=== PATIENT | male | born 1945 | race Caucasian/White ===

== ENCOUNTER → 2020-03-16 11:47 | Outpatient (BNVA) | payer MEDICARE, SELFPAY | PROVIDERS: PCP Internal Medicine; Visit Provider Internal Medicine | DX: I48.0 Paroxysmal atrial fibrillation (principal); Z51.81 Encounter for therapeutic drug level monitoring; Z79.01 Long term (current) use of anticoagulants | CPT/HCPCS: 93793 ==

== ENCOUNTER 2020-03-17 08:41 | Outpatient (REF) | payer MEDICARE, SELFPAY ==
[2020-03-17 10:02] LABS: Basophils Absolute Auto 0.1 X10*3/uL (0.0-0.2); Basophils Percent Auto 0.5 % (0-2); Eosinophils Absolute Auto 0.2 X10*3/uL (0.0-0.4); Eosinophils Percent Auto 2.1 % (0-4); Hematocrit 29.2 % (42-52); Hemoglobin 9.2 g/dl (14.0-18.0); Imm Gran Abs Auto 0.04 X10*3/uL (0.00-0.03); Imm Gran Pct Auto 0.4 % (0.0-0.4); Lymphocytes Absolute Auto 0.4 X10*3/uL (1.2-4.9); Lymphocytes Percent Auto 4.2 % (20-40); MANUAL DIFF FLAG SCAN; Mean Corpuscular HGB Conc 31.5 g/dl (31.0-36.0); Mean Corpuscular Hemoglobin 32.2 pg (27.0-33.0); Mean Corpuscular Volume 102.1 fL (80-98); Mean Platelet Volume 10.1 fL (9.4-12.4); Monocytes Percent Auto 9.5 % (2-11); Neutrophils Absolute Auto 8.5 X10*3/uL (2.0-8.3); Neutrophils Percent Auto 83.3 % (45-73); Platelet Count 376 X10*3/uL (160-400); Red Blood Count 2.86 X10*6/uL (4.60-5.80); SCAN SMEAR FLAG 1; White Blood Count 10.2 X10*3/uL (4.8-10.8)
[2020-03-17 10:26] LABS: Alanine Aminotransferase 17 U/L (0-40); Albumin Level 3.8 g/dL (3.5-5.0); Alkaline Phosphatase 354 U/L (39-117); Anion Gap 10 (12-20); Aspartate Amino Transferase 73 U/L (5-37); Bilirubin Total 0.5 mg/dL (0.0-1.0); Blood Urea Nitrogen 22 mg/dL (9-16); Carbon Dioxide 31 mmol/L (22-29); Chloride 102 mmol/L (96-108); Cholesterol 139 mg/dL; Estimated Glomerular Filt Rate > 60; Glucose Fasting 106 mg/dL (60-99); HDL Cholesterol 44 mg/dL; LDL Cholesterol Calculated 73 mg/dl; Potassium 5.3 mmol/l (3.3-5.1); Sodium 138 mmol/L (135-145); Total Protein 6.3 g/dL (6.5-8.0); Triglycerides 112 mg/dL
[2020-03-17 10:50] LABS: TSH reflex Free T4 6.01 mIU/mL (0.32-4.0)
[2020-03-17 11:01] LABS: Creatinine Urine 56.98 mg/dL
[2020-03-17 11:06] LABS: SLIDE REVIEW VERIFIED
[2020-03-17 11:22] LABS: Glucose Urine UA NEG (NEG); Leukocyte Esterase Urine NEG (NEG); Nitrite Urine NEG (NEG); Urine Blood NEG (NEG); Urine Ketones NEG (NEG); Urine Protein NEG (NEG-TRACE)
[2020-03-17 11:30] LABS: Free T4 (Free Thyroxine) 1.08 ng/dL (0.71-1.85)
[2020-03-17 11:31] LABS: Appearance Urine CLEAR; Color Urine YELLOW
[2020-03-17 12:46] LABS: RBC Urine 0 /HPF (0); WBC Urine 0 /HPF (0-4)
== END 2020-03-17 08:42 | disposition home or self-care (01) ==
LOC: HO.LAB 08:41
PROVIDERS: PCP Internal Medicine; Visit Provider Internal Medicine
DX: I48.0 Paroxysmal atrial fibrillation (principal); E78.00 Pure hypercholesterolemia, unspecified; E11.9 Type 2 diabetes mellitus without complications; I10 Essential (primary) hypertension; E66.3 Overweight
CPT/HCPCS: 36415; 80053; 80061; 81003; 81015; 82043; 84439; 84443; 85025

== ENCOUNTER 2020-03-22 11:04 | Outpatient (REF) | payer MEDICARE, SELFPAY ==
--- NOTE | 2020-03-22 11:18 | XR_ITS ---
EXAMINATION: XR HIP, LEFT CLINICAL INFORMATION: Pain COMPARISON: None TECHNIQUE: Two views of the left hip. FINDINGS: Bone alignment is normal. No fracture or dislocation is seen. The joint space is normal. There are several lucent areas seen, largest in the left inferior pubic ramus near the acetabulum measuring 2 x 3 cm. There are also several small lucent areas seen in the shaft of the left femur on the AP view measuring 6 mm. This may represent osteopenia however is difficult to exclude a lytic bone lesion. There is soft tissue arterial calcification. IMPRESSION: Several lucencies in the bone questionable for osteopenia. It is difficult to exclude a lytic bone lesion. Clinical correlation and correlation with serum calcium level is recommended. Findings could be better evaluated with a skeletal survey. Evidence of atherosclerotic disease.
== END 2020-03-22 11:05 | disposition home or self-care (01) ==
LOC: HO.XRAY 11:04
PROVIDERS: PCP Internal Medicine; Visit Provider Internal Medicine
DX: M25.552 Pain in left hip (principal); Z91.81 History of falling
CPT/HCPCS: 73502

== ENCOUNTER → 2020-03-23 14:05 | Outpatient (BNVA) | payer MEDICARE, SELFPAY | PROVIDERS: PCP Internal Medicine; Referring Provider Internal Medicine; Visit Provider Internal Medicine | DX: I48.0 Paroxysmal atrial fibrillation (principal); Z51.81 Encounter for therapeutic drug level monitoring; Z79.01 Long term (current) use of anticoagulants | CPT/HCPCS: Q3014 ==

== ENCOUNTER 2020-04-01 11:37 | Outpatient (REF) | payer MEDICARE, SELFPAY ==
--- NOTE | 2020-04-01 11:39 | XR_ITS ---
EXAMINATION: XR SKELETAL SURVEY CLINICAL INFORMATION: Osteonecrosis. COMPARISON: Left hip study of 03/22/2020 Chest study of 2018. TECHNIQUE: Bone survey. FINDINGS: Lateral view of the skull does not demonstrate any evidence of abnormal sclerotic or lytic lesions. Pineal calcification present. No evidence of acute sinusitis. PA view of the chest demonstrates region of scarring along the minor fissure. There is no evidence of acute parenchymal disease, pneumothorax, or significant pleural effusion. There is some blunting of the right costophrenic angle likely related to pleural scarring. Dual-chamber pacemaker in place. Status post median sternotomy. No lytic or sclerotic lesion within the bones is appreciated. Aortic valve in place. Lateral view of the cervical spine does not demonstrate any abnormal prevertebral soft tissue swelling. No fracture identified. Disc spaces are generally maintained. No abnormal lytic or sclerotic lesion. 2 views of the thoracic spine do not demonstrate any evidence of abnormal lytic or sclerotic lesions. Pedicles appear intact. Vascular calcifications present. AP and lateral views of the lumbar spine do not demonstrate any evidence of acute fracture. Pedicles intact. No abnormal lytic or sclerotic lesions. Prominent vascular calcifications. There is a grade 2 spondylolisthesis with disc space narrowing at L4-L5 S1. There is a mild grade 1 spondylolisthesis at L4-L5. Sacroiliac joints are unremarkable. AP film of the pelvis demonstrates a lytic lesion without expansion about the lateral left inferior pubic ramus adjacent to the acetabulum measuring approximately 2.4 x 1.8 cm in size. Adjacent medially to this is a sclerotic lesion measuring 2.5 x 2.3 cm in size. No acute fracture or diastases. Sacroiliac joints are unremarkable. This appearance was not present on previous abdominal study of 09/18/[address] abdomen of 05/30/2016. Single view of the right humerus does not demonstrate any suspicious lytic or sclerotic lesions. No evidence of calcific tendinitis. Glenohumeral joint maintained. Single view of the left humerus demonstrates calcific tendinitis. No suspicious lytic or sclerotic lesion is appreciated. Mild degenerative spurring is present about the glenohumeral joint. Single view of the right radius and ulna does not demonstrate any abnormal lytic or sclerotic lesions. Prominent vascular calcifications are present. Single view of the left radius and ulna do not demonstrate any abnormal lytic or sclerotic lesions. Single view of the right femur does not demonstrate any evidence of acute fracture or suspicious lytic or sclerotic lesion. Single view of the left femur does not demonstrate evidence of definite lytic or sclerotic lesion. Single view of the right lower extremity does not demonstrate any evidence of acute fracture, abnormal lytic lesion, or abnormal sclerotic lesion. Single view of the left lower extremity does not demonstrate any evidence of acute fracture, abnormal lytic lesion, or abnormal sclerotic lesion. XR/XR bone survey IMPRESSION: Combination lytic and sclerotic lesions involving the left inferior pubic ramus without other definite abnormal lytic or sclerotic lesion seen within the remainder of the skeleton on this plain film study. MRI would be of help in further characterization of the pelvic lesion.
== END 2020-04-01 11:38 | disposition home or self-care (01) ==
LOC: HO.XRAY 11:37
PROVIDERS: PCP Internal Medicine; Visit Provider Internal Medicine
DX: M87.9 Osteonecrosis, unspecified (principal)
CPT/HCPCS: 77075

== ENCOUNTER 2020-04-16 10:32 | Outpatient (REF) | payer MEDICARE, SELFPAY ==
--- NOTE | 2020-04-16 10:36 | CT_ITS ---
EXAMINATION: CT PELVIS WITHOUT CONTRAST CLINICAL INFORMATION: Osteonecrosis. COMPARISON: 04/01/2020 (bone survey) and CT dated 05/30/2016 TECHNIQUE: Helical scanning was performed with submillimeter collimation through the pelvis. Sagittal and coronal multiplanar 2-D reconstructions were obtained. This CT examination was performed using dose optimization techniques as appropriate, variously including the following: *Automated exposure control *Adjustment of mA and/or kV according to patient size (this includes techniques or standardized protocols for targeted exams where dose is matched to indication/reason for exam; i.e. extremities or head) *Use of iterative reconstruction technique DLP: 363 mGy-cm FINDINGS: At the left ischium, there is a lytic lesion measuring 2.6 x 2.8 x 4 cm (transverse by AP by craniocaudal) which has eroded through much of the lateral cortex. This is ill-defined margins and does not produce significant sclerosis or reactive periostitis. Adjacent lesion is suspected within the left inferior pubic ramus measuring 1.3 x 0.8 x 1.2 cm. No additional lesions are identified. No fracture or malalignment. 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 There is degenerative disc disease in lower lumbar spine at L4-5 and L5-S1 in addition to a prominent facet arthropathy on the right at L4-L5. Calcific atherosclerosis is present in the iliac arteries. No acute soft tissue abnormalities are identified in the pelvis. No adenopathy. CT/CT bony pelvis IMPRESSION: 4 cm lytic lesion in the left ischium. A more subtle adjacent 1.3 cm lesion in the left inferior pubic ramus. Bone biopsy is advised as possible etiologies include multiple myeloma, metastatic disease, and lymphoma.
== END 2020-04-16 10:33 | disposition home or self-care (01) ==
LOC: HO.CT 10:32
PROVIDERS: Visit Provider Internal Medicine
DX: M89.8X5 Other specified disorders of bone, thigh (principal); Q78.2 Osteopetrosis
CPT/HCPCS: 72192

== ENCOUNTER → 2020-04-20 12:07 | Outpatient (BNVA) | payer MEDICARE, SELFPAY | PROVIDERS: PCP Internal Medicine; Visit Provider Internal Medicine | DX: Z76.89 Persons encountering health services in other specified circumstances (principal) ==

== ENCOUNTER 2020-04-28 08:32 | Inpatient (IN) | payer MEDICARE, SELFPAY ==
[2020-04-28] VITALS (11 sets, daily range): BP systolic 161–204; BP diastolic 61–88; PULSE 70–88; RESP 16–20; TEMP 36.2–36.8; O2SAT 93–97; BMI 27.6
--- NOTE | 2020-04-28 08:43 | XR_ITS ---
EXAMINATION: XR CHEST CLINICAL INFORMATION: Shortness of breath COMPARISON: Previous chest x-ray most recent 04/01/2020 TECHNIQUE: Frontal view of the chest was obtained. FINDINGS: The cardiac silhouette is slightly enlarged but stable. There is a left subclavian dual chamber pacemaker. There is a prosthetic heart valve and median sternotomy wires. Hilar and mediastinal contours are unremarkable. There is blunting at the right lateral costophrenic angle suggestive of small right pleural effusion. There is fluid seen in a right pleural fissure. There are slight increased peripheral interstitial markings seen at the lung bases, right greater than left, questionable for mild interstitial pulmonary edema. There is no left pleural effusion. Bony structures are unremarkable. XR/XR chest 1V IMPRESSION: Small right pleural effusion. Question mild interstitial pulmonary edema.
--- NOTE | 2020-04-28 08:45 | ECG_ITS ---
Test Reason : WEAKNESS Blood Pressure : / mmHG Vent. Rate : 073 BPM Atrial Rate : 073 BPM P-R Int : 178 ms QRS Dur : 086 ms QT Int : 412 ms P-R-T Axes : 078 -21 026 degrees QTc Int : 453 ms Normal sinus rhythm Left axis deviation Nonspecific ST abnormality Abnormal ECG When compared with ECG of 02-OCT-2016 09:43, ST now depressed in Lateral leads Referred By: Trev Mackey Electronically Signed By:CHICA CASTELLON MD
--- NOTE | 2020-04-28 08:52 | ED_ITS ---
HPI - SOB/Dyspnea General Chief Complaint: Dyspnea Stated Complaint: SOB X'S 1 DAY,NO OTHER FLU LIKE SYMPTOMS Time Seen by Provider: 04/28/20 08:37 Source: patient Mode of arrival: EMS Limitations: no limitations History of Present Illness HPI Narrative: Patient presents to the ED for shortness of breath for about 2 days. Patient states no fever, chills, coughing, chest pain, or increased swelling of lower extremities. Patient denies any recent trauma to chest. Patient states no night sweats or sensation of food stuck in his throat. Related Data Home Medications Medication Instructions Recorded Confirmed albuterol sulfate 90 mcg/actuation 2 puff INHALATION Q6H PRN 03/22/20 04/27/20 aerosol inhaler aspirin 81 mg tablet,delayed 81 mg PO DAILY 03/22/20 04/27/20 release carbidopa ER 50 mg-levodopa 200 mg 1 tab PO TID 03/22/20 04/27/20 tablet,extended release clotrimazole-betamethasone 1 1 applic TOPICAL BID PRN 03/22/20 04/27/20 %-0.05 % topical cream ferrous sulfate 325 mg (65 mg 325 mg PO DAILY 03/22/20 04/27/20 iron) tablet insulin aspar prot-insulin aspart 18 unit SUBCUT TID 03/22/20 04/27/20 100 unit/mL (70-30) subcutaneous pen insulin aspart U-100 100 unit/mL 18 unit SUBCUT TID ml 03/22/20 04/27/20 (3 mL) subcutaneous pen tiotropium bromide 2.5 2 puff INHALATION DAILY 03/22/20 04/27/20 mcg/actuation mist for inhalation losartan 50 mg PO DAILY 04/28/20 04/28/20 Previous Rx's Medication Instructions Recorded warfarin 5 mg tablet 5 mg PO DAILY #90 tab 03/16/20 diltiazem HCl 180 mg 180 mg PO DAILY 90 Days #90 cap 03/22/20 capsule,extended release 24 hr furosemide 20 mg tablet 40 mg PO DAILY 90 Days #180 tab 03/22/20 insulin detemir U-100 100 unit/mL 35 unit SUBCUT BEDTIME 90 Days 03/22/20 (3 mL) subcutaneous pen #31.5 ml levothyroxine 50 mcg tablet 50 mcg PO DAILY 90 Days #90 tab 03/22/20 pravastatin 40 mg tablet 40 mg PO DAILY 90 Days #90 tab 03/22/20 sotalol 120 mg tablet 120 mg PO BID 90 Days #180 tab 03/22/20 tramadol 50 mg tablet 50 mg PO BEDTIME PRN 10 Days #10 04/21/20 tab oxycodone 5 mg PO Q8H PRN #40 cap 04/27/20 Allergies Allergy/AdvReac Type Severity Reaction Status Date / Time No Known Allergies Allergy Verified 04/20/20 12:08 [No Known Allergies*] Review of Systems Review of Systems: Yes all other systems are reviewed and are negative Constitutional: Constitutional: Reports as per HPI and Reports no additional constitutional complaints Eyes: Eyes: Reports as per HPI and Reports no additional eye complaints ENT: Reports system reviewed and no additional complaints, except as do cumented and Reports as per HPI Cardiovascular: Cardiovascular: Reports as per HPI, Reports no additional cardiovascular complaints, Denies chest pain, Denies chest pain at rest, Denies chest pain with activity and Reports dyspnea Respiratory: Respiratory: Reports as per HPI, Denies cough, Denies hemoptysis and Reports dyspnea Gastrointestinal: Gastrointestinal: Reports as per HPI and Reports no additional gastrointestinal complaints Genitourinary: Genitourinary: Reports no additional male genitourinary complaints and Reports as per HPI Musculoskeletal: Musculoskeletal: Reports no additional musculoskeletal complaints and Reports as per HPI Neurologic: Reports system reviewed and no additional complaints, except as documented and Reports as per HPI Psychiatric: Psychiatric: Reports no additional psychiatric complaints and Reports as per HPI [facility] Past Medical History Medical History (Updated 04/28/20 @ 16:26 by JESI Araiza) Bony sclerosis COPD (chronic obstructive pulmonary disease) Diabetes mellitus Hyperlipidemia Hypertension Hypothyroidism Lytic bone lesion of hip Lytic lesion of bone on x-ray Overweight (BMI 25.0-29.9) Parkinson's disease Paroxysmal atrial fibrillation Pleural effusion, right Surgical History (Updated 04/27/20 @ 11:18 by Kaela Mast MD) History of aortic valve replacement (~11/29/12) History of carpal tunnel release (~06/24/13) Status post anal 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) Family History Family History (Updated 03/22/20 @ 11:20 by Jorge Currie MD) Father Cardiovascular disease Mother Stroke Social History Social History (Updated 03/22/20 @ 11:20 by Jorge Currie MD) Household Members: Spouse Alcohol intake: current Alcohol intake frequency: 0-2 drinks per day Smoking Status: Former smoker Smoked in Last 30 Days: No Use of substances other than those prescribed or required for medical reasons: No Advance Directives: No Advance Directives Information Provided: No Physical Exam Vital Signs: Vital Signs: Last Vital Signs Temp 98.3 F 04/28/20 08:53 Pulse 70 04/28/20 12:23 Resp 16 04/28/20 14:11 BP 204/77 H 04/28/20 14:11 Pulse Ox 94 04/28/20 14:11 Body Mass Index 27.6 Const: General: cooperative, healthy appearing, comfortable, no acute distress, well developed and alert Orientation/consciousness: patient oriented x3 HENMT: Head: Yes normal to inspection and Yes No palpable skull fracture present Eyes: General: appearance normal, both eyes and all related structures Neck: Neck: Yes normal visual inspection, Yes full ROM, Yes no lymphadenopathy, Yes no meningeal signs and Yes trachea midline Chest: Chest palpation & inspection: normal inspection of the chest, normal palpation of entire chest wall and no localized rib tenderness Resp: Effort & Inspection: normal respiratory effort, able to speak in complete sentences, no audible wheezes and no cough Auscultation: clear to auscultation bilaterally, no crackles, no rales, no rhonchi and no wheezes Cardio: Jugular venous distension: no JVD Heart sounds: S1 normal heart sound present and S2 normal heart sound present GI: Inspection: Yes normal to inspection and No abdominal wall ecchymosis Palpation (GI): Soft to palpation, not firm, nontender, no guarding and not rigid : General: No CVA tenderness and Yes no CVA tenderness Back/Spine/Pelvis: Back: no CVA tenderness, No CVA tenderness and No back tenderness Skin: General skin exam: no rashes or lesions noted Neuro: General: patient oriented x3, gait normal, no meningeal signs and CN's II-XI intact bilaterally Cranial nerves: Yes CN's II-XII intact bilaterally Extrem: Other: Lower extremities negative for any swelling, pitting edema, redness, or calf tenderness. Course Course Course Narrative: Upon review of patient's prior notes, patient seen Oncology yesterday for lytic lesions and differential was possible metastatic multiple myeloma. Plan for Dr. Mast was to perform chest CT and abdominal CT. Patient will have basic labs including troponin, BNP, coags, EKG, chest x-ray. Patient also have for COVID swab sent. Most likely was due to patient's chest CT abdominal CT make sure there is no PE and no other metastatic cancer. Also will check for patient's H&H to see there was a drop. Reevaluation(s) Reevaluation #1: Patient presently not any distress. [place] [phone]. Patient's H&H increased from yesterday. No indication for blood transfusion. Albuterol treatment and prednisone ordered. Patient lungs are clear and negative for wheezing but will give meds due to history of COPD. O2 saturation on room air is 96% Time: 11:30 Reevaluation #2: patient's INR elevated. Rectal exam done and guaic stool done. stools black. Patient unaware stool was black and denies any known rectal bleeding. Time: 12:35 Reevaluation #3: patient's guaiac stool came back positive blood. patient's patient's chest CT a and abdominal CT shows possible metastatic cancer with primary source is the liver. Chest CTA also shows small PE. Patient already on Eliquis. Case presented to hospitalist who accepted case. I attempted to contact patient's oncologist Dr. Mast, but could not be reached. Presently vitamin K not indicated as per Dr. Bower. patient is not toxic appearing. Presently contact Cheli does not recommend any anticoagulation since patient already on Eliquis. history physical exam does not indicate COPD exacerbation. Time: 16:06 MDM - SOB/Dyspnea MDM Narrative Medical decision making narrative: PE. Metastatic cancer. Lab Data Result diagrams: 04/28/20 09:36 04/28/20 09:36 Labs: Lab Results 04/28/20 04/28/20 04/28/20 Range/Units 09:36 09:36 09:36 WBC 14.3 H (4.8-10.8) X10*3/uL RBC 2.49 L (4.60-5.80) X10*6/uL Hgb 8.1 L (14.0-18.0) g/dl Hct 25.2 L (42-52) % MCV 101.2 H (80-98) fL MCH 32.5 (27.0-33.0) pg MCHC 32.1 (31.0-36.0) g/dl RDW 13.6 (11.0-16.0) % Plt Count 399 (160-400) X10*3/uL MPV 9.2 L (9.4-12.4) fL Immature Gran % (Auto) 0.8 H (0.0-0.4) % Neut % (Auto) 86.8 H (45-73) % Lymph % (Auto) 3.0 L (20-40) % Angelina % (Auto) 8.0 (2-11) % Eos % (Auto) 1.2 (0-4) % Baso % (Auto) 0.2 (0-2) % Lymph # (Auto) 0.4 L (1.2-4.9) X10*3/uL Angelina # (Auto) 1.1 (0.1-1.2) X10*3/uL Eos # (Auto) 0.2 (0.0-0.4) X10*3/uL Baso # (Auto) 0.0 (0.0-0.2) X10*3/uL Abs Immat Gran (auto) 0.12 H (0.00-0.03) X10*3/uL Absolute Neuts (auto) 12.4 H (2.0-8.3) X10*3/uL Absolute Nucleated RBC 0.000 (0.0-0.012) X10*3/uL Nucleated RBC % (auto) 0.0 (0.0-0.2) /100WBC Smear Tech's Comments VERIFIED PT 62.5 H (10.8-13.0) SEC INR 5.2 H* (0.9-1.1) APTT 50.8 H (24.1-38.0) SEC Sodium 132 L (135-145) mmol/L Potassium 4.9 (3.3-5.1) mmol/l Chloride 98 (96-108) mmol/L Carbon Dioxide 30 H (22-29) mmol/L Anion Gap 9 L (12-20) BUN 22 H (9-16) mg/dL Creatinine 0.95 (0.5-1.4) mg/dL Estim Creat Clear Calc 70.4 Estimated GFR > 60 Random Glucose 143 H D (60-115) mg/dL Lactic Acid (0.5-2.0) mmol/L Calcium 8.5 (8.4-10.2) mg/dL Total Bilirubin 0.6 (0.0-1.0) mg/dL AST 89 H (5-37) U/L ALT 21 (0-40) U/L Alkaline Phosphatase 398 H (39-117) U/L Troponin I High Sens (<3.5-35.0) ng/L B-Natriuretic Peptide (<100) pg/mL Total Protein 6.3 L (6.5-8.0) g/dL Albumin 3.4 L (3.5-5.0) g/dL Stool Occult Blood (NEG) Coronavirus (PCR) (Negative) Influenza Type A (PCR) (Negative) Influenza Type B (PCR) (Negative) RSV RNA Qual (PCR) (Negative) Blood Type Antibody Screen 04/28/20 04/28/20 04/28/20 Range/Units 09:36 09:36 09:36 WBC (4.8-10.8) X10*3/uL RBC (4.60-5.80) X10*6/uL Hgb (14.0-18.0) g/dl Hct (42-52) % MCV (80-98) fL MCH (27.0-33.0) pg MCHC (31.0-36.0) g/dl RDW (11.0-16.0) % Plt Count (160-400) X10*3/uL MPV (9.4-12.4) fL Immature Gran % (Auto) (0.0-0.4) % Neut % (Auto) (45-73) % Lymph % (Auto) (20-40) % Angelina % (Auto) (2-11) % Eos % (Auto) (0-4) % Baso % (Auto) (0-2) % Lymph # (Auto) (1.2-4.9) X10*3/uL Angelina # (Auto) (0.1-1.2) X10*3/uL Eos # (Auto) (0.0-0.4) X10*3/uL Baso # (Auto) (0.0-0.2) X10*3/uL Abs Immat Gran (auto) (0.00-0.03) X10*3/uL Absolute Neuts (auto) (2.0-8.3) X10*3/uL Absolute Nucleated RBC (0.0-0.012) X10*3/uL Nucleated RBC % (auto) (0.0-0.2) /100WBC Smear Tech's Comments PT (10.8-13.0) SEC INR (0.9-1.1) APTT (24.1-38.0) SEC Sodium (135-145) mmol/L Potassium (3.3-5.1) mmol/l Chloride (96-108) mmol/L Carbon Dioxide (22-29) mmol/L Anion Gap (12-20) BUN (9-16) mg/dL Creatinine (0.5-1.4) mg/dL Estim Creat Clear Calc Estimated GFR Random Glucose (60-115) mg/dL Lactic Acid 0.8 (0.5-2.0) mmol/L Calcium (8.4-10.2) mg/dL Total Bilirubin (0.0-1.0) mg/dL AST (5-37) U/L ALT (0-40) U/L Alkaline Phosphatase (39-117) U/L Troponin I High Sens 22.5 (<3.5-35.0) ng/L B-Natriuretic Peptide 588 H (<100) pg/mL Total Protein (6.5-8.0) g/dL Albumin (3.5-5.0) g/dL Stool Occult Blood (NEG) Coronavirus (PCR) NEGATIVE (Negative) Influenza Type A (PCR) NEGATIVE (Negative) Influenza Type B (PCR) NEGATIVE (Negative) RSV RNA Qual (PCR) NEGATIVE (Negative) Blood Type Antibody Screen 04/28/20 04/28/20 Range/Units 11:50 12:37 WBC (4.8-10.8) X10*3/uL RBC (4.60-5.80) X10*6/uL Hgb (14.0-18.0) g/dl Hct (42-52) % MCV (80-98) fL MCH (27.0-33.0) pg MCHC (31.0-36.0) g/dl RDW (11.0-16.0) % Plt Count (160-400) X10*3/uL MPV (9.4-12.4) fL Immature Gran % (Auto) (0.0-0.4) % Neut % (Auto) (45-73) % Lymph % (Auto) (20-40) % Angelina % (Auto) (2-11) % Eos % (Auto) (0-4) % Baso % (Auto) (0-2) % Lymph # (Auto) (1.2-4.9) X10*3/uL Angelina # (Auto) (0.1-1.2) X10*3/uL Eos # (Auto) (0.0-0.4) X10*3/uL Baso # (Auto) (0.0-0.2) X10*3/uL Abs Immat Gran (auto) (0.00-0.03) X10*3/uL Absolute Neuts (auto) (2.0-8.3) X10*3/uL Absolute Nucleated RBC (0.0-0.012) X10*3/uL Nucleated RBC % (auto) (0.0-0.2) /100WBC Smear Tech's Comments PT (10.8-13.0) SEC INR (0.9-1.1) APTT (24.1-38.0) SEC Sodium (135-145) mmol/L Potassium (3.3-5.1) mmol/l Chloride (96-108) mmol/L Carbon Dioxide (22-29) mmol/L Anion Gap (12-20) BUN (9-16) mg/dL Creatinine (0.5-1.4) mg/dL Estim Creat Clear Calc Estimated GFR Random Glucose (60-115) mg/dL Lactic Acid (0.5-2.0) mmol/L Calcium (8.4-10.2) mg/dL Total Bilirubin (0.0-1.0) mg/dL AST (5-37) U/L ALT (0-40) U/L Alkaline Phosphatase (39-117) U/L Troponin I High Sens (<3.5-35.0) ng/L B-Natriuretic Peptide (<100) pg/mL Total Protein (6.5-8.0) g/dL Albumin (3.5-5.0) g/dL Stool Occult Blood POS (NEG) Coronavirus (PCR) (Negative) Influenza Type A (PCR) (Negative) Influenza Type B (PCR) (Negative) RSV RNA Qual (PCR) (Negative) Blood Type O Positive Antibody Screen NEGATIVE ECG Data Interpretation: Normal sinus rhythm. Ventricular rate 73. IN interval 173. QRS duration 86. Negative STEMI Discharge Plan Discharge Clinical Impression: Pulmonary embolism Patient Disposition: Admitted As Inpatient
[2020-04-28 09:45] LABS: Basophils Percent Auto 0.2 % (0-2); Eosinophils Absolute Auto 0.2 X10*3/uL (0.0-0.4); Eosinophils Percent Auto 1.2 % (0-4); Hematocrit 25.2 % (42-52); Hemoglobin 8.1 g/dl (14.0-18.0); Imm Gran Abs Auto 0.12 X10*3/uL (0.00-0.03); Imm Gran Pct Auto 0.8 % (0.0-0.4); Lymphocytes Absolute Auto 0.4 X10*3/uL (1.2-4.9); MANUAL DIFF FLAG SCAN; Mean Corpuscular HGB Conc 32.1 g/dl (31.0-36.0); Mean Corpuscular Hemoglobin 32.5 pg (27.0-33.0); Mean Corpuscular Volume 101.2 fL (80-98); Mean Platelet Volume 9.2 fL (9.4-12.4); Monocytes Absolute Auto 1.1 X10*3/uL (0.1-1.2); Neutrophils Absolute Auto 12.4 X10*3/uL (2.0-8.3); Neutrophils Percent Auto 86.8 % (45-73); Platelet Count 399 X10*3/uL (160-400); Red Blood Count 2.49 X10*6/uL (4.60-5.80); Red Cell Distribution Width 13.6 % (11.0-16.0); SCAN SMEAR FLAG 1; White Blood Count 14.3 X10*3/uL (4.8-10.8)
[2020-04-28 09:54] LABS: Partial Thromboplastin Time 50.8 SEC (24.1-38.0)
[2020-04-28 09:58] LABS: Prothrombin Time 62.5 SEC (10.8-13.0)
[2020-04-28 10:06] LABS: INTERNATIONAL NORM RATIO 5.2 (0.9-1.1)
[2020-04-28 10:12] LABS: B Type Natriuretic Peptide 588 pg/mL (<100); Troponin-I High Sensitivity 22.5 ng/L (<3.5-35.0)
[2020-04-28 10:14] LABS: Alanine Aminotransferase 21 U/L (0-40); Albumin Level 3.4 g/dL (3.5-5.0); Alkaline Phosphatase 398 U/L (39-117); Anion Gap 9 (12-20); Aspartate Amino Transferase 89 U/L (5-37); Bilirubin Total 0.6 mg/dL (0.0-1.0); Blood Urea Nitrogen 22 mg/dL (9-16); Calcium 8.5 mg/dL (8.4-10.2); Carbon Dioxide 30 mmol/L (22-29); Chloride 98 mmol/L (96-108); Creatinine Clr Calc Pharmacy 70.4; Estimated Glomerular Filt Rate > 60; Glucose Random 143 mg/dL (60-115); Potassium 4.9 mmol/l (3.3-5.1); Sodium 132 mmol/L (135-145); Total Protein 6.3 g/dL (6.5-8.0)
[2020-04-28 10:17] LABS: Lactic Acid 0.8 mmol/L (0.5-2.0)
[2020-04-28 10:26] LABS: Influenza A PCR NEGATIVE (Negative); Influenza B PCR NEGATIVE (Negative); Resp Syncy Virus RNA Qual PCR NEGATIVE (Negative); SARS COV2 PCR INHOUSE NEGATIVE (Negative)
[2020-04-28] MEDS: Albuterol/Iprat 2.5/0.5MG 3 ML AMPUL.NEB INHALE (10:28)
[2020-04-28] MEDS: predniSONE 20 MG TABLET 60 MG PO (10:30)
--- NOTE | 2020-04-28 10:30 | CT_ITS ---
EXAMINATION: CT ABDOMEN AND PELVIS WITH CONTRAST CLINICAL INFORMATION: Multiple myeloma, metastatic cancer. COMPARISON: CT scan of the bony pelvis dated 04/16/2020 TECHNIQUE: Multidetector volumetric images were obtained from the superior aspect of the liver through the pubic symphysis following administration 90 mL of Omnipaque 350 intravenous contrast. Sagittal and coronal reformatted images were obtained on the technologist's workstation. Oral contrast: No This CT examination was performed using dose optimization techniques as appropriate, variously including the following: *Automated exposure control *Adjustment of mA and/or kV according to patient size (this includes techniques or standardized protocols for targeted exams where dose is matched to indication/reason for exam; i.e. extremities or head) *Use of iterative reconstruction technique DLP: 632 mGy-cm FINDINGS: LUNG BASES: The report from chest CTA from today for detailed findings. LIVER, GALLBLADDER, AND BILIARY TREE: Hepatic cirrhosis. Ill-defined low-attenuation foci are seen anterolaterally in the superior right hepatic lobe as well as inferiorly in the right hepatic lobe. The gallbladder is minimally distended with moderate mural thickening and several small calculi. No significant intrahepatic biliary ductal dilatation. PANCREAS: Unremarkable. SPLEEN: Punctate calcifications without focal abnormality. ADRENAL GLANDS: Unremarkable. KIDNEYS AND URETERS: Small nonobstructing intrarenal calculi/calcifications bilaterally. A footwear sales representative calculus in the interpolar left kidney measures 0.4 cm (image 93, series 17). No hydroureteronephrosis. BLADDER: Unremarkable. GASTROINTESTINAL TRACT: The stomach is unremarkable. There is a small to moderate-sized second segment duodenal diverticulum medially without surrounding abnormality. The remainder of the small bowel is unremarkable. The appendix and large bowel are unremarkable. ABDOMINAL WALL: No significant hernia is appreciated. PERITONEUM: Mild peritoneal ascites. LYMPH NODES: Enlarged gastrohepatic and retroperitoneal lymph nodes are seen. A footwear sales representative gastrohepatic lymph node measures 1.3 cm in short axis (image 23, series 10). A left intrarenal para-aortic lymph node measures 1.4 cm in short axis (image 94, series 17). VASCULAR: Moderate to severe atherosclerosis without significant ectasia. PELVIC VISCERA: Unremarkable. OSSEOUS STRUCTURES: Again seen is the lytic lesion in the left ischium without significant change. Possible smaller lytic foci are seen in the ischium iliac bones. A lytic lesion is seen in the left aspect of the L1 vertebral body measuring 2.0 cm (image 27, series 10). CT/CT abdomen pelvis w con IMPRESSION: 1. Hepatic cirrhosis. Ill-defined low-attenuation foci in the right lobe are nonspecific. This could represent metastatic disease however primary hepatic malignancy such as cholangiocarcinoma cannot be excluded. Further evaluation with contrast-enhanced abdominal MRI is recommended. 2. Gastrohepatic and retroperitoneal lymphadenopathy coupled with lytic osseous lesions as detailed above are concerning for metastatic disease. Considerations for follow-up include a PET CT scan and bone biopsy as previously suggested. 3. Mild peritoneal ascites. This critical result was discussed with JESI Corona at 1:00 PM on 04/28/2020 and it was ascertained that the content and urgency of the report was understood at the time of direct communication.
--- NOTE | 2020-04-28 10:30 | CT_ITS ---
EXAMINATION: CT ANGIOGRAM OF THE CHEST WITH AND WITHOUT CONTRAST (CT PULMONARY ANGIOGRAM FOR PE) CLINICAL INFORMATION: Reason for Exam SOB. Possible metastatic disease. PE? COMPARISON: None TECHNIQUE: Prior to contrast administration, noncontrast localization images were obtained. Subsequently, multidetector volumetric imaging was performed from the thoracic inlet to below the diaphragms following the administration of 90 mLOmnipaque 350 intravenous contrast. No contrast reaction reported Sagittal, coronal, and MIP oblique sagittal reformatted images were obtained on the CT workstation, uploaded to PACS, and reviewed. This CT examination was performed using dose optimization techniques as appropriate, variously including the following: *Automated exposure control *Adjustment of mA and/or kV according to patient size (this includes techniques or standardized protocols for targeted exams where dose is matched to indication/reason for exam; i.e. extremities or head) *Use of iterative reconstruction technique Total exam dose-length product 392 mGy-cm FINDINGS: QUALITY OF STUDY/CONTRAST BOLUS: Satisfactory. Mild respiratory motion artifact limits pulmonary evaluation. PULMONARY ARTERIES: Several filling defects are seen in the subhepatic submental reactive in the left lower lobe. THORACIC AORTA: Mild to moderate atherosclerosis without significant ectasia. The ascending aorta measures up to 3.8 cm in AP dimension (image 20, series 7). LUNGS/PLEURA/AIRWAYS: Asymmetric interlobular septal thickening is seen in the right lung. There are small bilateral pleural effusions. Mild tracking of pleural fluid is seen in the right major fissure. Atelectasis versus infiltrate is seen inferiorly in the right lower lobe. Mild linear atelectasis versus scarring is seen in the right middle lobe, lingula and lung bases. A nodule seen in the right upper lobe measuring 0.5 cm apices image 32, series 7). A groundglass infiltrate anteriorly in the right upper lobe measures 1.2 cm (image 22, series 7). MEDIASTINUM: The thyroid gland is unremarkable. Moderate to severe coronary artery calcifications are seen. No pericardial effusion. Several enlarged mediastinal lymph nodes are seen. A passenger relations representative right subcarinal lymph node measures 2.1 cm in short axis (image 56, series 11). A precarinal lymph node measures 0.9 cm in short axis (image 27, series 7). CHEST WALL/AXILLA: No axillary or internal mammary lymphadenopathy. OSSEOUS STRUCTURES: No acute or suspicious osseous abnormality. UPPER ABDOMEN: Please refer to the CT scan of the abdomen and pelvis from today for detailed findings. CT/CT angio chest PE protocol IMPRESSION: 1. Multiple filling defects in subsegmental pulmonary artery branches in the left lower lobe consistent with pulmonary emboli. 2. Small bilateral pleural effusions, right greater than left with tracking in the right major fissure. Right lower lobe atelectasis versus infiltrate. Asymmetric right interlobular septal thickening, 0.5 cm right upper lobe nodule and 1.2 cm groundglass infiltrate in the right upper lobe are nonspecific. Enlarged mediastinal lymph nodes are also nonspecific. Short-term follow-up with a chest CT scan in 3 months is recommended. A PET CT scan could also be considered.
[2020-04-28 10:31] LABS: SLIDE REVIEW VERIFIED
[2020-04-28] MEDS: iohexoL 350 MG/ML 100 ML INFUS..BTL IV (12:17)
[2020-04-28 12:47] LABS: OBS1 POS (NEG)
[2020-04-28 12:48] LABS: OBS Int Ctl Valid YES
[2020-04-28] MEDS: Furosemide 40 MG/4 ML VIAL IVPUSH (14:39)
--- NOTE | 2020-04-28 15:54 | P.HPHOSP_ITS ---
History of Present Illness Date of Service: 04/28/20 Chief Complaint: Shortness of breath this is a 74-year-old male who presented to the emergency department with shortness of breath. Patient reports shortness of breath has been ongoing for several weeks. He denies any associated chest pain or dizziness. had been complaining of left hip pain and had an x-ray on 03/22/2020 which revealed possible lytic bone lesion followed by pelvis CT on 04/16 which showed 4 cm lytic lesion in the left ischium. He was referred to Dr. Mast for further workup. He was evaluated in her office yesterday with plan for further lab work and imaging to determine primary malignancy for his metastatic lytic lesion. Considerations included primary prostate versus lung in less likely GI or multiple myeloma. today he presented to the emergency department with shortness of breath and underwent a CTA which showed multiple filling defects consistent with pulmonary emboli. Patient is on Coumadin for atrial fibrillation and mechanical aortic valve. His INR was elevated at 5.2. Therefore stool occult was checked and noted to be positive with black stools. Patient denies noticing any black or bloody stools. H/ H was 8.1/25.2 which seems to be trending down slowly in the past 6 months or so. For these reasons the decision was made to admit him for further management. Review of Systems Review of Systems: Yes all other systems are reviewed and are negative Constitutional: Constitutional: Denies chills and Denies fever(s) Cardiovascular: Cardiovascular: Denies chest pain and Reports dyspnea Respiratory: Respiratory: Denies cough and Reports dyspnea Gastrointestinal: Gastrointestinal: Denies abdominal pain [facility] Medical History (Updated 04/28/20 @ 16:26 by JESI Araiza) Bony sclerosis COPD (chronic obstructive pulmonary disease) Diabetes mellitus Hyperlipidemia Hypertension Hypothyroidism Lytic bone lesion of hip Lytic lesion of bone on x-ray Overweight (BMI 25.0-29.9) Parkinson's disease Paroxysmal atrial fibrillation Pleural effusion, right Family History Father Cardiovascular disease Mother Stroke Surgical History History of aortic valve replacement (~11/29/12) History of carpal tunnel release (~06/24/13) Status post anal 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) Social History (Updated 04/28/20 @ 16:11 by JESI House) Household Members: Spouse Alcohol intake: current Alcohol intake frequency: 0-2 drinks per day Smoking Status: Former smoker Smoked in Last 30 Days: No Use of substances other than those prescribed or required for medical reasons: No Advance Directives: No Advance Directives Information Provided: No Meds Allergies Allergy/AdvReac Type Severity Reaction Status Date / Time No Known Allergies Allergy Verified 04/20/20 12:08 [No Known Allergies*] Home Medications Medication Instructions Recorded Confirmed Type albuterol sulfate 90 mcg/actuation 2 puff INHALATION Q6H PRN 03/22/20 04/28/20 History aerosol inhaler aspirin 81 mg tablet,delayed 81 mg PO DAILY 03/22/20 04/28/20 History release ferrous sulfate 325 mg (65 mg 325 mg PO DAILY 03/22/20 04/28/20 History iron) tablet insulin aspart U-100 100 unit/mL 18 unit SUBCUT TID ml 03/22/20 04/28/20 History (3 mL) subcutaneous pen tiotropium bromide 2.5 2 puff INHALATION DAILY 03/22/20 04/28/20 History mcg/actuation mist for inhalation carbidopa-levodopa 1 tab PO TID 04/28/20 04/28/20 History losartan 50 mg PO DAILY 04/28/20 04/28/20 History Physical Exam Vital Signs and Narrative: Vital Signs: Last Vital Signs Temp 98.3 F 04/28/20 08:53 Pulse 70 04/28/20 12:23 Resp 16 04/28/20 14:11 BP 204/77 H 04/28/20 14:11 Pulse Ox 94 04/28/20 14:11 Body Mass Index 27.6 Const: Nutritional Appearance: well nourished Orientation/consciousness: patient oriented x3 HENMT: Head: Yes normocephalic and Yes atraumatic Eyes: Sclerae: sclerae normal Chest: Chest palpation & inspection: normal inspection of the chest Resp: Effort & Inspection: normal respiratory effort and no respiratory distress Auscultation: clear to auscultation bilaterally Cardio: Rate: regular rate Rhythm: regular rhythm Heart sounds: Abnormal heart opening sounds (click, mechanical aortic) GI: Palpation (GI): Soft to palpation and nontender Skin: General skin exam: no rashes or lesions noted Neuro: Other: resting tremor most severe RUE General: patient oriented x3 Cranial nerves: Yes CN's II-XII intact bilaterally and Yes Bilaterally intact EOM present Extrem: General: Yes normal to inspection Results Labs CBC and Chem 7: 04/28/20 09:36 04/28/20 09:36 Labs: Laboratory Results - last 24 hr 04/28/20 04/28/20 04/28/20 09:36 09:36 09:36 MCV 101.2 H MCH 32.5 MCHC 32.1 RDW 13.6 Plt Count 399 MPV 9.2 L Immature Gran % (Auto) 0.8 H Neut % (Auto) 86.8 H Lymph % (Auto) 3.0 L [place] % (Auto) 8.0 Eos % (Auto) 1.2 Baso % (Auto) 0.2 Lymph # (Auto) 0.4 L [place] # (Auto) 1.1 Eos # (Auto) 0.2 Baso # (Auto) 0.0 Abs Immat Gran (auto) 0.12 H Absolute Neuts (auto) 12.4 H Absolute Nucleated RBC 0.000 Nucleated RBC % (auto) 0.0 Smear Tech's Comments VERIFIED PT 62.5 H INR 5.2 H* APTT 50.8 H Anion Gap 9 L Estim Creat Clear Calc 70.4 Estimated GFR > 60 Random Glucose 143 H D Lactic Acid Calcium 8.5 Total Bilirubin 0.6 AST 89 H ALT 21 Alkaline Phosphatase 398 H Troponin I High Sens B-Natriuretic Peptide Total Protein 6.3 L Albumin 3.4 L Stool Occult Blood Coronavirus (PCR) Influenza Type A (PCR) Influenza Type B (PCR) RSV RNA Qual (PCR) Blood Type Antibody Screen 04/28/20 04/28/20 04/28/20 09:36 09:36 09:36 MCV MCH MCHC RDW Plt Count MPV Immature Gran % (Auto) Neut % (Auto) Lymph % (Auto) [place] % (Auto) Eos % (Auto) Baso % (Auto) Lymph # (Auto) [place] # (Auto) Eos # (Auto) Baso # (Auto) Abs Immat Gran (auto) Absolute Neuts (auto) Absolute Nucleated RBC Nucleated RBC % (auto) Smear Tech's Comments PT INR APTT Anion Gap Estim Creat Clear Calc Estimated GFR Random Glucose Lactic Acid 0.8 Calcium Total Bilirubin AST ALT Alkaline Phosphatase Troponin I High Sens 22.5 B-Natriuretic Peptide 588 H Total Protein Albumin Stool Occult Blood Coronavirus (PCR) NEGATIVE Influenza Type A (PCR) NEGATIVE Influenza Type B (PCR) NEGATIVE RSV RNA Qual (PCR) NEGATIVE Blood Type Antibody Screen 04/28/20 04/28/20 11:50 12:37 MCV MCH MCHC RDW Plt Count MPV Immature Gran % (Auto) Neut % (Auto) Lymph % (Auto) [place] % (Auto) Eos % (Auto) Baso % (Auto) Lymph # (Auto) [place] # (Auto) Eos # (Auto) Baso # (Auto) Abs Immat Gran (auto) Absolute Neuts (auto) Absolute Nucleated RBC Nucleated RBC % (auto) Smear Tech's Comments PT INR APTT Anion Gap Estim Creat Clear Calc Estimated GFR Random Glucose Lactic Acid Calcium Total Bilirubin AST ALT Alkaline Phosphatase Troponin I High Sens B-Natriuretic Peptide Total Protein Albumin Stool Occult Blood POS Coronavirus (PCR) Influenza Type A (PCR) Influenza Type B (PCR) RSV RNA Qual (PCR) Blood Type O Positive Antibody Screen NEGATIVE Imaging Radiologist's Impressions: Impressions Chest X-Ray 04/28/20 08:43 IMPRESSION: Small right pleural effusion. Question mild interstitial pulmonary edema. Abdomen/Pelvis CT 04/28/20 10:30 IMPRESSION: 1. Hepatic cirrhosis. Ill-defined low-attenuation foci in the right lobe are nonspecific. This could represent metastatic disease however primary hepatic malignancy such as cholangiocarcinoma cannot be excluded. Further evaluation with contrast-enhanced abdominal MRI is recommended. 2. Gastrohepatic and retroperitoneal lymphadenopathy coupled with lytic osseous lesions as detailed above are concerning for metastatic disease. Considerations for follow-up include a PET CT scan and bone biopsy as previously suggested. 3. Mild peritoneal ascites. This critical result was discussed with JESI Corona at 1:00 PM on 04/28/2020 and it was ascertained that the content and urgency of the report was understood at the time of direct communication. Chest CTA 04/28/20 10:30 IMPRESSION: 1. Multiple filling defects in subsegmental pulmonary artery branches in the left lower lobe consistent with pulmonary emboli. 2. Small bilateral pleural effusions, right greater than left with tracking in the right major fissure. Right lower lobe atelectasis versus infiltrate. Asymmetric right interlobular septal thickening, 0.5 cm right upper lobe nodule and 1.2 cm groundglass infiltrate in the right upper lobe are nonspecific. Enlarged mediastinal lymph nodes are also nonspecific. Short-term follow-up with a chest CT scan in 3 months is recommended. A PET CT scan could also be considered. 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 PE already anticoagulated with Coumadin, INR supratherapeutic at 5.2 given likely malignancy ?change anticoagulation to Lovenox - will consult Oncology to help direct further management Lytic bone lesion ?primary CT abdomen with liver lesion ?primary vs metastatic, can not rule out cholangiocarcinoma - oncology consult Heme + stool in the setting of supratherapeutic INR - hold Coumadin, until INR 3 given aortic mechanical valve. follow INR daily - no vitamin K given due mechanical valve - GI consult - follow CBC -will transfuse 1 unit anemia acute on chronic Has been trending down over time Follow CBC, hematology consult diabetes -SSI,POCs - continue formulary equivalent for home insulin mild hyponatremia, sodium 132 follow BMP daily alcohol use no evidence of alcohol withdrawal at this time cat scan showing hepatic cirrhosis - CIWA Parkinson's disease continue Sinemet atrial fibrillation rate controlled. continue diltiazem, sotalol anticoagulation with Coumadin diastolic CHF got 1 dose of Lasix in the ED, will order additional dose afer transfusion continue home dose of Lasix hypertension continue home losartan HLD continue statin hip pain continue home oxycodone, tramadol DVT prophylaxis- coumadin code status- DNR this case was discussed with Dr. Bryant
--- NOTE | 2020-04-28 16:55 | PM.EVENT ---
Event Note Date of Service: 04/28/20 Event Note: Addendum to H and P by Mid-level Provider I saw and examined the patient and participated in the soria portion of the E/M service. I agree with the history and exam as documented by ??. Patient likely has .... Will admit for ..... and work up. Otherwise, I agree with assessment and plan as outlined in the H and P.
--- NOTE | 2020-04-28 17:06 | PC.NURSE ---
REPORT GIVEN TO RN IN [facility].
[2020-04-28 17:53] LABS: Glucose, Whole Blood 265 mg/dL (60-115)
[2020-04-28] MEDS: 0.9 % Sodium Chloride Flush 3 ML SYRINGE IVFLUSH (18:43)
[2020-04-28] MEDS: Insulin Lispro 100 UNIT/ML 3 ML VIAL SUBCUT ×2 (18:44→22:17)
[2020-04-28] MEDS: dilTIAZem HCL CD 180 MG CAP.ER.24H PO (19:05)
[2020-04-28] MEDS: Losartan Potassium 50 MG TABLET PO (19:05)
--- NOTE | 2020-04-28 19:07 | PC.NURSE ---
Addendum entered by Shelbie Hollis RN 04/28/20 22:30: e-BP 181/88 ,pulse 84,patient has no complaints Original Note: P-BP elevated on admission 190/79,pulse 83 I-Dr. yuen notified,ok to adm daily dose of Losartan and Cardizem,patient states he did not take his meds in am e-will monitor
[2020-04-28 21:53] LABS: Glucose, Whole Blood 372 mg/dL (60-115)
[2020-04-28] MEDS: Insulin Glargine,Hum.rec.anlog 100 UNIT/ML 10 ML VIAL 24 UNIT SUBCUT (22:16)
[2020-04-28] MEDS: Sotalol HCL 80 MG TABLET 120 MG PO (22:18)
[2020-04-28] MEDS: Carbidopa/Levodopa CR 50/200 TABLET.ER 1 TAB PO (22:18)
--- NOTE | 2020-04-28 22:31 | PC.NURSE ---
P-BS 372 I- notified e-insulin administered as ordered
[2020-04-29] VITALS (10 sets, daily range): BP systolic 140–190; BP diastolic 55–84; PULSE 62–81; RESP 18–20; TEMP 36–36.9; O2SAT 95–99
--- NOTE | 2020-04-29 | US_ITS ---
EXAMINATION: US VENOUS ULTRASOUND WITH DOPPLER LOWER EXTREMITY, BILATERAL CLINICAL INFORMATION: Evaluate pulmonary embolism. COMPARISON: None TECHNIQUE: Ultrasound of the deep veins is performed from the hip to the calf with compression sonography and color and pulse Doppler assessment. Spectral analysis with color-flow imaging is performed. FINDINGS: RIGHT: There is normal venous compression and respiratory variation and augmented flow. The visualized common femoral vein, superficial femoral vein, profunda femoral vein, popliteal vein, and the trifurcation region shows no evidence of deep venous thrombosis. There is no significant popliteal fossa cyst. LEFT: There is normal venous compression and respiratory variation and augmented flow. The visualized common femoral vein, superficial femoral vein, profunda femoral vein, popliteal vein, and the trifurcation region shows no evidence of deep venous thrombosis. There is no significant popliteal fossa cyst. If the patient's symptoms persist, followup ultrasound in 5 days 7 days might be of value to exclude proximal propagation from a non-visualized calf vein. US/US venous duplex LE BI IMPRESSION: No DVT demonstrated in both lower extremities.
[2020-04-29] MEDS: 0.9 % Sodium Chloride Flush 3 ML SYRINGE IVFLUSH ×3 (00:49→17:16)
--- NOTE | 2020-04-29 06:00 | PC.NURSE ---
was noted on this patient during shift report with 3-11 RN that earlier in the day a post was made for type and screen and 1 unit RBC's. In report Rn stated blood transfusion not given and was okay by hospitalist on duty at that time, Dr. Bryant, therefore, she did not give the ordered lasix for when transfusion completed. she explained where on the status board it would indicate still to be done under the care section; this Rn is a expanse super user so her guidance was appreciated. to double check the order was shown to the nursing watch manufacturing supervisor, [facility] RN, and resource nurse. all notes by MD and Pa read and nursing watch manufacturing supervisor said to write to the hospitalist to see if any information known. Explanation sent to on duty hospitalist during this 11-7 shift to see if he could clarify not to transfuse, but also that order was entered during 3-7 shift at approx., 1150. He stated that he did not get report of anyone receiving blood so probably not. Noted that oncology on board with this patient also and one section of progress note did indicate although HH low was slightly increased. patient alert, slept well, offered no complaints, vss, lung parrish dim, and slept well with no s/sx resp distress and stated dyspnea was better and not sob walking with assist to bathroom as per patient. will continue to monitor closely.
[2020-04-29 06:55] LABS: Basophils Percent Auto 0.2 % (0-2); Hematocrit 21.9 % (42-52); Hemoglobin 7.2 g/dl (14.0-18.0); Imm Gran Abs Auto 0.09 X10*3/uL (0.00-0.03); Imm Gran Pct Auto 0.6 % (0.0-0.4); Lymphocytes Absolute Auto 0.5 X10*3/uL (1.2-4.9); Lymphocytes Percent Auto 3.3 % (20-40); MANUAL DIFF FLAG SCAN; Mean Corpuscular HGB Conc 32.9 g/dl (31.0-36.0); Mean Corpuscular Hemoglobin 33.2 pg (27.0-33.0); Mean Corpuscular Volume 100.9 fL (80-98); Mean Platelet Volume 9.8 fL (9.4-12.4); Monocytes Absolute Auto 1.4 X10*3/uL (0.1-1.2); Monocytes Percent Auto 8.9 % (2-11); Neutrophils Absolute Auto 13.4 X10*3/uL (2.0-8.3); Platelet Count 387 X10*3/uL (160-400); Red Blood Count 2.17 X10*6/uL (4.60-5.80); Red Cell Distribution Width 13.7 % (11.0-16.0); SCAN SMEAR FLAG 1; White Blood Count 15.4 X10*3/uL (4.8-10.8)
[2020-04-29 07:10] LABS: Glucose, Whole Blood 269 mg/dL (60-115)
[2020-04-29 07:12] LABS: INTERNATIONAL NORM RATIO 3.8 (0.9-1.1); Prothrombin Time 45.6 SEC (10.8-13.0)
[2020-04-29 07:41] LABS: Anion Gap 12 (12-20); Blood Urea Nitrogen 35 mg/dL (9-16); Calcium 8.2 mg/dL (8.4-10.2); Carbon Dioxide 28 mmol/L (22-29); Chloride 96 mmol/L (96-108); Creatinine Clr Calc Pharmacy 55.7; Estimated Glomerular Filt Rate 59; Glucose Random 294 mg/dL (60-115); Potassium 5.6 mmol/l (3.3-5.1); Sodium 130 mmol/L (135-145)
[2020-04-29 07:50] LABS: SLIDE REVIEW VERIFIED
[2020-04-29] MEDS: Insulin Lispro 100 UNIT/ML 3 ML VIAL SUBCUT ×4 (10:09→20:51)
--- NOTE | 2020-04-29 10:09 | PM.EVENT ---
Event Note Date of Service: 04/29/20 Event Note: GI consult dictated Anemia/heme positive stools No sign of active gi bleeding. Will benefit from transfusion. Empiric omeprazole ordered for any component of gastritis Continue eval for underlying malignancy.
[2020-04-29] MEDS: dilTIAZem HCL CD 180 MG CAP.ER.24H PO (10:10)
[2020-04-29] MEDS: Sotalol HCL 80 MG TABLET 120 MG PO ×2 (10:10→20:51)
[2020-04-29] MEDS: Sodium Polystyrene Sulfon/Sorb 15 GM/60 ML ORAL.SUSP 30 GM PO (10:11)
[2020-04-29] MEDS: Carbidopa/Levodopa CR 50/200 TABLET.ER 1 TAB PO ×3 (10:11→20:51)
[2020-04-29] MEDS: Ferrous Sulfate 324 MG TABLET.DR PO (10:11)
[2020-04-29] MEDS: Pravastatin Sodium 40 MG TABLET PO (10:11)
[2020-04-29] MEDS: Levothyroxine Sodium 50 MCG TABLET PO (10:11)
[2020-04-29] MEDS: Furosemide 40 MG TABLET PO (10:11)
[2020-04-29] MEDS: Losartan Potassium 50 MG TABLET PO (10:11)
--- NOTE | 2020-04-29 10:20 | MHC.CM.PN ---
CM met with patient at the bedside who reports he is independent but uses a cane occasionally. Patient lives with who is able to assist him if needed. Patient states he has a HCP, copy requested. Discussed discharge plan, home no services. will provide transportation. CM will continue to follow patient for discharge needs.
[2020-04-29] MEDS: Omeprazole 20 MG CAPSULE.DR PO (10:48)
--- NOTE | 2020-04-29 10:56 | CONS_ITS ---
DATE OF SERVICE: 04/29/2020 REFERRING PHYSICIAN: Addison Bryant MD REASON FOR CONSULTATION: Anemia and Hemoccult-positive stools. HISTORY OF PRESENT ILLNESS: The patient is a 74-year-old man known to me from prior evaluation, who was admitted to the hospital after complaining of shortness of breath. He had recently been evaluated because of left hip pain and found to have a lytic bone lesion in the left ischium. He was seen as an outpatient by Dr. Mast and was noted to be anemic. Transfusion was planned as an outpatient. Because of worsening shortness of breath, he presented to the emergency room yesterday and was evaluated. His hematocrit was stable. Stools were positive for occult blood and he was evaluated with CT angiography, which showed filling defects consistent with pulmonary emboli. He was actually previously anticoagulated because of the mechanical aortic valve and INR was supratherapeutic at 5.2. The patient denies any abdominal pain. He has had a good appetite. He has no upper GI symptoms. He did undergo colonoscopy in 2013 because of rectal bleeding, which showed a 5 mm AVM in the cecum. He is on iron supplementation and reports some constipation and was noted to have black stool in the emergency department. PAST MEDICAL HISTORY: 1. Parkinson's disease. 2. Atrial fibrillation. 3. Valvular heart disease with aortic valve replacement with mechanical valve. 4. Hypertension. 5. Hyperlipidemia. 6. Diabetes. 7. Hypothyroidism. 8. COPD. CURRENT MEDICATIONS: Current medication list is reviewed in the chart. ALLERGIES: THERE ARE NONE REPORTED. PAST SURGICAL HISTORY: Includes the aortic valve replacement, carpal tunnel surgery, pacemaker placement, and anal fissure surgery. SOCIAL HISTORY: There is no current tobacco, alcohol, or substance abuse. FAMILY HISTORY: Noncontributory. REVIEW OF SYSTEMS: SKIN: No pruritus. HEENT: Negative. CARDIOPULMONARY: He denies shortness of breath currently. GASTROINTESTINAL: As above. GENITOURINARY: Negative. NEUROPSYCHIATRIC: Negative. PHYSICAL EXAMINATION: GENERAL: Shows pleasant male, lying comfortably in bed. VITAL SIGNS: Reviewed in the electronic medical record and are stable. SKIN: Pale. HEENT: Shows no scleral icterus. NECK: Without lymphadenopathy or thyromegaly. LUNGS: Clear. HEART: Shows an irregular S1 and S2 with mechanical bowel sounds. ABDOMEN: Soft without focal masses or tenderness. Bowel sounds present. No organomegaly is noted. EXTREMITIES: Without edema. LABORATORY DATA: Shows a white blood cell count of 15.4 and hematocrit 21.9 down from 25.2 yesterday, there has been no reported bleeding. INR this morning is 3.8. Chemistries show hyponatremia to 130 with an elevated potassium this morning 5.6. CT scanning is reviewed. This shows the changes consistent with pulmonary emboli on his CT angiography of the chest. CT scan of the abdomen and pelvis raises suspicion of malignancy with lymphadenopathy in the gastrohepatic and retroperitoneal area. The liver is noted to be cirrhotic with low-attenuation foci anterolaterally and in the superior right hepatic lobe as well as inferiorly in the right hepatic lobe. IMPRESSION: Anemia with Hemoccult-positive stools. He does not appear to have any active GI bleeding at this time. His black stools are likely from iron. He will likely benefit from blood transfusion, this has been ordered. I would recommend empiric coverage with omeprazole 20 mg daily for any possible component of gastritis and I would recommend keeping his INR in the therapeutic range. I do not think he needs endoscopy at this time. Thanks for asking me to see him. I will follow him in the hospital with you. MD ANANDA Mota/JORDYN / [phone]
[2020-04-29 11:28] LABS: Glucose, Whole Blood 301 mg/dL (60-115)
--- NOTE | 2020-04-29 11:58 | P.CDIC_ITS ---
CDI Concurrent Query Service Date: 04/29/20 Documentation Clarification: Please clarify if you are treating a proba ble/suspected/likely or confirmed: Acute Blood Loss Anemia Iron Deficiency Anemia Other Anemia, please specify Provider Response: Other Other Diagnosis: Symptomatic anemia, blood loss anemia of unclear duration PLEASE DO NOT DELETE/MODIFY EXISTING CONTENT Additional information is needed in order to code to the highest accuracy and appropriate Severity of Illness (SOI). Please clarify the information noted below in your progress notes and discharge summary. Risk Factors/Clinical Indicators/Treatments 74 year old male admitted with dyspnea, black stool, guiac + H/H 8.1/25.2 INR 5.2 supratherapeutic per H&P Transfusion of 1 unit blood received PMH: Lytic bone lesion and CT showed possible metastatic CA and PE GI consult: Anemia, no signs of active GI bleed, empiric Omeprazole for gastritis, evaluate malignancy. No endoscopy CDS: Teressa Nathan RN Contact Number: [phone] Please Review the information above and exercise your independent professional judgment in responding to the query. If you concur, pleas document in the PROGRESS NOTES and DISCHARGE SUMMARY. If you do not agree with the query, please document in the query above. THIS QUERY IS PART OF THE PERMANENT MEDICAL RECORD
[2020-04-29] MEDS: Enoxaparin Sodium 100 MG/ML SYRINGE 90 MG SUBCUT (13:36)
--- NOTE | 2020-04-29 15:37 | P.CNHO_ITS ---
Subjective - Subjective Chief complaint: consult for: PE. lytic hip lesion. Patient: known to practice within the last 3 years Consult date: 04/29/20 Primary Care Provider: Jorge Currie MD HPI - Consult Narrative Reason for consult: consult for PE. Narrative: Marciano Washington is a pleasant unfortunate 74 year old gentleman with a recent diagnosis of lytic bone lesion in the left pelvis. He was seen on Sunday, noted to be anemic and given a couple of units of blood. He presented to the emergency department yesterday, with shortness of breath. He reported shortness of breath ongoing for several weeks. He denies any associated chest pain or dizziness. He underwent a CTA: which showed multiple filling defects consistent with pulmo nary emboli. Patient is on Coumadin for atrial fibrillation and mechanical aortic valve. His INR was elevated at 5.2. Therefore stool occult was checked and noted to be positive with black st ools. He denied noticing any black or bloody stools. H/ H was 8.1/ 25.2 which seems to be trending down slowly in the past 6 months or so. He had been complaining of left hip pain and had an x-ray on 03/22/2020 which revealed possible lytic bone lesion followed by pelvis CT on 04/16 which showed 4 cm lytic lesion in the left ischium. Considerations included primary prostate versus lung in less likely GI or multiple myeloma. Review of Systems - Constitutional Reports body ache(s), Reports fatigue, Reports lack of energy, Reports malaise, Reports weakness, Reports weight loss, Denies fever(s), Denies weight gain - Eyes Denies blurry vision - ENT Reports system reviewed and no additional complaints, except as documented - Cardiovascular Denies chest pain at rest - Respiratory Denies chest congestion - Gastrointestinal Denies abdominal pain, Denies diarrhea - Genitourinary Genitourinary: Denies blood in urine - Musculoskeletal Reports joint pain, Denies back pain Comments: left hip pain - Integumentary/Breasts Skin/Breast: Denies bleeding lesions - Neurologic Reports system reviewed and no additional complaints, except as documented - Psychiatric Reports anxiety - Endocrine Denies cold intolerance - Hematologic/Lymphatic Reports easy bleeding - Allergic/Immunologic Denies GI upset with certain foods PMFSH Medical History: Medical History (Last Updated 04/28/20 @ 16:10 by [facility]) Bony sclerosis COPD (chronic obstructive pulmonary disease) Diabetes mellitus Hyperlipidemia Hypertension Hypothyroidism Lytic bone lesion of hip Lytic lesion of bone on x-ray Overweight (BMI 25.0-29.9) Parkinson's disease Paroxysmal atrial fibrillation Pleural effusion, right Functional capacity: wheelchair bound Patient : No Family History: Family History (Last Reviewed 04/28/20 @ 16:10 by [facility]) Father Cardiovascular disease Mother Stroke Surgical History: Surgical History (Last Reviewed 04/28/20 @ 16:10 by [facility]) History of aortic valve replacement Onset Date: ~11/29/12 History of carpal tunnel release Onset Date: ~06/24/13 Status post anal fissurectomy Status post biventricular cardiac pacemaker insertion Onset Date: ~2004 Smoking status: Former smoker Home Medications and Allergies Current Medications: Current Medications Generic Name Dose Route Start Last Admin Trade Name Freq PRN Reason Stop Dose Admin Acetaminophen 650 mg 04/28/20 17:28 Acetaminophen 325 Mg Tablet PO Q6H PRN Pain, Mild (Pain Scale 1-3) Albuterol Sulfate 2 puff 04/28/20 17:10 Albuterol Sulfate 90 Mcg 8 Gm Inhaler INHALE Q6H PRN Shortness Of Breath Or Wheezing Amlodipine Besylate 5 mg 04/29/20 15:40 Amlodipine Besylate 5 Mg Tablet PO DAILY [facility] Protocol Carbidopa/Levodopa 1 tab 04/28/20 21:00 04/29/20 10:11 Carbidopa/Levodopa Cr 50/200 Tablet.Er PO 1 tab TID [facility] Administration Diltiazem HCl 180 mg 04/29/20 09:00 04/29/20 10:10 Diltiazem Hcl Cd 180 Mg Cap.Er.24h PO 180 mg DAILY [facility] Administration Protocol Docusate Sodium 100 mg 04/28/20 17:28 Docusate Sodium 100 Mg Capsule PO DAILY PRN Constipation Enoxaparin Sodium 90 mg 04/29/20 12:00 04/29/20 13:36 Enoxaparin Sodium 100 Mg/Ml Syringe SUBCUT 90 mg Q12H [facility] Administration Ferrous Sulfate 324 mg 04/29/20 09:00 04/29/20 10:11 Ferrous Sulfate 324 Mg Tablet.Dr PO 324 mg DAILY [facility] Administration Furosemide 40 mg 04/29/20 09:00 04/29/20 10:11 Furosemide 40 Mg Tablet PO 40 mg DAILY [facility] Administration Protocol Insulin Glargine 24 unit 04/28/20 21:00 04/28/20 22:16 Insulin Glargine,Hum.Rec.Anlog 100 Unit/Ml 10 Ml Vial SUBCUT 24 unit BEDTIME [facility] Administration Insulin Human Lispro 0 unit 04/28/20 16:30 04/29/20 13:36 Insulin Lispro 100 Unit/Ml 3 Ml Vial SUBCUT 8 unit QIDACHS [facility] Administration Protocol Levothyroxine Sodium 50 mcg 04/29/20 09:00 04/29/20 10:11 Levothyroxine Sodium 50 Mcg Tablet PO 50 mcg DAILY [facility] Administration Losartan Potassium 50 mg 04/29/20 09:00 04/29/20 10:11 Losartan Potassium 50 Mg Tablet PO 50 mg DAILY [facility] Administration Protocol Omeprazole 20 mg 04/29/20 10:15 04/29/20 10:48 Omeprazole 20 Mg Capsule.Dr PO 20 mg DAILY@0630 [facility] Administration Ondansetron HCl 4 mg 04/28/20 17:28 Ondansetron Hcl 4 Mg/2 Ml Vial IVPUSH Q8H PRN Nausea and Vomiting Oxycodone HCl 5 mg 04/28/20 17:10 Oxycodone Hcl Immed Release 5 Mg Tablet PO Q8H PRN Pain, Moderate (Pain Scale 4-6 Pravastatin Sodium 40 mg 04/29/20 09:00 04/29/20 10:11 Pravastatin Sodium 40 Mg Tablet PO 40 mg DAILY [facility] Administration Sodium Chloride 3 ml 04/28/20 17:28 04/29/20 10:10 0.9 % Sodium Chloride Flush 3 Ml Syringe IVFLUSH 3 ml QSHIFT [facility] Administration Sotalol HCl 120 mg 04/28/20 21:00 04/29/20 10:10 Sotalol Hcl 80 Mg Tablet PO 120 mg BID [facility] Administration Tiotropium Strong 2 puff 04/29/20 08:00 Tiotropium Strong 18 Mcg Cap.W.Dev INHALE RDAILY [facility] Tramadol HCl 50 mg 04/28/20 17:10 Tramadol Hcl 50 Mg Tablet PO BEDTIME PRN Pain, Mild (Pain Scale 1-3) Home Medications Medication Instructions Recorded Confirmed Type albuterol sulfate 90 mcg/actuation 2 puff INHALATION Q6H PRN 03/22/20 04/28/20 History aerosol inhaler aspirin 81 mg tablet,delayed 81 mg PO DAILY 03/22/20 04/28/20 History release ferrous sulfate 325 mg (65 mg 325 mg PO DAILY 03/22/20 04/28/20 History iron) tablet insulin aspart U-100 100 unit/mL 18 unit SUBCUT TID ml 03/22/20 04/28/20 History (3 mL) subcutaneous pen tiotropium bromide 2.5 2 puff INHALATION DAILY 03/22/20 04/28/20 History mcg/actuation mist for inhalation carbidopa-levodopa 1 tab PO TID 04/28/20 04/28/20 History losartan 50 mg PO DAILY 04/28/20 04/28/20 History Allergies Allergy/AdvReac Type Severity Reaction Status Date / Time No Known Allergies Allergy Verified 04/20/20 12:08 [No Known Allergies*] Physical Exam Vital signs: Vital Signs Temp 97.9 F 04/29/20 15:15 Pulse 75 04/29/20 15:15 Resp 20 04/29/20 15:15 BP 180/71 H 04/29/20 15:15 Pulse Ox 95 04/29/20 15:15 Intake & Output 04/28/20 04/29/20 04/29/20 18:59 06:59 18:59 Intake Total 240 / 240 960 / 960 Output Total 280 / 280 Balance -40 / -40 960 / 960 Urine Output (Average ml/kg/hr) 0.26 0.26 Intake: Intake, Oral Amount 240 / 240 360 / 360 Intake (Blood Product) Amount 350 / 350 Red Blood Cells (E0382) Unit 350 / 350 [id number] Intake, Other Amount 250 / 250 Red Blood Cells (E0382) Unit 250 / 250 [id number] Output: Output, Urine Amount 280 / 280 Other: Breakfast % Eaten 100% Lunch % Eaten 75% Number of Unmeasured Voids 1 Urine Urinal Urine Color Gale Weight 89.811 kg Weight 89.811 kg - Constitutional Present: mild distress - Routine HEENT Exam Head: Present: normal inspection ENT: Present: mucous membranes moist - Routine Neck Exam Present: supple - Routine Respiratory Exam Present: decreased breath sounds, CTAB - Routine Cardiovascular Exam Cardiovascular: Present: RRR, S1, S2, irregularly irregular - Routine Abdominal Exam Present: soft, nontender - Routine Extremities Exam Present: nontender - Routine Skin Exam Present: intact - Routine Neurological Exam Present: alert, oriented X3 - Detailed Neurological Exam: Coma Scale Eye Opening: Spontaneous (4) Verbal Response: Oriented (5) Motor Response: Obeys commands (6) [place] Coma Scale Total: 15 - Routine Psychiatric Exam Present: depressed Hem/Onc Consult Result - Labs CBC & Chem 7: 04/30/20 05:24 04/30/20 05:24 Labs: Short CBC 04/29/20 Range/Units 05:39 WBC 15.4 H (4.8-10.8) X10*3/uL Hgb 7.2 L (14.0-18.0) g/dl Hct 21.9 L (42-52) % Plt Count 387 (160-400) X10*3/uL BMP 04/29/20 05:39 Sodium 130 L Potassium 5.6 H Chloride 96 Carbon Dioxide 28 BUN 35 H D Creatinine 1.20 Calcium 8.2 L Assessment and Plan (1) Pulmonary embolism Status: Acute This is a pleasant 74-year-old gentleman with a history of Parkinsonism. He was recently noted to have left hip lesion, at the left ischium: 2.6 x 2.8 x 4 cm eroded through much of the lateral cortex. Left inferior pubic ramus: Measuring 1.3 x 0.8 x 1.2 cm. Concern is for metastatic disease, from an unknown primary. Possible primaries could include prostate cancer versus lung. less likely a GI primary. DIFFERENTIAL DIAGNOSIS: 2. Multiple myeloma, leading to lytic bone lesions. The plan was to proceed with further evaluation. To check labs including tumor markers: PSA: 0.30. and LDH: 239. Checked an SIEP to look for myeloma. It revealed: Multiple oligoclonal bands. l was going to check a CT chest and abdomen and pelvis and a bone scan to look for other areas of bone involvement. He was being scheduled for a biopsy. However he presented to the hospital yesterday and has been noted to have pulmonary embolism. He was noted to have guaiac-positive stools. CAT scan of abdomen revealed: 1. Hepatic cirrhosis. Ill-defined low-attenuation foci in the right lobe are nonspecific. This could represent metastatic disease however primary hepatic malignancy such as cholangiocarcinoma cannot be excluded. Further evaluation with contrast-enhanced abdominal MRI is recommended. 2. Gastrohepatic and retroperitoneal lymphadenopathy coupled with lytic osseous lesions as detailed above are concerning for metastatic disease. Considerations for follow-up include a PET CT scan and bone biopsy as previously suggested. 3. Mild peritoneal ascites. Impression by GI: Anemia with Hemoccult-positive stools. He does not appear to have any active GI bleeding at this time. His black stools are likely from iron. He will likely benefit from blood transfusion, this has been ordered. GI recommended empiric coverage with omeprazole 20 mg daily for any possible component of gastritis and recommended keeping his INR in the therapeutic range. No endoscopy has been recommended. PLAN: I would start him on Lovenox given thromboembolism in the setting of malignancy. Will arrange for a biopsy of the bone, once he is stable. All his and his 's questions were answered to their satisfaction. Thank you, cc: Dr. Jose Alejandro Currie.
--- NOTE | 2020-04-29 15:38 | P.PNIM_ITS ---
Subjective Subjective Date of Service: 04/29/20 Interval History: the patient was seen and evaluated this morning Laying in bed, feels comfortable Denies any fever, chills Reports that shortness of breath has improved significantly since admission, still mildly dyspneic with ambulation No signs of alcohol withdrawal Hemoglobin dropped further more overnight No reported other overnight events. Systemic review: No fever, chills or weakness No chest pain, palpitation No shortness of breath or coughing No abdominal pain, nausea or vomiting No urinary symptoms No any rash or wounds Physical Exam Vital Signs: Vital Signs: Last Vital Signs Temp 97.9 F 04/29/20 15:15 Pulse 75 04/29/20 15:15 Resp 20 04/29/20 15:15 BP 180/71 H 04/29/20 15:15 Pulse Ox 95 04/29/20 15:15 Body Mass Index 27.6 Constitutional : Alert, oriented, not in distress Neck : Normal inspection, Supple Cardiovascular : RRR, S1 S2, no lower extremity edema Respiratory : Good bilateral air entry, no crackles, wheezes or rhonchi Gastrointestinal: soft, lax, Normal bowel sounds, Non tender Skin : Warm/Dry, No rash Neurological : Alert & oriented x3, No focal deficit Objective Data Current Medications Generic Name Dose Route Start Last Admin Trade Name Freq PRN Reason Stop Dose Admin Acetaminophen 650 mg 04/28/20 17:28 Acetaminophen 325 Mg Tablet PO Q6H PRN Pain, Mild (Pain Scale 1-3) Albuterol Sulfate 2 puff 04/28/20 17:10 Albuterol Sulfate 90 Mcg 8 Gm Inhaler INHALE Q6H PRN Shortness Of Breath Or Wheezing Amlodipine Besylate 5 mg 04/29/20 15:40 Amlodipine Besylate 5 Mg Tablet PO DAILY [facility] Protocol Carbidopa/Levodopa 1 tab 04/28/20 21:00 04/29/20 10:11 Carbidopa/Levodopa Cr 50/200 Tablet.Er PO 1 tab TID [facility] Administration Diltiazem HCl 180 mg 04/29/20 09:00 04/29/20 10:10 Diltiazem Hcl Cd 180 Mg Cap.Er.24h PO 180 mg DAILY [facility] Administration Protocol Docusate Sodium 100 mg 04/28/20 17:28 Docusate Sodium 100 Mg Capsule PO DAILY PRN Constipation Enoxaparin Sodium 90 mg 04/29/20 12:00 04/29/20 13:36 Enoxaparin Sodium 100 Mg/Ml Syringe SUBCUT 90 mg Q12H [facility] Administration Ferrous Sulfate 324 mg 04/29/20 09:00 04/29/20 10:11 Ferrous Sulfate 324 Mg Tablet. PO 324 mg DAILY [facility] Administration Furosemide 40 mg 04/29/20 09:00 04/29/20 10:11 Furosemide 40 Mg Tablet PO 40 mg DAILY [facility] Administration Protocol Insulin Glargine 24 unit 04/28/20 21:00 04/28/20 22:16 Insulin Glargine,Hum.Rec.Anlog 100 Unit/Ml 10 Ml Vial SUBCUT 24 unit BEDTIME [facility] Administration Insulin Human Lispro 0 unit 04/28/20 16:30 04/29/20 13:36 Insulin Lispro 100 Unit/Ml 3 Ml Vial SUBCUT 8 unit QIDACHS [facility] Administration Protocol Levothyroxine Sodium 50 mcg 04/29/20 09:00 04/29/20 10:11 Levothyroxine Sodium 50 Mcg Tablet PO 50 mcg DAILY [facility] Administration Losartan Potassium 50 mg 04/29/20 09:00 04/29/20 10:11 Losartan Potassium 50 Mg Tablet PO 50 mg DAILY [facility] Administration Protocol Omeprazole 20 mg 04/29/20 10:15 04/29/20 10:48 Omeprazole 20 Mg Capsule. PO 20 mg DAILY@0630 [facility] Administration Ondansetron HCl 4 mg 04/28/20 17:28 Ondansetron Hcl 4 Mg/2 Ml Vial IVPUSH Q8H PRN Nausea and Vomiting Oxycodone HCl 5 mg 04/28/20 17:10 Oxycodone Hcl Immed Release 5 Mg Tablet PO Q8H PRN Pain, Moderate (Pain Scale 4-6 Pravastatin Sodium 40 mg 04/29/20 09:00 04/29/20 10:11 Pravastatin Sodium 40 Mg Tablet PO 40 mg DAILY [facility] Administration Sodium Chloride 3 ml 04/28/20 17:28 04/29/20 10:10 0.9 % Sodium Chloride Flush 3 Ml Syringe IVFLUSH 3 ml QSHIFT [facility] Administration Sotalol HCl 120 mg 04/28/20 21:00 04/29/20 10:10 Sotalol Hcl 80 Mg Tablet PO 120 mg BID [facility] Administration Tiotropium [place] 2 puff 04/29/20 08:00 Tiotropium [place] 18 Mcg Cap.W.Dev INHALE RDAILY [facility] Tramadol HCl 50 mg 04/28/20 17:10 Tramadol Hcl 50 Mg Tablet PO BEDTIME PRN Pain, Mild (Pain Scale 1-3) Labs CBC & Chem 7: 04/29/20 05:39 04/29/20 05:39 Microbiology Microbiology Results: Microbiology 04/28/20 11:50 Blood - Venous Blood Culture - Preliminary No growth after 24 hours. 04/28/20 11:32 Blood - Venous Blood Culture - Preliminary No growth after 24 hours. Assessment and Plan (1) Paroxysmal atrial fibrillation: Status: Acute (2) Diabetes mellitus: Status: Acute (3) Parkinson's disease: Status: Acute (4) Anemia: Status: Acute (5) Pulmonary embolism: Status: Acute (6) GI bleed: Status: Acute Assessment and Plan: this is a 74-year-old male with a history of atrial fibrillation on Coumadin, mechanical aortic valve, diabetes, COPD, hypertension, diastolic CHF, recent lytic lesion of ischium being worked up as outpatient who presents with shortness of breath found to have PE, liver lesion. PE Improving Unclear chronicity, seems to be there for a while now INR dropped to 3.8, warfarin discontinued With possible underlying malignancy to change anticoagulation to Lovenox Pending oncology eval Lytic bone lesion ?primary CT abdomen with liver lesion ?primary vs metastatic oncology consult Symptomatic anemia Blood loss anemia of unknown duration with in the setting of supratherapeutic INR To discuss oncology using of warfarin versus Lovenox Has AVR, to keep INR around 3 Transfuse 1 unit of blood GI input appreciated, and no need for endoscopy at this point diabetes SSI,POCs continue formulary equivalent for home insulin mild hyponatremia, sodium 132 follow BMP daily alcohol use no evidence of alcohol withdrawal at this time cat scan showing hepatic cirrhosis CIWA Parkinson's disease continue Sinemet atrial fibrillation rate controlled. continue diltiazem, sotalol anticoagulation with Coumadin diastolic CHF continue home dose of Lasix hypertension continue home losartan HLD continue statin hip pain continue home oxycodone, tramadol DVT prophylaxis- Lovenox
[2020-04-29 16:15] LABS: Glucose, Whole Blood 197 mg/dL (60-115)
[2020-04-29] MEDS: Furosemide 20 MG/2 ML VIAL IVPUSH ×2 (17:16→20:49)
[2020-04-29] MEDS: amLODIPine Besylate 5 MG TABLET PO (17:17)
[2020-04-29 20:26] LABS: Glucose, Whole Blood 241 mg/dL (60-115)
[2020-04-29] MEDS: Insulin Glargine,Hum.rec.anlog 100 UNIT/ML 10 ML VIAL 24 UNIT SUBCUT (20:50)
[2020-04-30] VITALS (8 sets, daily range): BP systolic 146–169; BP diastolic 60–80; PULSE 70–87; RESP 18–20; TEMP 35.7–36.5; O2SAT 95–99
[2020-04-30] MEDS: 0.9 % Sodium Chloride Flush 3 ML SYRINGE IVFLUSH ×2 (00:16→09:24)
[2020-04-30] MEDS: Enoxaparin Sodium 100 MG/ML SYRINGE 90 MG SUBCUT ×2 (00:19→14:09)
[2020-04-30] MEDS: Omeprazole 20 MG CAPSULE.DR PO (05:32)
[2020-04-30 06:19] LABS: Hematocrit 25.6 % (42-52); Hemoglobin 8.4 g/dl (14.0-18.0); Mean Corpuscular HGB Conc 32.8 g/dl (31.0-36.0); Mean Corpuscular Hemoglobin 32.3 pg (27.0-33.0); Mean Corpuscular Volume 98.5 fL (80-98); Mean Platelet Volume 9.6 fL (9.4-12.4); Platelet Count 422 X10*3/uL (160-400); Red Cell Distribution Width 14.8 % (11.0-16.0); White Blood Count 16.4 X10*3/uL (4.8-10.8)
[2020-04-30 06:29] LABS: INTERNATIONAL NORM RATIO 2.9 (0.9-1.1); Prothrombin Time 34.4 SEC (10.8-13.0)
[2020-04-30 06:38] LABS: Anion Gap 11 (12-20); Blood Urea Nitrogen 29 mg/dL (9-16); Calcium 8.4 mg/dL (8.4-10.2); Carbon Dioxide 34 mmol/L (22-29); Chloride 97 mmol/L (96-108); Creatinine Clr Calc Pharmacy 60.8; Estimated Glomerular Filt Rate > 60; Glucose Random 171 mg/dL (60-115); Potassium 4.6 mmol/l (3.3-5.1); Sodium 137 mmol/L (135-145)
[2020-04-30 08:06] LABS: Glucose, Whole Blood 171 mg/dL (60-115)
[2020-04-30] MEDS: Levothyroxine Sodium 50 MCG TABLET PO (09:20)
[2020-04-30] MEDS: Sotalol HCL 80 MG TABLET 120 MG PO (09:20)
[2020-04-30] MEDS: amLODIPine Besylate 5 MG TABLET PO (09:21)
[2020-04-30] MEDS: Pravastatin Sodium 40 MG TABLET PO (09:21)
[2020-04-30] MEDS: Carbidopa/Levodopa CR 50/200 TABLET.ER 1 TAB PO ×2 (09:22→14:09)
[2020-04-30] MEDS: Furosemide 40 MG TABLET PO (09:22)
[2020-04-30] MEDS: Losartan Potassium 50 MG TABLET PO (09:22)
[2020-04-30] MEDS: Ferrous Sulfate 324 MG TABLET.DR PO (09:23)
[2020-04-30] MEDS: dilTIAZem HCL CD 180 MG CAP.ER.24H PO (09:23)
[2020-04-30] MEDS: Insulin Lispro 100 UNIT/ML 3 ML VIAL SUBCUT ×2 (09:24→14:09)
[2020-04-30 11:44] LABS: Glucose, Whole Blood 245 mg/dL (60-115)
--- NOTE | 2020-04-30 11:50 | MHC.CM.PN ---
Patient is being discharged home today no services. Trish will provide transport [phone].
--- NOTE | 2020-04-30 13:11 | PM.DS ---
DS: Providers Provider Date of admission: 04/28/20 15:44 Primary care physician: Jorge Currie MD Consults: 04/28/20 15:44 Consult to Gastroenterology Routine Consulting Provider: Juliano Jeffrey Reason for consultation: GIB, on coumadin for mechanical valve Has provider been notified: No Consult to Hematology / Oncology Routine Consulting Provider: Kaela Mast Reason for consultation: PE; MALIGNANCY Has provider been notified: No DS: Diagnosis Discharge Diagnosis (1) Pulmonary embolism: Status: Acute (2) GI bleed: Status: Acute (3) Lytic bone lesion of hip: Status: Acute (4) Bony sclerosis: Status: Acute (5) Hypothyroidism: Status: Acute (6) Anemia: Status: Acute (7) Paroxysmal atrial fibrillation: Status: Acute DS: Medications Discharge Medications Home Medications: Home Medications Medication Instructions Recorded Confirmed albuterol sulfate 90 mcg/actuation 2 puff INHALATION Q6H PRN 03/22/20 04/28/20 aerosol inhaler aspirin 81 mg tablet,delayed 81 mg PO DAILY 03/22/20 04/28/20 release ferrous sulfate 325 mg (65 mg 325 mg PO DAILY 03/22/20 04/28/20 iron) tablet insulin aspart U-100 100 unit/mL 18 unit SUBCUT TID ml 03/22/20 04/28/20 (3 mL) subcutaneous pen tiotropium bromide 2.5 2 puff INHALATION DAILY 03/22/20 04/28/20 mcg/actuation mist for inhalation carbidopa-levodopa 1 tab PO TID 04/28/20 04/28/20 losartan 50 mg PO DAILY 04/28/20 04/28/20 Previous Rx's Medication Instructions Recorded diltiazem HCl 180 mg 180 mg PO DAILY 90 Days #90 cap 03/22/20 capsule,extended release 24 hr furosemide 20 mg tablet 40 mg PO DAILY 90 Days #180 tab 03/22/20 insulin detemir U-100 100 unit/mL 35 unit SUBCUT BEDTIME 90 Days 03/22/20 (3 mL) subcutaneous pen #31.5 ml levothyroxine 50 mcg tablet 50 mcg PO DAILY 90 Days #90 tab 03/22/20 pravastatin 40 mg tablet 40 mg PO DAILY 90 Days #90 tab 03/22/20 sotalol 120 mg tablet 120 mg PO BID 90 Days #180 tab 03/22/20 tramadol 50 mg tablet 50 mg PO BEDTIME PRN 10 Days #10 04/21/20 tab oxycodone 5 mg PO Q8H PRN #40 cap 04/27/20 enoxaparin 90 mg SUBCUT Q12H 30 Days #54 ml 04/30/20 omeprazole 20 mg PO DAILY@0630 #30 cap 04/30/20 DS: Summary Hospital Course Hospital Course: Admission note HPI this is a 74-year-old male who presented to the emergency department with shortness of breath. Patient reports shortness of breath has been ongoing for several weeks. He denies any associated chest pain or dizziness. had been complaining of left hip pain and had an x-ray on 03/22/2020 which revealed possible lytic bone lesion followed by pelvis CT on 04/16 which showed 4 cm lytic lesion in the left ischium. He was referred to Dr. Mast for further workup. He was evaluated in her office yesterday with plan for further lab work and imaging to determine primary malignancy for his metastatic lytic lesion. Considerations included primary prostate versus lung in less likely GI or multiple myeloma. today he presented to the emergency department with shortness of breath and underwent a CTA which showed multiple filling defects consistent with pulmonary emboli. Patient is on Coumadin for atrial fibrillation and mechanical aortic valve. His INR was elevated at 5.2. Therefore stool occult was checked and noted to be positive with black stools. Patient denies noticing any black or bloody stools. H/ H was 8.1/25.2 which seems to be trending down slowly in the past 6 months or so. For these reasons the decision was made to admit him for further management. Hospital course The patient was admitted to the hospital for evaluation of shortness of breath. A CTA of the chest was consistent with pulmonary embolism. His INR was 3.8 at time of admission. The patient is going under evaluation for lighting bone lesion in his hip with concerns about a primary liver or prostate lesion and possible multiple myeloma. Warfarin was discontinued and the patient was started on full-dose Lovenox to after discussing with Dr. Mast his oncologist will follow-up with him as outpatient after this discharge. He was transfused a unit of blood for drop at of hemoglobin around 7 at time of presentation with good response. No reported GI bleed noticed. His occult blood test came back positive. He was evaluated by Dr. Jeffrey from Gastroenterology who recommended starting omeprazole for now and to hold on any procedures as no active bleeding noticed. To be discharged home on full-dose Lovenox To repeat blood test next week to check on blood level Discontinue warfarin completely Plan for bone biopsy Sunday morning. Will follow with Dr. Mast. Time Spent with Patient Time attestation: Total time spent providing and/or coordinating discharge services: Physical Exam Vital Signs: Vital Signs: Last Vital Signs Temp 97.9 F 04/29/20 15:15 Pulse 75 04/29/20 15:15 Resp 20 04/29/20 15:15 BP 180/71 H 04/29/20 15:15 Pulse Ox 95 04/29/20 15:15 Body Mass Index 27.6 Constitutional : Alert, oriented, not in distress Neck : Normal inspection, Supple Cardiovascular : RRR, S1 S2, no lower extremity edema Respiratory : Good bilateral air entry, no crackles, wheezes or rhonchi Gastrointestinal: soft, lax, Normal bowel sounds, Non tender Skin : Warm/Dry, No rash Neurological : Alert & oriented x3, No focal deficit DS: Data Data Completed and Pending Labs on day of discharge: 04/28/20 08:43 XR chest 1V Stat 04/28/20 08:45 ECG 12 lead EKG Stat EKG Documentation DIRECTED 04/28/20 09:36 B Type Natriuretic Peptide Stat Complete Blood Count Auto Diff Stat Comprehensive Met. Panel Stat Lactic Acid Stat Partial Thromboplastin Time Stat Prothrombin Time INR Stat SARS-CoV2/FLU/RSV Stat SLIDE REVIEW Stat Troponin-I High Sensitivity Stat 04/28/20 09:52 Albuterol/Iprat 2.5/0.5MG 3 ML [Duoneb] 3 ml INHALE ONCE STA predniSONE 60 mg PO ONCE STA 04/28/20 10:30 CT abdomen pelvis w con Stat CT angio chest PE protocol Stat 04/28/20 11:50 Red Blood Cells Routine Type and Screen Stat 04/28/20 12:17 iohexoL 350 MG/ML [Omnipaque 350 MG/ML] 100 ml IV ONCE ONE 04/28/20 12:37 OBSX1 Stat 04/28/20 14:33 Furosemide [Lasix] 40 mg IVPUSH STAT STA 04/28/20 15:32 Transfer Order Routine 04/28/20 Lunch Regular Diet 04/28/20 15:53 Consult Rx Perform Med Rec 1 each MISCELLANE ONCE STA 04/28/20 17:28 Furosemide [Lasix] 20 mg IVPUSH ONCE ONE 04/28/20 17:28 IV insert/maintain Q4HR Vital Signs Q4HR 04/28/20 17:46 Glucose, Whole Blood Routine 04/28/20 Dinner Diabetic Diet 04/28/20 21:00 Sotalol HCL [Betapace] 120 mg PO BID 04/28/20 21:44 Glucose, Whole Blood Routine 04/29/20 US venous duplex LE BI Routine 04/29/20 05:39 Basic Metabolic Panel DAILY@0600 Complete Blood Count Auto Diff DAILY@0600 Prothrombin Time INR DAILY@0600 SLIDE REVIEW Routine 04/29/20 07:03 Glucose, Whole Blood Routine 04/29/20 09:07 Sodium Polystyrene Sulfon/Sorb [Kayexalate] 30 gm PO ONCE ONE 04/29/20 11:25 Glucose, Whole Blood Routine 04/29/20 15:00 Furosemide [Lasix] 20 mg IVPUSH ONCE ONE 04/29/20 16:04 Glucose, Whole Blood Routine 04/29/20 20:20 Glucose, Whole Blood Routine 04/29/20 20:45 Furosemide [Lasix] 20 mg .ROUTE .STK-MED ONE 04/30/20 05:24 Basic Metabolic Panel DAILY@0600 Complete Blood Count no Diff DAILY@0600 Prothrombin Time INR DAILY@0600 04/30/20 08:03 Glucose, Whole Blood Routine 04/30/20 11:41 Glucose, Whole Blood Routine Laboratory Last Values WBC 16.4 X10*3/uL (4.8-10.8) H 04/30/20 05:24 RBC 2.60 X10*6/uL (4.60-5.80) L 04/30/20 05:24 Hgb 8.4 g/dl (14.0-18.0) L 04/30/20 05:24 Hct 25.6 % (42-52) L 04/30/20 05:24 MCV 98.5 fL (80-98) H 04/30/20 05:24 MCH 32.3 pg (27.0-33.0) 04/30/20 05:24 MCHC 32.8 g/dl (31.0-36.0) 04/30/20 05:24 RDW 14.8 % (11.0-16.0) 04/30/20 05:24 Plt Count 422 X10*3/uL (160-400) H 04/30/20 05:24 MPV 9.6 fL (9.4-12.4) 04/30/20 05:24 Immature Gran % (Auto) 0.6 % (0.0-0.4) H 04/29/20 05:39 Neut % (Auto) 87.0 % (45-73) H 04/29/20 05:39 Lymph % (Auto) 3.3 % (20-40) L 04/29/20 05:39 Fountain % (Auto) 8.9 % (2-11) 04/29/20 05:39 Eos % (Auto) 0.0 % (0-4) 04/29/20 05:39 Baso % (Auto) 0.2 % (0-2) 04/29/20 05:39 Lymph # (Auto) 0.5 X10*3/uL (1.2-4.9) L 04/29/20 05:39 Fountain # (Auto) 1.4 X10*3/uL (0.1-1.2) H 04/29/20 05:39 Eos # (Auto) 0.0 X10*3/uL (0.0-0.4) 04/29/20 05:39 Baso # (Auto) 0.0 X10*3/uL (0.0-0.2) 04/29/20 05:39 Abs Immat Gran (auto) 0.09 X10*3/uL (0.00-0.03) H 04/29/20 05:39 Absolute Neuts (auto) 13.4 X10*3/uL (2.0-8.3) H 04/29/20 05:39 Absolute Nucleated RBC 0.000 X10*3/uL (0.0-0.012) 04/30/20 05:24 Nucleated RBC % (auto) 0.0 /100WBC (0.0-0.2) 04/30/20 05:24 Smear Tech's Comments VERIFIED 04/29/20 05:39 PT 34.4 SEC (10.8-13.0) H D 04/30/20 05:24 INR 2.9 (0.9-1.1) H 04/30/20 05:24 APTT 50.8 SEC (24.1-38.0) H 04/28/20 09:36 Sodium 137 mmol/L (135-145) 04/30/20 05:24 Potassium 4.6 mmol/l (3.3-5.1) 04/30/20 05:24 Chloride 97 mmol/L (96-108) 04/30/20 05:24 Carbon Dioxide 34 mmol/L (22-29) H 04/30/20 05:24 Anion Gap 11 (12-20) L 04/30/20 05:24 BUN 29 mg/dL (9-16) H 04/30/20 05:24 Creatinine 1.10 mg/dL (0.5-1.4) 04/30/20 05:24 Estim Creat Clear Calc 60.8 04/30/20 05:24 Estimated GFR > 60 04/30/20 05:24 POC Glucose 245 mg/dL (60-115) H 04/30/20 11:41 Random Glucose 171 mg/dL (60-115) H D 04/30/20 05:24 Lactic Acid 0.8 mmol/L (0.5-2.0) 04/28/20 09:36 Calcium 8.4 mg/dL (8.4-10.2) 04/30/20 05:24 Total Bilirubin 0.6 mg/dL (0.0-1.0) 04/28/20 09:36 AST 89 U/L (5-37) H 04/28/20 09:36 ALT 21 U/L (0-40) 04/28/20 09:36 Alkaline Phosphatase 398 U/L (39-117) H 04/28/20 09:36 Troponin I High Sens 22.5 ng/L (<3.5-35.0) 04/28/20 09:36 B-Natriuretic Peptide 588 pg/mL (<100) H 04/28/20 09:36 Total Protein 6.3 g/dL (6.5-8.0) L 04/28/20 09:36 Albumin 3.4 g/dL (3.5-5.0) L 04/28/20 09:36 Stool Occult Blood POS (NEG) 04/28/20 12:37 Coronavirus (PCR) NEGATIVE (Negative) 04/28/20 09:36 Influenza Type A (PCR) NEGATIVE (Negative) 04/28/20 09:36 Influenza Type B (PCR) NEGATIVE (Negative) 04/28/20 09:36 RSV RNA Qual (PCR) NEGATIVE (Negative) 04/28/20 09:36 Blood Type O Positive 04/28/20 11:50 Antibody Screen NEGATIVE 04/28/20 11:50 Crossmatch See Detail 04/28/20 11:50 Preliminary micro results at discharge 04/28/20 11:50 Blood Culture - Preliminary Blood - Venous No growth after 24 hours. 04/28/20 11:32 Blood Culture - Preliminary Blood - Venous No growth after 24 hours. CTA chest IMPRESSION: 1. Multiple filling defects in subsegmental pulmonary artery branches in the left lower lobe consistent with pulmonary emboli. 2. Small bilateral pleural effusions, right greater than left with tracking in the right major fissure. Right lower lobe atelectasis versus infiltrate. Asymmetric right interlobular septal thickening, 0.5 cm right upper lobe nodule and 1.2 cm groundglass infiltrate in the right upper lobe are nonspecific. Enlarged mediastinal lymph nodes are also nonspecific. Short-term follow-up with a chest CT scan in 3 months is recommended. A PET CT scan could also be considered. Discharge Plan Discharge Patient Disposition: Home, Self-Care Referrals: Jorge Currie MD [Primary Care Provider] - Discharge Medications: New omeprazole 20 mg Capsule,Delayed Release(Dr/Ec) 20 mg PO DAILY@0630 Qty: 30 RF: 2 enoxaparin 100 mg/mL Syringe 90 mg subcut Q12H 30 Days Qty: 54 RF: 2 Continued tramadol 50 mg tablet 50 mg PO BEDTIME PRN (Reason: pain) 10 Days Qty: 10 RF: 0 oxycodone 5 mg Capsule 5 mg PO Q8H PRN (Reason: Breakthrough Pain, Moderate) Qty: 40 RF: 0 losartan 50 mg Tablet 50 mg PO DAILY RF: 0 carbidopa-levodopa 50-200 mg tablet extended release 1 tab PO TID RF: 0 aspirin 81 mg tablet,delayed release (DR/EC) 81 mg PO DAILY RF: 0 ferrous sulfate [Feosol] 325 mg (65 mg iron) tablet 325 mg PO DAILY RF: 0 albuterol sulfate [ProAir HFA] 90 mcg/actuation HFA aerosol inhaler 2 puff inhalation Q6H PRN (Reason: Shortness Of Breath Or Wheezing) RF: 0 Spiriva Respimat 2.5 mcg/actuation mist 2 puff inhalation DAILY RF: 0 insulin aspart U-100 [Novolog Flexpen U-100 Insulin] 100 unit/mL (3 mL) insulin pen 18 unit subcut TID RF: 0 diltiazem HCl 180 mg capsule,extended release 24hr 180 mg PO DAILY 90 Days Qty: 90 RF: 3 Levemir FlexTouch U-100 Insuln 100 unit/mL (3 mL) insulin pen 35 unit subcut BEDTIME 90 Days Qty: 31.5 RF: 3 sotalol 120 mg tablet 120 mg PO BID 90 Days Qty: 180 RF: 3 levothyroxine 50 mcg tablet 50 mcg PO DAILY 90 Days Qty: 90 RF: 3 pravastatin 40 mg tablet 40 mg PO DAILY 90 Days Qty: 90 RF: 3 furosemide 20 mg tablet 40 mg PO DAILY 90 Days Qty: 180 RF: 3 Discontinued warfarin [Jantoven] 5 mg tablet 5 mg PO DAILY Qty: 90 RF: 0 Discharge Orders: Discharge Order (Routine); Ordered 04/30/20 Ordered By: Adrian Sarabia Diet: advance to usual diet Activity on Discharge: As tolerated Other Ambulatory Orders: Complete Blood Count no Diff (Routine) Timeframe: 1 Week Facility: [facility] - Location: [address] [place] [address]-Lab Ordered By: Adrian Sarabia Prothrombin Time INR (Routine) Timeframe: 1 Week Facility: [facility] - Location: Laboratory Ordered By: Adrian Sarabia Visit Report Forms: Patient Portal Discharge page Care Plan Goals: Read below Health Concerns: Read below Plan of Treatment: You have presented to the hospital complaining of shortness of breath. Workup in the emergency including CTA of the chest was concerning for clot in to your lung. You were treated with blood thinners with good response. You were evaluated by Dr. Mast who will continue to follow with you as outpatient. You were also noticed to have a drop in your blood level with positive testing of blood in the stool. You were evaluated by certified orthotist practice manager Dr. Jeffrey who recommended no intervention needed at this point and started you on oral omeprazole. Continue omeprazole as prescribed use Lovenox injection twice Daily To follow-up with Dr. Mast as outpatient for further evaluation of the hip lesion and to do a biopsy To repeat blood test next week Please come back to the emergency for any blood with the stool or increase weakness and shortness of breath.
[2020-05-04 12:22] LABS: IgA 216 mg/dL (70-320); IgG 1007 mg/dL (600-1540); IgM 56 mg/dL (50-300)
== END 2020-04-30 15:55 | disposition home or self-care (01) | DRG 176 ==
LOC: HO.ED 09:10 → HO.IMC 15:58
PROVIDERS: Internal Medicine Medical Oncology; Physician Assistant; Physician Assistant Medical; Admitting Provider Internal Medicine; Emergency Provider Emergency Medicine; PCP Internal Medicine; Visit Provider Student in an Organized Health Care Education/Training Program
DX: I26.99 Other pulmonary embolism without acute cor pulmonale (principal); I50.32 Chronic diastolic (congestive) heart failure; E87.1 Hypo-osmolality and hyponatremia; C79.51 Secondary malignant neoplasm of bone; I48.0 Paroxysmal atrial fibrillation; E11.9 Type 2 diabetes mellitus without complications; I11.0 Hypertensive heart disease with heart failure; E78.5 Hyperlipidemia, unspecified; G20 Parkinson's disease; J44.9 Chronic obstructive pulmonary disease, unspecified; E03.9 Hypothyroidism, unspecified; R79.1 Abnormal coagulation profile; R19.5 Other fecal abnormalities; D50.0 Iron deficiency anemia secondary to blood loss (chronic); Z20.828 Contact with and (suspected) exposure to other viral communicable diseases; Z79.4 Long term (current) use of insulin; Z79.82 Long term (current) use of aspirin; Z79.891 Long term (current) use of opiate analgesic; Z79.899 Other long term (current) drug therapy
CPT/HCPCS: 0241U; 36415; 71045; 71275; 74177; 80048; 80053; 82272; 82784; 82947; 83605; 83880; 84484; 85025; 85027; 85610; 85730; 86334; 86850; 86900; 86901; 86920; 86923; 87040; 93005; 93970; 94640; 96374; 99285; J1650; J1940; P9016; Q9967

== ENCOUNTER 2020-05-03 10:41 | Day surgery (SDC) | payer MEDICARE, SELFPAY ==
--- NOTE | 2020-05-03 | CT_ITS ---
PROCEDURE: CT GUIDED BIOPSY, LEFT ISCHIAL BONE CLINICAL INFORMATION: Lytic lesions in the L1 vertebra and left knee show bone. COMPARISON: CT abdomen and pelvis with contrast 04/28/2020. TECHNIQUE: Following explaining CT fluoroscopy-guided left initial bone marrow biopsy procedure, benefits and risk in a prone position, a written consent was obtained. Patient was placed prone on fluoroscopy table and preliminary CT imaging was obtained through the pelvis. An optimal site was selected overlying the left ischial bone and marked on the skin. The marked skin site was cleaned and draped in usual sterile manner. 1% lidocaine was injected at the puncture site. A 16-gauge guide needle was advanced from the skin to the outer cortex of left lytic ischial lesion. Coaxially, a 17-gauge bone cutting needle attached to a drill was advanced and a 3-pass biopsy was obtained from the left ischial lesion. There was significant bleeding noted during the biopsy, likely from a vascular lesion. Postprocedure stylet was reintroduced and the entire needle was withdrawn. Complete hemostasis was achieved at the puncture site following application of direct pressure on the skin and the bone. Conscious sedation was provided by radiology nursing for [address] examination was performed using dose optimization techniques as appropriate, variously including the following: *Automated exposure control *Adjustment of mA and/or kV according to patient size (this includes techniques or standardized protocols for targeted exams where dose is matched to indication/reason for exam; i.e. extremities or head) *Use of iterative reconstruction technique DLP: 241 mGy-cm. FINDINGS: On preliminary CT imaging, there is a lytic lesion in the right ischial bone measuring approximately 3.4 x 3.0 cm on axial image 27/4. No additional lesions seen. Successful CT fluoroscopy-guided left ischial bone marrow biopsy performed with a mechanical hand drill. CT/CT guided needle placement IMPRESSION: Successful CT fluoroscopy-guided left ischial bone lesion biopsy performed under conscious sedation. There were no immediate complications.
[2020-05-03 11:08] LABS: Basophils Percent Auto 0.3 % (0-2); Eosinophils Absolute Auto 0.1 X10*3/uL (0.0-0.4); Eosinophils Percent Auto 0.9 % (0-4); Hematocrit 28.6 % (42-52); Hemoglobin 9.1 g/dl (14.0-18.0); Imm Gran Abs Auto 0.08 X10*3/uL (0.00-0.03); Imm Gran Pct Auto 0.5 % (0.0-0.4); Lymphocytes Absolute Auto 0.4 X10*3/uL (1.2-4.9); Lymphocytes Percent Auto 2.6 % (20-40); MANUAL DIFF FLAG SCAN; Mean Corpuscular HGB Conc 31.8 g/dl (31.0-36.0); Mean Corpuscular Hemoglobin 31.9 pg (27.0-33.0); Mean Corpuscular Volume 100.4 fL (80-98); Mean Platelet Volume 9.3 fL (9.4-12.4); Monocytes Absolute Auto 1.3 X10*3/uL (0.1-1.2); Monocytes Percent Auto 8.8 % (2-11); Neutrophils Absolute Auto 13.2 X10*3/uL (2.0-8.3); Neutrophils Percent Auto 86.9 % (45-73); Platelet Count 423 X10*3/uL (160-400); Red Blood Count 2.85 X10*6/uL (4.60-5.80); Red Cell Distribution Width 13.4 % (11.0-16.0); SCAN SMEAR FLAG 1; White Blood Count 15.2 X10*3/uL (4.8-10.8)
[2020-05-03 11:12] LABS: INTERNATIONAL NORM RATIO 1.1 (0.9-1.1); Prothrombin Time 13.4 SEC (10.8-13.0)
[2020-05-03 11:14] LABS: Partial Thromboplastin Time 36.1 SEC (24.1-38.0)
[2020-05-03 11:28] LABS: Anion Gap 10 (12-20); Carbon Dioxide 34 mmol/L (22-29); Chloride 98 mmol/L (96-108); Potassium 4.7 mmol/l (3.3-5.1); Sodium 137 mmol/L (135-145)
[2020-05-03 11:41] LABS: SLIDE REVIEW VERIFIED
[2020-05-03 13:30] VITALS: BP 142/45; PULSE 57; RESP 16; TEMP 36.6; O2SAT 97
[2020-05-03] MEDS: Lidocaine HCl 1 % MPF 5 ML VIAL 10 ML SUBCUT (13:33)
[2020-05-03 13:45] VITALS: BP 150/55; PULSE 54; RESP 18; O2SAT 97
[2020-05-03 14:00] VITALS: BP 151/57; PULSE 56; RESP 18; O2SAT 97
[2020-05-03 14:35] VITALS: PULSE 58; RESP 18; O2SAT 96
[2020-05-03 15:00] VITALS: BP 125/41; PULSE 54; RESP 18; O2SAT 96
[2020-05-03 15:30] VITALS: BP 136/53; PULSE 52; RESP 18; O2SAT 96
== END 2020-05-03 15:35 | disposition home or self-care (01) ==
PROVIDERS: Radiology Diagnostic Radiology; PCP Internal Medicine; Visit Provider Internal Medicine Medical Oncology
DX: M89.8X5 Other specified disorders of bone, thigh (principal)
CPT/HCPCS: 20225; 36415; 77012; 80051; 85025; 85610; 85730; 88307; 88341; 88342; 99152; J2250; J3010

== ENCOUNTER 2020-05-28 14:00 | Outpatient (RCR) | payer MEDICARE, SELFPAY ==
[2020-04-27 10:01] VITALS: BMI 27.2
[2020-04-27 10:04] VITALS: BP 136/59; PULSE 63; RESP 18; TEMP 36.6; O2SAT 96
--- NOTE | 2020-04-27 11:04 | PM.HEMONCCN ---
Subjective - Subjective Chief complaint: CONSULT FOR LYTIC LESION LEFT HIP. Patient: new to practice Consult date: 04/27/20 Requesting Physician: Kush Primary Care Provider: Jorge Currie MD Medical Summary: DIAGNOSIS: LYTIC LESION LEFT HIP. HPI - Consult Narrative Reason for consult: LYTIC LESION LEFT HIP. Narrative: Marciano Washington is a pleasant 74 year old gentleman who tells me that he was admitted to [facility] back in mid February. He had felt rather dizzy and he could not breathe. His hemoglobin was 7.6. Concern was his heart. He underwent a cardiac evaluation including chest x-rays and an echocardiogram. PMH: COPD, paroxysmally atrial fibrillation on Coumadin, PPM placement, HTN, DM type 2. He was found to have mild fluid overload. Patient diuresed with IV Lasix 40 mg daily. Echo showed normal EF, mechanical aortic valve, severely calcified mitral valve, [id number] mitral stenosis. Repeat chest x-ray showed improvement in pulmonary edema. INR was 6.6 however after holding Coumadin down to 2.2. He stayed there 5 days and then discharged home. He did not receive a blood transfusion. He followed up with Dr. Currie. Repeat hemoglobin was 9.6. Over the past 6 weeks he noted left hip pain. This has been progressively worsening. It now radiates into his upper legs in the back. He grades it as 7 on 1-10 scale. He takes Tylenol before he goes to bed. he does not like taking too many medications. He had the following imaging done: 03/22/2020, X-ray left hip: Several lucencies in the bone questionable for osteopenia. Difficult to exclude a lytic bone lesion in the left inferior pubic ramus near the acetabulum measuring 2 x 3 cm. 04/01/20, CT scan of the pelvis: Combination lytic and sclerotic lesions involving the left inferior pubic ramus without other definite abnormal lytic or sclerotic lesions seen within the remainder of the skeleton. He does feel rather fatigued. no fever nor chills. Appetite is not that good. He has lost weight. He has shortness of breath at rest and on exertion. He takes Lasix 2 a day. His legs are weak. He has history of parkinsonism. He does feel depressed at times. Family history: Sister had a gynecological malignancy. 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 He is . He has 2 boys. He used to smoke a pack-a-day quit in 1968. he drinks a couple of drinks a day. DATABASE: 03/17: CBC: WBC 10.2, HGB 9.2, HCT 29.2, MCV 102, PLT 376. Profile: Lytes: WN L, BUN 22, CERAMIC COATER 1.15, GLU 106. Sumit 9, alb 3.8. LFTs: 0.5/354/ 73/17. Review of Systems - Constitutional Reports system reviewed and no additional complaints, except as documented, Reports anorexia, Reports fatigue, Reports lack of energy, Reports malaise, Denies headache(s) - Eyes Reports system reviewed and no additional complaints, except as documented - ENT Reports system reviewed and no additional complaints, except as documented - Cardiovascular Reports system reviewed and no additional complaints, except as documented, Reports shortness of breath, Denies lightheadedness - Respiratory Reports no additional respiratory complaints, Reports dyspnea - Gastrointestinal Reports system reviewed and no additional complaints, except as documented - Genitourinary Genitourinary: Reports no additional male genitourinary complaints, Denies frequent nighttime urination - Musculoskeletal Reports system reviewed and no additional complaints, except as documented, Reports joint pain Comments: Left hip pain - Integumentary/Breasts Skin/Breast: Reports no additional skin complaints - Neurologic Reports system reviewed and no additional complaints, except as documented, Reports memory loss, Denies hearing normal Comments: leg weakness - Psychiatric Reports system reviewed and no additional complaints, except as documented - Endocrine Reports no additional endocrine complaints - Hematologic/Lymphatic Reports system reviewed and no additional complaints, except as documented Comments: anemia - Allergic/Immunologic Reports system reviewed and no additional complaints, except as documented [facility] Medical History: Medical History (Last Updated 04/28/20 @ 16:10 by JESI House) Bony sclerosis COPD (chronic obstructive pulmonary disease) Diabetes mellitus Hyperlipidemia Hypertension Hypothyroidism Lytic bone lesion of hip Lytic lesion of bone on x-ray Overweight (BMI 25.0-29.9) Parkinson's disease Paroxysmal atrial fibrillation Pleural effusion, right Functional capacity: uses cane/walker Patient : No Family History: Family History (Last Reviewed 04/28/20 @ 16:10 by JESI House) Father Cardiovascular disease Mother Stroke Surgical History: Surgical History (Last Reviewed 04/28/20 @ 16:10 by JESI House) History of aortic valve replacement Onset Date: ~11/29/12 History of carpal tunnel release Onset Date: ~06/24/13 Status post anal fissurectomy Status post biventricular cardiac pacemaker insertion Onset Date: ~2004 Home Medications and Allergies Home Medications Medication Instructions Recorded Confirmed Type albuterol sulfate 90 mcg/actuation 2 puff INHALATION Q6H PRN 03/22/20 04/28/20 History aerosol inhaler aspirin 81 mg tablet,delayed 81 mg PO DAILY 03/22/20 04/28/20 History release ferrous sulfate 325 mg (65 mg 325 mg PO DAILY 03/22/20 04/28/20 History iron) tablet insulin aspart U-100 100 unit/mL 18 unit SUBCUT TID ml 03/22/20 04/28/20 History (3 mL) subcutaneous pen tiotropium bromide 2.5 2 puff INHALATION DAILY 03/22/20 04/28/20 History mcg/actuation mist for inhalation carbidopa-levodopa 1 tab PO TID 04/28/20 04/28/20 History losartan 50 mg PO DAILY 04/28/20 04/28/20 History Allergies Allergy/AdvReac Type Severity Reaction Status Date / Time No Known Allergies Allergy Verified 04/20/20 12:08 [No Known Allergies*] Physical Exam Vital signs: Vital Signs Temp 97.8 F 04/27/20 10:04 Pulse 63 04/27/20 10:04 Resp 18 04/27/20 10:04 BP 136/59 L 04/27/20 10:04 Pulse Ox 96 04/27/20 10:04 Intake & Output 04/26/20 04/27/20 04/27/20 18:59 06:59 18:59 Other: Weight 88.6 kg Weight 88.6 kg - Constitutional Present: mild distress - Routine HEENT Exam Head: Present: normal inspection ENT: Present: mucous membranes moist - Routine Neck Exam Present: supple - Routine Respiratory Exam Present: CTAB - Routine Cardiovascular Exam Cardiovascular: Present: RRR, S1, S2 - Routine Abdominal Exam Present: soft, nontender - Routine Rectal Exam Patient deferred: digital exam - Routine Skin Exam Present: intact - Routine Neurological Exam Present: alert, oriented X3 - Routine Psychiatric Exam Present: depressed Hem/Onc Consult Result - Labs CBC & Chem 7: 04/27/20 11:18 04/27/20 11:18 Assessment and Plan (1) Lytic bone lesion of hip Status: Acute This is a pleasant 74-year-old gentleman with a history of parkinsonism. He was recently noted to have left hip lesion, at the left ischium: 2.6 x 2.8 x 4 cm eroded through much of the lateral cortex. Left inferior pubic ramus: Measuring 1.3 x 0.8 x 1.2 cm. Concern is for metastatic disease, from an unknown primary. Possible primaries could include prostate cancer versus lung. less likely a GI primary. DIFFERENTIAL DIAGNOSIS: 2. Multiple myeloma, leading to lytic bone lesions. PLAN: I will proceed with further evaluation. Will check labs including tumor markers: PSA and CEA and LDH. Will check an SIEP to look for myeloma. Will proceed with the search for a primary: check CT chest and abdomen and pelvis. I will proceed with a bone scan to look for other areas of bone involvement. Will proceed with the biopsy in light of the above. Will then make a treatment plan. He was given a prescription for oxycodone for the pain, starting out with nighttime use. All his and his 's questions were answered to their satisfaction. He will return in 10 days for a follow-up visit to go over all the results. thank you, cc: Dr. Jose Alejandro Currie. (2) Anemia Status: Acute Qualifiers: Anemia type: unspecified type Qualified Code(s): D64.9 - Anemia, unspecified Patient has a history of macrocytic anemia. DIFFERENTIAL DIAGNOSIS: 1. B12/FOLATE DEFICIENCY: 2. UNDERLYING MYELO INFILTRATIVE DISORDER: 3. HYPOTHYROIDISM. 4. RELATED TO COPD: causing macrocytosis. PLAN: Will proceed with further evaluation. Check B12 and folate levels. Check SIEP. Check iron studies. Check thyroid. Will make further plan based upon the above workup.
[2020-04-27 11:40] LABS: Basophils Percent Auto 0.3 % (0-2); Eosinophils Absolute Auto 0.2 X10*3/uL (0.0-0.4); Eosinophils Percent Auto 1.1 % (0-4); Hematocrit 24.5 % (42-52); Hemoglobin 7.7 g/dl (14.0-18.0); Imm Gran Abs Auto 0.08 X10*3/uL (0.00-0.03); Imm Gran Pct Auto 0.6 % (0.0-0.4); Lymphocytes Absolute Auto 0.4 X10*3/uL (1.2-4.9); MANUAL DIFF FLAG SCAN; Mean Corpuscular HGB Conc 31.4 g/dl (31.0-36.0); Mean Corpuscular Hemoglobin 32.1 pg (27.0-33.0); Mean Corpuscular Volume 102.1 fL (80-98); Mean Platelet Volume 9.7 fL (9.4-12.4); Monocytes Absolute Auto 0.9 X10*3/uL (0.1-1.2); Monocytes Percent Auto 7.1 % (2-11); Neutrophils Absolute Auto 11.5 X10*3/uL (2.0-8.3); Neutrophils Percent Auto 87.9 % (45-73); Platelet Count 394 X10*3/uL (160-400); Red Cell Distribution Width 13.3 % (11.0-16.0); SCAN SMEAR FLAG 1; White Blood Count 13.1 X10*3/uL (4.8-10.8)
[2020-04-27 12:11] LABS: Alanine Aminotransferase 24 U/L (0-40); Albumin Level 3.5 g/dL (3.5-5.0); Alkaline Phosphatase 384 U/L (39-117); Anion Gap 10 (12-20); Aspartate Amino Transferase 75 U/L (5-37); Bilirubin Total 0.5 mg/dL (0.0-1.0); Blood Urea Nitrogen 25 mg/dL (9-16); Calcium 8.4 mg/dL (8.4-10.2); Carbon Dioxide 31 mmol/L (22-29); Chloride 96 mmol/L (96-108); Creatinine Clr Calc Pharmacy 60.3; Estimated Glomerular Filt Rate > 60; Glucose Random 241 mg/dL (60-115); Lactate Dehydrogenase 239 U/L (118-273); Sodium 132 mmol/L (135-145); Total Protein 6.2 g/dL (6.5-8.0)
[2020-04-27 12:27] LABS: Thyroid Stimulating Hormone 4.93 uIU/mL (0.32-4.0)
[2020-04-27 12:42] LABS: SLIDE REVIEW VERIFIED
[2020-04-27 13:38] LABS: Folate 16.8 ng/mL (> or = 4.0); Vitamin B12 1494 pg/mL (200-900)
--- NOTE | 2020-04-27 16:10 | MHC.HEMONC ---
Pt here with for consult with Dr Mast. He recently had a fall at home, and is complaining of left hip pain. States pain had stopped, but then started again. Also c/o SOB with exertion. Dr Mast in to see pt. Labs ordered and obtained. Also ordered CT scans, bone biopsy. Appointment scheduled for one month, and pt discharged home. Lab results reviewed by Dr Mast, and pt will need blood transfusion. Will need to schedule, and call pt with day and time. Siomara Ludwig, community liaison to schedule.
[2020-04-30 13:27] LABS: IgA 240 mg/dL (70-320); IgG 1153 mg/dL (600-1540); IgM 61 mg/dL (50-300)
--- NOTE | 2020-05-04 16:21 | MHC.HEMONC ---
Ginette from anticoagulation called ? how long will pepe be on coumadin. Per Dr. Mast patient will continue on lovenox for 10 days pending biopsy results. Once biopsy results are in she will instruct patient when to resume Coumadin.
[2020-05-11 15:32] VITALS: BP 181/77; PULSE 62; RESP 12; TEMP 36.2; O2SAT 96; BMI 28.3
[2020-05-11 16:04] VITALS: BP 98/59; PULSE 75; RESP 18; TEMP 36.9; O2SAT 98
[2020-05-11 16:23] LABS: Basophils Percent Auto 0.3 % (0-2); Eosinophils Absolute Auto 0.2 X10*3/uL (0.0-0.4); Eosinophils Percent Auto 1.2 % (0-4); Hematocrit 29.3 % (42-52); Hemoglobin 9.4 g/dl (14.0-18.0); Imm Gran Abs Auto 0.08 X10*3/uL (0.00-0.03); Imm Gran Pct Auto 0.6 % (0.0-0.4); Lymphocytes Absolute Auto 0.5 X10*3/uL (1.2-4.9); Lymphocytes Percent Auto 4.1 % (20-40); MANUAL DIFF FLAG SCAN; Mean Corpuscular HGB Conc 32.1 g/dl (31.0-36.0); Mean Corpuscular Hemoglobin 31.8 pg (27.0-33.0); Mean Platelet Volume 9.5 fL (9.4-12.4); Monocytes Absolute Auto 1.4 X10*3/uL (0.1-1.2); Monocytes Percent Auto 10.4 % (2-11); Neutrophils Absolute Auto 10.9 X10*3/uL (2.0-8.3); Neutrophils Percent Auto 83.4 % (45-73); Platelet Count 390 X10*3/uL (160-400); Red Blood Count 2.96 X10*6/uL (4.60-5.80); Red Cell Distribution Width 13.3 % (11.0-16.0); SCAN SMEAR FLAG 1; White Blood Count 13.1 X10*3/uL (4.8-10.8)
--- NOTE | 2020-05-11 16:35 | MHC.HEMONCSW ---
PT IS A 74 Y.O. MALE, USES A CANE HE HAS [place]. HE IS ABLE TO MAKE HIS NEEDS KNOWN. THIS IS HIS SECOND VISIT HERE AND DR. ROSALES GAVE HIM RESULTS OF BONE MARROW. HE IS ACCOMPANIED BY HIS AND MD TOLD BOTH THAT PT HAS STAGE 4 CANCER AND TYPE OF TREATMENT IS NOT YET DECIDED. BECAME QUITE EMOTIONAL, PT APPEARS MORE IN SHOCK. THEY ARE INDEPENDENT, NO SERVICES, HAVE 2 GROWN CHILDREN AND ARE RETIRED. EDUCATION, GUIDANCE AND SUPPORT PROVIDED. HEALTH CARE PROXY NO ADDRESSED AT THIS TIME.
--- NOTE | 2020-05-11 16:46 | MHC.HEMONC ---
Pt here for follow up with Dr Mast. very upset and crying about diagnosis. Sat with pt and . Blood work done. Pt had dose of denosumab and tolerated well. Will return in one week for appointment with Dr Mast.
[2020-05-11 16:47] LABS: Alanine Aminotransferase 20 U/L (0-40); Albumin Level 3.5 g/dL (3.5-5.0); Alkaline Phosphatase 361 U/L (39-117); Anion Gap 12 (12-20); Aspartate Amino Transferase 91 U/L (5-37); Blood Urea Nitrogen 15 mg/dL (9-16); Calcium 8.7 mg/dL (8.4-10.2); Carbon Dioxide 30 mmol/L (22-29); Chloride 98 mmol/L (96-108); Creatinine Clr Calc Pharmacy 76.7; Estimated Glomerular Filt Rate > 60; Glucose Random 61 mg/dL (60-115); Potassium 5.1 mmol/l (3.3-5.1); Sodium 135 mmol/L (135-145); Total Protein 6.5 g/dL (6.5-8.0)
[2020-05-11 16:51] LABS: SLIDE REVIEW VERIFIED
--- NOTE | 2020-05-11 16:55 | PM.HEMONCPN ---
Medical Summary - Medical Summary Date of Service: 05/11/20 Chief complaint: FOLLOW-UP FOR: BONE METASTASES. ADENOCARCINOMA OF GI TRACT Medical Summary: DIAGNOSIS: LYTIC LESION LEFT HIP. BIOPSY: Adenocarcinoma, moderately differentiated. Immunohistochemical profile is most consistent with a metastasis from a colorectal, upper GI, or pancreaticobiliary primary. mismatch repair proteins are pending. Interval History Interval history: Marciano Washington is a pleasant 74 year old gentleman who tells me that his hip pain is not completely controlled. he has been taking the narcotic 2 to 3 times a day. It does take the edge off. He feels rather weak. No fever nor chills. Appetite is not that good. He has lost weight. He has shortness of breath at rest and on exertion. He takes Lasix 2 a day. His legs are weak. He has history of parkinsonism. He does feel depressed at times. Previous History: He was admitted to [facility] back in mid February. He had felt rather dizzy and he could not breathe. His hemoglobin was 7.6. Concern was his heart. He underwent a cardiac evaluation including chest x-rays and an echocardiogram. PMH: COPD, paroxysmally atrial fibrillation on Coumadin, PPM placement, HTN, DM type 2. He was found to have mild fluid overload. Patient diuresed with IV Lasix 40 mg daily. Echo showed normal EF, mechanical aortic valve, severely calcified mitral valve, [id number] mitral stenosis. Repeat chest x-ray showed improvement in pulmonary edema. INR was 6.6 however after holding Coumadin down to 2.2. He stayed there 5 days and then discharged home. He did not receive a blood transfusion. He followed up with Dr. Currie. Repeat hemoglobin was 9.6. Over the past 8 weeks he noted left hip pain. This has been progressively worsening. It now radiates into his upper legs in the back. He grades it as 7 on 1-10 scale. He takes Tylenol before he goes to bed. he does not like taking too many medications. He had the following imaging done: 03/22/2020, X-ray left hip: Several lucencies in the bone questionable for osteopenia. Difficult to exclude a lytic bone lesion in the left inferior pubic ramus near the acetabulum measuring 2 x 3 cm. 04/01/20, CT scan of the pelvis: Combination lytic and sclerotic lesions involving the left inferior pubic ramus without other definite abnormal lytic or sclerotic lesions seen within the remainder of the skeleton. Family history: Sister had a gynecological malignancy. 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 He is . He has 2 boys. He used to smoke a pack-a-day quit in 1968. he drinks a couple of drinks a day. DATABASE: 03/17: CBC: WBC 10.2, HGB 9.2, HCT 29.2, MCV 102, PLT 376. Profile: Lytes: WN L, BUN 22, ETHICAL HACKER 1.15, GLU 106. Sumit 9, alb 3.8. LFTs: 0.5/354/ 73/17. Review of Systems - Constitutional Reports no additional constitutional complaints, Reports anorexia, Reports fatigue, Denies fever(s), Reports weight loss - Eyes Reports no additional eye complaints - ENT Reports no additional ear, nose, mouth, and throat complaints - Cardiovascular Reports no additional cardiovascular complaints - Gastrointestinal Reports no additional gastrointestinal complaints - Genitourinary Genitourinary: Reports no additional male genitourinary complaints - Musculoskeletal Reports no additional musculoskeletal complaints Comments: hip pain - Integumentary/Breasts Skin/Breast: Reports no additional skin complaints - Neurologic Reports no additional neurologic complaints, Denies hearing normal, Denies headache(s), Reports memory loss - Psychiatric Reports no additional psychiatric complaints - Endocrine Reports no additional endocrine complaints - Allergic/Immunologic Reports seasonal runny nose PMFSH Medical History: Medical History (Last Updated 04/28/20 @ 16:10 by JESI House) Anemia Bony sclerosis COPD (chronic obstructive pulmonary disease) Diabetes mellitus GI bleed Hyperlipidemia Hypertension Hypothyroidism Lytic bone lesion of hip Lytic lesion of bone on x-ray Overweight (BMI 25.0-29.9) Parkinson's disease Paroxysmal atrial fibrillation Pleural effusion, right Pulmonary embolism Functional capacity: uses cane/walker Patient : No Family History: Family History (Last Reviewed 04/28/20 @ 16:10 by JESI House) Father Cardiovascular disease Mother Stroke Surgical History: Surgical History (Last Reviewed 04/28/20 @ 16:10 by JESI House) History of aortic valve replacement Onset Date: ~11/29/12 History of carpal tunnel release Onset Date: ~06/24/13 Status post anal fissurectomy Status post biventricular cardiac pacemaker insertion Onset Date: ~2004 Home Medications and Allergies Current Medications: Current Medications Generic Name Dose Route Start Last Admin Trade Name Hector PRN Reason Stop Dose Admin Denosumab 120 mg 05/11/20 00:00 05/11/20 16:33 Denosumab 120 Mg/1.7 Ml Vial SUBCUT 05/11/20 23:59 120 mg ONCE VIDAL Administration Home Medications Medication Instructions Recorded Confirmed Type albuterol sulfate 90 mcg/actuation 2 puff INHALATION Q6H PRN 03/22/20 04/28/20 History aerosol inhaler aspirin 81 mg tablet,delayed 81 mg PO DAILY 03/22/20 04/28/20 History release ferrous sulfate 325 mg (65 mg 325 mg PO DAILY 03/22/20 04/28/20 History iron) tablet insulin aspart U-100 100 unit/mL 18 unit SUBCUT TID ml 03/22/20 04/28/20 History (3 mL) subcutaneous pen tiotropium bromide 2.5 2 puff INHALATION DAILY 03/22/20 04/28/20 History mcg/actuation mist for inhalation carbidopa-levodopa 1 tab PO TID 04/28/20 05/11/20 History losartan 50 mg PO DAILY 04/28/20 05/11/20 History Allergies Allergy/AdvReac Type Severity Reaction Status Date / Time No Known Allergies Allergy Verified 04/20/20 12:08 [No Known Allergies*] Exam Vital signs: Vital Signs Temp 98.4 F 05/11/20 16:04 Pulse 75 05/11/20 16:04 Resp 18 05/11/20 16:04 BP 98/59 L 05/11/20 16:04 Pulse Ox 98 05/11/20 16:04 Intake & Output 05/10/20 05/11/20 05/11/20 18:59 06:59 18:59 Other: Weight 92.1 kg Weight 92.1 kg Body Mass Index 28.3 - Constitutional Present: mild distress - Routine HEENT Exam Head: Present: normal inspection ENT: Present: mucous membranes moist - Routine Neck Exam Present: full ROM - Routine Respiratory Exam Present: CTAB - Routine Cardiovascular Exam Cardiovascular: Present: RRR, S1, S2 - Routine Abdominal Exam Present: soft, nontender - Routine Rectal Exam Patient deferred: digital exam - Routine Skin Exam Present: intact - Routine Neurological Exam Present: alert, oriented X3 Data - Labs CBC & Chem 7: 05/11/20 16:09 05/11/20 16:09 Labs: 04/27/20 11:10 Type and Screen Routine 04/27/20 11:18 CEA [Carcinoembryonic Antigen] Routine Complete Blood Count Auto Diff Routine Comprehensive Met. Panel Routine Immunofixation Pnl, Serum Routine Lactate Dehydrogenase Routine Prostate Specific Antigen Scr Routine SLIDE REVIEW Routine Thyroid Stimulating Hormone Routine Vitamin B12 and Folate Routine 05/11/20 16:09 Complete Blood Count Auto Diff Routine SLIDE REVIEW Routine Laboratory Last Values WBC 13.1 X10*3/uL (4.8-10.8) H 05/11/20 16:09 RBC 2.96 X10*6/uL (4.60-5.80) L 05/11/20 16:09 Hgb 9.4 g/dl (14.0-18.0) L 05/11/20 16:09 Hct 29.3 % (42-52) L 05/11/20 16:09 MCV 99.0 fL (80-98) H 05/11/20 16:09 MCH 31.8 pg (27.0-33.0) 05/11/20 16:09 MCHC 32.1 g/dl (31.0-36.0) 05/11/20 16:09 RDW 13.3 % (11.0-16.0) 05/11/20 16:09 Plt Count 390 X10*3/uL (160-400) 05/11/20 16:09 MPV 9.5 fL (9.4-12.4) 05/11/20 16:09 Immature Gran % (Auto) 0.6 % (0.0-0.4) H 05/11/20 16:09 Neut % (Auto) 83.4 % (45-73) H 05/11/20 16:09 Lymph % (Auto) 4.1 % (20-40) L 05/11/20 16:09 Nance % (Auto) 10.4 % (2-11) 05/11/20 16:09 Eos % (Auto) 1.2 % (0-4) 05/11/20 16:09 Baso % (Auto) 0.3 % (0-2) 05/11/20 16:09 Lymph # (Auto) 0.5 X10*3/uL (1.2-4.9) L 05/11/20 16:09 Nance # (Auto) 1.4 X10*3/uL (0.1-1.2) H 05/11/20 16:09 Eos # (Auto) 0.2 X10*3/uL (0.0-0.4) 05/11/20 16:09 Baso # (Auto) 0.0 X10*3/uL (0.0-0.2) 05/11/20 16:09 Abs Immat Gran (auto) 0.08 X10*3/uL (0.00-0.03) H 05/11/20 16:09 Absolute Neuts (auto) 10.9 X10*3/uL (2.0-8.3) H 05/11/20 16:09 Absolute Nucleated RBC 0.000 X10*3/uL (0.0-0.012) 05/11/20 16:09 Nucleated RBC % (auto) 0.0 /100WBC (0.0-0.2) 05/11/20 16:09 Smear Tech's Comments VERIFIED 05/11/20 16:09 Sodium 135 mmol/L (135-145) 05/11/20 16:09 Potassium 5.1 mmol/l (3.3-5.1) 05/11/20 16:09 Chloride 98 mmol/L (96-108) 05/11/20 16:09 Carbon Dioxide 30 mmol/L (22-29) H 05/11/20 16:09 Anion Gap 12 (-20) 05/11/20 16:09 BUN 15 mg/dL (9-16) 05/11/20 16:09 Creatinine 0.95 mg/dL (0.5-1.4) 05/11/20 16:09 Estim Creat Clear Calc 76.7 05/11/20 16:09 Estimated GFR > 60 05/11/20 16:09 Random Glucose 61 mg/dL (60-115) D 05/11/20 16:09 Calcium 8.7 mg/dL (8.4-10.2) 05/11/20 16:09 Total Bilirubin 1.0 mg/dL (0.0-1.0) 05/11/20 16:09 AST 91 U/L (5-37) H 05/11/20 16:09 ALT 20 U/L (0-40) 05/11/20 16:09 Alkaline Phosphatase 361 U/L (39-117) H 05/11/20 16:09 Lactate Dehydrogenase 239 U/L (118-273) 04/27/20 11:18 Total Protein 6.5 g/dL (6.5-8.0) 05/11/20 16:09 Albumin 3.5 g/dL (3.5-5.0) 05/11/20 16:09 Carcinoembryonic Ag 14.30 mg/mL 04/27/20 11:18 PSA Screen 0.30 ng/mL (<0.05-4.0) 04/27/20 11:18 Vitamin B12 1494 pg/mL (200-900) H 04/27/20 11:18 Folate 16.8 ng/mL (> or = 4.0) 04/27/20 11:18 TSH 4.93 uIU/mL (0.32-4.0) H 04/27/20 11:18 IgG Total 1153 mg/dL (600-1540) 04/27/20 11:18 IgA Total 240 mg/dL (70-320) 04/27/20 11:18 IgM 61 mg/dL (50-300) 04/27/20 11:18 JONAS Interpretation SEE NOTE 04/27/20 11:18 Blood Type O Positive 04/27/20 11:10 Antibody Screen NEGATIVE 04/27/20 11:10 Progress Note: A/P (1) Lytic bone lesion of hip Status: Acute Assessment and plan: This is a pleasant 74-year-old gentleman with a history of parkinsonism. He was recently noted to have left hip lesion, at the left ischium: 2.6 x 2.8 x 4 cm eroded through much of the lateral cortex. Left inferior pubic ramus: Measuring 1.3 x 0.8 x 1.2 cm. Concern is for metastatic disease, from an unknown primary. Possible primaries could include prostate cancer versus lung. less likely a GI primary. DIFFERENTIAL DIAGNOSIS: 2. Multiple myeloma, leading to lytic bone lesions. SIEP revealed: multiple oligo clonal bands. I proceeded with further evaluation. l checked labs including tumor markers: PSA and CEA: 14 and LDH. l proceeded with the search for a primary: Checked CT chest and abdomen and pelvis. I proceeded with a bone scan to look for other areas of bone involvement. l proceeded with the biopsy. this was done on 05/03 and revealed: Adenocarcinoma, moderately differentiated. Immunohistochemical findings is most consistent with metastatic cyst from colorectal, upper GI or pancreaticobiliary primary. Immunohistochemistry for mismatch repair proteins are pending. I explained the diagnosis and prognosis along with possible treatment options to the patient and his . I did mention that the final results are still not available, as to the primary site. PLAN: I will wait for the final pathology results. Will then make a treatment plan. in the meantime, he was given denosumab to help with the bone metastases and possibly the pain. I advised him to take the oxycodone every 6 hours as needed for the pain, starting out with nighttime use. All his and his 's questions were answered to their satisfaction. He will return in 1 week for a follow-up visit. Thank you, cc: Dr. Jose Alejandro Currie. (2) Anemia Status: Inactive - Time Spent With Patient Total time spent is greater than 50% in coordination of care (as documented) at patient's floor/unit and/or counseling patient: 25 - 35 minutes
--- NOTE | 2020-05-18 14:00 | MHC.HEMONC ---
PATH REPORT - printed out from Dr. Currie's chart (PCP - Ambulatory Record) and given to Dr. Mast for her review.
--- NOTE | 2020-05-18 16:59 | MHC.HEMONCSW ---
MEDICARE INSURANCE MD ORDER AND CLINICALS FAXED TO [facility] FOR PET SCAN ON 05/25/20. THEY WILL CALL PT WITH EXACT TIME.
[2020-05-20 11:25] VITALS: BP 198/80; PULSE 73; RESP 20; TEMP 36.2; O2SAT 96; BMI 28.0
[2020-05-20 11:41] VITALS: BP 178/62
--- NOTE | 2020-05-20 11:56 | MHC.HEMONC ---
IV Dextran ordered. Patient notified via phone.
--- NOTE | 2020-05-20 12:22 | MHC.HEMONC ---
Patient seen today for follow-up. labs drawn. Pain discussed and RX given by provider. Copy signed and put to be filed. Follow-up booked.
[2020-05-20 12:37] LABS: Basophils Percent Auto 0.3 % (0-2); Eosinophils Absolute Auto 0.1 X10*3/uL (0.0-0.4); Eosinophils Percent Auto 0.7 % (0-4); Hematocrit 31.5 % (42-52); Hemoglobin 9.7 g/dl (14.0-18.0); Imm Gran Abs Auto 0.08 X10*3/uL (0.00-0.03); Imm Gran Pct Auto 0.7 % (0.0-0.4); Lymphocytes Absolute Auto 0.4 X10*3/uL (1.2-4.9); Lymphocytes Percent Auto 3.1 % (20-40); MANUAL DIFF FLAG SCAN; Mean Corpuscular HGB Conc 30.8 g/dl (31.0-36.0); Mean Corpuscular Hemoglobin 30.2 pg (27.0-33.0); Mean Corpuscular Volume 98.1 fL (80-98); Mean Platelet Volume 9.1 fL (9.4-12.4); Monocytes Percent Auto 8.7 % (2-11); Neutrophils Percent Auto 86.5 % (45-73); Platelet Count 385 X10*3/uL (160-400); Red Blood Count 3.21 X10*6/uL (4.60-5.80); Red Cell Distribution Width 13.8 % (11.0-16.0); SCAN SMEAR FLAG 1; White Blood Count 11.5 X10*3/uL (4.8-10.8)
[2020-05-20 13:06] LABS: SLIDE REVIEW VERIFIED
[2020-05-20 13:18] LABS: Alanine Aminotransferase 40 U/L (0-40); Albumin Level 3.5 g/dL (3.5-5.0); Alkaline Phosphatase 366 U/L (39-117); Anion Gap 12 (12-20); Aspartate Amino Transferase 98 U/L (5-37); Blood Urea Nitrogen 12 mg/dL (9-16); Calcium 8.2 mg/dL (8.4-10.2); Carbon Dioxide 27 mmol/L (22-29); Chloride 100 mmol/L (96-108); Creatinine Clr Calc Pharmacy 87.5; Estimated Glomerular Filt Rate > 60; Glucose Random 169 mg/dL (60-115); Potassium 5.2 mmol/l (3.3-5.1); Sodium 134 mmol/L (135-145); Total Protein 6.6 g/dL (6.5-8.0)
[2020-05-20 13:34] LABS: Bilirubin Total 0.9 mg/dL (0.0-1.0)
--- NOTE | 2020-05-20 17:59 | PM.HEMONCPN ---
Medical Summary - Medical Summary Date of Service: 05/22/20 Chief complaint: LYTIC BONE LESION. Medical Summary: DIAGNOSIS: LYTIC LESION LEFT HIP. BIOPSY: Adenocarcinoma, moderately differentiated. Immunohistochemical profile is most consistent with a metastasis from a colorectal, upper GI, or pancreaticobiliary primary. mismatch repair proteins are normal. Interval History Interval history: Marciano Washington is a pleasant 74 year old gentleman who tells me that he feels so-so. His hip pain is not completely controlled. He has been taking the oxycodone 5-6 times a day. However his pain level stays around 7. It does take the edge off. He feels rather weak. He has been sleeping quite a bit. No fever nor chills. He denies abdominal pain nausea vomiting heartburn indigestion. His bowels are working without any gross blood in it. He denies constipation. Appetite is not that good. He has lost weight. He has shortness of breath at rest and on exertion. He takes Lasix 2 a day. His legs are weak. He has history of parkinsonism. He does feel depressed at times. Rest of the review of systems is unremarkable. Previous History: He was admitted to [facility] back in mid February. He had felt rather dizzy and he could not breathe. His hemoglobin was 7.6. Concern was his heart. He underwent a cardiac evaluation including chest x-rays and an echocardiogram. PMH: COPD, paroxysmally atrial fibrillation on Coumadin, PPM placement, HTN, DM type 2. He was found to have mild fluid overload. Patient diuresed with IV Lasix 40 mg daily. Echo showed normal EF, mechanical aortic valve, severely calcified mitral valve, [id number] mitral stenosis. Repeat chest x-ray showed improvement in pulmonary edema. INR was 6.6 however after holding Coumadin down to 2.2. He stayed there 5 days and then discharged home. He did not receive a blood transfusion. He followed up with Dr. Currie. Repeat hemoglobin was 9.6. Over the past 8 weeks he noted left hip pain. This has been progressively worsening. It now radiates into his upper legs in the back. He grades it as 7 on 1-10 scale. He takes Tylenol before he goes to bed. he does not like taking too many medications. He had the following imaging done: 03/22/2020, X-ray left hip: Several lucencies in the bone questionable for osteopenia. Difficult to exclude a lytic bone lesion in the left inferior pubic ramus near the acetabulum measuring 2 x 3 cm. 04/01/20, CT scan of the pelvis: Combination lytic and sclerotic lesions involving the left inferior pubic ramus without other definite abnormal lytic or sclerotic lesions seen within the remainder of the skeleton. Family history: Sister had a gynecological malignancy. 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 He is . He has 2 boys. He used to smoke a pack-a-day quit in 1968. he drinks a couple of drinks a day. DATABASE: 03/17: CBC: WBC 10.2, HGB 9.2, HCT 29.2, MCV 102, PLT 376. Profile: Lytes: WN L, BUN 22, SPECIALTIES OPERATOR 1.15, GLU 106. Sumit 9, alb 3.8. LFTs: 0.5/354/ 73/17. Review of Systems - Constitutional Reports system reviewed and no additional complaints, except as documented, Reports daytime sleepiness, Reports lack of energy, Reports malaise, Reports poor appetite Comments: Hip pain - Eyes Reports system reviewed and no additional complaints, except as documented - ENT Reports system reviewed and no additional complaints, except as documented - Cardiovascular Reports system reviewed and no additional complaints, except as documented - Respiratory Reports no additional respiratory complaints - Gastrointestinal Reports system reviewed and no additional complaints, except as documented - Genitourinary Genitourinary: Reports no additional male genitourinary complaints - Musculoskeletal Reports system reviewed and no additional complaints, except as documented - Integumentary/Breasts Skin/Breast: Reports no additional skin complaints - Neurologic Reports system reviewed and no additional complaints, except as documented, Reports memory loss, Denies hearing normal, Denies headache(s) - Psychiatric Reports system reviewed and no additional complaints, except as documented - Endocrine Reports no additional endocrine complaints - Hematologic/Lymphatic Reports system reviewed and no additional complaints, except as documented - Allergic/Immunologic Reports system reviewed and no additional complaints, except as documented [facility] Medical History: Medical History (Last Updated 04/28/20 @ 16:10 by JESI House) Anemia Bony sclerosis COPD (chronic obstructive pulmonary disease) Diabetes mellitus GI bleed Hyperlipidemia Hypertension Hypothyroidism Lytic bone lesion of hip Lytic lesion of bone on x-ray Overweight (BMI 25.0-29.9) Parkinson's disease Paroxysmal atrial fibrillation Pleural effusion, right Pulmonary embolism Functional capacity: uses cane/walker Patient : No Family History: Family History (Last Reviewed 04/28/20 @ 16:10 by JESI House) Father Cardiovascular disease Mother Stroke Surgical History: Surgical History (Last Reviewed 04/28/20 @ 16:10 by JESI House) History of aortic valve replacement Onset Date: ~11/29/12 History of carpal tunnel release Onset Date: ~06/24/13 Status post anal fissurectomy Status post biventricular cardiac pacemaker insertion Onset Date: ~2004 Home Medications and Allergies Home Medications Medication Instructions Recorded Confirmed Type albuterol sulfate 90 mcg/actuation 2 puff INHALATION Q6H PRN 03/22/20 04/28/20 History aerosol inhaler aspirin 81 mg tablet,delayed 81 mg PO DAILY 03/22/20 04/28/20 History release ferrous sulfate 325 mg (65 mg 325 mg PO DAILY 03/22/20 04/28/20 History iron) tablet insulin aspart U-100 100 unit/mL 18 unit SUBCUT TID ml 03/22/20 04/28/20 History (3 mL) subcutaneous pen tiotropium bromide 2.5 2 puff INHALATION DAILY 03/22/20 04/28/20 History mcg/actuation mist for inhalation carbidopa-levodopa 1 tab PO TID 04/28/20 05/11/20 History losartan 25 mg PO DAILY 04/28/20 05/20/20 History Allergies Allergy/AdvReac Type Severity Reaction Status Date / Time No Known Allergies Allergy Verified 04/20/20 12:08 [No Known Allergies*] Exam Vital signs: Vital Signs Temp 97.1 F 05/20/20 11:25 Pulse 73 05/20/20 11:25 Resp 20 05/20/20 11:25 BP 178/62 H 05/20/20 11:41 Pulse Ox 96 05/20/20 11:25 Intake & Output 05/19/20 05/20/20 05/20/20 18:59 06:59 18:59 Other: Weight 91.4 kg Weight 91.4 kg Body Mass Index 28.0 - Constitutional Present: mild distress - Routine HEENT Exam Head: Present: normal inspection Eye: Present: normal appearance ENT: Present: mucous membranes moist - Routine Neck Exam Present: full ROM - Routine Respiratory Exam Present: CTAB - Routine Cardiovascular Exam Cardiovascular: Present: RRR, S1, S2 - Routine Abdominal Exam Present: soft, nontender - Routine Extremities Exam Present: nontender - Routine Back/Spine/Pelvis Exam Back/Spine: Present: full ROM - Routine Skin Exam Present: intact - Routine Neurological Exam Present: alert, oriented X3 - Routine Psychiatric Exam Present: normal affect Data - Labs CBC & Chem 7: 05/20/20 12:21 05/20/20 12:21 Labs: 04/27/20 11:10 Type and Screen Routine 04/27/20 11:18 CEA [Carcinoembryonic Antigen] Routine Complete Blood Count Auto Diff Routine Comprehensive Met. Panel Routine Immunofixation Pnl, Serum Routine Lactate Dehydrogenase Routine Prostate Specific Antigen Scr Routine SLIDE REVIEW Routine Thyroid Stimulating Hormone Routine Vitamin B12 and Folate Routine 05/11/20 00:00 Denosumab [Xgeva] 120 mg SUBCUT ONCE 05/11/20 16:09 CEA [Carcinoembryonic Antigen] Routine Complete Blood Count Auto Diff Routine Comprehensive Met. Panel Routine SLIDE REVIEW Routine 05/20/20 12:21 CMP [Comprehensive Met. Panel] Routine Complete Blood Count Auto Diff Routine SLIDE REVIEW Routine Laboratory Last Values WBC 11.5 X10*3/uL (4.8-10.8) H 05/20/20 12:21 RBC 3.21 X10*6/uL (4.60-5.80) L 05/20/20 12:21 Hgb 9.7 g/dl (14.0-18.0) L 05/20/20 12:21 Hct 31.5 % (42-52) L 05/20/20 12:21 MCV 98.1 fL (80-98) H 05/20/20 12:21 MCH 30.2 pg (27.0-33.0) 05/20/20 12: MCHC 30.8 g/dl (31.0-36.0) L 05/20/20 12: RDW 13.8 % (11.0-16.0) 05/20/20 12:21 Plt Count 385 X10*3/uL (160-400) 05/20/20 12: MPV 9.1 fL (9.4-12.4) L 05/20/20 12:21 Immature Gran % (Auto) 0.7 % (0.0-0.4) H 05/20/20 12:21 Neut % (Auto) 86.5 % (45-73) H 05/20/20 12:21 Lymph % (Auto) 3.1 % (20-40) L 05/20/20 12:21 [place] % (Auto) 8.7 % (2-11) 05/20/20 12:21 Eos % (Auto) 0.7 % (0-4) 05/20/20 12:21 Baso % (Auto) 0.3 % (0-2) 05/20/20 12:21 Lymph # (Auto) 0.4 X10*3/uL (1.2-4.9) L 05/20/20 12:21 [place] # (Auto) 1.0 X10*3/uL (0.1-1.2) 05/20/20 12:21 Eos # (Auto) 0.1 X10*3/uL (0.0-0.4) 05/20/20 12:21 Baso # (Auto) 0.0 X10*3/uL (0.0-0.2) 05/20/20 12:21 Abs Immat Gran (auto) 0.08 X10*3/uL (0.00-0.03) H 05/20/20 12:21 Absolute Neuts (auto) 10.0 X10*3/uL (2.0-8.3) H 05/20/20 12:21 Absolute Nucleated RBC 0.000 X10*3/uL (0.0-0.012) 05/20/20 12: Nucleated RBC % (auto) 0.0 /100WBC (0.0-0.2) 05/20/20 12:21 Smear Tech's Comments VERIFIED 05/20/20 12:21 Sodium 134 mmol/L (135-145) L 05/20/20 12:21 Potassium 5.2 mmol/l (3.3-5.1) H 05/20/20 12:21 Chloride 100 mmol/L (96-108) 05/20/20 12:21 Carbon Dioxide 27 mmol/L (22-29) 05/20/20 12:21 Anion Gap 12 (12-20) 05/20/20 12:21 BUN 12 mg/dL (9-16) 05/20/20 12:21 Creatinine 0.83 mg/dL (0.5-1.4) 05/20/20 12:21 Estim Creat Clear Calc 87.5 05/20/20 12:21 Estimated GFR > 60 05/20/20 12:21 Random Glucose 169 mg/dL (60-115) H D 05/20/20 12:21 Calcium 8.2 mg/dL (8.4-10.2) L 05/20/20 12:21 Total Bilirubin 0.9 mg/dL (0.0-1.0) 05/20/20 12:21 AST 98 U/L (5-37) H 05/20/20 12:21 ALT 40 U/L (0-40) 05/20/20 12:21 Alkaline Phosphatase 366 U/L (39-117) H 05/20/20 12:21 Lactate Dehydrogenase 239 U/L (118-273) 04/27/20 11:18 Total Protein 6.6 g/dL (6.5-8.0) 05/20/20 12:21 Albumin 3.5 g/dL (3.5-5.0) 05/20/20 12:21 Carcinoembryonic Ag 10.90 mg/mL 05/11/20 16:09 PSA Screen 0.30 ng/mL (<0.05-4.0) 04/27/20 11:18 Vitamin B12 1494 pg/mL (200-900) H 04/27/20 11:18 Folate 16.8 ng/mL (> or = 4.0) 04/27/20 11:18 TSH 4.93 uIU/mL (0.32-4.0) H 04/27/20 11:18 IgG Total 1153 mg/dL (600-1540) 04/27/20 11:18 IgA Total 240 mg/dL (70-320) 04/27/20 11:18 IgM 61 mg/dL (50-300) 04/27/20 11:18 JONAS Interpretation SEE NOTE 04/27/20 11:18 Blood Type O Positive 04/27/20 11:10 Antibody Screen NEGATIVE 04/27/20 11:10 Progress Note: A/P (1) Lytic bone lesion of hip Status: Acute (2) Anemia Status: Inactive Assessment and plan: This is a pleasant 74-year-old gentleman with a history of parkinsonism. He was recently noted to have left hip lesion, at the left ischium: 2.6 x 2.8 x 4 cm eroded through much of the lateral cortex. Left inferior pubic ramus: Measuring 1.3 x 0.8 x 1.2 cm. Concern is for metastatic disease, from an unknown primary. Possible primaries could include prostate cancer versus lung. less likely a GI primary. DIFFERENTIAL DIAGNOSIS: 2. Multiple myeloma, leading to lytic bone lesions. SIEP revealed: multiple oligo clonal bands. I proceeded with further evaluation. l checked labs including tumor markers: PSA and CEA: 14 and LDH. l proceeded with the search for a primary: Checked CT chest and abdomen and pelvis. 1. Multiple filling defects in subsegmental pulmonary artery branches in the left lower lobe consistent with pulmonary emboli. 2. Small bilateral pleural effusions, right greater than left with tracking in the right major fissure. Right lower lobe atelectasis versus infiltrate. Asymmetric right interlobular septal thickening, 0.5 cm right upper lobe nodule and 1.2 cm groundglass infiltrate in the right upper lobe are nonspecific. Enlarged mediastinal lymph nodes are also nonspecific. Short-term follow-up with a chest CT scan in 3 months is recommended. A PET CT scan could also be considered. I proceeded with a bone survey to look for other areas of bone involvement. Combination lytic and sclerotic lesions involving the left inferior pubic ramus without other definite abnormal lytic or sclerotic lesion seen within the remainder of the skeleton on this plain film study. l proceeded with the biopsy. This was done on 05/03 and revealed: Adenocarcinoma, moderately differentiated. Immunohistochemical findings is most consistent with metastatic cyst from colorectal, upper GI or pancreaticobiliary primary. Immunohistochemistry for mismatch repair proteins are pending. I explained the diagnosis and prognosis along with possible treatment options to the patient and his . I did mention that the final results are still not available, as to the primary site. The final pathology results: Miss match repair proteins are normal. I discussed with the pathologist. They cannot narrow the diagnosis. PLAN: I will proceed with a PET scan for further evaluation to localize the primary. Will then make a treatment plan. In the meantime, he was given Denosumab to help with the bone metastases and possibly the pain. I will start him on long-acting pain medicine: MS Contin 30 mg p.o. b.i.d. for more smooth pain control. I advised him to take the oxycodone every 6 hours as needed for the breakthrough pain. All his and his 's questions were answered to their satisfaction. He will return in one week for a follow-up visit. Thank you, cc: Dr. Jose Alejandro Currie. - Time Spent With Patient Total time spent is greater than 50% in coordination of care (as documented) at patient's floor/unit and/or counseling patient: 25 - 35 minutes
--- NOTE | 2020-05-24 17:31 | MHC.HEMONC ---
PET SCAN - Dr. Mast recvd call from Mrs Washington earlier today re: She had not heard from PET SCAN ditch repairer yet. I called her to inform her of the date and time for tomorrow. She tells me that [facility] ended up calling her after 2 pm today and told her to arrive at 10:15 am. She has no further questions at this time.
[2020-05-28 14:18] LABS: Basophils Percent Auto 0.2 % (0-2); Eosinophils Absolute Auto 0.1 X10*3/uL (0.0-0.4); Eosinophils Percent Auto 0.8 % (0-4); Hematocrit 32.5 % (42-52); Hemoglobin 10.4 g/dl (14.0-18.0); Imm Gran Abs Auto 0.06 X10*3/uL (0.00-0.03); Imm Gran Pct Auto 0.6 % (0.0-0.4); Lymphocytes Absolute Auto 0.4 X10*3/uL (1.2-4.9); Lymphocytes Percent Auto 3.3 % (20-40); MANUAL DIFF FLAG SCAN; Mean Corpuscular Hemoglobin 31.3 pg (27.0-33.0); Mean Corpuscular Volume 97.9 fL (80-98); Mean Platelet Volume 9.3 fL (9.4-12.4); Monocytes Absolute Auto 1.1 X10*3/uL (0.1-1.2); Monocytes Percent Auto 9.7 % (2-11); Neutrophils Absolute Auto 9.2 X10*3/uL (2.0-8.3); Neutrophils Percent Auto 85.4 % (45-73); Platelet Count 303 X10*3/uL (160-400); Red Blood Count 3.32 X10*6/uL (4.60-5.80); Red Cell Distribution Width 13.8 % (11.0-16.0); SCAN SMEAR FLAG 1; White Blood Count 10.8 X10*3/uL (4.8-10.8)
[2020-05-28 14:22] VITALS: BP 152/70; PULSE 70; TEMP 36.6; O2SAT 96
[2020-05-28 14:24] VITALS: BMI 27.3
[2020-05-28 14:50] LABS: Alanine Aminotransferase 20 U/L (0-40); Albumin Level 3.3 g/dL (3.5-5.0); Alkaline Phosphatase 352 U/L (39-117); Anion Gap 10 (12-20); Aspartate Amino Transferase 96 U/L (5-37); Bilirubin Total 0.8 mg/dL (0.0-1.0); Blood Urea Nitrogen 12 mg/dL (9-16); Carbon Dioxide 30 mmol/L (22-29); Chloride 99 mmol/L (96-108); Creatinine Clr Calc Pharmacy 71.9; Estimated Glomerular Filt Rate > 60; Glucose Random 103 mg/dL (60-115); Potassium 5.5 mmol/l (3.3-5.1); Sodium 133 mmol/L (135-145); Total Protein 6.2 g/dL (6.5-8.0)
--- NOTE | 2020-05-28 14:58 | P.PNHO_ITS ---
Medical Summary - Medical Summary Date of Service: 06/13/20 Chief complaint: F/U metastaic Cancer. Medical Summary: DIAGNOSIS: LYTIC LESION LEFT HIP. BIOPSY: Adenocarcinoma, moderately differentiated. Immunohistochemical profile is most consistent with a metastasis from a colorectal, upper GI, or pancreaticobiliary primary. mismatch repair proteins are normal. This is a pleasant 74-year-old gentleman with a history of parkinsonism. He was recently noted to have left hip lesion, at the left ischium: 2.6 x 2.8 x 4 cm eroded through much of the lateral cortex. Left inferior pubic ramus: Measuring 1.3 x 0.8 x 1.2 cm. Concern is for metastatic disease, from an unknown primary. Possible primaries could include prostate cancer versus lung. less likely a GI primary. DIFFERENTIAL DIAGNOSIS: 2. Multiple myeloma, leading to lytic bone lesions. SIEP revealed: multiple oligo clonal bands. I proceeded with further evaluation. l checked labs including tumor markers: PSA and CEA: 14 and LDH. l proceeded with the search for a primary: Checked CT chest and abdomen and pelvis. 1. Multiple filling defects in subsegmental pulmonary artery branches in the left lower lobe consistent with pulmonary emboli. 2. Small bilateral pleural effusions, right greater than left with tracking in the right major fissure. Right lower lobe atelectasis versus infiltrate. Asymmetric right interlobular septal thickening, 0.5 cm right upper lobe nodule and 1.2 cm groundglass infiltrate in the right upper lobe are nonspecific. Enlarged mediastinal lymph nodes are also nonspecific. Short-term follow-up with a chest CT scan in 3 months is recommended. A PET CT scan could also be considered. I proceeded with a bone survey to look for other areas of bone involvement. Combination lytic and sclerotic lesions involving the left inferior pubic ramus without other definite abnormal lytic or sclerotic lesion seen within the remainder of the skeleton on this plain film study. l proceeded with the biopsy. This was done on 05/03 and revealed: Adenocarcinoma, moderately differentiated. Immunohistochemical findings is most consistent with metastatic cyst from colorectal, upper GI or pancreaticobiliary primary. Immunohistochemistry for mismatch repair proteins are pending. Interval History Interval history: Marciano Washington is a pleasant 74 year old gentleman who tells me that he feels so- so. His hip pain is not completely controlled. He has been taking the oxycodone 5-6 times a day. However his pain level stays around 7. It does take the edge off. He feels rather weak. He has been sleeping quite a bit. No fever nor chills. He denies abdominal pain nausea vomiting heartburn indigestion. His bowels are working without any gross blood in it. He denies constipation. Appetite is not that good. He has lost weight. He has shortness of breath at rest and on exertion. He takes Lasix 2 a day. His legs are weak. He has history of parkinsonism. He does feel depressed at times. Rest of the review of systems is unremarkable. Previous History: He was admitted to [facility] back in mid February. He had felt rather dizzy and he could not breathe. His hemoglobin was 7.6. Concern was his heart. He underwent a cardiac evaluation including chest x-rays and an echocardiogram. PMH: COPD, paroxysmally atrial fibrillation on Coumadin, PPM placement, HTN, DM type 2. He was found to have mild fluid overload. Patient diuresed with IV Lasix 40 mg daily. Echo showed normal EF, mechanical aortic valve, severely calcified mitral valve, [id number] mitral stenosis. Repeat chest x-ray showed improvement in pulmonary edema. INR was 6.6 however after holding Coumadin down to 2.2. He stayed there 5 days and then discharged home. He did not receive a blood transfusion. He followed up with Dr. Currie. Repeat hemoglobin was 9.6. Over the past 8 weeks he noted left hip pain. This has been progressively worsening. It now radiates into his upper legs in the back. He grades it as 7 on 1-10 scale. He takes Tylenol before he goes to bed. he does not like taking too many medications. He had the following imaging done: 03/22/2020, X-ray left hip: Several lucencies in the bone questionable for osteopenia. Difficult to exclude a lytic bone lesion in the left inferior pubic ramus near the acetabulum measuring 2 x 3 cm. 04/01/20, CT scan of the pelvis: Combination lytic and sclerotic lesions involving the left inferior pubic ramus without other definite abnormal lytic or sclerotic lesions seen within the remainder of the skeleton. Family history: Sister had a gynecological malignancy. 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 He is . He has 2 boys. He used to smoke a pack-a-day quit in 1968. he drinks a couple of drinks a day. DATABASE: 03/17: CBC: WBC 10.2, HGB 9.2, HCT 29.2, MCV 102, PLT 376. Profile: Lytes: WN L, BUN 22, WILTON WEAVER 1.15, GLU 106. Sumit 9, alb 3.8. LFTs: 0.5/354/ 73/17. Review of Systems - Neurologic Reports system reviewed and no additional complaints, except as documented, Reports memory loss, Denies hearing normal, Denies headache(s) [facility] Medical History: Medical History (Last Reviewed 06/13/20 @ 13:49 by Day Garcia MD) Anemia Bony sclerosis COPD (chronic obstructive pulmonary disease) Diabetes mellitus GI bleed Hyperlipidemia Hypertension Hypothyroidism Lytic bone lesion of hip Lytic lesion of bone on x-ray Overweight (BMI 25.0-29.9) Pancreatic cancer Parkinson's disease Paroxysmal atrial fibrillation Pleural effusion, right Pulmonary embolism Functional capacity: uses cane/walker Patient : No Family History: Family History (Last Reviewed 06/13/20 @ 13:50 by Day Garcia MD) Father Cardiovascular disease Mother Stroke Other Colon cancer FH: Parkinson's disease Surgical History: Surgical History (Last Reviewed 06/13/20 @ 13:14 by Ana Cazares) History of aortic valve replacement Onset Date: ~11/29/12 History of carpal tunnel release Onset Date: ~06/24/13 Status post anal fissurectomy Status post biventricular cardiac pacemaker insertion Onset Date: ~2004 Status post mechanical aortic valve replacement Home Medications and Allergies Home Medications Medication Instructions Recorded Confirmed Type carbidopa-levodopa 1 tab PO TID 04/28/20 06/12/20 History losartan 25 mg PO DAILY 04/28/20 06/12/20 History albuterol sulfate [ProAir HFA] 2 puff INHALATION Q4-6H PRN 06/12/20 06/12/20 History insulin asp prt-insulin aspart 8 unit SUBCUT TID 06/12/20 06/12/20 History [Novolog Mix 70-30FlexPen U-100] Allergies Allergy/AdvReac Type Severity Reaction Status Date / Time No Known Allergies Allergy Verified 06/12/20 14:32 [No Known Allergies*] Exam Vital signs: Vital Signs Temp 97.9 F 12/18/20 14:22 Pulse 70 05/28/20 14:22 Resp 20 05/20/20 11:25 BP 152/70 H 05/28/20 14:22 Pulse Ox 96 05/28/20 14:22 Intake & Output 05/27/20 05/28/20 05/28/20 18:59 06:59 18:59 Other: Weight 89.1 kg Weight 89.1 kg Body Mass Index 27.3 - Constitutional Present: mild distress - Routine HEENT Exam Head: Present: normal inspection - Routine Neck Exam Present: full ROM - Routine Respiratory Exam Present: CTAB - Routine Cardiovascular Exam Cardiovascular: Present: RRR, S1, S2 - Routine Abdominal Exam Present: soft, nontender - Routine Extremities Exam Present: nontender - Routine Back/Spine/Pelvis Exam Back/Spine: Present: full ROM - Routine Skin Exam Present: intact - Routine Neurological Exam Present: alert, oriented X3 - Routine Psychiatric Exam Present: normal affect Data - Labs CBC & Chem 7: 05/28/20 14:04 05/28/20 14:04 Labs: 04/27/20 11:10 Type and Screen Routine 04/27/20 11:18 CEA [Carcinoembryonic Antigen] Routine Complete Blood Count Auto Diff Routine Comprehensive Met. Panel Routine Immunofixation Pnl, Serum Routine Lactate Dehydrogenase Routine Prostate Specific Antigen Scr Routine SLIDE REVIEW Routine Thyroid Stimulating Hormone Routine Vitamin B12 and Folate Routine 05/11/20 00:00 Denosumab [Xgeva] 120 mg SUBCUT ONCE 05/11/20 16:09 CEA [Carcinoembryonic Antigen] Routine Complete Blood Count Auto Diff Routine Comprehensive Met. Panel Routine SLIDE REVIEW Routine 05/20/20 12:21 CMP [Comprehensive Met. Panel] Routine Complete Blood Count Auto Diff Routine SLIDE REVIEW Routine Laboratory Last Values WBC 10.8 X10*3/uL (4.8-10.8) 05/28/20 14:04 RBC 3.21 X10*6/uL (4.60-5.80) L 05/20/20 12:21 Hgb 10.4 g/dl (14.0-18.0) L 05/28/20 14:04 Hct 32.5 % (42-52) L 05/28/20 14:04 MCV 98.1 fL (80-98) H 05/20/20 12:21 MCH 30.2 pg (27.0-33.0) 05/20/20 12: MCHC 30.8 g/dl (31.0-36.0) L 05/20/20 12: RDW 13.8 % (11.0-16.0) 05/20/20 12:21 Plt Count 303 X10*3/uL (160-400) 05/28/20 14:04 MPV 9.1 fL (9.4-12.4) L 05/20/20 12:21 Immature Gran % (Auto) 0.7 % (0.0-0.4) H 05/20/20 12: Neut % (Auto) 86.5 % (45-73) H 05/20/20 12: Lymph % (Auto) 3.1 % (20-40) L 05/20/20 12:21 [place] % (Auto) 8.7 % (2-11) 05/20/20 12:21 Eos % (Auto) 0.7 % (0-4) 05/20/20 12:21 Baso % (Auto) 0.3 % (0-2) 05/20/20 12:21 Lymph # (Auto) 0.4 X10*3/uL (1.2-4.9) L 05/20/20 12: [place] # (Auto) 1.0 X10*3/uL (0.1-1.2) 05/20/20 12:21 Eos # (Auto) 0.1 X10*3/uL (0.0-0.4) 05/20/20 12:21 Baso # (Auto) 0.0 X10*3/uL (0.0-0.2) 05/20/20 12:21 Abs Immat Gran (auto) 0.08 X10*3/uL (0.00-0.03) H 05/20/20 12: Absolute Neuts (auto) 10.0 X10*3/uL (2.0-8.3) H 05/20/20 12: Absolute Nucleated RBC 0.000 X10*3/uL (0.0-0.012) 05/20/20 12: Nucleated RBC % (auto) 0.0 /100WBC (0.0-0.2) 05/20/20 12:21 Smear Tech's Comments VERIFIED 05/20/20 12:21 Sodium 133 mmol/L (135-145) L 05/28/20 14:04 Potassium 5.5 mmol/l (3.3-5.1) H 05/28/20 14:04 Chloride 99 mmol/L (96-108) 05/28/20 14:04 Carbon Dioxide 30 mmol/L (22-29) H 05/28/20 14:04 Anion Gap 10 (12-20) L 05/28/20 14:04 BUN 12 mg/dL (9-16) 05/28/20 14:04 Creatinine 0.93 mg/dL (0.5-1.4) 05/28/20 14:04 Estim Creat Clear Calc 71.9 05/28/20 14:04 Estimated GFR > 60 05/28/20 14:04 Random Glucose 103 mg/dL (60-115) D 05/28/20 14:04 Calcium 8.0 mg/dL (8.4-10.2) L 05/28/20 14:04 Total Bilirubin 0.8 mg/dL (0.0-1.0) 05/28/20 14:04 AST 96 U/L (5-37) H 05/28/20 14:04 ALT 20 U/L (0-40) 05/28/20 14:04 Alkaline Phosphatase 352 U/L (39-117) H 05/28/20 14:04 Lactate Dehydrogenase 239 U/L (118-273) 04/27/20 11:18 Total Protein 6.2 g/dL (6.5-8.0) L 05/28/20 14:04 Albumin 3.3 g/dL (3.5-5.0) L 05/28/20 14:04 Carcinoembryonic Ag 10.90 mg/mL 05/11/20 16:09 PSA Screen 0.30 ng/mL (<0.05-4.0) 04/27/20 11:18 Vitamin B12 1494 pg/mL (200-900) H 04/27/20 11:18 Folate 16.8 ng/mL (> or = 4.0) 04/27/20 11:18 TSH 4.93 uIU/mL (0.32-4.0) H 04/27/20 11:18 IgG Total 1153 mg/dL (600-1540) 04/27/20 11:18 IgA Total 240 mg/dL (70-320) 04/27/20 11:18 IgM 61 mg/dL (50-300) 04/27/20 11:18 JONAS Interpretation SEE NOTE 04/27/20 11:18 Blood Type O Positive 04/27/20 11:10 Antibody Screen NEGATIVE 04/27/20 11:10 Progress Note: A/P (1) Lytic bone lesion of hip Status: Acute Assessment and plan: This is a pleasant 74-year-old gentleman with a history of parkinsonism. He was recently noted to have left hip lesion, at the left ischium: 2.6 x 2.8 x 4 cm eroded through much of the lateral cortex. Left inferior pubic ramus: Measuring 1.3 x 0.8 x 1.2 cm. Concern is for metastatic disease, from an unknown primary. Possible primaries could include prostate cancer versus lung. less likely a GI primary. DIFFERENTIAL DIAGNOSIS: 2. Multiple myeloma, leading to lytic bone lesions. SIEP revealed: multiple oligo clonal bands. I proceeded with further evaluation. l checked labs including tumor markers: PSA and CEA: 14 and LDH:normal. l proceeded with the search for a primary: Checked CT chest and abdomen and pelvis. 1. Multiple filling defects in subsegmental pulmonary artery branches in the left lower lobe consistent with pulmonary emboli. 2. Small bilateral pleural effusions, right greater than left with tracking in the right major fissure. Right lower lobe atelectasis versus infiltrate. Asymmetric right interlobular septal thickening, 0.5 cm right upper lobe nodule and 1.2 cm groundglass infiltrate in the right upper lobe are nonspecific. Enlarged mediastinal lymph nodes are also nonspecific. Short-term follow-up with a chest CT scan in 3 months is recommended. A PET CT scan could also be considered. I proceeded with a bone survey to look for other areas of bone involvement. Combination lytic and sclerotic lesions involving the left inferior pubic ramus without other definite abnormal lytic or sclerotic lesion seen within the remainder of the skeleton on this plain film study. l proceeded with the biopsy. This was done on 05/03 and revealed: Adenocarcinoma, moderately differentiated. Immunohistochemical findings is most consistent with metastatic cyst from colorectal, upper GI or pancreaticobiliary primary. Immunohistochemistry for mismatch repair proteins are normal. I explained the diagnosis and prognosis along with possible treatment options to the patient and his . I did mention that the final results are still not available, as to the primary site. The final pathology results: Miss match repair proteins are normal. I discussed with the pathologist. They cannot narrow the diagnosis. I proceeded with a PET scan for further evaluation to localize the primary. This revealed: 1. Intensely FDG avid metastatic disease is present in the right lobe of the liver. 2. Intensely FDG avid mediastinal, abdominal and retroperitoneal metastatic lymphadenopathy is present. There are also several small foci of FDG activity in loops of small bowel which are also suspicious for metastases. 3. Multiple FDG avid lytic bone metastases are present, the most prominent in the left ischium. 4. Diffuse vascular calcifications including coronary. PLAN: In the meantime, he was given Denosumab to help with the bone metastases and possibly the pain. I will start him on long-acting pain medicine: MS Contin 30 mg p.o. b.i.d. for more smooth pain control. I advised him to take the oxycodone every 6 hours as needed for the breakthrough pain. All his and his 's questions were answered to their satisfaction. He will return in one week for a follow-up visit. Thank you, cc: Dr. Jose Alejandro Currie. (2) Anemia Status: Acute - Time Spent With Patient Total time spent is greater than 50% in coordination of care (as documented) at patient's floor/unit and/or counseling patient: 25 - 35 minutes
[2020-05-28 15:10] LABS: Prostate Specific Antigen Scr 0.48 ng/mL (<0.05-4.0)
[2020-05-28 15:16] LABS: SLIDE REVIEW VERIFIED
--- NOTE | 2020-05-28 15:51 | MHC.HEMONC ---
Pt here for follow up with Dr Mast. Still c/o left hip pain. Taking MS Contin Q12 hrs, and takes one oxycodone in the afternoon for breakthrough pain. Also states has been very tired, and appetite is only fair. Dr Mast in to see pt. Info given on gemzar and paclitaxel. Dr Mast to speak with [facility] regarding radiation therapy. Will return in 2 weeks for follow up.
--- NOTE | 2020-05-28 17:49 | MHC.HEMONC ---
[facility] Radiation Dept. Per Dr Mast, her last note and pt. demographic sheet were faxed to [facility]iation [facility]. at . I spoke king [place] at [facility] at to let her know. I received confirmation of successful fax transmission.
--- NOTE | 2020-06-02 11:36 | MHC.HEMONC ---
Patients called due to MS Cotin possibly dropping blood glucose levels. Dr Pettit advised to stop MS Cotin. Patients advised to call primary care regarding blood glucose and insulin adjustments. Duco Polisher informed about family day carer distress and will call to talk to patients .
--- NOTE | 2020-06-02 15:08 | MHC.HEMONC ---
Hypoglycemia - I spoke w Mrs. Tariq. She tells me pt has been experiencing low BS. He was seen in ED and was advised to decrease Levemir from 35 units to 20 units, despite doing this his BS dropped again at 330 this am. She responded to this w ZANDER, lluvia, and PB w good results. Upon questioning she tells me she gives him Novolog 18units w meals, his appetite is half what it used to be, and he has lost weight. I personally discussed this in person w Dr. Currie at his office. Received V.O to stop Levemir at bedtime and continue to monitor. Okay to continue MS Contin which she tells me he takes once in the am, once in the pm, and at times one oxycodone in between for breakthrough pain. I advised Mrs. Washington of Dr. Currie's Verbal Order to stop Levemir altogether at bedtime and continue to monitor. She will call Dr. Currie or myself should she have any other questions or concerns. She was able to repeat these instructions to me w good understanding and reasoning. At this time she does not need to talk with Sonali re: stressors as this was the stressor she had. Sonali notified. See previous/original message for further details.
--- NOTE | 2020-06-22 11:11 | MHC.HEMONCSW ---
SAM AND BALBIR DENNISON FAXED TO [facility] FOR THE 2ND TIME SINCE 06/17/20. WAIT DECISION.
--- NOTE | 2020-06-22 14:40 | MHC.HEMONCSW ---
PHONED [facility], SPOKE WITH LEONCIO...NO PA REQUIRED FOR B/B MEDS ABRAXANE AND GEMZAR. THE PLAN FOLLOWS MEDICARE GUIDELINES. INFORMED MY ASSIGNMENT EDITOR.
--- NOTE | 2020-06-25 11:32 | MHC.HEMONC ---
CALL- [facility] -DELON WILLIS CALLED TO INFORM DR ROSALES THAT THE PATIENT WAS ADMITTED YESTERDAY FOR PNEUMONIA RECOVERY , AND DE-CONDITIONING.
--- NOTE | 2020-06-29 11:48 | MHC.HEMONC ---
called and spoke to pt . Mr Felix is still in Rehab but not doing well. She does not think he would withstand any chemo but may reschedule RT at [facility] if he would benefit from palliative RT once home. She will call us if she needs us. I will inform Dr Mast.
== END 2020-07-15 23:00 | disposition left against medical advice (07) ==
LOC: HO.ONC 14:00
PROVIDERS: PCP Internal Medicine; Referring Provider Internal Medicine; Visit Provider Internal Medicine Medical Oncology
DX: C80.1 Malignant (primary) neoplasm, unspecified (principal); C79.51 Secondary malignant neoplasm of bone; G20 Parkinson's disease
CPT/HCPCS: 36415; 80053; 82378; 82607; 82746; 82784; 83615; 84153; 84443; 85025; 86301; 86334; 86850; 86900; 86901; 96372; 99214; J0897

== ENCOUNTER 2020-05-31 02:43 | Emergency (ER) | payer MEDICARE, SELFPAY ==
[2020-05-31 02:52] VITALS: BP 169/70; BP 186/71; PULSE 60; PULSE 62; RESP 15; TEMP 36.4; O2SAT 96; BMI 27.8
[2020-05-31 02:57] LABS: Glucose, Whole Blood 143 mg/dL (60-115)
--- NOTE | 2020-05-31 03:14 | ED_ITS ---
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 Tonight prior to arrival patient's heard him moaning went to see him patient had a glassy look partially responding when EMS came patient's blood sugar was 50 was given D50 1 ampule and patient felt much better back to baseline on arrival patient's blood sugar was 209 no seizure activities at home no head injury or fall patient is on Lovenox for prosthetic valve. No fever no chills no cough no urinary symptoms otherwise patient is at his baseline Related Data Home Medications Medication Instructions Recorded Confirmed insulin aspart U-100 100 unit/mL 18 unit SUBCUT TID ml 03/22/20 05/31/20 (3 mL) subcutaneous pen tiotropium bromide 2.5 2 puff INHALATION DAILY 03/22/20 05/31/20 mcg/actuation mist for inhalation carbidopa-levodopa 1 tab PO TID 04/28/20 05/31/20 losartan 25 mg PO DAILY 04/28/20 05/31/20 tiotropium bromide [Spiriva 2 puff INHALATION DAILY 05/31/20 05/31/20 Respimat] Previous Rx's Medication Instructions Recorded diltiazem HCl 180 mg 180 mg PO DAILY 90 Days #90 cap 03/22/20 capsule,extended release 24 hr furosemide 20 mg tablet 40 mg PO DAILY 90 Days #180 tab 03/22/20 insulin detemir U-100 100 unit/mL 35 unit SUBCUT BEDTIME 90 Days 03/22/20 (3 mL) subcutaneous pen #31.5 ml levothyroxine 50 mcg tablet 50 mcg PO DAILY 90 Days #90 tab 03/22/20 pravastatin 40 mg tablet 40 mg PO DAILY 90 Days #90 tab 03/22/20 sotalol 120 mg tablet 120 mg PO BID 90 Days #180 tab 03/22/20 tramadol 50 mg tablet 50 mg PO BEDTIME PRN 10 Days #10 04/21/20 tab oxycodone 5 mg PO Q8H PRN #40 cap 04/27/20 enoxaparin 90 mg SUBCUT Q12H 30 Days #54 ml 04/30/20 omeprazole 20 mg PO DAILY@0630 #30 cap 04/30/20 oxycodone [Roxicodone] 5 mg PO Q4H PRN #50 tab 05/18/20 morphine [MS Contin] 30 mg PO Q12H #60 tab 05/20/20 Allergies Allergy/AdvReac Type Severity Reaction Status Date / Time No Known Allergies Allergy Verified 04/20/20 12:08 [No Known Allergies*] Review of Systems Review of Systems: Constitutional : No Weight loss, No Fever, No Chills ENT/Mouth : No sore throat, No Rhinorrhea Eyes: No Eye Pain, No Swelling Cardiovascular : No Chest Pain, no Dyspnea on Exertion, No Orthopnea, No Edema, No Palpitations, no SOB Respiratory : No Cough, No Sputum Gastrointestinal : no Nausea, No Vomiting, No Diarrhea, No abdominal Pain, No Hematochezia, No Melena Genitourinary : No Dysuria, No Urinary Frequency Musculoskeletal : No joint pain, No Myalgias, No Joint Swelling Skin : No Skin Lesions, No rash Neuro : No Weakness, No Numbness, No Dizziness, No Headache Psych : No Anxiety/Panic, No Depression Heme/Lymph: No Bruising, No Lymphadenopathy Endocrine : No Polyuria, No Polydipsia All other systems reviewed and are negative [facility] Past Medical History Medical History Anemia Bony sclerosis COPD (chronic obstructive pulmonary disease) Diabetes mellitus GI bleed Hyperlipidemia Hypertension Hypothyroidism Lytic bone lesion of hip Lytic lesion of bone on x-ray Overweight (BMI 25.0-29.9) Parkinson's disease Paroxysmal atrial fibrillation Pleural effusion, right Pulmonary embolism Surgical History History of aortic valve replacement (~11/29/12) History of carpal tunnel release (~06/24/13) Status post anal 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) Family History Family History Father Cardiovascular disease Mother Stroke Social History Social History Household Members: Spouse Housing: House Alcohol intake: current Alcohol intake frequency: 0-2 drinks per day Alcohol type: hard liquor Smoking Status: Never smoker Use of substances other than those prescribed or required for medical reasons: No Advance Directives: No Advance Directives Information Provided: No service: No Current occupational status: retired Physical Exam Vital Signs: Vital Signs: Last Vital Signs Temp 97.5 F 05/31/20 02:52 Pulse 62 05/31/20 02:52 Resp 15 05/31/20 02:52 BP 186/71 H 05/31/20 02:52 Pulse Ox 96 05/31/20 02:52 Body Mass Index 27.8 Appearance: Alert. Oriented X3. No acute distress. Eyes: Pupils equal, round and reactive to light. ENT: Pharynx normal. Neck: Normal inspection. Neck supple. CVS: Normal heart rate and rhythm. Pulses normal. Respiratory: No respiratory distress. Breath sounds normal. Abdomen: Soft and nontender. Bowel sounds are present, no mass palpable, no CVA tenderness Skin: Skin warm and dry. Normal skin color. Normal skin turgor. Extremities: No lower extremity edema. Neuro: Oriented X 3. No motor deficit. No sensory deficit. Course Course Course Narrative: blood sugar 153 now because of hypoglycemia secondary to less food intake patient advised to decrease the dose of insulin to 20 units in the nighttime and have meals before goes to bed Medical Decision Making MDM Narrative Medical decision making narrative: Patient's hypoglycemia on insulin secondary to poor oral intake check the labs watch for some time p.o. food re-educated about diabetes and to decrease the dose of insulin if not eating well patient's blood sugar dropped to 66 again gave p.o. fluids and food , poc improved to 78 now Lab Data Lab results reviewed: Yes I reviewed the patient's lab results. Result diagrams: 05/31/20 03:43 05/31/20 03:44 Labs: Lab Results 05/31/20 05/31/20 05/31/20 Range/Units 02:49 03:43 03:44 WBC 12.5 H (4.8-10.8) X10*3/uL RBC 3.20 L (4.60-5.80) X10*6/uL Hgb 10.0 L (14.0-18.0) g/dl Hct 31.0 L (42-52) % MCV 96.9 (80-98) fL MCH 31.3 (27.0-33.0) pg MCHC 32.3 (31.0-36.0) g/dl RDW 13.6 (11.0-16.0) % Plt Count 294 (160-400) X10*3/uL MPV 9.6 (9.4-12.4) fL Immature Gran % (Auto) 0.3 (0.0-0.4) % Neut % (Auto) 88.5 H (45-73) % Lymph % (Auto) 2.4 L (20-40) % Gregory % (Auto) 8.2 (2-11) % Eos % (Auto) 0.4 (0-4) % Baso % (Auto) 0.2 (0-2) % Lymph # (Auto) 0.3 L (1.2-4.9) X10*3/uL Gregory # (Auto) 1.0 (0.1-1.2) X10*3/uL Eos # (Auto) 0.1 (0.0-0.4) X10*3/uL Baso # (Auto) 0.0 (0.0-0.2) X10*3/uL Abs Immat Gran (auto) 0.04 H (0.00-0.03) X10*3/uL Absolute Neuts (auto) 11.1 H (2.0-8.3) X10*3/uL Absolute Nucleated RBC 0.000 (0.0-0.012) X10*3/uL Nucleated RBC % (auto) 0.0 (0.0-0.2) /100WBC Smear Tech's Comments VERIFIED PT 14.2 H (10.8-13.0) SEC INR 1.2 H (0.9-1.1) Sodium (135-145) mmol/L Potassium (3.3-5.1) mmol/l Chloride (96-108) mmol/L Carbon Dioxide (22-29) mmol/L Anion Gap (12-20) BUN (9-16) mg/dL Creatinine (0.5-1.4) mg/dL Estim Creat Clear Calc Estimated GFR POC Glucose 143 H (60-115) mg/dL Random Glucose (60-115) mg/dL Calcium (8.4-10.2) mg/dL Total Bilirubin (0.0-1.0) mg/dL Direct Bilirubin (0.0-0.5) mg/dL AST (5-37) U/L ALT (0-40) U/L Alkaline Phosphatase (39-117) U/L Troponin I High Sens (<3.5-35.0) ng/L Total Protein (6.5-8.0) g/dL Albumin (3.5-5.0) g/dL Lipase (8-78) U/L Urine Color Urine Appearance Urine pH (5.0-8.0) Ur Specific [place] (1.005-1.025) Urine Protein (NEG-TRACE) MG/DL Urine Glucose (UA) (NEG) MG/DL Urine Ketones (NEG) MG/DL Urine Blood (NEG) Urine Nitrite (NEG) Ur Leukocyte Esterase (NEG) 05/31/20 05/31/20 05/31/20 Range/Units 03:44 03:44 04:25 WBC (4.8-10.8) X10*3/uL RBC (4.60-5.80) X10*6/uL Hgb (14.0-18.0) g/dl Hct (42-52) % MCV (80-98) fL MCH (27.0-33.0) pg MCHC (31.0-36.0) g/dl RDW (11.0-16.0) % Plt Count (160-400) X10*3/uL MPV (9.4-12.4) fL Immature Gran % (Auto) (0.0-0.4) % Neut % (Auto) (45-73) % Lymph % (Auto) (20-40) % Gregory % (Auto) (2-11) % Eos % (Auto) (0-4) % Baso % (Auto) (0-2) % Lymph # (Auto) (1.2-4.9) X10*3/uL Gregory # (Auto) (0.1-1.2) X10*3/uL Eos # (Auto) (0.0-0.4) X10*3/uL Baso # (Auto) (0.0-0.2) X10*3/uL Abs Immat Gran (auto) (0.00-0.03) X10*3/uL Absolute Neuts (auto) (2.0-8.3) X10*3/uL Absolute Nucleated RBC (0.0-0.012) X10*3/uL Nucleated RBC % (auto) (0.0-0.2) /100WBC Smear Tech's Comments PT (10.8-13.0) SEC INR (0.9-1.1) Sodium 131 L (135-145) mmol/L Potassium 4.3 D (3.3-5.1) mmol/l Chloride 96 (96-108) mmol/L Carbon Dioxide 30 H (22-29) mmol/L Anion Gap 9 L (12-20) BUN 10 (9-16) mg/dL Creatinine 0.82 (0.5-1.4) mg/dL Estim Creat Clear Calc 88.3 Estimated GFR > 60 POC Glucose 66 (60-115) mg/dL Random Glucose 91 (60-115) mg/dL Calcium 8.2 L (8.4-10.2) mg/dL Total Bilirubin 0.9 (0.0-1.0) mg/dL Direct Bilirubin 0.7 H (0.0-0.5) mg/dL AST 91 H (5-37) U/L ALT 11 (0-40) U/L Alkaline Phosphatase 327 H (39-117) U/L Troponin I High Sens 13.9 (<3.5-35.0) ng/L Total Protein 5.9 L (6.5-8.0) g/dL Albumin 3.2 L (3.5-5.0) g/dL Lipase 12 (8-78) U/L Urine Color Urine Appearance Urine pH (5.0-8.0) Ur Specific [place] (1.005-1.025) Urine Protein (NEG-TRACE) MG/DL Urine Glucose (UA) (NEG) MG/DL Urine Ketones (NEG) MG/DL Urine Blood (NEG) Urine Nitrite (NEG) Ur Leukocyte Esterase (NEG) 05/31/20 05/31/20 05/31/20 Range/Units 04:33 04:52 05:35 WBC (4.8-10.8) X10*3/uL RBC (4.60-5.80) X10*6/uL Hgb (14.0-18.0) g/dl Hct (42-52) % MCV (80-98) fL MCH (27.0-33.0) pg MCHC (31.0-36.0) g/dl RDW (11.0-16.0) % Plt Count (160-400) X10*3/uL MPV (9.4-12.4) fL Immature Gran % (Auto) (0.0-0.4) % Neut % (Auto) (45-73) % Lymph % (Auto) (20-40) % Gregory % (Auto) (2-11) % Eos % (Auto) (0-4) % Baso % (Auto) (0-2) % Lymph # (Auto) (1.2-4.9) X10*3/uL Gregory # (Auto) (0.1-1.2) X10*3/uL Eos # (Auto) (0.0-0.4) X10*3/uL Baso # (Auto) (0.0-0.2) X10*3/uL Abs Immat Gran (auto) (0.00-0.03) X10*3/uL Absolute Neuts (auto) (2.0-8.3) X10*3/uL Absolute Nucleated RBC (0.0-0.012) X10*3/uL Nucleated RBC % (auto) (0.0-0.2) /100WBC Smear Tech's Comments PT (10.8-13.0) SEC INR (0.9-1.1) Sodium (135-145) mmol/L Potassium (3.3-5.1) mmol/l Chloride (96-108) mmol/L Carbon Dioxide (22-29) mmol/L Anion Gap (12-20) BUN (9-16) mg/dL Creatinine (0.5-1.4) mg/dL Estim Creat Clear Calc Estimated GFR POC Glucose 78 105 (60-115) mg/dL Random Glucose (60-115) mg/dL Calcium (8.4-10.2) mg/dL Total Bilirubin (0.0-1.0) mg/dL Direct Bilirubin (0.0-0.5) mg/dL AST (5-37) U/L ALT (0-40) U/L Alkaline Phosphatase (39-117) U/L Troponin I High Sens (<3.5-35.0) ng/L Total Protein (6.5-8.0) g/dL Albumin (3.5-5.0) g/dL Lipase (8-78) U/L Urine Color YELLOW Urine Appearance CLEAR Urine pH 5.5 (5.0-8.0) Ur Specific [place] 1.010 (1.005-1.025) Urine Protein NEG (NEG-TRACE) MG/DL Urine Glucose (UA) NEG (NEG) MG/DL Urine Ketones NEG (NEG) MG/DL Urine Blood NEG (NEG) Urine Nitrite NEG (NEG) Ur Leukocyte Esterase NEG (NEG) 05/31/20 Range/Units 06:00 WBC (4.8-10.8) X10*3/uL RBC (4.60-5.80) X10*6/uL Hgb (14.0-18.0) g/dl Hct (42-52) % MCV (80-98) fL MCH (27.0-33.0) pg MCHC (31.0-36.0) g/dl RDW (11.0-16.0) % Plt Count (160-400) X10*3/uL MPV (9.4-12.4) fL Immature Gran % (Auto) (0.0-0.4) % Neut % (Auto) (45-73) % Lymph % (Auto) (20-40) % Gregory % (Auto) (2-11) % Eos % (Auto) (0-4) % Baso % (Auto) (0-2) % Lymph # (Auto) (1.2-4.9) X10*3/uL Gregory # (Auto) (0.1-1.2) X10*3/uL Eos # (Auto) (0.0-0.4) X10*3/uL Baso # (Auto) (0.0-0.2) X10*3/uL Abs Immat Gran (auto) (0.00-0.03) X10*3/uL Absolute Neuts (auto) (2.0-8.3) X10*3/uL Absolute Nucleated RBC (0.0-0.012) X10*3/uL Nucleated RBC % (auto) (0.0-0.2) /100WBC Smear Tech's Comments PT (10.8-13.0) SEC INR (0.9-1.1) Sodium (135-145) mmol/L Potassium (3.3-5.1) mmol/l Chloride (96-108) mmol/L Carbon Dioxide (22-29) mmol/L Anion Gap (12-20) BUN (9-16) mg/dL Creatinine (0.5-1.4) mg/dL Estim Creat Clear Calc Estimated GFR POC Glucose 153 H (60-115) mg/dL Random Glucose (60-115) mg/dL Calcium (8.4-10.2) mg/dL Total Bilirubin (0.0-1.0) mg/dL Direct Bilirubin (0.0-0.5) mg/dL AST (5-37) U/L ALT (0-40) U/L Alkaline Phosphatase (39-117) U/L Troponin I High Sens (<3.5-35.0) ng/L Total Protein (6.5-8.0) g/dL Albumin (3.5-5.0) g/dL Lipase (8-78) U/L Urine Color Urine Appearance Urine pH (5.0-8.0) Ur Specific [place] (1.005-1.025) Urine Protein (NEG-TRACE) MG/DL Urine Glucose (UA) (NEG) MG/DL Urine Ketones (NEG) MG/DL Urine Blood (NEG) Urine Nitrite (NEG) Ur Leukocyte Esterase (NEG) ECG Data Attestation: I personally reviewed and interpreted this ECG as follows: Interpretation: Normal sinus rhythm with ventricular rate of 60 poor progression of R-waves anterior leads. No acute ST T wave changes normal axis impression :: no acute ischemia Discharge Plan Discharge Clinical Impression: Hypoglycemia due to insulin Patient Disposition: Home, Self-Care Instructions: Hypoglycemia in a Person with Diabetes (ED) Additional Instructions: Decrease the dose of insulin to 20 units in the nighttime , eat well in the nighttime check blood sugar more often, have your bedtime snacks Prescriptions: No Action tramadol 50 mg tablet 50 mg PO BEDTIME PRN (Reason: pain) 10 Days Qty: 10 RF: 0 Spiriva Respimat 2.5 mcg/actuation mist 2 puff inhalation DAILY RF: 0 oxycodone 5 mg Capsule 5 mg PO Q8H PRN (Reason: Breakthrough Pain, Moderate) Qty: 40 RF: 0 oxycodone [Roxicodone] 5 mg Tablet 5 mg PO Q4H PRN (Reason: Breakthrough Pain, Moderate) Qty: 50 RF: 0 morphine [MS Contin] 30 mg Tablet Extended Release 30 mg PO Q12H Qty: 60 RF: 0 losartan 50 mg Tablet 25 mg PO DAILY RF: 0 carbidopa-levodopa 50-200 mg tablet extended release 1 tab PO TID RF: 0 omeprazole 20 mg Capsule,Delayed Release(Dr/Ec) 20 mg PO DAILY@0630 Qty: 30 RF: 2 enoxaparin 100 mg/mL Syringe 90 mg subcut Q12H 30 Days Qty: 54 RF: 2 Spiriva Respimat 2.5 mcg/actuation mist 2 puff inhalation DAILY RF: 0 insulin aspart U-100 [Novolog Flexpen U-100 Insulin] 100 unit/mL (3 mL) insulin pen 18 unit subcut TID RF: 0 diltiazem HCl 180 mg capsule,extended release 24hr 180 mg PO DAILY 90 Days Qty: 90 RF: 3 Levemir FlexTouch U-100 Insuln 100 unit/mL (3 mL) insulin pen 35 unit subcut BEDTIME 90 Days Qty: 31.5 RF: 3 sotalol 120 mg tablet 120 mg PO BID 90 Days Qty: 180 RF: 3 levothyroxine 50 mcg tablet 50 mcg PO DAILY 90 Days Qty: 90 RF: 3 pravastatin 40 mg tablet 40 mg PO DAILY 90 Days Qty: 90 RF: 3 furosemide 20 mg tablet 40 mg PO DAILY 90 Days Qty: 180 RF: 3 Interventions: ED Discharge Assessment Last Done: 05/31/20 06:00 Discharge Date/Time: 05/31/20 06:18
--- NOTE | 2020-05-31 03:20 | PC.NURSE ---
Blood sugar in ER after patient arrival of 143.
--- NOTE | 2020-05-31 03:27 | PC.NURSE ---
at bedside for evaluation.
--- NOTE | 2020-05-31 03:29 | XR_ITS ---
EXAMINATION: CHEST 1 VIEW CLINICAL INFORMATION: Altered mental status. COMPARISON: 04/28/2020. TECHNIQUE: An AP view of the chest is provided. FINDINGS: The cardiac silhouette is stable. Intact midline sternal wires are present. Pacer leads overlie the right atrium and right ventricle. The mediastinal and hilar contours are unremarkable. There are neither pleural effusions nor pneumothoraces. There is stable mild blunting to the right lateral costophrenic angle. There is minimal atelectasis within the right midlung. The lungs are hyperinflated. There are no consolidations. The osseous structures are stable. XR/XR chest 1V IMPRESSION: No consolidations. Improving atelectasis within the right midlung.
--- NOTE | 2020-05-31 03:29 | ECG_ITS ---
Test Reason : AMS Blood Pressure : / mmHG Vent. Rate : 060 BPM Atrial Rate : 060 BPM P-R Int : 176 ms QRS Dur : 088 ms QT Int : 478 ms P-R-T Axes : 062 -17 011 degrees QTc Int : 478 ms Normal sinus rhythm Possible Anterior infarct (cited on or before 31-MAY-2020) Abnormal ECG When compared with ECG of 28-APR-2020 10:02, No significant change was found Referred By: Waldemar Noble Electronically Signed By:SUZETTE SHARMA MD
[2020-05-31 03:53] LABS: Basophils Percent Auto 0.2 % (0-2); Eosinophils Absolute Auto 0.1 X10*3/uL (0.0-0.4); Eosinophils Percent Auto 0.4 % (0-4); Imm Gran Abs Auto 0.04 X10*3/uL (0.00-0.03); Imm Gran Pct Auto 0.3 % (0.0-0.4); Lymphocytes Absolute Auto 0.3 X10*3/uL (1.2-4.9); Lymphocytes Percent Auto 2.4 % (20-40); MANUAL DIFF FLAG SCAN; Mean Corpuscular HGB Conc 32.3 g/dl (31.0-36.0); Mean Corpuscular Hemoglobin 31.3 pg (27.0-33.0); Mean Corpuscular Volume 96.9 fL (80-98); Mean Platelet Volume 9.6 fL (9.4-12.4); Monocytes Percent Auto 8.2 % (2-11); Neutrophils Absolute Auto 11.1 X10*3/uL (2.0-8.3); Neutrophils Percent Auto 88.5 % (45-73); Platelet Count 294 X10*3/uL (160-400); Red Cell Distribution Width 13.6 % (11.0-16.0); SCAN SMEAR FLAG 1; White Blood Count 12.5 X10*3/uL (4.8-10.8)
[2020-05-31 03:58] LABS: INTERNATIONAL NORM RATIO 1.2 (0.9-1.1); Prothrombin Time 14.2 SEC (10.8-13.0)
[2020-05-31 04:12] LABS: SLIDE REVIEW VERIFIED
[2020-05-31 04:25] LABS: Alanine Aminotransferase 11 U/L (0-40); Albumin Level 3.2 g/dL (3.5-5.0); Alkaline Phosphatase 327 U/L (39-117); Anion Gap 9 (12-20); Aspartate Amino Transferase 91 U/L (5-37); Bilirubin Direct 0.7 mg/dL (0.0-0.5); Bilirubin Total 0.9 mg/dL (0.0-1.0); Blood Urea Nitrogen 10 mg/dL (9-16); Calcium 8.2 mg/dL (8.4-10.2); Carbon Dioxide 30 mmol/L (22-29); Chloride 96 mmol/L (96-108); Creatinine Clr Calc Pharmacy 88.3; Estimated Glomerular Filt Rate > 60; Glucose Random 91 mg/dL (60-115); Lipase 12 U/L (8-78); Potassium 4.3 mmol/l (3.3-5.1); Sodium 131 mmol/L (135-145); Total Protein 5.9 g/dL (6.5-8.0); Troponin-I High Sensitivity 13.9 ng/L (<3.5-35.0)
[2020-05-31 04:29] LABS: Glucose, Whole Blood 66 mg/dL (60-115)
[2020-05-31 04:41] LABS: Glucose Urine UA NEG (NEG); Leukocyte Esterase Urine NEG (NEG); Nitrite Urine NEG (NEG); PH 5.5 (5.0-8.0); Urine Blood NEG (NEG); Urine Ketones NEG (NEG); Urine Protein NEG (NEG-TRACE)
[2020-05-31 04:43] LABS: Appearance Urine CLEAR; Color Urine YELLOW; UACC Culture Trigger NO
[2020-05-31 04:55] LABS: Glucose, Whole Blood 78 mg/dL (60-115)
[2020-05-31 05:39] LABS: Glucose, Whole Blood 105 mg/dL (60-115)
--- NOTE | 2020-05-31 05:42 | PC.NURSE ---
Patient given a sandwich and 2 juices approximately 1.5 hours ago and patient's blood sugar is now 105. Patient alert and responsive. MD aware of blood sugar results
[2020-05-31 06:04] LABS: Glucose, Whole Blood 153 mg/dL (60-115)
== END 2020-05-31 06:18 | disposition home or self-care (01) ==
PROVIDERS: Emergency Provider Internal Medicine; PCP Internal Medicine
DX: E11.649 Type 2 diabetes mellitus with hypoglycemia without coma (principal); Z79.4 Long term (current) use of insulin; D49.2 Neoplasm of unspecified behavior of bone, soft tissue, and skin; Z79.891 Long term (current) use of opiate analgesic
CPT/HCPCS: 36415; 71045; 80048; 80076; 81003; 82947; 83690; 84484; 85025; 85610; 93005; 99284

== ENCOUNTER 2020-06-08 23:40 | Emergency (ER) | payer MEDICARE, SELFPAY ==
--- NOTE | 2020-06-08 23:54 | ECG_ITS ---
Test Reason : HYPOGLYCEMIA Blood Pressure : / mmHG Vent. Rate : 054 BPM Atrial Rate : 054 BPM P-R Int : 184 ms QRS Dur : 092 ms QT Int : 500 ms P-R-T Axes : 063 -05 022 degrees QTc Int : 474 ms Sinus bradycardia Cannot rule out Anterior infarct (cited on or before 31-MAY-2020) Abnormal ECG When compared with ECG of 31-MAY-2020 03:50, No significant change was found Referred By: Stephanie Anne Electronically Signed By:INDERJIT GOODMAN
[2020-06-08 23:56] VITALS: BP 125/71; BP 138/52; PULSE 56; PULSE 57; RESP 16; TEMP 36.5; O2SAT 98; O2SAT 99; BMI 27.3
[2020-06-09 00:15] LABS: Glucose, Whole Blood 80 mg/dL (60-115)
--- NOTE | 2020-06-09 00:29 | ED_ITS ---
HPI - General Adult General Chief complaint: General Medical Stated complaint: hypoglycemia Time Seen by Provider: 06/08/20 23:54 Source: family and EMS Mode of arrival: EMS History of Present Illness HPI narrative: This is a 74-year-old male who is brought in by EMS after family reports calling because patient had altered mental status. Point of care on scene was 46 and after 3 glasses of orange juice with sugar and 15 g of oral glucose patient's repeat point of care was 39. Patient was provided D10 and repeat glucose was 120 EN route with patient awake and alert upon arrival to the ER with the point of care of 80. When I spoke with the patient he states that he feels ?very tired? but otherwise denies shortness of breath, chest p ain/palpitations, nausea, vomiting, diarrhea, but states he is having some difficulty with urinating. Related Data Home Medications Medication Instructions Recorded Confirmed insulin aspart U-100 100 unit/mL 18 unit SUBCUT TID ml 03/22/20 05/31/20 (3 mL) subcutaneous pen tiotropium bromide 2.5 2 puff INHALATION DAILY 03/22/20 05/31/20 mcg/actuation mist for inhalation carbidopa-levodopa 1 tab PO TID 04/28/20 05/31/20 losartan 25 mg PO DAILY 04/28/20 05/31/20 Previous Rx's Medication Instructions Recorded diltiazem HCl 180 mg 180 mg PO DAILY 90 Days #90 cap 03/22/20 capsule,extended release 24 hr furosemide 20 mg tablet 40 mg PO DAILY 90 Days #180 tab 03/22/20 insulin detemir U-100 100 unit/mL 35 unit SUBCUT BEDTIME 90 Days 03/22/20 (3 mL) subcutaneous pen #31.5 ml levothyroxine 50 mcg tablet 50 mcg PO DAILY 90 Days #90 tab 03/22/20 pravastatin 40 mg tablet 40 mg PO DAILY 90 Days #90 tab 03/22/20 sotalol 120 mg tablet 120 mg PO BID 90 Days #180 tab 03/22/20 tramadol 50 mg tablet 50 mg PO BEDTIME PRN 10 Days #10 04/21/20 tab oxycodone 5 mg PO Q8H PRN #40 cap 04/27/20 enoxaparin 90 mg SUBCUT Q12H 30 Days #54 ml 04/30/20 omeprazole 20 mg PO DAILY@0630 #30 cap 04/30/20 morphine [MS Contin] 30 mg PO Q12H #60 tab 05/20/20 blood sugar diagnostic #100 ea 06/02/20 tiotropium bromide 2.5 2 puff INHALATION DAILY 90 Days #3 06/02/20 mcg/actuation mist for inhalation units oxycodone [Roxicodone] 5 mg PO Q4H PRN #50 tab 06/08/20 cephalexin 500 mg PO Q12H 7 Days #14 cap 06/09/20 Allergies Allergy/AdvReac Type Severity Reaction Status Date / Time No Known Allergies Allergy Verified 04/20/20 12:08 [No Known Allergies*] Review of Systems Review of Systems: Pertinent positives and negatives as stated in HPI 10 point review of systems is otherwise negative. [facility] Past Medical History Source: nursing notes reviewed Medical History Anemia Bony sclerosis COPD (chronic obstructive pulmonary disease) Diabetes mellitus GI bleed Hyperlipidemia Hypertension Hypothyroidism Lytic bone lesion of hip Lytic lesion of bone on x-ray Overweight (BMI 25.0-29.9) Parkinson's disease Paroxysmal atrial fibrillation Pleural effusion, right Pulmonary embolism Surgical History History of aortic valve replacement (~11/29/12) History of carpal tunnel release (~06/24/13) Status post anal 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) Family History Family History Father Cardiovascular disease Mother Stroke Social History Social History Household Members: Spouse Housing: House Alcohol intake: current Alcohol intake frequency: 0-2 drinks per day Alcohol type: hard liquor Smoking Status: Never smoker Use of substances other than those prescribed or required for medical reasons: No Advance Directives: No Advance Directives Information Provided: Yes service: No Current occupational status: retired Physical Exam Vital Signs: Vital Signs: Last Vital Signs Temp 97.7 F 06/08/20 23:56 Pulse 66 06/09/20 03:42 Resp 18 06/09/20 03:42 BP 148/41 H 06/09/20 03:42 Pulse Ox 97 06/09/20 03:42 Body Mass Index 27.3 VITAL SIGNS: Reviewed. GENERAL: Well developed, well nourished, in no acute distress. HEAD: Normocephalic/atraumatic, EYES: PERRLA, EOMI intact without pain EARS: Ext canals without abnormality, TMs non-bulging and non-erythematous NOSE: Nares patent bilateral OROPHARYNX: no oral lesions noted, posterior pharynx clear , dry mucosa NECK: Supple, no adenopathy LUNGS: Normal breath sounds. No adventitious sounds or accessory muscle use. SpO2<99> CARDIOVASCULAR: Regular rate and rhythm without noted murmurs, no JVD or lower extremity edema. ABDOMEN: Soft, non-tender, non-distended with bowel sounds. No rigidity. No guarding. No palpable masses or hernias noted NEUROLOGIC: Alert and oriented x 4. Strength and sensation to light touch were grossly intact x 4, no facial asymmetry, no pronator drift, cranial nerves 2-12 grossly intact. Course Course Course Narrative: This is a 74-year-old male with history and clinical presentation consistent with hypoglycemia due to medication and this is the 2nd episode as patient was seen on 05/31 for similar presentation. Although the insulin has been decreased since that time it is for patient's safety alternative glucose control should be pursued to prevent dangerous hypoglycemia in the future. Otherwise, patient is without neurological findings and will be observed and evaluated for possible infectious etiologies. On review of all investigations patient is noted to have UTI and was treated with IV Rocephin, D10 was discontinued and patient was fed. Will continue to monitor blood glucose levels for the next 4 hours. Reevaluation(s) Reevaluation #1: On review of all point of care glucose checks patient has maintained appropriate glucose level and will be discharged at approximately 6:00 a.m. with a course of antibiotics for his UTI and instructed the family that he should not receive any further insulin and until the situation is discussed with the primary care doctor. Time: 05:09 Medical Decision Making Lab Data Result diagrams: 06/09/20 00:40 06/09/20 00:40 Labs: Lab Results 06/08/20 06/09/20 06/09/20 Range/Units 23:53 00:40 00:40 WBC 13.3 H (4.8-10.8) X10*3/uL RBC 3.28 L (4.60-5.80) X10*6/uL Hgb 10.1 L (14.0-18.0) g/dl Hct 31.3 L (42-52) % MCV 95.4 (80-98) fL MCH 30.8 (27.0-33.0) pg MCHC 32.3 (31.0-36.0) g/dl RDW 13.2 (11.0-16.0) % Plt Count 339 (160-400) X10*3/uL MPV 9.1 L (9.4-12.4) fL Immature Gran % (Auto) 0.5 H (0.0-0.4) % Neut % (Auto) 86.9 H (45-73) % Lymph % (Auto) 3.1 L (20-40) % [place] % (Auto) 8.6 (2-11) % Eos % (Auto) 0.7 (0-4) % Baso % (Auto) 0.2 (0-2) % Lymph # (Auto) 0.4 L (1.2-4.9) X10*3/uL [place] # (Auto) 1.2 (0.1-1.2) X10*3/uL Eos # (Auto) 0.1 (0.0-0.4) X10*3/uL Baso # (Auto) 0.0 (0.0-0.2) X10*3/uL Abs Immat Gran (auto) 0.07 H (0.00-0.03) X10*3/uL Absolute Neuts (auto) 11.6 H (2.0-8.3) X10*3/uL Absolute Nucleated RBC 0.000 (0.0-0.012) X10*3/uL Nucleated RBC % (auto) 0.0 (0.0-0.2) /100WBC Sodium 134 L (135-145) mmol/L Potassium 4.8 (3.3-5.1) mmol/l Chloride 97 (96-108) mmol/L Carbon Dioxide 31 H (22-29) mmol/L Anion Gap 11 L (12-20) BUN 20 H D (9-16) mg/dL Creatinine 1.08 (0.5-1.4) mg/dL Estim Creat Clear Calc 61.9 Estimated GFR > 60 POC Glucose 80 (60-115) mg/dL Random Glucose 76 (60-115) mg/dL Calcium 8.6 (8.4-10.2) mg/dL Total Bilirubin 0.8 (0.0-1.0) mg/dL AST 90 H (5-37) U/L ALT 11 (0-40) U/L Alkaline Phosphatase 335 H (39-117) U/L Troponin I High Sens (<3.5-35.0) ng/L Total Protein 6.0 L (6.5-8.0) g/dL Albumin 3.2 L (3.5-5.0) g/dL Urine Color Urine Appearance Urine pH (5.0-8.0) Ur Specific [place] (1.005-1.025) Urine Protein (NEG-TRACE) MG/DL Urine Glucose (UA) (NEG) MG/DL Urine Ketones (NEG) MG/DL Urine Blood (NEG) Urine Nitrite (NEG) Ur Leukocyte Esterase (NEG) Urine RBC (0) /HPF Urine WBC (0-4) /HPF Urine WBC Clumps Ur Squamous Epith Cells /LPF Urine Bacteria /LPF Hyaline Casts /LPF Granular Casts /LPF Urine Mucus /LPF Urine Sperm 06/09/20 06/09/20 06/09/20 Range/Units 00:40 00:40 00:52 WBC (4.8-10.8) X10*3/uL RBC (4.60-5.80) X10*6/uL Hgb (14.0-18.0) g/dl Hct (42-52) % MCV (80-98) fL MCH (27.0-33.0) pg MCHC (31.0-36.0) g/dl RDW (11.0-16.0) % Plt Count (160-400) X10*3/uL MPV (9.4-12.4) fL Immature Gran % (Auto) (0.0-0.4) % Neut % (Auto) (45-73) % Lymph % (Auto) (20-40) % [place] % (Auto) (2-11) % Eos % (Auto) (0-4) % Baso % (Auto) (0-2) % Lymph # (Auto) (1.2-4.9) X10*3/uL [place] # (Auto) (0.1-1.2) X10*3/uL Eos # (Auto) (0.0-0.4) X10*3/uL Baso # (Auto) (0.0-0.2) X10*3/uL Abs Immat Gran (auto) (0.00-0.03) X10*3/uL Absolute Neuts (auto) (2.0-8.3) X10*3/uL Absolute Nucleated RBC (0.0-0.012) X10*3/uL Nucleated RBC % (auto) (0.0-0.2) /100WBC Sodium (135-145) mmol/L Potassium (3.3-5.1) mmol/l Chloride (96-108) mmol/L Carbon Dioxide (22-29) mmol/L Anion Gap (12-20) BUN (9-16) mg/dL Creatinine (0.5-1.4) mg/dL Estim Creat Clear Calc Estimated GFR POC Glucose 79 (60-115) mg/dL Random Glucose (60-115) mg/dL Calcium (8.4-10.2) mg/dL Total Bilirubin (0.0-1.0) mg/dL AST (5-37) U/L ALT (0-40) U/L Alkaline Phosphatase (39-117) U/L Troponin I High Sens 19.0 (<3.5-35.0) ng/L Total Protein (6.5-8.0) g/dL Albumin (3.5-5.0) g/dL Urine Color YELLOW Urine Appearance HAZY Urine pH 6.0 (5.0-8.0) Ur Specific [place] 1.010 (1.005-1.025) Urine Protein NEG (NEG-TRACE) MG/DL Urine Glucose (UA) NEG (NEG) MG/DL Urine Ketones NEG (NEG) MG/DL Urine Blood NEG (NEG) Urine Nitrite POS H (NEG) Ur Leukocyte Esterase 1+ H (NEG) Urine RBC 0 (0) /HPF Urine WBC 15-29 H (0-4) /HPF Urine WBC Clumps NOTED Ur Squamous Epith Cells NONE /LPF Urine Bacteria 2+ /LPF Hyaline Casts 5-9 /LPF Granular Casts 0-2 /LPF Urine Mucus TRACE /LPF Urine Sperm NOTED 06/09/20 06/09/20 06/09/20 Range/Units 02:02 03:40 04:59 WBC (4.8-10.8) X10*3/uL RBC (4.60-5.80) X10*6/uL Hgb (14.0-18.0) g/dl Hct (42-52) % MCV (80-98) fL MCH (27.0-33.0) pg MCHC (31.0-36.0) g/dl RDW (11.0-16.0) % Plt Count (160-400) X10*3/uL MPV (9.4-12.4) fL Immature Gran % (Auto) (0.0-0.4) % Neut % (Auto) (45-73) % Lymph % (Auto) (20-40) % [place] % (Auto) (2-11) % Eos % (Auto) (0-4) % Baso % (Auto) (0-2) % Lymph # (Auto) (1.2-4.9) X10*3/uL [place] # (Auto) (0.1-1.2) X10*3/uL Eos # (Auto) (0.0-0.4) X10*3/uL Baso # (Auto) (0.0-0.2) X10*3/uL Abs Immat Gran (auto) (0.00-0.03) X10*3/uL Absolute Neuts (auto) (2.0-8.3) X10*3/uL Absolute Nucleated RBC (0.0-0.012) X10*3/uL Nucleated RBC % (auto) (0.0-0.2) /100WBC Sodium (135-145) mmol/L Potassium (3.3-5.1) mmol/l Chloride (96-108) mmol/L Carbon Dioxide (22-29) mmol/L Anion Gap (12-20) BUN (9-16) mg/dL Creatinine (0.5-1.4) mg/dL Estim Creat Clear Calc Estimated GFR POC Glucose 89 132 H 165 H (60-115) mg/dL Random Glucose (60-115) mg/dL Calcium (8.4-10.2) mg/dL Total Bilirubin (0.0-1.0) mg/dL AST (5-37) U/L ALT (0-40) U/L Alkaline Phosphatase (39-117) U/L Troponin I High Sens (<3.5-35.0) ng/L Total Protein (6.5-8.0) g/dL Albumin (3.5-5.0) g/dL Urine Color Urine Appearance Urine pH (5.0-8.0) Ur Specific [place] (1.005-1.025) Urine Protein (NEG-TRACE) MG/DL Urine Glucose (UA) (NEG) MG/DL Urine Ketones (NEG) MG/DL Urine Blood (NEG) Urine Nitrite (NEG) Ur Leukocyte Esterase (NEG) Urine RBC (0) /HPF Urine WBC (0-4) /HPF Urine WBC Clumps Ur Squamous Epith Cells /LPF Urine Bacteria /LPF Hyaline Casts /LPF Granular Casts /LPF Urine Mucus /LPF Urine Sperm Discharge Plan Discharge Clinical Impression: Acute UTI, Hypoglycemia Patient Disposition: Home, Self-Care Instructions: Hypoglycemia in a Person with Diabetes (ED), Urinary Tract Infection in Older Adults (ED) Additional Instructions: Resume all home medications with the exception of the insulin until you discuss the case further with your primary care provider. Prescriptions: New cephalexin 500 mg capsule 500 mg PO Q12H 7 Days Qty: 14 RF: 0 No Action tramadol 50 mg tablet 50 mg PO BEDTIME PRN (Reason: pain) 10 Days Qty: 10 RF: 0 Spiriva Respimat 2.5 mcg/actuation mist 2 puff inhalation DAILY 90 Days Qty: 3 RF: 3 (DME) OneTouch Verio test strips Strip See Rx Instructions .ROUTE .MEDSUPPLY Qty: 100 RF: 12 oxycodone [Roxicodone] 5 mg Tablet 5 mg PO Q4H PRN (Reason: Breakthrough Pain, Moderate) Qty: 50 RF: 0 oxycodone 5 mg Capsule 5 mg PO Q8H PRN (Reason: Breakthrough Pain, Moderate) Qty: 40 RF: 0 morphine [MS Contin] 30 mg Tablet Extended Release 30 mg PO Q12H Qty: 60 RF: 0 losartan 50 mg Tablet 25 mg PO DAILY RF: 0 carbidopa-levodopa 50-200 mg tablet extended release 1 tab PO TID RF: 0 omeprazole 20 mg Capsule,Delayed Release(Dr/Ec) 20 mg PO DAILY@0630 Qty: 30 RF: 2 enoxaparin 100 mg/mL Syringe 90 mg subcut Q12H 30 Days Qty: 54 RF: 2 Spiriva Respimat 2.5 mcg/actuation mist 2 puff inhalation DAILY RF: 0 insulin aspart U-100 [Novolog Flexpen U-100 Insulin] 100 unit/mL (3 mL) insulin pen 18 unit subcut TID RF: 0 diltiazem HCl 180 mg capsule,extended release 24hr 180 mg PO DAILY 90 Days Qty: 90 RF: 3 Levemir FlexTouch U-100 Insuln 100 unit/mL (3 mL) insulin pen 35 unit subcut BEDTIME 90 Days Qty: 31.5 RF: 3 sotalol 120 mg tablet 120 mg PO BID 90 Days Qty: 180 RF: 3 levothyroxine 50 mcg tablet 50 mcg PO DAILY 90 Days Qty: 90 RF: 3 pravastatin 40 mg tablet 40 mg PO DAILY 90 Days Qty: 90 RF: 3 furosemide 20 mg tablet 40 mg PO DAILY 90 Days Qty: 180 RF: 3 Referrals: Physician,Unknown [Primary Care Provider] - 2 days (Patient needs emergent plan for insulin usage given 2 episodes of hypoglycemia that were treated in the emergency department.)
--- NOTE | 2020-06-09 00:29 | PC.NURSE ---
PT'S POC 80 UPON ARRIVAL TO [facility] [place] ER. EMS WAS NOT ABLE TO COORECT BLOOD GLUCOSE BY GIVING PT MULTIPLE GLASSES OF OJ W/ SUGAR ADDED OR A TUBE OF ORAL GLUCOSE. PT HAS GARBLED SPEECH UPON ARRIVAL, HE REPORTS THIS HAS BEEN GOING ON FOR A FEW MONTHS. PT HAS STRONG AND EQUAL HAND GRASPS, EQUAL PLANTAR FLEXION AND NO FACIAL DROOP WHEN ASKED TO SMILE. PT DENIES HEADACHE OR CHEST PAIN. PT HAD 125 ML D10 LEFT IN BAG FROM EMS. INFUSION CONTINUED TO PREVENT FURTHER DROP IN BLOOD GLUCOSE.
[2020-06-09 00:53] LABS: Basophils Percent Auto 0.2 % (0-2); Eosinophils Absolute Auto 0.1 X10*3/uL (0.0-0.4); Eosinophils Percent Auto 0.7 % (0-4); Hematocrit 31.3 % (42-52); Hemoglobin 10.1 g/dl (14.0-18.0); Imm Gran Abs Auto 0.07 X10*3/uL (0.00-0.03); Imm Gran Pct Auto 0.5 % (0.0-0.4); Lymphocytes Absolute Auto 0.4 X10*3/uL (1.2-4.9); Lymphocytes Percent Auto 3.1 % (20-40); Mean Corpuscular HGB Conc 32.3 g/dl (31.0-36.0); Mean Corpuscular Hemoglobin 30.8 pg (27.0-33.0); Mean Corpuscular Volume 95.4 fL (80-98); Mean Platelet Volume 9.1 fL (9.4-12.4); Monocytes Absolute Auto 1.2 X10*3/uL (0.1-1.2); Monocytes Percent Auto 8.6 % (2-11); Neutrophils Absolute Auto 11.6 X10*3/uL (2.0-8.3); Neutrophils Percent Auto 86.9 % (45-73); Platelet Count 339 X10*3/uL (160-400); Red Blood Count 3.28 X10*6/uL (4.60-5.80); Red Cell Distribution Width 13.2 % (11.0-16.0); SCAN SMEAR FLAG 1; White Blood Count 13.3 X10*3/uL (4.8-10.8)
[2020-06-09 00:54] VITALS: BP 154/50; PULSE 54; RESP 18; O2SAT 99
[2020-06-09 00:55] LABS: MANUAL DIFF FLAG NO
[2020-06-09 00:59] LABS: Glucose, Whole Blood 79 mg/dL (60-115)
[2020-06-09 01:16] LABS: Glucose Urine UA NEG (NEG); Leukocyte Esterase Urine 1+ (NEG); Nitrite Urine POS (NEG); Urine Blood NEG (NEG); Urine Ketones NEG (NEG); Urine Protein NEG (NEG-TRACE)
[2020-06-09 01:32] LABS: Alanine Aminotransferase 11 U/L (0-40); Albumin Level 3.2 g/dL (3.5-5.0); Alkaline Phosphatase 335 U/L (39-117); Anion Gap 11 (12-20); Aspartate Amino Transferase 90 U/L (5-37); Bilirubin Total 0.8 mg/dL (0.0-1.0); Blood Urea Nitrogen 20 mg/dL (9-16); Calcium 8.6 mg/dL (8.4-10.2); Carbon Dioxide 31 mmol/L (22-29); Chloride 97 mmol/L (96-108); Creatinine Clr Calc Pharmacy 61.9; Estimated Glomerular Filt Rate > 60; Glucose Random 76 mg/dL (60-115); Potassium 4.8 mmol/l (3.3-5.1); Sodium 134 mmol/L (135-145)
[2020-06-09 01:43] LABS: Appearance Urine HAZY; Color Urine YELLOW
[2020-06-09 01:45] LABS: Bacteria Urine 2+ /LPF; Granular Casts Urine 0-2 /LPF; Mucus Urine TRACE /LPF; RBC Urine 0 /HPF (0); Sperm Urine NOTED; WBC Clumps Urine NOTED
--- NOTE | 2020-06-09 02:12 | PC.NURSE ---
DR OSULLIVAN AWARE THAT THE PT HAD D10 AT A SLOW DRIP TO MAINTAIN PT BLOOD SUGAR. THIS HAS BEEN STOPPED AND PT IS GIVEN PO FOOD AND DRINK. PLAN IS TO ASSESS POC AFTER PT HAS ORAL INTAKE WITH DRIP OFF.
--- NOTE | 2020-06-09 02:14 | PC.NURSE ---
PT ATTEMPTED TO STAND AT BEDSIDE WITH RN TO ATTEMPT TO URINATE. PT UNABLE AND WAS BLADDER SCANNED FOR 470, PROVIDER MADE AWARE. HOB ELEVATED. CALL STONE AT PT SIDE.
[2020-06-09 02:20] LABS: Glucose, Whole Blood 89 mg/dL (60-115)
[2020-06-09] MEDS: cefTRIAXone sodium 1 GM in 0.9 % Sodium Chloride 50 ML IV (02:33)
[2020-06-09] MEDS: 0.9 % Sodium Chloride 1,000 ML 999 ML IV (02:33)
[2020-06-09 03:42] VITALS: BP 148/41; PULSE 66; RESP 18; O2SAT 97
--- NOTE | 2020-06-09 03:43 | PC.NURSE ---
PT OOB TO BEDSIDE COMMODE LARGE BM.
[2020-06-09 03:47] LABS: Glucose, Whole Blood 132 mg/dL (60-115)
[2020-06-09 04:00] VITALS: BP 162/52; PULSE 68; RESP 18; O2SAT 98
[2020-06-09 05:04] LABS: Glucose, Whole Blood 165 mg/dL (60-115)
[2020-06-09 06:00] VITALS: BP 164/51; PULSE 70; RESP 18; O2SAT 98
== END 2020-06-09 06:12 | disposition home or self-care (01) ==
PROVIDERS: Emergency Provider Student in an Organized Health Care Education/Training Program
DX: E11.649 Type 2 diabetes mellitus with hypoglycemia without coma (principal); N30.00 Acute cystitis without hematuria; G20 Parkinson's disease; Z79.4 Long term (current) use of insulin; Z79.01 Long term (current) use of anticoagulants
CPT/HCPCS: 36415; 80053; 81001; 82947; 84484; 85025; 87086; 93005; 96361; 96374; 99284; J0696

== ENCOUNTER 2020-06-12 13:07 | Inpatient (IN) | payer MEDICARE, SELFPAY ==
[2020-06-12] VITALS (8 sets, daily range): BP systolic 127–144; BP diastolic 41–66; PULSE 58–68; RESP 14–21; TEMP 36.6–36.8; O2SAT 98–99; BMI 26.7
--- NOTE | 2020-06-12 14:36 | ECG_ITS ---
Test Reason : NAUSEA Blood Pressure : / mmHG Vent. Rate : 060 BPM Atrial Rate : 060 BPM P-R Int : 178 ms QRS Dur : 088 ms QT Int : 466 ms P-R-T Axes : 055 -02 033 degrees QTc Int : 466 ms Normal sinus rhythm Normal ECG When compared with ECG of 09-JUN-2020 00:08, No significant change was found Referred By: Leonie Veliz Electronically Signed By:INDERJIT GOODMAN
--- NOTE | 2020-06-12 14:36 | ED_ITS ---
HPI - Nausea/Vomiting/Diarrhea General Chief complaint: Nausea/Vomiting/Diarrhea Stated complaint: weakness, failure to thrive Time Seen by Provider: 06/12/20 14:26 Source: patient Mode of arrival: ambulatory Limitations: no limitations History of Present Illness HPI Narrative: 74 y/o male with history of recently diagnosed metastatic pancreatic cancer, due to start chemotherapy on Sunday, also with history of [employer]ITY [employer] INST[employer]ER D, atrial fibrillation, PE's, s/p aortic valve replacement on Coumadin --> now on Lovenox, recent admission for GI bleed and gastritis (supratherapeutic INR), DM who presents to ED from home with vomiting, dizziness and generalized weakness that started this morning. He states he felt his usual state of health yesterday although he has had generalized weakness the last few days. He develop acute onset of vomiting today, unable to keep anything down. Denies blood in his vomit, denies blood in stool. Had normal BM this morning. No abdominal pain. He called Dr. Mast who instructed him to come to the ER for further evaluation. MD elicited complaint: nausea and vomiting Pertinent past history: other (pancreatic cancer) Onset (ago): hour(s) (6) Description of vomiting: watery and bilious Associated nausea: Yes Associated abdominal pain: No Location of pain: none Severity: moderate Exacerbating factors: eating Relieving factors: none Context: anticoagulant use Associated symptoms: malaise, nausea/vomiting, shortness of breath and fatigue Related Data Home Medications Medication Instructions Recorded Confirmed carbidopa-levodopa 1 tab PO TID 04/28/20 06/12/20 losartan 25 mg PO DAILY 04/28/20 06/12/20 albuterol sulfate [ProAir HFA] 2 puff INHALATION Q4-6H PRN 06/12/20 06/12/20 insulin asp prt-insulin aspart 8 unit SUBCUT TID 06/12/20 06/12/20 [Novolog Mix 70-30FlexPen U-100] Previous Rx's Medication Instructions Recorded diltiazem HCl 180 mg 180 mg PO DAILY 90 Days #90 cap 03/22/20 capsule,extended release 24 hr furosemide 20 mg tablet 40 mg PO DAILY 90 Days #180 tab 03/22/20 levothyroxine 50 mcg tablet 50 mcg PO DAILY 90 Days #90 tab 03/22/20 pravastatin 40 mg tablet 40 mg PO DAILY 90 Days #90 tab 03/22/20 sotalol 120 mg tablet 120 mg PO BID 90 Days #180 tab 03/22/20 oxycodone 5 mg PO Q8H PRN #40 cap 04/27/20 enoxaparin 90 mg SUBCUT Q12H 30 Days #54 ml 04/30/20 blood sugar diagnostic #100 ea 06/02/20 tiotropium bromide 2.5 2 puff INHALATION DAILY 90 Days #3 06/02/20 mcg/actuation mist for inhalation units morphine [MS Contin] 30 mg PO Q12H #60 tab 06/09/20 Allergies Allergy/AdvReac Type Severity Reaction Status Date / Time No Known Allergies Allergy Verified 06/12/20 14:32 [No Known Allergies*] Review of Systems Review of Systems: Constitutional: No Fever, No Chills ENT/Mouth: No sore throat, No Rhinorrhea, No Swallowing Difficulty Eyes: No Eye Pain, No Swelling, No Redness Cardiovascular: No Chest Pain, + SOB, No Orthopnea, No Edema Respiratory: No Cough, No Sputum, No Wheezing, No dyspnea Gastrointestinal: + Nausea, + Vomiting, No Diarrhea, No abdominal Pain, No Hematochezia, No Melena Genitourinary: No Dysuria, No Urinary Frequency, No Hematuria Musculoskeletal: No joint pain, No Myalgias Skin: No Skin Lesions, No rash Neuro: + Weakness, No Numbness, + Dizziness, No Headache Psych: No Anxiety/Panic, + Depression Heme/Lymph: + Bruising, No Lymphadenopathy Endocrine: No Polyuria, No Polydipsia Gastrointestinal: Gastrointestinal: Reports nausea PMFSH Past Medical History Attestation statement: The following information was validated with the patient. Medical History Anemia Bony sclerosis COPD (chronic obstructive pulmonary disease) Diabetes mellitus GI bleed Hyperlipidemia Hypertension Hypothyroidism Lytic bone lesion of hip Lytic lesion of bone on x-ray Overweight (BMI 25.0-29.9) Pancreatic cancer Parkinson's disease Paroxysmal atrial fibrillation Pleural effusion, right Pulmonary embolism Surgical History History of aortic valve replacement (~11/29/12) History of carpal tunnel release (~06/24/13) Status post anal 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) Family History Family History Father Cardiovascular disease Mother Stroke Social History Social History Household Members: Spouse Housing: House Alcohol intake: current Alcohol intake frequency: does not drink Alcohol type: hard liquor Smoking Status: Former smoker Use of substances other than those prescribed or required for medical reasons: No Advance Directives: No Advance Directives Information Provided: Yes service: No Current occupational status: retired Physical Exam Vital Signs: Vital Signs: Last Vital Signs Temp 97.9 F 06/12/20 14:25 Pulse 63 06/12/20 16:31 Resp 14 06/12/20 16:31 BP 127/41 L 06/12/20 16:31 Pulse Ox 98 06/12/20 16:31 Body Mass Index 26.7 Appearance: Alert. Oriented X3. No acute distress. Eyes: Pupils equal, round and reactive to light. Conjunctival pallor ENT: Pharynx wtih dry mucus membranes Neck: Normal inspection. Neck supple. CVS: Normal heart rate and rhythm. Loud S2. Pulses normal. Respiratory: No respiratory distress. Breath sounds normal. Abdomen: Soft and nontender. +BS x4. Abdominal wall with small rounded ecchymotic areas correlating with small nontender masses within SQ fat Rectal: nontender, normal sphincter tone, soft dark brown stool in rectal vault Skin: Skin warm and dry. Pale. Normal skin turgor. No rashes. Extremities: No lower extremity edema. Neuro: Oriented X 3. Generalized weakness noted, non-focal. Course Course Course Narrative: 74 y/o male with history of recently diagnosed pancreatic cancer, hx PE's and afib on Lovenox, hx GI bleed due to supratherapeutic INR who presents with acute onset of non-bloody vomiting and dizziness that started today. Significant conjunctival pallor on exam with palpable masses on his abd from lovneox and humalog. Concern for acute blood loss anemia due to rectus sheath hematoma vs GI bleed vs spontaneous RP bleed. Hemodynamically stable, no hypotension or tachycardia to suggest active bleed, although he is beta liliana. Patient has no abdominal pain at this time. IVF and zofran ordered for now. Labs including type and screen ordered for further workup. Reevaluation(s) Reevaluation #1: Labs show acute on chronic anemia with drop in H/H from 04/10 --> 12/29 done just 3 days ago. He continues to deny visible GI bleeding but admits to flushing his stool before really looking. CHRISTEN reveals dark brown stool - sent for testing of occult blood. Will give 2 unit PRBC's and get CT abdomen to look for hematoma vs RP bleed. Reevaluation #2: CT scan showing small R>L rectus abdominus muscle hematomas, small amount of ascites, no RP bleed. Spoke with Hospitalist who is requesting LE dopplers to assess for LE DVTs and discussing management with Dr. Mast. ?IVC filter if unable to anticoagulate given recurrent bleeding and history of PEs in April. Reevaluation #3: Spoke with Dr. Mast who is recommending holding lovenox, monitoring H/H and starting PPX lovenox in the next few days to see how he does. Even if he has LE DVT's she is not recommending emergent IVC fitler placement at this time. This was relayed to María Trevino NP. Signed out to Suad López who will assume care until officially admitted. MDM - Nausea/Vomiting/Diarrhea Lab Data Attestation: I reviewed the patient's lab results. Result diagrams: 06/12/20 15:03 06/12/20 15:03 Labs: Lab Results 06/12/20 06/12/20 06/12/20 Range/Units 15:03 15:03 15:03 WBC 16.1 H (4.8-10.8) X10*3/uL RBC 2.24 L D (4.60-5.80) X10*6/uL Hgb 7.1 L D (14.0-18.0) g/dl Hct 21.4 L D (42-52) % MCV 95.5 (80-98) fL MCH 31.7 (27.0-33.0) pg MCHC 33.2 (31.0-36.0) g/dl RDW 13.8 (11.0-16.0) % Plt Count 421 H (160-400) X10*3/uL MPV 10.2 (9.4-12.4) fL Immature Gran % (Auto) 1.0 H (0.0-0.4) % Neut % (Auto) 87.7 H (45-73) % Lymph % (Auto) 3.9 L (20-40) % Campbell % (Auto) 7.1 (2-11) % Eos % (Auto) 0.1 (0-4) % Baso % (Auto) 0.2 (0-2) % Lymph # (Auto) 0.6 L (1.2-4.9) X10*3/uL Campbell # (Auto) 1.2 (0.1-1.2) X10*3/uL Eos # (Auto) 0.0 (0.0-0.4) X10*3/uL Baso # (Auto) 0.0 (0.0-0.2) X10*3/uL Abs Immat Gran (auto) 0.16 H (0.00-0.03) X10*3/uL Absolute Neuts (auto) 14.1 H (2.0-8.3) X10*3/uL Absolute Nucleated RBC 0.020 H (0.0-0.012) X10*3/uL Nucleated RBC % (auto) 0.1 (0.0-0.2) /100WBC Neutrophils % (Manual) 88 H (45-73) % Band Neutrophils % 3 (3-5) % Lymphocytes % (Manual) 3 L (20-40) % Monocytes % (Manual) 5 (2-11) % Basophils % (Manual) 1 (0-1) % Abs Neuts (Manual) 14.7 H (2.2-7.9) X10*3/uL Lymphocytes # (Manual) 0.5 L (0.6-4.8) X10*3/uL Monocytes # (Manual) 0.8 (0.0-1.2) X10*3/uL Basophils # (Manual) 0.2 (0.0-0.3) X10*3/uL Platelet Estimate NORMAL (NORMAL) Large Platelets PRESENT Plt Morphology Comment NOTED RBC Morphology NOTED Polychromasia 1+ Hypochromasia 1+ Basophilic Stippling 1+ Smear Tech's Comments VERIFIED Absolute Retic 0.100 H (0.026-0.095) X10*6/uL Percent Retic 4.5 H (0.5-1.8) % Immature Retic Fraction 42.1 H (2.3-13.4) % Retic Hgb Equivalent 35.4 H (30.0-35.0) pg PT (10.8-13.0) SEC INR (0.9-1.1) Sodium 128 L (135-145) mmol/L Potassium 5.8 H D (3.3-5.1) mmol/l Chloride 96 (96-108) mmol/L Carbon Dioxide 24 (22-29) mmol/L Anion Gap 14 (12-20) BUN 62 H D (9-16) mg/dL Creatinine 1.44 H (0.5-1.4) mg/dL Estim Creat Clear Calc 46.4 Estimated GFR 48 Random Glucose 364 H* (60-115) mg/dL Lactic Acid 1.3 (0.5-2.0) mmol/L Calcium 8.3 L (8.4-10.2) mg/dL Magnesium 1.9 (1.6-2.6) mg/dL Total Bilirubin 0.7 (0.0-1.0) mg/dL Direct Bilirubin 0.6 H (0.0-0.5) mg/dL AST 81 H (5-37) U/L ALT 16 (0-40) U/L Alkaline Phosphatase 365 H (39-117) U/L Troponin I High Sens (<3.5-35.0) ng/L Total Protein 5.6 L (6.5-8.0) g/dL Albumin 3.1 L (3.5-5.0) g/dL Lipase 24 (8-78) U/L Stool Occult Blood (NEG) COVID-19 (ONEAL) (Negative) COVID-19 Clin Com Blood Type Crossmatch 06/12/20 06/12/20 06/12/20 Range/Units 15:03 15:03 15:55 WBC (4.8-10.8) X10*3/uL RBC (4.60-5.80) X10*6/uL Hgb (14.0-18.0) g/dl Hct (42-52) % MCV (80-98) fL MCH (27.0-33.0) pg MCHC (31.0-36.0) g/dl RDW (11.0-16.0) % Plt Count (160-400) X10*3/uL MPV (9.4-12.4) fL Immature Gran % (Auto) (0.0-0.4) % Neut % (Auto) (45-73) % Lymph % (Auto) (20-40) % Campbell % (Auto) (2-11) % Eos % (Auto) (0-4) % Baso % (Auto) (0-2) % Lymph # (Auto) (1.2-4.9) X10*3/uL Campbell # (Auto) (0.1-1.2) X10*3/uL Eos # (Auto) (0.0-0.4) X10*3/uL Baso # (Auto) (0.0-0.2) X10*3/uL Abs Immat Gran (auto) (0.00-0.03) X10*3/uL Absolute Neuts (auto) (2.0-8.3) X10*3/uL Absolute Nucleated RBC (0.0-0.012) X10*3/uL Nucleated RBC % (auto) (0.0-0.2) /100WBC Neutrophils % (Manual) (45-73) % Band Neutrophils % (3-5) % Lymphocytes % (Manual) (20-40) % Monocytes % (Manual) (2-11) % Basophils % (Manual) (0-1) % Abs Neuts (Manual) (2.2-7.9) X10*3/uL Lymphocytes # (Manual) (0.6-4.8) X10*3/uL Monocytes # (Manual) (0.0-1.2) X10*3/uL Basophils # (Manual) (0.0-0.3) X10*3/uL Platelet Estimate (NORMAL) Large Platelets Plt Morphology Comment RBC Morphology Polychromasia Hypochromasia Basophilic Stippling Smear Tech's Comments Absolute Retic (0.026-0.095) X10*6/uL Percent Retic (0.5-1.8) % Immature Retic Fraction (2.3-13.4) % Retic Hgb Equivalent (30.0-35.0) pg PT 16.3 H (10.8-13.0) SEC INR 1.4 H (0.9-1.1) Sodium (135-145) mmol/L Potassium (3.3-5.1) mmol/l Chloride (96-108) mmol/L Carbon Dioxide (22-29) mmol/L Anion Gap (12-20) BUN (9-16) mg/dL Creatinine (0.5-1.4) mg/dL Estim Creat Clear Calc Estimated GFR Random Glucose (60-115) mg/dL Lactic Acid (0.5-2.0) mmol/L Calcium (8.4-10.2) mg/dL Magnesium (1.6-2.6) mg/dL Total Bilirubin (0.0-1.0) mg/dL Direct Bilirubin (0.0-0.5) mg/dL AST (5-37) U/L ALT (0-40) U/L Alkaline Phosphatase (39-117) U/L Troponin I High Sens 40.6 H D (<3.5-35.0) ng/L Total Protein (6.5-8.0) g/dL Albumin (3.5-5.0) g/dL Lipase (8-78) U/L Stool Occult Blood POS (NEG) COVID-19 (ONEAL) (Negative) COVID-19 Clin Com Blood Type Crossmatch 06/12/20 06/12/20 Range/Units 16:25 16:35 WBC (4.8-10.8) X10*3/uL RBC (4.60-5.80) X10*6/uL Hgb (14.0-18.0) g/dl Hct (42-52) % MCV (80-98) fL MCH (27.0-33.0) pg MCHC (31.0-36.0) g/dl RDW (11.0-16.0) % Plt Count (160-400) X10*3/uL MPV (9.4-12.4) fL Immature Gran % (Auto) (0.0-0.4) % Neut % (Auto) (45-73) % Lymph % (Auto) (20-40) % Campbell % (Auto) (2-11) % Eos % (Auto) (0-4) % Baso % (Auto) (0-2) % Lymph # (Auto) (1.2-4.9) X10*3/uL Campbell # (Auto) (0.1-1.2) X10*3/uL Eos # (Auto) (0.0-0.4) X10*3/uL Baso # (Auto) (0.0-0.2) X10*3/uL Abs Immat Gran (auto) (0.00-0.03) X10*3/uL Absolute Neuts (auto) (2.0-8.3) X10*3/uL Absolute Nucleated RBC (0.0-0.012) X10*3/uL Nucleated RBC % (auto) (0.0-0.2) /100WBC Neutrophils % (Manual) (45-73) % Band Neutrophils % (3-5) % Lymphocytes % (Manual) (20-40) % Monocytes % (Manual) (2-11) % Basophils % (Manual) (0-1) % Abs Neuts (Manual) (2.2-7.9) X10*3/uL Lymphocytes # (Manual) (0.6-4.8) X10*3/uL Monocytes # (Manual) (0.0-1.2) X10*3/uL Basophils # (Manual) (0.0-0.3) X10*3/uL Platelet Estimate (NORMAL) Large Platelets Plt Morphology Comment RBC Morphology Polychromasia Hypochromasia Basophilic Stippling Smear Tech's Comments Absolute Retic (0.026-0.095) X10*6/uL Percent Retic (0.5-1.8) % Immature Retic Fraction (2.3-13.4) % Retic Hgb Equivalent (30.0-35.0) pg PT (10.8-13.0) SEC INR (0.9-1.1) Sodium (135-145) mmol/L Potassium (3.3-5.1) mmol/l Chloride (96-108) mmol/L Carbon Dioxide (22-29) mmol/L Anion Gap (12-20) BUN (9-16) mg/dL Creatinine (0.5-1.4) mg/dL Estim Creat Clear Calc Estimated GFR Random Glucose (60-115) mg/dL Lactic Acid (0.5-2.0) mmol/L Calcium (8.4-10.2) mg/dL Magnesium (1.6-2.6) mg/dL Total Bilirubin (0.0-1.0) mg/dL Direct Bilirubin (0.0-0.5) mg/dL AST (5-37) U/L ALT (0-40) U/L Alkaline Phosphatase (39-117) U/L Troponin I High Sens (<3.5-35.0) ng/L Total Protein (6.5-8.0) g/dL Albumin (3.5-5.0) g/dL Lipase (8-78) U/L Stool Occult Blood (NEG) COVID-19 (ONEAL) Negative (Negative) COVID-19 Clin Com See Note Blood Type O Positive Crossmatch See Detail ECG Data Attestation: I personally reviewed and interpreted this ECG as follows: ECG interpretation date: 06/12/20 ECG interpretation time: 16:12 Prior ECG tracings: available for review Interpretation: normal sinus rhythm, HR 60, normal LA interval, no ischemic changes, no changes from prior done last week Discharge Plan Discharge Clinical Impression: Acute blood loss anemia, MICKIE (acute kidney injury) Patient Disposition: Admitted As Inpatient Prescriptions: No Action Spiriva Respimat 2.5 mcg/actuation mist 2 puff inhalation DAILY 90 Days Qty: 3 RF: 3 (DME) OneTouch Verio test strips Strip See Rx Instructions .ROUTE .MEDSUPPLY Qty: 100 RF: 12 morphine [MS Contin] 30 mg Tablet Extended Release 30 mg PO Q12H Qty: 60 RF: 0 oxycodone 5 mg Capsule 5 mg PO Q8H PRN (Reason: Breakthrough Pain, Moderate) Qty: 40 RF: 0 losartan 50 mg Tablet 25 mg PO DAILY RF: 0 carbidopa-levodopa 50-200 mg tablet extended release 1 tab PO TID RF: 0 enoxaparin 100 mg/mL Syringe 90 mg subcut Q12H 30 Days Qty: 54 RF: 2 albuterol sulfate [ProAir HFA] 90 mcg/actuation Hfa Aerosol Inhaler 2 puff INHALATION Q4-6H PRN (Reason: Dyspnea) RF: 0 insulin asp prt-insulin aspart [Novolog Mix 70-30FlexPen U-100] 100 unit/mL (70-30) insulin pen 8 unit subcut TID RF: 0 diltiazem HCl 180 mg capsule,extended release 24hr 180 mg PO DAILY 90 Days Qty: 90 RF: 3 sotalol 120 mg tablet 120 mg PO BID 90 Days Qty: 180 RF: 3 levothyroxine 50 mcg tablet 50 mcg PO DAILY 90 Days Qty: 90 RF: 3 pravastatin 40 mg tablet 40 mg PO DAILY 90 Days Qty: 90 RF: 3 furosemide 20 mg tablet 40 mg PO DAILY 90 Days Qty: 180 RF: 3
[2020-06-12] MEDS: 0.9 % Sodium Chloride 1,000 ML 999 ML IVCONT ×2 (15:07→18:26)
[2020-06-12] MEDS: ondansetron HCL 4 MG/2 ML VIAL IVPUSH (15:07)
[2020-06-12 15:15] LABS: INTERNATIONAL NORM RATIO 1.4 (0.9-1.1); Prothrombin Time 16.3 SEC (10.8-13.0)
[2020-06-12 15:28] LABS: Lactic Acid 1.3 mmol/L (0.5-2.0)
[2020-06-12 15:34] LABS: Alanine Aminotransferase 16 U/L (0-40); Albumin Level 3.1 g/dL (3.5-5.0); Alkaline Phosphatase 365 U/L (39-117); Aspartate Amino Transferase 81 U/L (5-37); Basophils Percent Auto 0.2 % (0-2); Bilirubin Direct 0.6 mg/dL (0.0-0.5); Bilirubin Total 0.7 mg/dL (0.0-1.0); Blood Urea Nitrogen 62 mg/dL (9-16); Calcium 8.3 mg/dL (8.4-10.2); Creatinine Clr Calc Pharmacy 46.4; Eosinophils Percent Auto 0.1 % (0-4); Estimated Glomerular Filt Rate 48; Hematocrit 21.4 % (42-52); Hemoglobin 7.1 g/dl (14.0-18.0); Imm Gran Abs Auto 0.16 X10*3/uL (0.00-0.03); Lipase 24 U/L (8-78); Lymphocytes Absolute Auto 0.6 X10*3/uL (1.2-4.9); Lymphocytes Percent Auto 3.9 % (20-40); MANUAL DIFF FLAG SCAN; Magnesium 1.9 mg/dL (1.6-2.6); Mean Corpuscular HGB Conc 33.2 g/dl (31.0-36.0); Mean Corpuscular Hemoglobin 31.7 pg (27.0-33.0); Mean Corpuscular Volume 95.5 fL (80-98); Mean Platelet Volume 10.2 fL (9.4-12.4); Monocytes Absolute Auto 1.2 X10*3/uL (0.1-1.2); Monocytes Percent Auto 7.1 % (2-11); NRBC Pct Auto 0.1 /100WBC (0.0-0.2); Neutrophils Absolute Auto 14.1 X10*3/uL (2.0-8.3); Neutrophils Percent Auto 87.7 % (45-73); Platelet Count 421 X10*3/uL (160-400); Red Blood Count 2.24 X10*6/uL (4.60-5.80); Red Cell Distribution Width 13.8 % (11.0-16.0); SCAN SMEAR FLAG 1; Total Protein 5.6 g/dL (6.5-8.0); White Blood Count 16.1 X10*3/uL (4.8-10.8)
[2020-06-12 15:36] LABS: SLIDE REVIEW VERIFIED
--- NOTE | 2020-06-12 15:50 | CT_ITS ---
EXAMINATION: CT ABDOMEN AND PELVIS WITHOUT CONTRAST CLINICAL INFORMATION: Acute blood loss anemia. Question rectus sheath hematoma versus retroperitoneal hemorrhage. COMPARISON: Multiple priors, most recent PET/CT dated 05/25/[address] abdomen/pelvis dated 04/28/2020. TECHNIQUE: Multidetector volumetric imaging was performed from the superior aspect of the liver through the pubic symphysis. Sagittal and coronal reformatted images were obtained on the technologist's workstation. This CT examination was performed using dose optimization techniques as appropriate, variously including the following: *Automated exposure control *Adjustment of mA and/or kV according to patient size (this includes techniques or standardized protocols for targeted exams where dose is matched to indication/reason for exam; i.e. extremities or head) *Use of iterative reconstruction technique DLP: 657 mGy-cm FINDINGS: LUNG BASES: Pleural-based consolidation within the posterior aspect of the right lower lobe, similar when compared to the prior examinations. LIVER, GALLBLADDER, AND BILIARY TREE: The liver is normal in size with slightly lobulated contour, unchanged. Findings can be seen in the setting of cirrhosis. There is vague hypodensity in the right hepatic lobe, likely corresponding to prior metastatic disease identified on the recent PET/CT. No intrahepatic or extrahepatic biliary ductal dilatation. Cholelithiasis without evidence of acute cholecystitis. PANCREAS: Severely atrophic and fatty replaced. SPLEEN: Unremarkable. ADRENAL GLANDS: Unremarkable. KIDNEYS AND URETERS: The kidneys are normal in size, shape, and attenuation. Redemonstration of tiny bilateral nonobstructing renal stones measuring up to 0.2 cm, similar when compared to the prior examination. No ureteral stone. No hydronephrosis or hydroureter. BLADDER: Unremarkable. GASTROINTESTINAL TRACT: Sigmoid diverticulosis without evidence of acute diverticulitis. No bowel wall thickening or associated inflammatory change. No small- or large-bowel obstruction. Unremarkable appendix. PERITONEAL CAVITY: Mild simple ascites, slightly increased when compared to the most recent PET/CT. No intra-abdominal free air. No evidence of retroperitoneal or intra-abdominal hemorrhage. No organized fluid collection/abscess. ABDOMINAL WALL: No significant abdominal wall hernia. There is asymmetric thickening of the right rectus abdominis muscle superiorly with ovoid hyperdense foci. The largest measures up to 2.2 cm in greatest axial dimension (axial image 44/100). Findings are new when compared to the prior examination and could represent intramuscular hematomas. Findings are seen to a much less degree within the left rectus abdominis muscle. LYMPH NODES: Redemonstration of retroperitoneal and central mesenteric lymphadenopathy, similar when compared to the most recent PET/CT. Findings have increased in prominence when compared to the CT dated 04/28/2020. VASCULAR: Atherosclerotic calcifications throughout the abdominal aorta and its branch vessels. No abdominal aortic dilatation. Unremarkable IVC. PELVIC VISCERA: Calcifications redemonstrated within the prostate. OSSEOUS STRUCTURES: Lytic foci are redemonstrated within the osseous structures. There is a left ischial lesion measuring up to 4.2 cm in greatest axial dimension with an associated soft tissue component, similar when compared to the recent PET/CT. Multiple additional lytic lesions are redemonstrated including within the inferior left pubic ramus as well as within the left side of the L1 vertebral body. CT/CT abdomen pelvis wo con IMPRESSION: 1. Ovoid, hyperdense foci within the right greater than left rectus abdominis muscles, which could represent intramuscular hematomas. The largest on the right measures up to 2.2 cm in greatest axial dimension. 2. No intra-abdominal, pelvic, or retroperitoneal hematoma. 3. Cirrhosis is redemonstrated with slight interval increase in simple ascites. Heterogeneity redemonstrated throughout the right hepatic lobe. 4. Central mesenteric and retroperitoneal lymphadenopathy is similar when compared to the recent PET/CT and slightly increased when compared to the CT dated 04/28/2020. 5. Multiple lytic lesions redemonstrated throughout the osseous structures, similar when compared to the recent PET/CT. 6. Additional chronic findings are unchanged.
[2020-06-12 15:51] LABS: Anion Gap 14 (12-20); Carbon Dioxide 24 mmol/L (22-29); Chloride 96 mmol/L (96-108); Glucose Random 364 mg/dL (60-115); Potassium 5.8 mmol/l (3.3-5.1); Sodium 128 mmol/L (135-145)
[2020-06-12 16:05] LABS: Immature Retic Fraction 42.1 % (2.3-13.4); Retic HGB Equivalent 35.4 pg (30.0-35.0); Reticulocyte Percent 4.5 % (0.5-1.8)
[2020-06-12 16:16] LABS: OBS Int Ctl Valid YES; OBS1 POS (NEG)
[2020-06-12 16:30] LABS: Band Neutrophils Percent 3 % (3-5); Basophils Abs Manual 0.2 X10*3/uL (0.0-0.3); Basophils Percent Manual 1 % (0-1); Lymphocytes Absolute Manual 0.5 X10*3/uL (0.6-4.8); Lymphocytes Percent Manual 3 % (20-40); Monocytes Absolute Manual 0.8 X10*3/uL (0.0-1.2); Monocytes Percent Manual 5 % (2-11); Neutrophils Absolute Manual 14.7 X10*3/uL (2.2-7.9); Neutrophils Percent Manual 88 % (45-73); RBC Morphology NOTED
[2020-06-12 16:33] LABS: Hypochromasia 1+; Polychromasia 1+
--- NOTE | 2020-06-12 16:36 | PC.NURSE ---
BLOOD CONSENT OBTAINED BY JERMAINE DENNISON,PLACED IN CHART, SECOND IV STARTED TO LEFT AC. COVID SWAB COMPLETED.
[2020-06-12 16:44] LABS: Basophilic Stippling 1+
[2020-06-12 16:45] LABS: Large Platelet PRESENT; Platelet Estimate NORMAL (NORMAL); Platelet Morphology Comment NOTED
[2020-06-12 16:54] LABS: COVID-19 Test Negative (Negative)
--- NOTE | 2020-06-12 16:55 | US_ITS ---
EXAMINATION: US VENOUS ULTRASOUND WITH DOPPLER LOWER EXTREMITY, BILATERAL CLINICAL INFORMATION: Cancer and pulmonary embolism. Leg pain. Evaluate for a deep vein thrombosis. COMPARISON: Lower extremity venous ultrasound dated 04/29/2020. TECHNIQUE: Ultrasound of the deep veins was performed from the hip to the calf with compression sonography and color and pulse Doppler assessment. Spectral analysis with color-flow imaging is performed. FINDINGS: RIGHT: There is normal venous compression and respiratory variation and augmented flow. The visualized common femoral vein, superficial femoral vein, profunda femoral vein, popliteal vein, and the trifurcation region shows no evidence of deep venous thrombosis. There is no significant popliteal fossa cyst. LEFT: There is normal venous compression and respiratory variation and augmented flow. The visualized common femoral vein, superficial femoral vein, profunda femoral vein, popliteal vein, and the trifurcation region shows no evidence of deep venous thrombosis. There is no significant popliteal fossa cyst. If the patient's symptoms persist, follow up ultrasound in 5 days 7 days might be of value to exclude proximal propagation from a non-visualized calf vein. US/US venous duplex LE BI IMPRESSION: No DVT demonstrated in the bilateral lower extremities.
[2020-06-12 16:56] LABS: Troponin-I High Sensitivity 40.6 ng/L (<3.5-35.0)
[2020-06-12] MEDS: cefTRIAXone sodium 1 GM in 0.9 % Sodium Chloride 50 ML IV (17:19)
--- NOTE | 2020-06-12 18:24 | PC.NURSE ---
Pt unable to void, bladder scan showing approx 500ml, order for gomez catheter.
[2020-06-12] MEDS: Insulin Regular, Human 100 UNIT/ML 3 ML VIAL SUBCUT (18:26)
[2020-06-12] MEDS: Sodium Polystyrene Sulfon/Sorb 15 GM/60 ML ORAL.SUSP 30 GM PO (18:30)
[2020-06-12 18:48] LABS: Appearance Urine CLEAR; Color Urine YELLOW; Glucose Urine UA NEG (NEG); Leukocyte Esterase Urine NEG (NEG); Nitrite Urine NEG (NEG); PH 5.5 (5.0-8.0); Urine Blood NEG (NEG); Urine Ketones NEG (NEG); Urine Protein NEG (NEG-TRACE)
--- NOTE | 2020-06-12 18:51 | P.HPHOSP_ITS ---
History of Present Illness Date of Service: 06/12/20 <María Trevino NP - Last Filed: 06/12/20 20:04> Chief Complaint: Dizziness <María Trevino NP - Last Filed: 06/12/20 20:04> 74 year old man presenting with abdominal pain, dizziness and urinary retention. Over the last 3 days he has been stating that he is hungry but has no appetite. He was feeling dizzy with some abdominal pain. Today he started having nausea and vomited one time. He reported having some lower abdominal pain and difficulty with urination. According to his he had no fever, chills, no bloody stools. He has been generally declining and and has been more weak recently. 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 Patient was also having issues with his blood sugar and his medications had been adjusted due to hypoglycemiaHe was started on Lovenox for PE. He was on warfarin previously due to mechanical aortic valve. In the ED, he had multiple abnormalities including sodium 128, potassium 5.8, creatinine 1.4. Urinalysis was positive for infection. He received a dose of Rocephin, insulin, kayexalate and 2 liters of IV fluids. Two units of PRBC was also ordered. He will be admitted for further management and treatment of GI bleed. <María Trevino NP - Last Filed: 06/12/20 20:04> Review of Systems Review of Systems: Reports weakness respiratory denies any shortness of breath coverage production cardiovascular is adjustment of any PND or edema gastrointestinal denies any dysphagia abdominal pain nausea vomiting or diarrhea genitourinary reports retention musculoskeletal denies any joint pain or swelling neuropsych denies any weakness or seizures all other systems reviewed are negative <María Trevino NP - Last Filed: 06/12/20 20:04> [facility] Medical History: Medical History (Updated 07/09/20 @ 16:32 by Calvin Ge NP) Anemia Bony sclerosis COPD (chronic obstructive pulmonary disease) Diabetes mellitus GI bleed Hyperlipidemia Hypertension Hypothyroidism Lytic bone lesion of hip Lytic lesion of bone on x-ray Metastatic bone tumor Overweight (BMI 25.0-29.9) Pancreatic cancer Parkinson's disease Paroxysmal atrial fibrillation Pleural effusion, right Pulmonary embolism <María Trevino NP - Last Filed: 06/12/20 20:04> Family History: Family History Father Cardiovascular disease Mother Stroke Other Colon cancer FH: Parkinson's disease <María Trevino NP - Last Filed: 06/12/20 20:04> Surgical History: Surgical History History of aortic valve replacement (~11/29/12) History of carpal tunnel release (~06/24/13) Status post anal 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) <María Trevino NP - Last Filed: 06/12/20 20:04> Social History: Social History Household Members: Spouse Housing: House Alcohol intake: never Smoking Status: Never smoker Second Hand Smoke Exposure: No Use of substances other than those prescribed or required for medical reasons: No Advance Directives: No Advance Directives Information Provided: Yes service: No Current occupational status: retired <María Trevino NP - Last Filed: 06/12/20 20:04> Meds Allergies/Adverse reactions: Allergies Allergy/AdvReac Type Severity Reaction Status Date / Time No Known Allergies Allergy Verified 06/17/20 13:40 [No Known Allergies*] <María Trevino NP - Last Filed: 06/12/20 20:04> Home medications: Home Medications Medication Instructions Recorded Confirmed Type carbidopa-levodopa 1 tab PO TID 04/28/20 07/09/20 History insulin asp prt-insulin aspart 8 unit SUBCUT TID 06/12/20 07/09/20 History [Novolog Mix 70-30FlexPen U-100] furosemide [Lasix] 40 mg PO BID 07/09/20 07/09/20 History <María Trevino NP - Last Filed: 06/12/20 20:04> Physical Exam Vital Signs and Narrative: Vital Signs: Last Vital Signs Temp 98.1 F 06/12/20 18:32 Pulse 66 06/12/20 18:32 Resp 16 06/12/20 18:32 BP 140/48 H 06/12/20 18:32 Pulse Ox 99 06/12/20 17:47 Body Mass Index 26.7 <María Trevino NP - Last Filed: 06/12/20 20:04> Results Labs CBC and Chem 7: : 06/18/20 09:05 06/16/20 04:22 <María Trevino NP - Last Filed: 06/12/20 20:04> Labs: Laboratory Results - last 24 hr 06/12/20 06/12/20 06/12/20 15:03 15:03 15:03 MCV 95.5 MCH 31.7 MCHC 33.2 RDW 13.8 Plt Count 421 H MPV 10.2 Immature Gran % (Auto) 1.0 H Neut % (Auto) 87.7 H Lymph % (Auto) 3.9 L [place] % (Auto) 7.1 Eos % (Auto) 0.1 Baso % (Auto) 0.2 Lymph # (Auto) 0.6 L [place] # (Auto) 1.2 Eos # (Auto) 0.0 Baso # (Auto) 0.0 Abs Immat Gran (auto) 0.16 H Absolute Neuts (auto) 14.1 H Absolute Nucleated RBC 0.020 H Nucleated RBC % (auto) 0.1 Neutrophils % (Manual) 88 H Band Neutrophils % 3 Lymphocytes % (Manual) 3 L Monocytes % (Manual) 5 Basophils % (Manual) 1 Abs Neuts (Manual) 14.7 H Lymphocytes # (Manual) 0.5 L Monocytes # (Manual) 0.8 Basophils # (Manual) 0.2 Platelet Estimate NORMAL Large Platelets PRESENT Plt Morphology Comment NOTED RBC Morphology NOTED Polychromasia 1+ Hypochromasia 1+ Basophilic Stippling 1+ Smear Tech's Comments VERIFIED Absolute Retic 0.100 H Percent Retic 4.5 H Immature Retic Fraction 42.1 H Retic Hgb Equivalent 35.4 H PT INR Anion Gap 14 Estim Creat Clear Calc 46.4 Estimated GFR 48 Random Glucose 364 H* Lactic Acid 1.3 Calcium 8.3 L Magnesium 1.9 Total Bilirubin 0.7 Direct Bilirubin 0.6 H AST 81 H ALT 16 Alkaline Phosphatase 365 H Troponin I High Sens Total Protein 5.6 L Albumin 3.1 L Lipase 24 Urine Color Urine Appearance Urine pH Ur Specific [place] Urine Protein Urine Glucose (UA) Urine Ketones Urine Blood Urine Nitrite Ur Leukocyte Esterase Stool Occult Blood COVID-19 (ONEAL) COVID-19 Clin Com Blood Type Antibody Screen Crossmatch 06/12/20 06/12/20 06/12/20 15:03 15:03 15:55 MCV MCH MCHC RDW Plt Count MPV Immature Gran % (Auto) Neut % (Auto) Lymph % (Auto) [place] % (Auto) Eos % (Auto) Baso % (Auto) Lymph # (Auto) [place] # (Auto) Eos # (Auto) Baso # (Auto) Abs Immat Gran (auto) Absolute Neuts (auto) Absolute Nucleated RBC Nucleated RBC % (auto) Neutrophils % (Manual) Band Neutrophils % Lymphocytes % (Manual) Monocytes % (Manual) Basophils % (Manual) Abs Neuts (Manual) Lymphocytes # (Manual) Monocytes # (Manual) Basophils # (Manual) Platelet Estimate Large Platelets Plt Morphology Comment RBC Morphology Polychromasia Hypochromasia Basophilic Stippling Smear Tech's Comments Absolute Retic Percent Retic Immature Retic Fraction Retic Hgb Equivalent PT 16.3 H INR 1.4 H Anion Gap Estim Creat Clear Calc Estimated GFR Random Glucose Lactic Acid Calcium Magnesium Total Bilirubin Direct Bilirubin AST ALT Alkaline Phosphatase Troponin I High Sens 40.6 H D Total Protein Albumin Lipase Urine Color Urine Appearance Urine pH Ur Specific [place] Urine Protein Urine Glucose (UA) Urine Ketones Urine Blood Urine Nitrite Ur Leukocyte Esterase Stool Occult Blood POS COVID-19 (ONEAL) COVID-19 Clin Com Blood Type Antibody Screen Crossmatch 06/12/20 06/12/20 06/12/20 16:25 16:35 18:39 MCV MCH MCHC RDW Plt Count MPV Immature Gran % (Auto) Neut % (Auto) Lymph % (Auto) [place] % (Auto) Eos % (Auto) Baso % (Auto) Lymph # (Auto) [place] # (Auto) Eos # (Auto) Baso # (Auto) Abs Immat Gran (auto) Absolute Neuts (auto) Absolute Nucleated RBC Nucleated RBC % (auto) Neutrophils % (Manual) Band Neutrophils % Lymphocytes % (Manual) Monocytes % (Manual) Basophils % (Manual) Abs Neuts (Manual) Lymphocytes # (Manual) Monocytes # (Manual) Basophils # (Manual) Platelet Estimate Large Platelets Plt Morphology Comment RBC Morphology Polychromasia Hypochromasia Basophilic Stippling Smear Tech's Comments Absolute Retic Percent Retic Immature Retic Fraction Retic Hgb Equivalent PT INR Anion Gap Estim Creat Clear Calc Estimated GFR Random Glucose Lactic Acid Calcium Magnesium Total Bilirubin Direct Bilirubin AST ALT Alkaline Phosphatase Troponin I High Sens Total Protein Albumin Lipase Urine Color YELLOW Urine Appearance CLEAR Urine pH 5.5 Ur Specific [place] 1.010 Urine Protein NEG Urine Glucose (UA) NEG Urine Ketones NEG Urine Blood NEG Urine Nitrite NEG Ur Leukocyte Esterase NEG Stool Occult Blood COVID-19 (ONEAL) Negative COVID-19 Clin Com See Note Blood Type O Positive Antibody Screen NEGATIVE Crossmatch See Detail <María Trevino NP - Last Filed: 06/12/20 20:04> Imaging Radiologist's Impressions: Impressions Abdomen/Pelvis CT 06/12/20 15:50 IMPRESSION: 1. Ovoid, hyperdense foci within the right greater than left rectus abdominis muscles, which could represent intramuscular hematomas. The largest on the right measures up to 2.2 cm in greatest axial dimension. 2. No intra-abdominal, pelvic, or retroperitoneal hematoma. 3. Cirrhosis is redemonstrated with slight interval increase in simple ascites. Heterogeneity redemonstrated throughout the right hepatic lobe. 4. Central mesenteric and retroperitoneal lymphadenopathy is similar when compared to the recent PET/CT and slightly increased when compared to the CT dated 04/28/2020. 5. Multiple lytic lesions redemonstrated throughout the osseous structures, similar when compared to the recent PET/CT. 6. Additional chronic findings are unchanged. <María Trevino NP - Last Filed: 06/12/20 20:04> Assessment and Plan (1) Acute blood loss anemia: Status: Resolved <María Trevino NP - Last Filed: 06/12/20 20:04> 74 year old man admitted with GI bleed with history of pancreatic cancer. GI bleed. No overt bleeding noted. 2 units of PRBC ordered, check HH post transfusion. IV PPI BID. Hold Lovenox. MICKIE. Likely from urinary retension and dehydration. Gently IV fluids. Hold Lasix for now. UTI. Rocephin, follow urine culture. Hyperkalemia. Kayexalate in the ED. Repeat BMP at 9pm. Hyponatremia. Likely from dehydration. Gentle fluids. Diabetes. Start sliding scale at 200 due to recent fluctuations in blood sugars. Afib, mechanical aortic valve, PE. Continue Sotolol, hold Lovenox due to GI bleed. Cardiology to follow. Pancreatic cancer. Recently diagnosed, followed by Dr. Mast. Hypothyroidism. Continue Levothyroxine. Asthma. Continue albuterol. Parkinsons dementia. Continue simemet. DVT prophylaxis with mechanical compression boots. Discussed with Dr. White DNR/DNI <María Trevino NP - Last Filed: 06/12/20 20:04>
--- NOTE | 2020-06-12 19:02 | P.EN_ITS ---
Event Note Date of Service: 06/13/20 Event Note: Patient came to the hospital because of generalized weakness, decr eased appetite, nausea vomiting. Patient is a poor historian As per the patient why patient is having these symptoms from last 3-4 days, he was feeling hungry but appetite was poor, he also said some abdominal discomfort to his but could not clarify that as per . As per his that he was on omeprazole but ran out of his prescription. Patient also told us that he is having trouble urinating. Lab ruiz patient was found to have CT scan ruiz are at small hematomas in the abdominal wall area, also found to have MICKIE, hyperkalemia, fluctuating fingersticks sugar . ED physician also put a Hebert because of urinary retention 600 mL in bladder. Has metastatic cancer, pulmonary embolism recent in , also history of aortic valve replacement, Patient was also found to have H&H of 7, occult blood positive Currently patient does not complain of shortness of breath or abdominal pain or fever or chills or weakness or numbness could able to move all extremities. As per the discussion with the ED attending with with cardio and hematology-plan hold anticoagulation As per the : Patient is DNR DNI Physical exam: Cvs: rrr, [id number] , no murmur res: clear to auscultation ,no rhonchii or wheezing abd: no rebound or guarding ,nt, bs present. Has mild ecchymosis in the right and left area question hematoma area ext pulses present , no cyanosis neuro: axo3 , nonfocal. Assessment and plan ruiz: 1. Possible GI bleed-differential is broad including gastritis versus ulcer versus lower GI bleed? Patient already getting transfusion by ED seems like 2 PRBC Monitor H&H Q 6 hour GI evaluation Protonix 40 mg IV b.i.d. Clear liquid diet may need IVc filter 2. MICKIE/hyperkalemia/hyponatremia: Gentle hydration with normal saline @ 70 mL/hour Kayexalate Repeat BMP around 9 pm-due to new MICKIE and hyperkalemia. If sodium is still low we will add serum and urine osmolality MICKIE ruiz-hold off Ronak/arb . Avoid nephrotoxic medications including NSAID. 3. History of AFib/aortic valve replacement/PE: Hold off Lovenox for now AFib ruiz-continue sotalol, monitor patient on tele venous dupplex ordered . 4. Diabetes: His fingersticks are fluctuating Fingersticks with adjusting coverage, no coverage below 200 mg/dL Above management discussed with patient's in detail she understand and in agreement with the above plan, patient is DNR DNI.
--- NOTE | 2020-06-12 19:49 | PC.NURSE ---
PT ASKED TO USE BATHROOM, NEEDS TO HAVE BM. PT ASSISTED ONTO A BEDSIDE COMMODE, UNABLE TO MOVE BOWELS. NO CHICA BLOOD WHEN CLEANED UP.
[2020-06-12 20:42] LABS: Anion Gap 12 (12-20); Blood Urea Nitrogen 54 mg/dL (9-16); Calcium 8.1 mg/dL (8.4-10.2); Carbon Dioxide 26 mmol/L (22-29); Chloride 100 mmol/L (96-108); Creatinine Clr Calc Pharmacy 53.5; Estimated Glomerular Filt Rate 56; Glucose Random 328 mg/dL (60-115); Sodium 133 mmol/L (135-145)
--- NOTE | 2020-06-12 22:56 | PC.NURSE ---
REPORT GIVEN TO DELON BUTLER ON FLOOR, PT READY FOR TRANSPORT.
[2020-06-13] VITALS (19 sets, daily range): BP systolic 134–181; BP diastolic 53–81; PULSE 60–97; RESP 14–18; TEMP 19.8–37.2; O2SAT 92–100; BMI 27.1
[2020-06-13 00:13] LABS: Anion Gap 11 (12-20); Blood Urea Nitrogen 48 mg/dL (9-16); Calcium 7.7 mg/dL (8.4-10.2); Carbon Dioxide 26 mmol/L (22-29); Chloride 101 mmol/L (96-108); Creatinine Clr Calc Pharmacy 60.3; Estimated Glomerular Filt Rate > 60; Glucose Random 339 mg/dL (60-115); Potassium 5.1 mmol/l (3.3-5.1); Sodium 133 mmol/L (135-145)
[2020-06-13] MEDS: Pantoprazole Sodium 40 MG/10 ML VIAL IVPUSH ×3 (00:25→17:07)
[2020-06-13] MEDS: 0.9 % Sodium Chloride Flush 3 ML SYRINGE IVFLUSH ×3 (00:26→21:56)
[2020-06-13] MEDS: 0.9 % Sodium Chloride 1,000 ML 75 ML IVCONT (00:28)
[2020-06-13 00:39] LABS: Hematocrit 22.9 % (42-52); Hemoglobin 7.7 g/dl (14.0-18.0)
[2020-06-13 00:45] LABS: Glucose, Whole Blood 340 mg/dL (60-115)
[2020-06-13] MEDS: Insulin Lispro 100 UNIT/ML 3 ML VIAL SUBCUT ×3 (01:36→21:56)
[2020-06-13 07:17] LABS: Glucose, Whole Blood 238 mg/dL (60-115)
[2020-06-13 07:19] LABS: Basophils Percent Auto 0.2 % (0-2); Eosinophils Absolute Auto 0.1 X10*3/uL (0.0-0.4); Eosinophils Percent Auto 0.5 % (0-4); Hematocrit 22.4 % (42-52); Hemoglobin 7.4 g/dl (14.0-18.0); Imm Gran Pct Auto 1.1 % (0.0-0.4); Lymphocytes Absolute Auto 0.6 X10*3/uL (1.2-4.9); Lymphocytes Percent Auto 3.4 % (20-40); MANUAL DIFF FLAG SCAN; Mean Corpuscular Volume 93.7 fL (80-98); Mean Platelet Volume 9.8 fL (9.4-12.4); Monocytes Absolute Auto 1.6 X10*3/uL (0.1-1.2); Monocytes Percent Auto 9.2 % (2-11); NRBC Pct Auto 0.2 /100WBC (0.0-0.2); Neutrophils Percent Auto 85.6 % (45-73); Platelet Count 376 X10*3/uL (160-400); Red Blood Count 2.39 X10*6/uL (4.60-5.80); Red Cell Distribution Width 14.4 % (11.0-16.0); SCAN SMEAR FLAG 1; White Blood Count 17.5 X10*3/uL (4.8-10.8)
[2020-06-13 07:40] LABS: Anion Gap 14 (12-20); Blood Urea Nitrogen 39 mg/dL (9-16); Calcium 7.8 mg/dL (8.4-10.2); Carbon Dioxide 24 mmol/L (22-29); Chloride 104 mmol/L (96-108); Creatinine Clr Calc Pharmacy 75.2; Estimated Glomerular Filt Rate > 60; Glucose Random 206 mg/dL (60-115); Potassium 4.5 mmol/l (3.3-5.1); Sodium 137 mmol/L (135-145)
[2020-06-13 08:07] LABS: SLIDE REVIEW VERIFIED
--- NOTE | 2020-06-13 08:32 | P.CNGI_ITS ---
History of Present Illness Data of Consult Service Date: 06/13/20 Requesting physician: Raymundo White Primary Care Provider: Jorge Currie MD HPI Reason for consult: Acute decrease in H&H w/ Heme + stool. Newly Metastatic CA- primary unknown 74 yo male with multiple medical problems: Parkinsonism, COPD, Diabetes and newly diagnosed metastatic adeno-CA. He presented with abdominal pain-anorexia. Recent nausea and @ least one episode of vomiting. 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 He has pacemaker in place. Review of Systems Constitutional: Constitutional: Reports anorexia, Reports fatigue, Denies fever(s), Reports poor appetite and Reports weakness Cardiovascular: Cardiovascular: Reports dyspnea on exertion Comments: hx Aortic valve replacement/Pacemaker in place. Respiratory: Respiratory: Reports dyspnea on exertion Comments: Hx of COPD--Chest xray in 2019--changes c/ COPD--Hyperinflation Gastrointestinal: Gastrointestinal: Reports as per HPI Neurologic: Reports weakness Endocrine: Endocrine: Reports fatigue PMFSH Past Medical History Medical History Anemia Bony sclerosis COPD (chronic obstructive pulmonary disease) Diabetes mellitus GI bleed Hyperlipidemia Hypertension Hypothyroidism Lytic bone lesion of hip Lytic lesion of bone on x-ray Overweight (BMI 25.0-29.9) Pancreatic cancer Parkinson's disease Paroxysmal atrial fibrillation Pleural effusion, right Pulmonary embolism Family History Family History Father Cardiovascular disease Mother Stroke Other Colon cancer FH: Parkinson's disease Surgical History Surgical History History of aortic valve replacement (~11/29/12) History of carpal tunnel release (~06/24/13) Status post anal 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) Status post mechanical aortic valve replacement Social History Social History Household Members: Spouse Housing: House Alcohol intake: current Alcohol intake frequency: does not drink Alcohol type: hard liquor Smoking Status: Former smoker Smoking Quit Date: 30 years ago Use of substances other than those prescribed or required for medical reasons: No Have you been hit, kicked, punched, or otherwise hurt by someone within the past year? If so, by whom?: No Do you feel safe in your current relationship?: No Is there a partner from a previous relationship who is making you feel unsafe now?: No Are you made to feel afraid or neglected: No [employer] Healthcare Practices: methodist Advance Directives: No Advance Directives Information Provided: Yes Do you have thoughts of harming others: None Do you have a plan to hurt others: No Plan Recently lost weight without trying: Unsure service: No Current occupational status: retired [employer] Allergies Allergy/AdvReac Type Severity Reaction Status Date / Time No Known Allergies Allergy Verified 06/12/20 14:32 [No Known Allergies*] Home Medications Medication Instructions Recorded Confirmed Type carbidopa-levodopa 1 tab PO TID 04/28/20 06/12/20 History losartan 25 mg PO DAILY 04/28/20 06/12/20 History albuterol sulfate [ProAir HFA] 2 puff INHALATION Q4-6H PRN 06/12/20 06/12/20 History insulin asp prt-insulin aspart 8 unit SUBCUT TID 06/12/20 06/12/20 History [Novolog Mix 70-30FlexPen U-100] Physical Exam Vital Signs: Vital Signs: Last Vital Signs Temp 67.6 F L 06/13/20 07:48 Pulse 82 06/13/20 07:48 Resp 18 06/13/20 07:48 BP 142/60 H 06/13/20 07:48 Pulse Ox 97 06/13/20 07:48 Body Mass Index 27.1 Const: General: cooperative, ill appearing and tired appearing Resp: Effort & Inspection: able to speak in complete sentences, uses accessory muscles and prolonged expiratory phase Auscultation: diminished lung sounds Cardio: Rhythm: regular rhythm Heart sounds: Murmur heart sound present GI: Inspection: Yes distended (slight, no focal findings) Palpation (GI): no masses Neuro: Other: Parkinsonian tremor noted. Extrem: General: Yes edema (1+) Results Labs CBC & Chem 7: 06/13/20 06:31 06/13/20 06:31 Labs: Short CBC 06/12/20 06/13/20 06/13/20 Range/Units 15:03 00:30 06:31 WBC 16.1 H 17.5 H (4.8-10.8) X10*3/uL Hgb 7.1 L D 7.7 L 7.4 L (14.0-18.0) g/dl Hct 21.4 L D 22.9 L 22.4 L (42-52) % Plt Count 421 H 376 (160-400) X10*3/uL BMP 06/12/20 06/12/20 06/12/20 15:03 20:09 23:25 Sodium 128 L 133 L 133 L Potassium 5.8 H D 5.0 5.1 Chloride 96 100 101 Carbon Dioxide 24 26 26 BUN 62 H D 54 H 48 H Creatinine 1.44 H 1.25 1.11 Calcium 8.3 L 8.1 L 7.7 L 06/13/20 06:31 Sodium 137 Potassium 4.5 Chloride 104 Carbon Dioxide 24 BUN 39 H Creatinine 0.89 Calcium 7.8 L Liver Function 06/12/20 Range/Units 15:03 Total Bilirubin 0.7 (0.0-1.0) mg/dL Direct Bilirubin 0.6 H (0.0-0.5) mg/dL AST 81 H (5-37) U/L ALT 16 (0-40) U/L Alkaline Phosphatase 365 H (39-117) U/L Albumin 3.1 L (3.5-5.0) g/dL Urine 06/12/20 Range/Units 18:39 Urine Color YELLOW Urine Appearance CLEAR Urine pH 5.5 (5.0-8.0) Ur Specific [place] 1.010 (1.005-1.025) Urine Protein NEG (NEG-TRACE) MG/DL Urine Glucose (UA) NEG (NEG) MG/DL Imaging CT scan - abdomen: Radiologist's impression: OSSEOUS STRUCTURES: Lytic foci are redemonstrated within the osseous structures. There is a left ischial lesion measuring up to 4.2 cm in greatest axial dimension with an associated soft tissue component, similar when compared to the recent PET/CT. Multiple additional lytic lesions are redemonstrated including within the inferior left pubic ramus as well as within the left side of the L1 vertebral body. CT/CT abdomen pelvis wo con IMPRESSION: 1. Ovoid, hyperdense foci within the right greater than left rectus abdominis muscles, which could represent intramuscular hematomas. The largest on the right measures up to 2.2 cm in greatest axial dimension. 2. No intra-abdominal, pelvic, or retroperitoneal hematoma. 3. Cirrhosis is redemonstrated with slight interval increase in simple ascites. Heterogeneity redemonstrated throughout the right hepatic lobe. 4. Central mesenteric and retroperitoneal lymphadenopathy is similar when compared to the recent PET/CT and slightly increased when compared to the CT dated 04/28/2020. 5. Multiple lytic lesions redemonstrated throughout the osseous structures, similar when compared to the recent PET/CT. 6. Additional chronic findings are unchanged. Dictated By:CESAR CAGLE MD Signed By:<Electronically signed by CESAR CAGLE MD in OV>06/12/20 163 Assessment and Plan (1) Acute blood loss anemia: Status: Acute Discussed with patient doing an egd this AM.. He is agreeable. This will allow us to define etiology of bleed. Alos assess for potential dietary choices , nutrition and evaluate potential source for primary of his metastatic disease. Note patient has been previously followed by Dr. Jeffrey will inform him that patient is in house. (2) COPD (chronic obstructive pulmonary disease): Qualifiers: COPD type: unspecified COPD Qualified Code(s): J44.9 - Chronic obstructive pulmonary disease, unspecified Status: Acute Monitor closely given multiple comorbid problems (3) Anemia: Qualifiers: Anemia type: unspecified type Qualified Code(s): D64.9 - Anemia, unspecified Status: Acute presumptively exacerbated by current bleeding. Being transfused. (4) Parkinson's disease: Status: Acute Ongoing problem adding to weakness etc. Cont meds.
--- NOTE | 2020-06-13 09:42 | PM.HEMONCPN ---
Medical Summary - Medical Summary Date of Service: 06/19/20 Chief complaint: Consult for Adenocarcinoma unknown primary. 2. Anemia. Medical Summary: DIAGNOSIS: 1. Adenocarcinoma of unknown primary, likelly GI, Panreatic. 2. Significant anemia. Interval History Interval history: 74 year old man presenting with abdominal pain, dizziness and urinary retention. Over the last 3 days he has been stating that he is hungry but has no appetite. He was feeling dizzy with some abdominal pain. Today he started having nausea and vomited one time. He reported having some lower abdominal pain and difficulty with urination. According to his he had no fever, chills, no bloody stools. He has been generally declining and and has been more weak recently. 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 Patient was also having issues with his blood sugar and his medications had been adjusted due to hypoglycemia. He was started on Lovenox for PE. He was on warfarin previously due to mechanical aortic valve. In the ED, he had multiple abnormalities including: CBC: WBC 16.1, HGB 7.1, HCT 21.4, PLT 421. sodium 128, potassium 5.8, CH L1 0 1, CO2 26, BUN 48, creatinine 1.4. Trop: 40.6. Urinalysis was positive for infection. He received a dose of Rocephin, insulin, kayexalate and 2 liters of IV fluids. Two units of PRBC was also ordered. CT scan of the abdomen: 1. Ovoid, hyperdense foci within the right greater than left rectus abdominis muscles, which could represent intramuscular hematomas. The largest on the right measures up to 2.2 cm in greatest axial dimension. 2. No intra-abdominal, pelvic, or retroperitoneal hematoma. 3. Cirrhosis is redemonstrated with slight interval increase in simple ascites. Heterogeneity redemonstrated throughout the right hepatic lobe. 4. Central mesenteric and retroperitoneal lymphadenopathy is similar when compared to the recent PET/CT and slightly increased when compared to the CT dated 04/28/2020. 5. Multiple lytic lesions redemonstrated throughout the osseous structures, similar when compared to the recent PET/CT. 6. Additional chronic findings are unchanged. Review of Systems - Constitutional Reports system reviewed and no additional complaints, except as documented, Reports anorexia, Reports fatigue, Reports weight loss - Eyes Reports system reviewed and no additional complaints, except as documented - ENT Reports system reviewed and no additional complaints, except as documented - Cardiovascular Reports system reviewed and no additional complaints, except as documented - Respiratory Reports no additional respiratory complaints - Gastrointestinal Reports system reviewed and no additional complaints, except as documented - Genitourinary Genitourinary: Reports no additional male genitourinary complaints - Musculoskeletal Reports system reviewed and no additional complaints, except as documented - Integumentary/Breasts Skin/Breast: Reports no additional skin complaints - Neurologic Reports system reviewed and no additional complaints, except as documented - Psychiatric Reports system reviewed and no additional complaints, except as documented - Endocrine Reports no additional endocrine complaints - Hematologic/Lymphatic Reports system reviewed and no additional complaints, except as documented - Allergic/Immunologic Reports system reviewed and no additional complaints, except as documented PMFSH Medical History: Medical History (Last Reviewed 06/18/20 @ 16:23 by Susanne Burgess MD) Anemia Bony sclerosis COPD (chronic obstructive pulmonary disease) Diabetes mellitus GI bleed Hyperlipidemia Hypertension Hypothyroidism Lytic bone lesion of hip Lytic lesion of bone on x-ray Overweight (BMI 25.0-29.9) Pancreatic cancer Parkinson's disease Paroxysmal atrial fibrillation Pleural effusion, right Pulmonary embolism Functional capacity: uses cane/walker Patient : No Family History: Family History (Last Reviewed 06/17/20 @ 13:41 by Jorge Currie MD) Father Cardiovascular disease Mother Stroke Other Colon cancer FH: Parkinson's disease Surgical History: Surgical History (Last Reviewed 06/18/20 @ 16:23 by Susanne Burgess MD) History of aortic valve replacement Onset Date: ~11/29/12 History of carpal tunnel release Onset Date: ~06/24/13 Status post anal fissurectomy Status post biventricular cardiac pacemaker insertion Onset Date: ~2004 Status post mechanical aortic valve replacement Smoking status: Former smoker Home Medications and Allergies Current Medications: Current Medications Generic Name Dose Route Start Last Admin Trade Name Freq PRN Reason Stop Dose Admin Acetaminophen 650 mg 06/12/20 22:48 Acetaminophen 325 Mg Tablet PO Q6H PRN Pain, Mild (Pain Scale 1-3) Albuterol Sulfate 2 puff 06/12/20 22:40 Albuterol Sulfate 90 Mcg 8 Gm Inhaler INHALE Q4H PRN Dyspnea Carbidopa/Levodopa 1 tab 06/12/20 22:48 06/13/20 00:26 Carbidopa/Levodopa Cr 50/200 Tablet.Er PO Not Given TID [facility] Diltiazem HCl 180 mg 06/13/20 09:00 Diltiazem Hcl Cd 180 Mg Cap.Er.24h PO DAILY [facility] Protocol Sodium Chloride 1,000 mls @ 75 mls/hr 06/12/20 22:40 06/13/20 00:28 Ns IVCONT 75 mls/hr .[id number] [facility] [place] Administration Ceftriaxone Sodium 1 gm/ 50 mls @ 100 mls/hr 06/13/20 17:00 Sodium Chloride IV Q24H [facility] [place] Insulin Human Lispro 0 unit 06/12/20 22:40 06/13/20 09:30 Insulin Lispro 100 Unit/Ml 3 Ml Vial SUBCUT Not Given QIDACHS [facility] Protocol Levothyroxine Sodium 50 mcg 06/13/20 06:00 06/13/20 06:14 Levothyroxine Sodium 50 Mcg Tablet PO Not Given DAILY@0600 [facility] Morphine Sulfate 30 mg 06/13/20 09:00 Morphine Sulfate Er 30 Mg Tablet.Er PO BID [facility] [place] Ondansetron HCl 4 mg 06/12/20 22:40 Ondansetron Hcl 4 Mg/2 Ml Vial IVPUSH Q8H PRN Nausea and Vomiting Oxycodone HCl 5 mg 06/12/20 22:40 Oxycodone Hcl Immed Release 5 Mg Tablet PO Q8H PRN Breakthrough Pain, Moderate Pantoprazole Sodium 40 mg 06/12/20 23:00 06/13/20 06:13 Pantoprazole Sodium 40 Mg/10 Ml Vial IVPUSH 40 mg BID@0630,1630 [facility] [place] Administration Pharmacy Consult 1 each 06/12/20 16:28 Consult Rx Perform Med Rec MISCELLANE ONCE PRN Consult order Pravastatin Sodium 40 mg 06/13/20 09:00 Pravastatin Sodium 40 Mg Tablet PO DAILY [facility] Sodium Chloride 3 ml 06/13/20 00:00 06/13/20 09:30 0.9 % Sodium Chloride Flush 3 Ml Syringe IVFLUSH Not Given QSHIFT [facility] Sotalol HCl 120 mg 06/13/20 09:00 Sotalol Hcl 80 Mg Tablet PO BID [facility] Tiotropium Tower 2 puff 06/13/20 08:00 Tiotropium Tower 18 Mcg Cap.W.Dev INHALE RDAILY [facility] Home Medications Medication Instructions Recorded Confirmed Type carbidopa-levodopa 1 tab PO TID 04/28/20 06/19/20 History losartan 25 mg PO DAILY 04/28/20 06/19/20 History albuterol sulfate [ProAir HFA] 2 puff INHALATION Q4-6H PRN 06/12/20 06/19/20 History insulin asp prt-insulin aspart 8 unit SUBCUT TID 06/12/20 06/19/20 History [Novolog Mix 70-30FlexPen U-100] Allergies Allergy/AdvReac Type Severity Reaction Status Date / Time No Known Allergies Allergy Verified 06/17/20 13:40 [No Known Allergies*] Exam Vital signs: Vital Signs Temp 67.6 F L 06/13/20 07:48 Pulse 82 06/13/20 07:48 Resp 18 06/13/20 07:48 BP 142/60 H 06/13/20 07:48 Pulse Ox 97 06/13/20 07:48 Intake & Output 06/12/20 06/13/20 06/13/20 18:59 06:59 18:59 Intake Total 1050 / 2400 1350 / 2400 Output Total 1800 / 1800 Balance 1050 / 600 -450 / 600 Urine Output (Average ml/kg/hr) 1.70 Intake: Intake (Blood Product) Amount 0 / 350 350 / 350 Red Blood Cells (E0336) Unit 0 / 350 350 / 350 [id number] Intake, IV Amount 1050 / 2050 1000 / 2050 cefTRIAXone sodium 1 gm In 0.9 50 / 50 % Sodium Chloride 50 ml @ 100 mls/hr IV ONCE ONE Rx#: [id number] 0.9 % Sodium Chloride 1,000 ml 1000 / 2000 1000 / 2000 @ 999 mls/hr IVCONT .Q1H1M [facility] Rx#:[id number] Output: Output, Urine Amount (Catheter) 1800 / 1800 Urethral 1800 / 1800 Other: Urine Color Yellow Weight 87.09 kg 88.1 kg Weight 88.1 kg Body Mass Index 27.1 - Constitutional Present: no acute distress - Routine HEENT Exam Head: Present: normal inspection Eye: Present: normal appearance ENT: Present: mucous membranes moist - Routine Neck Exam Present: full ROM - Routine Respiratory Exam Present: CTAB - Routine Cardiovascular Exam Cardiovascular: Present: RRR, S1, S2 - Routine Abdominal Exam Present: soft, nontender - Routine Extremities Exam Present: nontender - Routine Back/Spine/Pelvis Exam Back/Spine: Present: full ROM - Routine Skin Exam Present: intact - Routine Neurological Exam Present: alert, oriented X3 - Routine Psychiatric Exam Present: normal affect Data - Labs CBC & Chem 7: 06/18/20 09:05 06/16/20 04:22 Labs: 06/12/20 14:36 ECG 12 lead EKG Stat EKG Documentation DIRECTED ondansetron HCL [Zofran] 4 mg IVPUSH ONCE ONE 06/12/20 14:45 0.9 % Sodium Chloride [Ns] 1,000 ml IVCONT 999 mls/hr 06/12/20 15:03 Basic Metabolic Panel Stat Complete Blood Count Auto Diff Stat Lactic Acid Stat Lipase Stat Liver Panel Stat Magnesium Stat Manual Differential Stat Prothrombin Time INR Stat Reticulocyte Count Stat SLIDE REVIEW Stat Troponin-I High Sensitivity Stat 06/12/20 15:50 CT abdomen pelvis wo con Stat 06/12/20 15:55 [id number] Stat 06/12/20 16:02 Add Laboratory Test Stat Add Laboratory Test Stat 06/12/20 16:35 COVID-19 ID NOW ([facility]) Stat cefTRIAXone sodium [Rocephin] 1 gm 0.9 % Sodium Chloride [Ns] 50 ml IV ONCE 06/12/20 16:55 US venous duplex LE BI Stat 06/12/20 17:13 cefTRIAXone sodium [Rocephin] 1 gm .ROUTE .STK-MED ONE 06/12/20 18:03 Sodium Polystyrene Sulfon/Sorb [Kayexalate] 30 gm PO ONCE ONE 06/12/20 18:04 Insulin Regular, Human [Humulin R] 5 unit SUBCUT ONCE ONE 06/12/20 18:15 0.9 % Sodium Chloride [Ns] 1,000 ml IVCONT 999 mls/hr 06/12/20 18:39 UA CC w/rflx Micro + Cult Stat 06/12/20 19:02 Transfer Order Routine 06/12/20 20:09 Basic Metabolic Panel Stat 06/12/20 23:25 Basic Metabolic Panel Routine 06/13/20 00:30 Hemoglobin and Hematocrit Routine 06/13/20 00:40 Glucose, Whole Blood Routine 06/13/20 06:31 Basic Metabolic Panel DAILY@0600 Complete Blood Count Auto Diff DAILY@0600 SLIDE REVIEW Routine 06/13/20 07:10 Glucose, Whole Blood Routine 06/13/20 09:00 Losartan Potassium [Cozaar] 25 mg PO DAILY Sotalol HCL [Betapace] 120 mg PO DAILY Sotalol HCL [Betapace] 120 mg PO DAILY 06/13/20 09:22 Acetaminophen [Tylenol] 650 mg PO ONCE ONE Laboratory Last Values WBC 17.5 X10*3/uL (4.8-10.8) H 06/13/20 06:31 RBC 2.39 X10*6/uL (4.60-5.80) L 06/13/20 06:31 Hgb 7.4 g/dl (14.0-18.0) L 06/13/20 06:31 Hct 22.4 % (42-52) L 06/13/20 06:31 MCV 93.7 fL (80-98) 06/13/20 06:31 MCH 31.0 pg (27.0-33.0) 06/13/20 06:31 MCHC 33.0 g/dl (31.0-36.0) 06/13/20 06:31 RDW 14.4 % (11.0-16.0) 06/13/20 06:31 Plt Count 376 X10*3/uL (160-400) 06/13/20 06:31 MPV 9.8 fL (9.4-12.4) 06/13/20 06:31 Immature Gran % (Auto) 1.1 % (0.0-0.4) H 06/13/20 06:31 Neut % (Auto) 85.6 % (45-73) H 06/13/20 06:31 Lymph % (Auto) 3.4 % (20-40) L 06/13/20 06:31 [place] % (Auto) 9.2 % (2-11) 06/13/20 06:31 Eos % (Auto) 0.5 % (0-4) 06/13/20 06:31 Baso % (Auto) 0.2 % (0-2) 06/13/20 06:31 Lymph # (Auto) 0.6 X10*3/uL (1.2-4.9) L 06/13/20 06:31 [place] # (Auto) 1.6 X10*3/uL (0.1-1.2) H 06/13/20 06:31 Eos # (Auto) 0.1 X10*3/uL (0.0-0.4) 06/13/20 06:31 Baso # (Auto) 0.0 X10*3/uL (0.0-0.2) 06/13/20 06:31 Abs Immat Gran (auto) 0.20 X10*3/uL (0.00-0.03) H 06/13/20 06:31 Absolute Neuts (auto) 15.0 X10*3/uL (2.0-8.3) H 06/13/20 06:31 Absolute Nucleated RBC 0.040 X10*3/uL (0.0-0.012) H 06/13/20 06:31 Nucleated RBC % (auto) 0.2 /100WBC (0.0-0.2) 06/13/20 06:31 Neutrophils % (Manual) 88 % (45-73) H 06/12/20 15:03 Band Neutrophils % 3 % (3-5) 06/12/20 15:03 Lymphocytes % (Manual) 3 % (20-40) L 06/12/20 15:03 Monocytes % (Manual) 5 % (2-11) 06/12/20 15:03 Basophils % (Manual) 1 % (0-1) 06/12/20 15:03 Abs Neuts (Manual) 14.7 X10*3/uL (2.2-7.9) H 06/12/20 15:03 Lymphocytes # (Manual) 0.5 X10*3/uL (0.6-4.8) L 06/12/20 15:03 Monocytes # (Manual) 0.8 X10*3/uL (0.0-1.2) 06/12/20 15:03 Basophils # (Manual) 0.2 X10*3/uL (0.0-0.3) 06/12/20 15:03 Platelet Estimate NORMAL (NORMAL) 06/12/20 15:03 Large Platelets PRESENT 06/12/20 15:03 Plt Morphology Comment NOTED 06/12/20 15:03 RBC Morphology NOTED 06/12/20 15:03 Polychromasia 1+ 06/12/20 15:03 Hypochromasia 1+ 06/12/20 15:03 Basophilic Stippling 1+ 06/12/20 15:03 Smear Tech's Comments VERIFIED 06/13/20 06:31 Absolute Retic 0.100 X10*6/uL (0.026-0.095) H 06/12/20 15:03 Percent Retic 4.5 % (0.5-1.8) H 06/12/20 15:03 Immature Retic Fraction 42.1 % (2.3-13.4) H 06/12/20 15:03 Retic Hgb Equivalent 35.4 pg (30.0-35.0) H 06/12/20 15:03 PT 16.3 SEC (10.8-13.0) H 06/12/20 15:03 INR 1.4 (0.9-1.1) H 06/12/20 15:03 Sodium 137 mmol/L (135-145) 06/13/20 06:31 Potassium 4.5 mmol/l (3.3-5.1) 06/13/20 06:31 Chloride 104 mmol/L (96-108) 06/13/20 06:31 Carbon Dioxide 24 mmol/L (22-29) 06/13/20 06:31 Anion Gap 14 (12-20) 06/13/20 06:31 BUN 39 mg/dL (9-16) H 06/13/20 06:31 Creatinine 0.89 mg/dL (0.5-1.4) 06/13/20 06:31 Estim Creat Clear Calc 75.2 06/13/20 06:31 Estimated GFR > 60 06/13/20 06:31 POC Glucose 238 mg/dL (60-115) H 06/13/20 07:10 Random Glucose 206 mg/dL (60-115) H D 06/13/20 06:31 Lactic Acid 1.3 mmol/L (0.5-2.0) 06/12/20 15:03 Calcium 7.8 mg/dL (8.4-10.2) L 06/13/20 06:31 Magnesium 1.9 mg/dL (1.6-2.6) 06/12/20 15:03 Total Bilirubin 0.7 mg/dL (0.0-1.0) 06/12/20 15:03 Direct Bilirubin 0.6 mg/dL (0.0-0.5) H 06/12/20 15:03 AST 81 U/L (5-37) H 06/12/20 15:03 ALT 16 U/L (0-40) 06/12/20 15:03 Alkaline Phosphatase 365 U/L (39-117) H 06/12/20 15:03 Troponin I High Sens 40.6 ng/L (<3.5-35.0) H D 06/12/20 15:03 Total Protein 5.6 g/dL (6.5-8.0) L 06/12/20 15:03 Albumin 3.1 g/dL (3.5-5.0) L 06/12/20 15:03 Lipase 24 U/L (8-78) 06/12/20 15:03 Urine Color YELLOW 06/12/20 18:39 Urine Appearance CLEAR 06/12/20 18:39 Urine pH 5.5 (5.0-8.0) 06/12/20 18:39 Ur Specific [place] 1.010 (1.005-1.025) 06/12/20 18:39 Urine Protein NEG MG/DL (NEG-TRACE) 06/12/20 18:39 Urine Glucose (UA) NEG MG/DL (NEG) 06/12/20 18:39 Urine Ketones NEG MG/DL (NEG) 06/12/20 18:39 Urine Blood NEG (NEG) 06/12/20 18:39 Urine Nitrite NEG (NEG) 06/12/20 18:39 Ur Leukocyte Esterase NEG (NEG) 06/12/20 18:39 Stool Occult Blood POS (NEG) 06/12/20 15:55 COVID-19 ([facility]AL) Negative (Negative) 06/12/20 16:35 COVID-19 Clin Com See Note 06/12/20 16:35 Blood Type O Positive 06/12/20 16:25 Antibody Screen NEGATIVE 06/12/20 16:25 Crossmatch See Detail 06/12/20 16:25 Progress Note: A/P (1) Acute blood loss anemia Status: Acute Assessment and plan: Significant anemia with Underlying Malignancy. Patient does have guaiac-positive stools. Nurse has reported melena as well. PLAN: To proceed with upper endoscopy. He is currently in the endoscopy suite. If that is negative will proceed with a colonoscopy, for further evaluation. Meanwhile he is being transfused. (2) COPD (chronic obstructive pulmonary disease) Status: Acute (3) Anemia Status: Acute (4) Parkinson's disease Status: Acute (5) Adenocarcinoma of unknown primary Status: Acute Assessment and plan: This is a pleasant 74-year-old gentleman with a history of Parkinsonism. He was recently noted to have left hip lesion, at the left ischium: 2.6 x 2.8 x 4 cm eroded through much of the lateral cortex. Left inferior pubic ramus: Measuring 1.3 x 0.8 x 1.2 cm. Concern is for metastatic disease, from an unknown primary. Possible primaries: likely a GI primary, gastric versus, colon. Or pancreatic, with the elevated CA 19-9. Initial DIFFERENTIAL DIAGNOSIS,was: 2. Multiple myeloma, leading to lytic bone lesions. The plan was to proceed with further evaluation. Check labs including tumor markers: PSA: 0.30. and LDH: 239. Checked an SIEP to look for myeloma: It revealed: Multiple oligoclonal bands. l was going to check a CT chest and abdomen and pelvis and a bone scan to look for other areas of bone involvement. He was being scheduled for a biopsy. However he presented to the hospital in April and was noted to have pulmonary embolism. He was noted to have guaiac-positive stools. CAT scan of abdomen revealed: 1. Hepatic cirrhosis. Ill-defined low-attenuation foci in the right lobe are nonspecific. This could represent metastatic disease however primary hepatic malignancy such as cholangiocarcinoma cannot be excluded. Further evaluation with contrast-enhanced abdominal MRI is recommended. 2. Gastrohepatic and retroperitoneal lymphadenopathy coupled with lytic osseous lesions as detailed above are concerning for metastatic disease. Considerations for follow-up include a PET CT scan and bone biopsy as previously suggested. 3. Mild peritoneal ascites. Impression by GI: Anemia with Hemoccult-positive stools. He does not appear to have any active GI bleeding at this time. He will likely benefit from blood transfusion, this has been ordered. GI recommended empiric coverage with omeprazole 20 mg daily for any possible component of gastritis.. PLAN: He is going to have an upper endoscopy, later today. If that is negative, will proceed with a colonosvcopy. The Lovenox has been on hold, given the concern for bleeding. Will proceed with an IVC filter placement, by IR. All his and his 's questions were answered to their satisfaction. Thank you, cc: Dr. Jose Alejandro Currie. - Time Spent With Patient Total time spent is greater than 50% in coordination of care (as documented) at patient's floor/unit and/or counseling patient: 25 - 35 minutes
--- NOTE | 2020-06-13 09:57 | PM.OP ---
Brief Operative Note Date of Service: 06/13/20 Pre-op diagnosis: GI BLEED Post-op diagnosis: other (Hemorrhagic erosive esophagitis @ GE jn ? shallow MW tear) Procedure: EGD with Hemospray application Implants: n/a Surgeon: Day Garcia MD Anesthesia: GETA (KATARZYNA) and MAC Estimated blood loss (mL): 5 Pathology: none sent Condition: stable Disposition: PACU
[2020-06-13 11:12] LABS: Glucose, Whole Blood 284 mg/dL (60-115)
--- NOTE | 2020-06-13 11:29 | HO.PM.IMPN ---
Subjective Subjective Date of Service: 06/14/20 Interval History: anemia /gi bleed , pulm emboli hx/ mech aortic valve Review of Systems patient has Gi bleed probable , denies any abd pain or fever or chills or nausea or vomiting or dizziness Physical Exam Vital Signs: Vital Signs: Last Vital Signs Temp 98.7 F 06/13/20 11:13 Pulse 85 06/13/20 11:13 Resp 18 06/13/20 11:13 BP 163/70 H 06/13/20 11:13 Pulse Ox 97 06/13/20 11:11 Body Mass Index 27.1 Physical exam: Constitutional: Not in acute distress Cvs: rrr, [id number] , no murmur res: clear to auscultation ,no rhonchii or wheezing abd: no rebound or guarding ,nt, bs present. ext pulses present , no cyanosis neuro: axo3 , nonfocal. Objective Data Current Medications Generic Name Dose Route Start Last Admin Trade Name Freq PRN Reason Stop Dose Admin Acetaminophen 650 mg 06/12/20 22:48 Acetaminophen 325 Mg Tablet PO Q6H PRN Pain, Mild (Pain Scale 1-3) Albuterol Sulfate 2 puff 06/12/20 22:40 Albuterol Sulfate 90 Mcg 8 Gm Inhaler INHALE Q4H PRN Dyspnea Carbidopa/Levodopa 1 tab 06/12/20 22:48 06/13/20 00:26 Carbidopa/Levodopa Cr 50/200 Tablet.Er PO Not Given TID [facility] Diltiazem HCl 180 mg 06/13/20 09:00 Diltiazem Hcl Cd 180 Mg Cap.Er.24h PO DAILY [facility] Protocol Sodium Chloride 1,000 mls @ 75 mls/hr 06/12/20 22:40 06/13/20 00:28 Ns IVCONT 75 mls/hr .[id number] [facility] Administration Ceftriaxone Sodium 1 gm/ 50 mls @ 100 mls/hr 06/13/20 17:00 Sodium Chloride IV Q24H [facility] Insulin Human Lispro 0 unit 06/12/20 22:40 06/13/20 09:30 Insulin Lispro 100 Unit/Ml 3 Ml Vial SUBCUT Not Given QIDACHS [facility] Protocol Levothyroxine Sodium 50 mcg 06/13/20 06:00 06/13/20 06:14 Levothyroxine Sodium 50 Mcg Tablet PO Not Given DAILY@0600 [facility] Morphine Sulfate 30 mg 06/13/20 09:00 Morphine Sulfate Er 30 Mg Tablet.Er PO BID [facility] Ondansetron HCl 4 mg 06/12/20 22:40 Ondansetron Hcl 4 Mg/2 Ml Vial IVPUSH Q8H PRN Nausea and Vomiting Oxycodone HCl 5 mg 06/12/20 22:40 Oxycodone Hcl Immed Release 5 Mg Tablet PO Q8H PRN Breakthrough Pain, Moderate Pantoprazole Sodium 40 mg 06/12/20 23:00 06/13/20 06:13 Pantoprazole Sodium 40 Mg/10 Ml Vial IVPUSH 40 mg BID@0630,1630 [facility] Administration Pharmacy Consult 1 each 06/12/20 16:28 Consult Rx Perform Med Rec MISCELLANE ONCE PRN Consult order Pravastatin Sodium 40 mg 06/13/20 09:00 Pravastatin Sodium 40 Mg Tablet PO DAILY [facility] Sodium Chloride 3 ml 06/13/20 00:00 06/13/20 09:30 0.9 % Sodium Chloride Flush 3 Ml Syringe IVFLUSH Not Given QSHIFT [facility] Sotalol HCl 120 mg 06/13/20 09:00 Sotalol Hcl 80 Mg Tablet PO BID [facility] Tiotropium [place] 2 puff 06/13/20 08:00 Tiotropium [place] 18 Mcg Cap.W.Dev INHALE RDAILY [facility] Labs CBC & Chem 7: 06/14/20 05:27 06/14/20 05:27 Assessment and Plan (1) Acute blood loss anemia: Status: Acute (2) MICKIE (acute kidney injury): Status: Acute Assessment and Plan: 1. Possible GI bleed-differential is broad including gastritis versus ulcer versus lower GI bleed? Protonix 40 mg IV b.i.d s/p 1 prbc -still H&H: 7.4 range ,a dded 2 prbc going for egd moniter h/h closely EGD: as per Gi -unrevealing , may need colonoscopy moniter h/h q6 hr , if any jsoe bleed -may need bleeding scan Gi eval pending 2. MICKIE/hyponatremia: improved with hydration Gentle hydration with normal saline @ 70 mL/hour hyperkalemia imrpoved with Kayexalate Avoid nephrotoxic medications including NSAID. 3. History of AFib/aortic valve mech/PE: Hold off Lovenox for now AFib ruiz-continue sotalol and cardizem, monitor patient on tele, no sob , sats seems fine on room air. venous dupplex-neg . hematology consulted -plan ivc filter. 4. Diabetes: His fingersticks are fluctuating Fingersticks with adjusting coverage, no coverage below 200 mg/dL 5. UTI: continue ceftriaxone day2. 6. copd: stable , continue albuterol, tiotropium.
--- NOTE | 2020-06-13 12:00 | P.CONCA_ITS ---
History of Present Illness History of Present Illness Date of Service: 06/13/20 Consult reason: other (GI bleed, on anticoagulation for mechanical valve) Chief complaint: GI Bleed Narrative: This is a cardiology consultation regarding anticoagulation recommendations. He is a patient of Dr. Philip. He has a history of mechanical aortic valve replacement from about 7 years ago. He was on anticoagulation with Coumadin. Apparently, he had a pulmonary embolism last month and subsequently the Coumadin was changed into Lovenox. At that time, it appears that his INR is actually supratherapeutic at 5.2. Currently he is on Lovenox daily. He was admitted for abdominal pain, dizziness and urinary retention. In this context he was found to be anemic. He has been admitted for further care with diagnosis of GI bleed. He has been seen by GI and he is going for endoscopy today. Otherwise patient himself does not have any specific cardiac complaints. He denies any anginal-type symptoms or shortness of breath or palpitations or in fact any other cardiac complaints at this time. Review of Systems Review of Systems: Yes all other systems are reviewed and are negative Constitutional: Constitutional: Reports weakness Cardiovascular: Cardiovascular: Reports as per HPI, Reports no additional cardiovascular complaints, Denies acrocyanosis, Denies cool extremities, Denies painful fingertips, Denies chest pain, Denies chest pain at rest, Denies diaphoresis, Denies syncope, Denies irregular heart rhythm, Denies claudication, Denies leg edema, Denies lightheadedness, Denies palpitations and Denies dyspnea Respiratory: Respiratory: Denies dyspnea Neurologic: Reports system reviewed and no additional complaints, except as documented, Denies syncope and Reports weakness Endocrine: Endocrine: Denies palpitations [facility] Past Medical History Medical History (Updated 06/13/20 @ 12:06 by Alfredo Orellana MD) Anemia Bony sclerosis COPD (chronic obstructive pulmonary disease) Diabetes mellitus GI bleed Hyperlipidemia Hypertension Hypothyroidism Lytic bone lesion of hip Lytic lesion of bone on x-ray Overweight (BMI 25.0-29.9) Pancreatic cancer Parkinson's disease Paroxysmal atrial fibrillation Pleural effusion, right Pulmonary embolism Functional capacity: uses cane/walker Family History Family History (Updated 06/12/20 @ 18:56 by María Trevino NP) Father Cardiovascular disease Mother Stroke Other Colon cancer FH: Parkinson's disease Surgical History Surgical History (Updated 06/13/20 @ 12:06 by Alfredo Orellana MD) History of aortic valve replacement (~11/29/12) History of carpal tunnel release (~06/24/13) Status post anal 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) Status post mechanical aortic valve replacement Social History Social History Household Members: Spouse Housing: House Alcohol intake: current Alcohol intake frequency: does not drink Alcohol type: hard liquor Smoking Status: Former smoker Smoking Quit Date: 30 years ago Use of substances other than those prescribed or required for medical reasons: No Have you been hit, kicked, punched, or otherwise hurt by someone within the past year? If so, by whom?: No Do you feel safe in your current relationship?: No Is there a partner from a previous relationship who is making you feel unsafe now?: No Are you made to feel afraid or neglected: No Orthodoxy Healthcare Practices: orthodoxy Advance Directives: No Advance Directives Information Provided: Yes Do you have thoughts of harming others: None Do you have a plan to hurt others: No Plan Recently lost weight without trying: Unsure service: No Current occupational status: retired Meds Allergies Allergy/AdvReac Type Severity Reaction Status Date / Time No Known Allergies Allergy Verified 06/12/20 14:32 [No Known Allergies*] Home Medications Medication Instructions Recorded Confirmed Type carbidopa-levodopa 1 tab PO TID 04/28/20 06/12/20 History losartan 25 mg PO DAILY 04/28/20 06/12/20 History albuterol sulfate [ProAir HFA] 2 puff INHALATION Q4-6H PRN 06/12/20 06/12/20 History insulin asp prt-insulin aspart 8 unit SUBCUT TID 06/12/20 06/12/20 History [Novolog Mix 70-30FlexPen U-100] Physical Exam Vital Signs: Vital Signs: Last Vital Signs Temp 98.7 F 06/13/20 11:13 Pulse 85 06/13/20 11:13 Resp 18 06/13/20 11:13 BP 163/70 H 06/13/20 11:13 Pulse Ox 97 06/13/20 11:11 Body Mass Index 27.1 Const: General: cooperative, comfortable and no acute distress Orientation/consciousness: patient oriented x3 HENMT: Other: Unremarkable Neck: Neck: Yes normal visual inspection Chest: Chest palpation & inspection: normal inspection of the chest Resp: Auscultation: clear to auscultation bilaterally, no crackles and no wheezes Cardio: Jugular venous distension: no JVD Palpation: normal PMI Heart sounds: S1 normal heart sound present, no gallops, no murmurs, no rubs and Other heart sounds present (normal prosthetic aortic sounds) GI: Palpation (GI): Soft to palpation Back/Spine/Pelvis: Other: unremarkable Skin: General skin exam: no rashes or lesions noted Neuro: General: patient oriented x3 Extrem: General: Yes no clubbing, cyanosis or edema Psych: Mental Status: mental status grossly normal Results Labs and Meds Result diagrams: 06/13/20 06:31 06/13/20 06:31 ECG Interpretation: EKG shows sinus rhythm at 60/Min with no significant ST-T changes and otherwise unremarkable. QTc interval is 466 milliseconds. Imaging Radiologist's impression: Impressions Abdomen/Pelvis CT 06/12/20 15:50 IMPRESSION: 1. Ovoid, hyperdense foci within the right greater than left rectus abdominis muscles, which could represent intramuscular hematomas. The largest on the right measures up to 2.2 cm in greatest axial dimension. 2. No intra-abdominal, pelvic, or retroperitoneal hematoma. 3. Cirrhosis is redemonstrated with slight interval increase in simple ascites. Heterogeneity redemonstrated throughout the right hepatic lobe. 4. Central mesenteric and retroperitoneal lymphadenopathy is similar when compared to the recent PET/CT and slightly increased when compared to the CT dated 04/28/2020. 5. Multiple lytic lesions redemonstrated throughout the osseous structures, similar when compared to the recent PET/CT. 6. Additional chronic findings are unchanged. Venous Duplex 06/12/20 16:55 IMPRESSION: No DVT demonstrated in the bilateral lower extremities. Assessment and Plan (1) Current use of anticoagulant therapy: Status: Acute (2) Status post mechanical aortic valve replacement: Status: Acute (3) Paroxysmal atrial fibrillation: Status: Inactive (4) Metastatic bone tumor: Status: Acute (5) GI bleed: Status: Inactive (6) Anemia: Qualifiers: Anemia type: unspecified type Qualified Code(s): D64.9 - Anemia, unspecified Status: Acute Complicated situation with anemia and suspected GI bleeding while on Lovenox for recent pulmonary embolism. Previously was on Coumadin for mechanical aortic valve from 7 years ago and the pulmonary embolism eirca happened in spite of a supratherapeutic INR. Currently Lovenox on hold while we figure out the anemia/GI bleed and awaiting endoscopy. With him having mechanical aortic valve, he will need to go back on anticoagulation soon. With a hypercoagulable state, there is an increased risk of prosthetic valve thrombosis. No changes in sotalol as the renal function is normal.
--- NOTE | 2020-06-13 13:14 | P.CONAN_ITS ---
[facility] Past Medical History Medical History Anemia Bony sclerosis COPD (chronic obstructive pulmonary disease) Diabetes mellitus GI bleed Hyperlipidemia Hypertension Hypothyroidism Lytic bone lesion of hip Lytic lesion of bone on x-ray Overweight (BMI 25.0-29.9) Pancreatic cancer Parkinson's disease Paroxysmal atrial fibrillation Pleural effusion, right Pulmonary embolism Functional capacity: uses cane/walker Family History Family History Father Cardiovascular disease Mother Stroke Other Colon cancer FH: Parkinson's disease Surgical History Surgical History History of aortic valve replacement (~11/29/12) History of carpal tunnel release (~06/24/13) Status post anal 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) Status post mechanical aortic valve replacement Social History Social History Household Members: Spouse Housing: House Alcohol intake: current Alcohol intake frequency: does not drink Alcohol type: hard liquor Smoking Status: Former smoker Smoking Quit Date: 30 years ago Use of substances other than those prescribed or required for medical reasons: No Have you been hit, kicked, punched, or otherwise hurt by someone within the past year? If so, by whom?: No Do you feel safe in your current relationship?: No Is there a partner from a previous relationship who is making you feel unsafe now?: No Are you made to feel afraid or neglected: No [employer] Healthcare Practices: hoahaoism Advance Directives: No Advance Directives Information Provided: Yes Do you have thoughts of harming others: None Do you have a plan to hurt others: No Plan Recently lost weight without trying: Unsure service: No Current occupational status: retired Meds Allergies Allergy/AdvReac Type Severity Reaction Status Date / Time No Known Allergies Allergy Verified 06/12/20 14:32 [No Known Allergies*] Home Medications Medication Instructions Recorded Confirmed Type carbidopa-levodopa 1 tab PO TID 04/28/20 06/12/20 History losartan 25 mg PO DAILY 04/28/20 06/12/20 History albuterol sulfate [ProAir HFA] 2 puff INHALATION Q4-6H PRN 06/12/20 06/12/20 History insulin asp prt-insulin aspart 8 unit SUBCUT TID 06/12/20 06/12/20 History [Novolog Mix 70-30FlexPen U-100] Exam Exam Date and Time: June 13, 2020 131 Height,Weight and Vital Signs: Height 5 ft 11 in Weight 88.1 kg Last Vital Signs Temp 98.0 F 06/13/20 13:05 Pulse 82 06/13/20 13:10 Resp 16 06/13/20 13:10 BP 149/55 H 06/13/20 13:10 Pulse Ox 100 06/13/20 13:10 Pertinent Lab Results Pertinent Lab Results: Laboratory Tests 06/12/20 06/12/20 06/12/20 15:03 15:03 15:03 WBC 16.1 H RBC 2.24 L D Hgb 7.1 L D Hct 21.4 L D MCV 95.5 MCH 31.7 MCHC 33.2 RDW 13.8 Plt Count 421 H MPV 10.2 Immature Gran % (Auto) 1.0 H Neut % (Auto) 87.7 H Lymph % (Auto) 3.9 L [place] % (Auto) 7.1 Eos % (Auto) 0.1 Baso % (Auto) 0.2 Lymph # (Auto) 0.6 L [place] # (Auto) 1.2 Eos # (Auto) 0.0 Baso # (Auto) 0.0 Abs Immat Gran (auto) 0.16 H Absolute Neuts (auto) 14.1 H Absolute Nucleated RBC 0.020 H Nucleated RBC % (auto) 0.1 Neutrophils % (Manual) 88 H Band Neutrophils % 3 Lymphocytes % (Manual) 3 L Monocytes % (Manual) 5 Basophils % (Manual) 1 Abs Neuts (Manual) 14.7 H Lymphocytes # (Manual) 0.5 L Monocytes # (Manual) 0.8 Basophils # (Manual) 0.2 Platelet Estimate NORMAL Large Platelets PRESENT Plt Morphology Comment NOTED RBC Morphology NOTED Polychromasia 1+ Hypochromasia 1+ Basophilic Stippling 1+ Smear Tech's Comments VERIFIED Absolute Retic 0.100 H Percent Retic 4.5 H Immature Retic Fraction 42.1 H Retic Hgb Equivalent 35.4 H PT INR Sodium 128 L Potassium 5.8 H D Chloride 96 Carbon Dioxide 24 Anion Gap 14 BUN 62 H D Creatinine 1.44 H Estim Creat Clear Calc 46.4 Estimated GFR 48 POC Glucose Random Glucose 364 H* Lactic Acid 1.3 Calcium 8.3 L Magnesium 1.9 Total Bilirubin 0.7 Direct Bilirubin 0.6 H AST 81 H ALT 16 Alkaline Phosphatase 365 H Troponin I High Sens Total Protein 5.6 L Albumin 3.1 L Lipase 24 Urine Color Urine Appearance Urine pH Ur Specific [place] Urine Protein Urine Glucose (UA) Urine Ketones Urine Blood Urine Nitrite Ur Leukocyte Esterase Stool Occult Blood COVID-19 ([facility]AL) COVID-19 [facility] Com Blood Type Antibody Screen Crossmatch 06/12/20 06/12/20 06/12/20 15:03 15:03 15:55 WBC RBC Hgb Hct MCV MCH MCHC RDW Plt Count MPV Immature Gran % (Auto) Neut % (Auto) Lymph % (Auto) [place] % (Auto) Eos % (Auto) Baso % (Auto) Lymph # (Auto) [place] # (Auto) Eos # (Auto) Baso # (Auto) Abs Immat Gran (auto) Absolute Neuts (auto) Absolute Nucleated RBC Nucleated RBC % (auto) Neutrophils % (Manual) Band Neutrophils % Lymphocytes % (Manual) Monocytes % (Manual) Basophils % (Manual) Abs Neuts (Manual) Lymphocytes # (Manual) Monocytes # (Manual) Basophils # (Manual) Platelet Estimate Large Platelets Plt Morphology Comment RBC Morphology Polychromasia Hypochromasia Basophilic Stippling Smear Tech's Comments Absolute Retic Percent Retic Immature Retic Fraction Retic Hgb Equivalent PT 16.3 H INR 1.4 H Sodium Potassium Chloride Carbon Dioxide Anion Gap BUN Creatinine Estim Creat Clear Calc Estimated GFR POC Glucose Random Glucose Lactic Acid Calcium Magnesium Total Bilirubin Direct Bilirubin AST ALT Alkaline Phosphatase Troponin I High Sens 40.6 H D Total Protein Albumin Lipase Urine Color Urine Appearance Urine pH Ur Specific [place] Urine Protein Urine Glucose (UA) Urine Ketones Urine Blood Urine Nitrite Ur Leukocyte Esterase Stool Occult Blood POS COVID-19 (ONEAL) COVID-19 [facility] Com Blood Type Antibody Screen Crossmatch 06/12/20 06/12/20 06/12/20 16:25 16:35 18:39 WBC RBC Hgb Hct MCV MCH MCHC RDW Plt Count MPV Immature Gran % (Auto) Neut % (Auto) Lymph % (Auto) [place] % (Auto) Eos % (Auto) Baso % (Auto) Lymph # (Auto) [place] # (Auto) Eos # (Auto) Baso # (Auto) Abs Immat Gran (auto) Absolute Neuts (auto) Absolute Nucleated RBC Nucleated RBC % (auto) Neutrophils % (Manual) Band Neutrophils % Lymphocytes % (Manual) Monocytes % (Manual) Basophils % (Manual) Abs Neuts (Manual) Lymphocytes # (Manual) Monocytes # (Manual) Basophils # (Manual) Platelet Estimate Large Platelets Plt Morphology Comment RBC Morphology Polychromasia Hypochromasia Basophilic Stippling Smear Tech's Comments Absolute Retic Percent Retic Immature Retic Fraction Retic Hgb Equivalent PT INR Sodium Potassium Chloride Carbon Dioxide Anion Gap BUN Creatinine Estim Creat Clear Calc Estimated GFR POC Glucose Random Glucose Lactic Acid Calcium Magnesium Total Bilirubin Direct Bilirubin AST ALT Alkaline Phosphatase Troponin I High Sens Total Protein Albumin Lipase Urine Color YELLOW Urine Appearance CLEAR Urine pH 5.5 Ur Specific [place] 1.010 Urine Protein NEG Urine Glucose (UA) NEG Urine Ketones NEG Urine Blood NEG Urine Nitrite NEG Ur Leukocyte Esterase NEG Stool Occult Blood COVID-19 ([facility]) Negative COVID-19 Clin Com See Note Blood Type O Positive Antibody Screen NEGATIVE Crossmatch See Detail 06/12/20 06/12/20 06/13/20 20:09 23:25 00:30 WBC RBC Hgb 7.7 L Hct 22.9 L MCV MCH MCHC RDW Plt Count MPV Immature Gran % (Auto) Neut % (Auto) Lymph % (Auto) [place] % (Auto) Eos % (Auto) Baso % (Auto) Lymph # (Auto) [place] # (Auto) Eos # (Auto) Baso # (Auto) Abs Immat Gran (auto) Absolute Neuts (auto) Absolute Nucleated RBC Nucleated RBC % (auto) Neutrophils % (Manual) Band Neutrophils % Lymphocytes % (Manual) Monocytes % (Manual) Basophils % (Manual) Abs Neuts (Manual) Lymphocytes # (Manual) Monocytes # (Manual) Basophils # (Manual) Platelet Estimate Large Platelets Plt Morphology Comment RBC Morphology Polychromasia Hypochromasia Basophilic Stippling Smear Tech's Comments Absolute Retic Percent Retic Immature Retic Fraction Retic Hgb Equivalent PT INR Sodium 133 L 133 L Potassium 5.0 5.1 Chloride 100 101 Carbon Dioxide 26 26 Anion Gap 12 11 L BUN 54 H 48 H Creatinine 1.25 1.11 Estim Creat Clear Calc 53.5 60.3 Estimated GFR 56 > 60 POC Glucose Random Glucose 328 H 339 H Lactic Acid Calcium 8.1 L 7.7 L Magnesium Total Bilirubin Direct Bilirubin AST ALT Alkaline Phosphatase Troponin I High Sens Total Protein Albumin Lipase Urine Color Urine Appearance Urine pH Ur Specific [place] Urine Protein Urine Glucose (UA) Urine Ketones Urine Blood Urine Nitrite Ur Leukocyte Esterase Stool Occult Blood COVID-19 (ONEAL) COVID-19 [facility] Com Blood Type Antibody Screen Crossmatch 06/13/20 06/13/20 06/13/20 00:40 06:31 06:31 WBC 17.5 H RBC 2.39 L Hgb 7.4 L Hct 22.4 L MCV 93.7 MCH 31.0 MCHC 33.0 RDW 14.4 Plt Count 376 MPV 9.8 Immature Gran % (Auto) 1.1 H Neut % (Auto) 85.6 H Lymph % (Auto) 3.4 L [place] % (Auto) 9.2 Eos % (Auto) 0.5 Baso % (Auto) 0.2 Lymph # (Auto) 0.6 L [place] # (Auto) 1.6 H Eos # (Auto) 0.1 Baso # (Auto) 0.0 Abs Immat Gran (auto) 0.20 H Absolute Neuts (auto) 15.0 H Absolute Nucleated RBC 0.040 H Nucleated RBC % (auto) 0.2 Neutrophils % (Manual) Band Neutrophils % Lymphocytes % (Manual) Monocytes % (Manual) Basophils % (Manual) Abs Neuts (Manual) Lymphocytes # (Manual) Monocytes # (Manual) Basophils # (Manual) Platelet Estimate Large Platelets Plt Morphology Comment RBC Morphology Polychromasia Hypochromasia Basophilic Stippling Smear Tech's Comments VERIFIED Absolute Retic Percent Retic Immature Retic Fraction Retic Hgb Equivalent PT INR Sodium 137 Potassium 4.5 Chloride 104 Carbon Dioxide 24 Anion Gap 14 BUN 39 H Creatinine 0.89 Estim Creat Clear Calc 75.2 Estimated GFR > 60 POC Glucose 340 H Random Glucose 206 H D Lactic Acid Calcium 7.8 L Magnesium Total Bilirubin Direct Bilirubin AST ALT Alkaline Phosphatase Troponin I High Sens Total Protein Albumin Lipase Urine Color Urine Appearance Urine pH Ur Specific [place] Urine Protein Urine Glucose (UA) Urine Ketones Urine Blood Urine Nitrite Ur Leukocyte Esterase Stool Occult Blood COVID-19 (ONEAL) COVID-19 [facility] Com Blood Type Antibody Screen Crossmatch 06/13/20 06/13/20 07:10 11:06 WBC RBC Hgb Hct MCV MCH MCHC RDW Plt Count MPV Immature Gran % (Auto) Neut % (Auto) Lymph % (Auto) [place] % (Auto) Eos % (Auto) Baso % (Auto) Lymph # (Auto) [place] # (Auto) Eos # (Auto) Baso # (Auto) Abs Immat Gran (auto) Absolute Neuts (auto) Absolute Nucleated RBC Nucleated RBC % (auto) Neutrophils % (Manual) Band Neutrophils % Lymphocytes % (Manual) Monocytes % (Manual) Basophils % (Manual) Abs Neuts (Manual) Lymphocytes # (Manual) Monocytes # (Manual) Basophils # (Manual) Platelet Estimate Large Platelets Plt Morphology Comment RBC Morphology Polychromasia Hypochromasia Basophilic Stippling Smear Tech's Comments Absolute Retic Percent Retic Immature Retic Fraction Retic Hgb Equivalent PT INR Sodium Potassium Chloride Carbon Dioxide Anion Gap BUN Creatinine Estim Creat Clear Calc Estimated GFR POC Glucose 238 H 284 H Random Glucose Lactic Acid Calcium Magnesium Total Bilirubin Direct Bilirubin AST ALT Alkaline Phosphatase Troponin I High Sens Total Protein Albumin Lipase Urine Color Urine Appearance Urine pH Ur Specific [place] Urine Protein Urine Glucose (UA) Urine Ketones Urine Blood Urine Nitrite Ur Leukocyte Esterase Stool Occult Blood COVID-19 (ONEAL) COVID-19 Clin Com Blood Type Antibody Screen Crossmatch Airway Mallampati Class: III TM Dist: >3cm Neck ROM: Full
--- NOTE | 2020-06-13 13:45 | PM.EVENT ---
Event Note Date of Service: 06/13/20 Event Note: In further review of the record, I see that Dr. Jeffrey had seen patient not only in distant past but also did a consultation in April--See note. I will notify him of my EGD findings. He can then review with patient and Dr. Mast the risk, benefit of proceding with colonoscopy as long as patient remains stable. If active bleeding occurs doing a bleeding study would be appropriate.
--- NOTE | 2020-06-13 15:40 | MHC.CM.PN ---
Pt reports he lives with his and is independent with all care. Pt reports he has no home services and uses a cane to ambulate. Pt reports he has a HCP-copy requested. pts PCP is Jorge Currie. [facility] delivered Current DC plan is home vs home with [facility] pt reports his will transport
[2020-06-13 16:21] LABS: Glucose, Whole Blood 355 mg/dL (60-115)
[2020-06-13] MEDS: Carbidopa/Levodopa CR 50/200 TABLET.ER 1 TAB PO ×2 (17:07→21:55)
[2020-06-13] MEDS: cefTRIAXone sodium 1 GM in 0.9 % Sodium Chloride 50 ML IV (17:08)
[2020-06-13 18:50] LABS: Hematocrit 29.6 % (42-52); Hemoglobin 9.8 g/dl (14.0-18.0); Mean Corpuscular HGB Conc 33.1 g/dl (31.0-36.0); Mean Corpuscular Hemoglobin 30.9 pg (27.0-33.0); Mean Corpuscular Volume 93.4 fL (80-98); Mean Platelet Volume 9.4 fL (9.4-12.4); NRBC Pct Auto 0.1 /100WBC (0.0-0.2); Platelet Count 336 X10*3/uL (160-400); Red Blood Count 3.17 X10*6/uL (4.60-5.80); Red Cell Distribution Width 14.7 % (11.0-16.0)
[2020-06-13 20:32] LABS: Glucose, Whole Blood 313 mg/dL (60-115)
[2020-06-13] MEDS: Simethicone 80 MG TAB.CHEW PO (21:54)
[2020-06-13] MEDS: Sotalol HCL 80 MG TABLET 120 MG PO (21:55)
[2020-06-13] MEDS: Morphine Sulfate ER 30 MG TABLET.ER PO (21:55)
[2020-06-14] VITALS (10 sets, daily range): BP systolic 152–183; BP diastolic 66–82; PULSE 65–83; RESP 16–20; TEMP 36.2–36.6; O2SAT 90–93
[2020-06-14 01:12] LABS: Hematocrit 26.3 % (42-52); Hemoglobin 8.9 g/dl (14.0-18.0)
[2020-06-14] MEDS: Levothyroxine Sodium 50 MCG TABLET PO (05:16)
[2020-06-14] MEDS: Pantoprazole Sodium 40 MG/10 ML VIAL IVPUSH ×2 (05:16→17:22)
[2020-06-14 06:43] LABS: Hematocrit 29.6 % (42-52); Hemoglobin 9.7 g/dl (14.0-18.0); Mean Corpuscular HGB Conc 32.8 g/dl (31.0-36.0); Mean Corpuscular Hemoglobin 31.1 pg (27.0-33.0); Mean Corpuscular Volume 94.9 fL (80-98); Mean Platelet Volume 9.9 fL (9.4-12.4); NRBC Pct Auto 0.1 /100WBC (0.0-0.2); Platelet Count 331 X10*3/uL (160-400); Red Blood Count 3.12 X10*6/uL (4.60-5.80); Red Cell Distribution Width 15.5 % (11.0-16.0); White Blood Count 17.7 X10*3/uL (4.8-10.8)
[2020-06-14 07:03] LABS: Anion Gap 13 (12-20); Blood Urea Nitrogen 23 mg/dL (9-16); Calcium 7.7 mg/dL (8.4-10.2); Carbon Dioxide 26 mmol/L (22-29); Chloride 105 mmol/L (96-108); Creatinine Clr Calc Pharmacy 80.6; Estimated Glomerular Filt Rate > 60; Glucose Random 221 mg/dL (60-115); Potassium 4.4 mmol/l (3.3-5.1); Sodium 140 mmol/L (135-145)
[2020-06-14 08:11] LABS: Glucose, Whole Blood 217 mg/dL (60-115)
[2020-06-14] MEDS: Insulin Lispro 100 UNIT/ML 3 ML VIAL SUBCUT ×4 (09:23→22:14)
[2020-06-14] MEDS: Simethicone 80 MG TAB.CHEW PO ×2 (09:24→21:32)
[2020-06-14] MEDS: 0.9 % Sodium Chloride Flush 3 ML SYRINGE IVFLUSH ×2 (09:24→15:44)
[2020-06-14] MEDS: Morphine Sulfate ER 30 MG TABLET.ER PO ×2 (09:25→21:32)
[2020-06-14] MEDS: Carbidopa/Levodopa CR 50/200 TABLET.ER 1 TAB PO ×3 (09:25→21:32)
[2020-06-14] MEDS: Pravastatin Sodium 40 MG TABLET PO (09:25)
[2020-06-14] MEDS: polyethylene glycoL 3350 17 GM POWD.PACK PO (09:29)
[2020-06-14] MEDS: dilTIAZem HCL CD 180 MG CAP.ER.24H PO (09:31)
[2020-06-14] MEDS: Sotalol HCL 80 MG TABLET 120 MG PO ×2 (09:32→21:32)
[2020-06-14 11:31] LABS: Glucose, Whole Blood 223 mg/dL (60-115)
--- NOTE | 2020-06-14 12:20 | P.PNCA_ITS ---
Subjective Subjective Date of Service: 06/14/20 Interval history: Denying chest pain or shortness of breath. Reporting no more bleeding. Review of Systems Review of Systems Yes all other systems are reviewed and are negative Constitutional: Reports weakness Cardiovascular: Denies syncope Reports system reviewed and no additional complaints, except as documented, Denies syncope and Reports weakness Physical Exam Vital Signs: Last Vital Signs Temp 97.8 F 06/14/20 08:00 Pulse 80 06/14/20 09:32 Resp 16 06/14/20 08:00 BP 172/82 H 06/14/20 09:32 Pulse Ox 90 L 06/14/20 08:00 Body Mass Index 27.1 GENERAL APPEARANCE: in no acute distress, frail looking. HEENT: unremarkable. HEAD: normocephalic, atraumatic. NECK/THYROID: no carotid bruit, no jugular venous distention. SKIN: no suspicious lesions, warm and dry. HEART: Mechanical 2nd heart sound. Holosystolic murmur left lower sternal border. Holosystolic murmur at the apex. LUNGS: clear to auscultation bilaterally. ABDOMEN: normal, bowel sounds present, soft, nontender, nondistended. EXTREMITIES: no clubbing, cyanosis, or edema. PERIPHERAL PULSES: equal. NEUROLOGIC: nonfocal, alert and oriented. PSYCH: mood/affect full range. Results Labs and Meds Result diagrams: 06/14/20 05:27 06/14/20 05:27 Lab results: Laboratory Results - last 24 hr 06/12/20 06/13/20 06/13/20 16:25 16:16 18:43 WBC 17.0 H RBC 3.17 L D Hgb 9.8 L D Hct 29.6 L D MCV 93.4 MCH 30.9 MCHC 33.1 RDW 14.7 Plt Count 336 MPV 9.4 Absolute Nucleated RBC 0.020 H Nucleated RBC % (auto) 0.1 Sodium Potassium Chloride Carbon Dioxide Anion Gap BUN Creatinine Estim Creat Clear Calc Estimated GFR POC Glucose 355 H* Random Glucose Calcium Blood Type O Positive Antibody Screen NEGATIVE Crossmatch See Detail 06/13/20 06/14/20 06/14/20 20:27 01:03 05:27 WBC 17.7 H RBC 3.12 L Hgb 8.9 L 9.7 L Hct 26.3 L 29.6 L MCV 94.9 MCH 31.1 MCHC 32.8 RDW 15.5 Plt Count 331 MPV 9.9 Absolute Nucleated RBC 0.020 H Nucleated RBC % (auto) 0.1 Sodium Potassium Chloride Carbon Dioxide Anion Gap BUN Creatinine Estim Creat Clear Calc Estimated GFR POC Glucose 313 H Random Glucose Calcium Blood Type Antibody Screen Crossmatch 06/14/20 06/14/20 06/14/20 05:27 08:03 11:14 WBC RBC Hgb Hct MCV MCH MCHC RDW Plt Count MPV Absolute Nucleated RBC Nucleated RBC % (auto) Sodium 140 Potassium 4.4 Chloride 105 Carbon Dioxide 26 Anion Gap 13 BUN 23 H Creatinine 0.83 Estim Creat Clear Calc 80.6 Estimated GFR > 60 POC Glucose 217 H 223 H Random Glucose 221 H Calcium 7.7 L Blood Type Antibody Screen Crossmatch Progress Note: A&P Assessment and plan (1) Adenocarcinoma of unknown primary: Status: Acute (2) Anemia: Status: Acute (3) History of aortic valve replacement: Problem details: prosthetic Status: Acute (4) Pulmonary embolism: Status: Inactive Assessment and Plan: 74-year-old gentleman with background history of mechanical aortic valve replacement, paroxysmal atrial fibrillation and pulmonary embolism. He has ad enocarcinoma of unknown primary. He was on Lovenox and presented with GI bleed. EGD showed small Chika-Langley tear. Enoxaparin is currently on hold. Anticoagulation use in this gentleman is for multiple reasons. Stopping anticoagulation long-term will be challenging. Mechanical aortic valve usually have high-flow and the risk of thrombosis is low but it is not 0. Also his background of pulmonary embolism and adrenal carcinoma he has risk of recurrent thromboembolism. Please discuss with GI about safety of resuming anticoagulation. Depending on the recommendation we will move forward with anticoagulation. Blood pressure is elevated. Please resume his losartan. Please monitor elect rolytes closely. He will need repeat EKG tomorrow to assess QTC as he is on sotalol. Please do not add any medication which can prolong QT interval as patient is on sotalol. Thank you for allowing me to participate in the care of your patient. Please feel free to contact me if you have any questions. Fall Risk Details Current Medications: Current Medications Generic Name Dose Route Start Last Admin Trade Name Freq PRN Reason Stop Dose Admin Acetaminophen 650 mg 06/12/20 22:48 Acetaminophen 325 Mg Tablet PO Q6H PRN Pain, Mild (Pain Scale 1-3) Albuterol Sulfate 2 puff 06/12/20 22:40 Albuterol Sulfate 90 Mcg 8 Gm Inhaler INHALE Q4H PRN Dyspnea Carbidopa/Levodopa 1 tab 06/12/20 22:48 06/14/20 09:25 Carbidopa/Levodopa Cr 50/200 Tablet.Er PO 1 tab TID VIDLA Administration Diltiazem HCl 180 mg 06/13/20 09:00 06/14/20 09:31 Diltiazem Hcl Cd 180 Mg Cap.Er.24h PO 180 mg DAILY [facility] Administration Protocol Sodium Chloride 1,000 mls @ 75 mls/hr 06/12/20 22:40 06/14/20 05:17 Ns IVCONT Not Given .[id number] [facility] Ceftriaxone Sodium 1 gm/ 50 mls @ 100 mls/hr 06/13/20 17:00 06/13/20 17:49 Sodium Chloride IV Infused Q24H [facility] Infusion Lactated Ringer's 1,000 mls @ 50 mls/hr 06/13/20 13:30 06/14/20 10:30 Lr IVCONT Not Given .Q20H [facility] Insulin Human Lispro 0 unit 06/12/20 22:40 06/14/20 09:23 Insulin Lispro 100 Unit/Ml 3 Ml Vial SUBCUT 2 unit QIDACHS [facility] Administration Protocol Levothyroxine Sodium 50 mcg 06/13/20 06:00 06/14/20 05:16 Levothyroxine Sodium 50 Mcg Tablet PO 50 mcg DAILY@0600 [facility] Administration Morphine Sulfate 30 mg 06/13/20 09:00 06/14/20 09:25 Morphine Sulfate Er 30 Mg Tablet.Er PO 30 mg BID [facility] Administration Ondansetron HCl 4 mg 06/12/20 22:40 Ondansetron Hcl 4 Mg/2 Ml Vial IVPUSH Q8H PRN Nausea and Vomiting Oxycodone HCl 5 mg 06/12/20 22:40 Oxycodone Hcl Immed Release 5 Mg Tablet PO Q8H PRN Breakthrough Pain, Moderate Pantoprazole Sodium 40 mg 06/12/20 23:00 06/14/20 05:16 Pantoprazole Sodium 40 Mg/10 Ml Vial IVPUSH 40 mg BID@0630,1630 [facility] Administration Pharmacy Consult 1 each 06/12/20 16:28 Consult Rx Perform Med Rec MISCELLANE ONCE PRN Consult order Polyethylene Glycol 17 gm 06/14/20 09:00 06/14/20 09:29 Polyethylene Glycol 3350 17 Gm Powd.Pack PO 17 gm DAILY [facility] Administration Pravastatin Sodium 40 mg 06/13/20 09:00 06/14/20 09:25 Pravastatin Sodium 40 Mg Tablet PO 40 mg DAILY [facility] Administration Simethicone 80 mg 06/13/20 21:00 06/14/20 09:24 Simethicone 80 Mg Tab.Chew PO 80 mg BID [facility] Administration Sodium Chloride 3 ml 06/13/20 00:00 06/14/20 09:24 0.9 % Sodium Chloride Flush 3 Ml Syringe IVFLUSH 3 ml QSHIFT [facility] Administration Sotalol HCl 120 mg 06/13/20 09:00 06/14/20 09:32 Sotalol Hcl 80 Mg Tablet PO 120 mg BID [facility] Administration Tiotropium [place] 2 puff 06/13/20 08:00 06/14/20 10:27 Tiotropium [place] 18 Mcg Cap.W.Dev INHALE 2 puff RDAILY [facility] Administration Time Spent With Patient Time: Total time spent is greater than 50% in coordination of care (as documented) at patient's floor/unit and/or counseling patient: Time with patient: 15 - 24 minutes
--- NOTE | 2020-06-14 12:21 | HO.PM.IMPN ---
Subjective Subjective Date of Service: 06/14/20 Interval History: Denies abd pain, hematochezia, or melena. Wants to go home THEO. Constitutional Constitutional: Denies fever(s) Gastrointestinal Gastrointestinal: Denies abdominal pain, Denies hematochezia and Denies vomiting Physical Exam Vital Signs: Vital Signs: Last Vital Signs Temp 97.8 F 06/14/20 08:00 Pulse 80 06/14/20 09:32 Resp 16 06/14/20 08:00 BP 172/82 H 06/14/20 09:32 Pulse Ox 90 L 06/14/20 08:00 Body Mass Index 27.1 Gen: in no acute distress HEENT: sclera anicteric, pale conjunctivae moist mucus membranes Neck: supple Lungs: clear to auscultation bilaterally Heart: mechanical S2, no m/r/g Abd: soft, non-tender, non-distended : Hebert draining clear yellow urine Ext: no edema Skin: warm/well-perfused Neuro: alert and oriented x3, no focal findings Psych: appropriate affect Objective Data Current Medications Generic Name Dose Route Start Last Admin Trade Name Freq PRN Reason Stop Dose Admin Acetaminophen 650 mg 06/12/20 22:48 Acetaminophen 325 Mg Tablet PO Q6H PRN Pain, Mild (Pain Scale 1-3) Albuterol Sulfate 2 puff 06/12/20 22:40 Albuterol Sulfate 90 Mcg 8 Gm Inhaler INHALE Q4H PRN Dyspnea Carbidopa/Levodopa 1 tab 06/12/20 22:48 06/14/20 09:25 Carbidopa/Levodopa Cr 50/200 Tablet.Er PO 1 tab TID [facility]AL Administration Diltiazem HCl 180 mg 06/13/20 09:00 06/14/20 09:31 Diltiazem Hcl Cd 180 Mg Cap.Er.24h PO 180 mg DAILY [facility] Administration Protocol Sodium Chloride 1,000 mls @ 75 mls/hr 06/12/20 22:40 06/14/20 05:17 Ns IVCONT Not Given .[id number] [facility] Ceftriaxone Sodium 1 gm/ 50 mls @ 100 mls/hr 06/13/20 17:00 06/13/20 17:49 Sodium Chloride IV Infused Q24H [facility] Infusion Lactated Ringer's 1,000 mls @ 50 mls/hr 06/13/20 13:30 06/14/20 10:30 Lr IVCONT Not Given .Q20H [facility] Insulin Human Lispro 0 unit 06/12/20 22:40 06/14/20 09:23 Insulin Lispro 100 Unit/Ml 3 Ml Vial SUBCUT 2 unit QIDACHS [facility] Administration Protocol Levothyroxine Sodium 50 mcg 06/13/20 06:00 06/14/20 05:16 Levothyroxine Sodium 50 Mcg Tablet PO 50 mcg DAILY@0600 [facility] Administration Morphine Sulfate 30 mg 06/13/20 09:00 06/14/20 09:25 Morphine Sulfate Er 30 Mg Tablet.Er PO 30 mg BID [facility] Administration Ondansetron HCl 4 mg 06/12/20 22:40 Ondansetron Hcl 4 Mg/2 Ml Vial IVPUSH Q8H PRN Nausea and Vomiting Oxycodone HCl 5 mg 06/12/20 22:40 Oxycodone Hcl Immed Release 5 Mg Tablet PO Q8H PRN Breakthrough Pain, Moderate Pantoprazole Sodium 40 mg 06/12/20 23:00 06/14/20 05:16 Pantoprazole Sodium 40 Mg/10 Ml Vial IVPUSH 40 mg BID@0630,1630 [facility] Administration Pharmacy Consult 1 each 06/12/20 16:28 Consult Rx Perform Med Rec MISCELLANE ONCE PRN Consult order Polyethylene Glycol 17 gm 06/14/20 09:00 06/14/20 09:29 Polyethylene Glycol 3350 17 Gm Powd.Pack PO 17 gm DAILY [facility] Administration Pravastatin Sodium 40 mg 06/13/20 09:00 06/14/20 09:25 Pravastatin Sodium 40 Mg Tablet PO 40 mg DAILY [facility] Administration Simethicone 80 mg 06/13/20 21:00 06/14/20 09:24 Simethicone 80 Mg Tab.Chew PO 80 mg BID [facility] Administration Sodium Chloride 3 ml 06/13/20 00:00 06/14/20 09:24 0.9 % Sodium Chloride Flush 3 Ml Syringe IVFLUSH 3 ml QSHIFT [facility] Administration Sotalol HCl 120 mg 06/13/20 09:00 06/14/20 09:32 Sotalol Hcl 80 Mg Tablet PO 120 mg BID [facility]AL Administration Tiotropium [place] 2 puff 06/13/20 08:00 06/14/20 10:27 Tiotropium [place] 18 Mcg Cap.W.Dev INHALE 2 puff RDAILY [facility] Administration Labs CBC & Chem 7: 06/14/20 05:27 06/14/20 05:27 Labs: Laboratory Results - last 24 hr 06/12/20 06/13/20 06/13/20 16:25 16:16 18:43 WBC 17.0 H RBC 3.17 L D Hgb 9.8 L D Hct 29.6 L D MCV 93.4 MCH 30.9 MCHC 33.1 RDW 14.7 Plt Count 336 MPV 9.4 Absolute Nucleated RBC 0.020 H Nucleated RBC % (auto) 0.1 Sodium Potassium Chloride Carbon Dioxide Anion Gap BUN Creatinine Estim Creat Clear Calc Estimated GFR POC Glucose 355 H* Random Glucose Calcium Blood Type O Positive Antibody Screen NEGATIVE Crossmatch See Detail 06/13/20 06/14/20 06/14/20 20:27 01:03 05:27 WBC 17.7 H RBC 3.12 L Hgb 8.9 L 9.7 L Hct 26.3 L 29.6 L MCV 94.9 MCH 31.1 MCHC 32.8 RDW 15.5 Plt Count 331 MPV 9.9 Absolute Nucleated RBC 0.020 H Nucleated RBC % (auto) 0.1 Sodium Potassium Chloride Carbon Dioxide Anion Gap BUN Creatinine Estim Creat Clear Calc Estimated GFR POC Glucose 313 H Random Glucose Calcium Blood Type Antibody Screen Crossmatch 06/14/20 06/14/20 06/14/20 05:27 08:03 11:14 WBC RBC Hgb Hct MCV MCH MCHC RDW Plt Count MPV Absolute Nucleated RBC Nucleated RBC % (auto) Sodium 140 Potassium 4.4 Chloride 105 Carbon Dioxide 26 Anion Gap 13 BUN 23 H Creatinine 0.83 Estim Creat Clear Calc 80.6 Estimated GFR > 60 POC Glucose 217 H 223 H Random Glucose 221 H Calcium 7.7 L Blood Type Antibody Screen Crossmatch Microbiology Microbiology Results: Microbiology 06/12/20 15:17 Blood - Venous Blood Culture - Preliminary No growth after 24 hours. 06/12/20 15:03 Blood - Venous Blood Culture - Preliminary No growth after 24 hours. Assessment and Plan (1) Acute blood loss anemia: Status: Acute (2) MICKIE (acute kidney injury): Status: Acute Assessment and Plan: hospital d#3 74yo M with metastatic adenoCA of unknown primary (colorectal, upper GI, or pancreatobiliary), anticoagulated with LMWH for mechanical aortic valve and PE (diagnosed 04/28/20 and changed from warfarin to LMWH) p/w weakness, abd pain, dizziness, and urinary retention Admitted for anemia with +FOBT, MICKIE, hyponatremia, hyperK, urinary retention # acute blood loss anemia # possible GIB - Hb stable s/p 3u pRBCs - EGD 06/13/20 (Dr Garcia) showed 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 may require colonoscopy - bid IV PPI # mechanical aortic valve # PE # AF - per Heme (Dr Mast) IVC filter, arranged for tomorrow - continue sotalol + diltiazem # prerenal MICKIE # hyperK # hypoNa - resolved s/p transfusion + IV fluids + SPS # urinary retention - Hebert # question of UTI - ceftriaxone d#3, UCx never sent- will order # DM2 - correction-dose lispro, A1c pending # COPD, not in acute exacerbation - continue LAMA + prn IVA # chronic pain - continue MSSR + prn oxycodone # Parkinson disease - continue Sinemet # hypothyroidism - continue LT4 # dispo - home with [facility] pending stabilization of GIB and placement of IVC filter
[2020-06-14] MEDS: Acetaminophen 325 MG TABLET 650 MG PO (12:55)
[2020-06-14 13:06] LABS: Estimated Average Glucose 100 mg/dL; Hemoglobin A1c % 5.1 %
--- NOTE | 2020-06-14 13:46 | HO.POSTANES ---
Post Anesthesia Evaluation Post Anesthesia Evaluation Vital Signs: Vital Signs Temp Pulse Resp BP Pulse Ox 06/14/20 13:16 90 L 06/14/20 12:00 97.6 F 71 16 152/73 H 90 L 06/14/20 09:32 80 172/82 H 06/14/20 09:31 80 172/82 H 06/14/20 08:00 97.8 F 83 16 183/81 H 90 L 06/14/20 03:41 97.3 F 74 16 166/73 H 93 Anesthesia: General Mental Status: Awake Pain Control: Satisfactory Nausea/Vomiting: None Hydration: Adequate Anesthesia-Related Issues: No Anes. Related Issues
--- NOTE | 2020-06-14 14:03 | P.PNGI_ITS ---
Subjective Subjective Date of Service: 06/14/20 Interval History: no reported bleeding Physical Exam Vital Signs: Vital Signs: Last Vital Signs Temp 97.6 F 06/14/20 12:00 Pulse 71 06/14/20 12:00 Resp 16 06/14/20 12:00 BP 152/73 H 06/14/20 12:00 Pulse Ox 90 L 06/14/20 13:16 Body Mass Index 27.1 Const: Other: alert GI: Other: abdomen soft Skin: Other: pale Objective Data Labs CBC & Chem 7: 06/14/20 05:27 06/14/20 05:27 Labs: Laboratory Results - last 24 hr 06/12/20 06/13/20 06/13/20 16:25 16:16 18:43 WBC 17.0 H RBC 3.17 L D Hgb 9.8 L D Hct 29.6 L D MCV 93.4 MCH 30.9 MCHC 33.1 RDW 14.7 Plt Count 336 MPV 9.4 Absolute Nucleated RBC 0.020 H Nucleated RBC % (auto) 0.1 Sodium Potassium Chloride Carbon Dioxide Anion Gap BUN Creatinine Estim Creat Clear Calc Estimated GFR POC Glucose 355 H* Random Glucose Estimat Average Glucose Hemoglobin A1c % Calcium Blood Type O Positive Antibody Screen NEGATIVE Crossmatch See Detail 06/13/20 06/14/20 06/14/20 20:27 01:03 05:27 WBC 17.7 H RBC 3.12 L Hgb 8.9 L 9.7 L Hct 26.3 L 29.6 L MCV 94.9 MCH 31.1 MCHC 32.8 RDW 15.5 Plt Count 331 MPV 9.9 Absolute Nucleated RBC 0.020 H Nucleated RBC % (auto) 0.1 Sodium Potassium Chloride Carbon Dioxide Anion Gap BUN Creatinine Estim Creat Clear Calc Estimated GFR POC Glucose 313 H Random Glucose Estimat Average Glucose Hemoglobin A1c % Calcium Blood Type Antibody Screen Crossmatch 06/14/20 06/14/20 06/14/20 05:27 06:44 08:03 WBC RBC Hgb Hct MCV MCH MCHC RDW Plt Count MPV Absolute Nucleated RBC Nucleated RBC % (auto) Sodium 140 Potassium 4.4 Chloride 105 Carbon Dioxide 26 Anion Gap 13 BUN 23 H Creatinine 0.83 Estim Creat Clear Calc 80.6 Estimated GFR > 60 POC Glucose 217 H Random Glucose 221 H Estimat Average Glucose 100 Hemoglobin A1c % 5.1 Calcium 7.7 L Blood Type Antibody Screen Crossmatch 06/14/20 11:14 WBC RBC Hgb Hct MCV MCH MCHC RDW Plt Count MPV Absolute Nucleated RBC Nucleated RBC % (auto) Sodium Potassium Chloride Carbon Dioxide Anion Gap BUN Creatinine Estim Creat Clear Calc Estimated GFR POC Glucose 223 H Random Glucose Estimat Average Glucose Hemoglobin A1c % Calcium Blood Type Antibody Screen Crossmatch Microbiology Microbiology Results: Microbiology 06/12/20 15:17 Blood - Venous Blood Culture - Preliminary No growth after 24 hours. 06/12/20 15:03 Blood - Venous Blood Culture - Preliminary No growth after 24 hours. Progress Note: A&P Assessment and plan (1) Anemia: Status: Acute Assessment and Plan: colonoscopy 06/15. He is aware of risks and benefits and agrees to proceed. Fall Risk Details Current Medications: Current Medications Generic Name Dose Route Start Last Admin Trade Name Freq PRN Reason Stop Dose Admin Acetaminophen 650 mg 06/12/20 22:48 06/14/20 12:55 Acetaminophen 325 Mg Tablet PO 650 mg Q6H PRN Administration Pain, Mild (Pain Scale 1-3) Albuterol Sulfate 2 puff 06/12/20 22:40 Albuterol Sulfate 90 Mcg 8 Gm Inhaler INHALE Q4H PRN Dyspnea Carbidopa/Levodopa 1 tab 06/12/20 22:48 06/14/20 09:25 Carbidopa/Levodopa Cr 50/200 Tablet.Er PO 1 tab TID VIDAL Administration Diltiazem HCl 180 mg 06/13/20 09:00 06/14/20 09:31 Diltiazem Hcl Cd 180 Mg Cap.Er.24h PO 180 mg DAILY [facility] Administration Protocol Ceftriaxone Sodium 1 gm/ 50 mls @ 100 mls/hr 06/13/20 17:00 06/13/20 17:49 Sodium Chloride IV Infused Q24H [facility] Infusion Lactated Ringer's 1,000 mls @ 50 mls/hr 06/13/20 13:30 06/14/20 10:30 Lr IVCONT Not Given .Q20H [facility] Insulin Human Lispro 0 unit 06/12/20 22:40 06/14/20 12:34 Insulin Lispro 100 Unit/Ml 3 Ml Vial SUBCUT 2 unit QIDACHS [facility] Administration Protocol Levothyroxine Sodium 50 mcg 06/13/20 06:00 06/14/20 05:16 Levothyroxine Sodium 50 Mcg Tablet PO 50 mcg DAILY@0600 [facility] Administration Morphine Sulfate 30 mg 06/13/20 09:00 06/14/20 09:25 Morphine Sulfate Er 30 Mg Tablet.Er PO 30 mg BID [facility] Administration Ondansetron HCl 4 mg 06/12/20 22:40 Ondansetron Hcl 4 Mg/2 Ml Vial IVPUSH Q8H PRN Nausea and Vomiting Oxycodone HCl 5 mg 06/12/20 22:40 Oxycodone Hcl Immed Release 5 Mg Tablet PO Q8H PRN Breakthrough Pain, Moderate Pantoprazole Sodium 40 mg 06/12/20 23:00 06/14/20 05:16 Pantoprazole Sodium 40 Mg/10 Ml Vial IVPUSH 40 mg BID@0630,1630 [facility] Administration Pharmacy Consult 1 each 06/12/20 16:28 Consult Rx Perform Med Rec MISCELLANE ONCE PRN Consult order Polyethylene Glycol 17 gm 06/14/20 09:00 06/14/20 09:29 Polyethylene Glycol 3350 17 Gm Powd.Pack PO 17 gm DAILY [facility] Administration Pravastatin Sodium 40 mg 06/13/20 09:00 06/14/20 09:25 Pravastatin Sodium 40 Mg Tablet PO 40 mg DAILY [facility] Administration Simethicone 80 mg 06/13/20 21:00 06/14/20 09:24 Simethicone 80 Mg Tab.Chew PO 80 mg BID [facility] Administration Sodium Chloride 3 ml 06/13/20 00:00 06/14/20 09:24 0.9 % Sodium Chloride Flush 3 Ml Syringe IVFLUSH 3 ml QSHIFT [facility] Administration Sotalol HCl 120 mg 06/13/20 09:00 06/14/20 09:32 Sotalol Hcl 80 Mg Tablet PO 120 mg BID [facility] Administration Tiotropium [place] 2 puff 06/13/20 08:00 06/14/20 10:27 Tiotropium [place] 18 Mcg Cap.W.Dev INHALE 2 puff RDAILY [facility] Administration Time Spent With Patient Time: Total time spent is greater than 50% in coordination of care (as documented) at patient's floor/unit and/or counseling patient: Time with patient: less than 15 minutes
[2020-06-14] MEDS: bisacodyL 5 MG TABLET.DR 20 MG PO (15:43)
[2020-06-14] MEDS: polyethylene glycoL 3350 17 GM POWD.PACK 238 GM PO (15:44)
[2020-06-14 17:16] LABS: Glucose, Whole Blood 238 mg/dL (60-115)
[2020-06-14] MEDS: cefTRIAXone sodium 1 GM in 0.9 % Sodium Chloride 50 ML IV (17:21)
--- NOTE | 2020-06-14 18:30 | OP_ITS ---
SURGEON: Day Garcia MD PREOPERATIVE DIAGNOSIS: Heme-positive stool, significant decrease in hematocrit and hemoglobin. The patient has been under the care of Dr. Mast as well. POSTOPERATIVE DIAGNOSIS: Candidal esophagitis, digital rectal exam negative. PROCEDURE PERFORMED: Esophagogastroduodenoscopy, no biopsy. ESTIMATED BLOOD LOSS: No significant blood loss. COMPLICATIONS: No complications. ANESTHESIA: General. ANESTHESIOLOGIST: Dr. Cazares ASSISTANTS: No per diem physical therapist assistant. SPECIMENS: No specimens removed. SYSTEMS AUDITOR: Dr. Garcia. DESCRIPTION OF PROCEDURE: Video endoscope was introduced without difficulty. It was navigated through the posterior pharynx along the endotracheal tube to the region of the upper esophageal sphincter. This area had some tissue that was overlapping; however, no clear restriction was noted. Esophageal mucosa appeared normal, but there was white plaquing from the region of the cervical to distal esophagus. No jose esophagitis was noted. No hiatal hernia was seen. No varices were present. On entering the stomach, the gastric mucosa appeared normal. There was thick mucus present in the stomach, which was difficult to suction, however, it was white with no heme present. No significant erythema of the distal body or antrum. Duodenal bulb and duodenum appeared endoscopically normal. No ulcerations or mass lesions appreciated in the transition area of the second duodenum. Scope was withdrawn. The patient tolerated the procedure well. After this, a digital rectal exam was performed. Prostate was minimally enlarged. Sphincter tone was decreased. No rectal mass lesion was within the initial 6 to 7 cm palpated. Prominent coccygeal area was appreciated. Stool had a greenish brown coloration to it. PLAN: Dr. Mast had been present prior to the procedure. Discussion was to consider proceeding if the patient remained hemodynamically stable and appeared to be able to tolerate colonoscopy prep. A colonoscopy will be considered in over the next 24 to 48 hours. GRAFT OR IMPLANTS: No grafts or implants. CONDITION: Postprocedure, stable. Day Garcia MD MEN/MODL / [id number] MTDD
[2020-06-14 22:04] LABS: Glucose, Whole Blood 315 mg/dL (60-115)
[2020-06-15] VITALS (15 sets, daily range): BP systolic 93–186; BP diastolic 37–80; PULSE 57–81; RESP 15–62; TEMP 36.4–37.2; O2SAT 92–99
[2020-06-15] MEDS: 0.9 % Sodium Chloride Flush 3 ML SYRINGE IVFLUSH ×3 (00:10→22:07)
[2020-06-15] MEDS: Levothyroxine Sodium 50 MCG TABLET PO (06:10)
[2020-06-15] MEDS: Pantoprazole Sodium 40 MG/10 ML VIAL IVPUSH ×2 (06:10→19:41)
[2020-06-15 06:47] LABS: Basophils Percent Auto 0.2 % (0-2); Eosinophils Absolute Auto 0.2 X10*3/uL (0.0-0.4); Hematocrit 30.7 % (42-52); Hemoglobin 9.9 g/dl (14.0-18.0); Imm Gran Pct Auto 0.6 % (0.0-0.4); Lymphocytes Absolute Auto 0.4 X10*3/uL (1.2-4.9); Lymphocytes Percent Auto 2.3 % (20-40); MANUAL DIFF FLAG SCAN; Mean Corpuscular HGB Conc 32.2 g/dl (31.0-36.0); Mean Corpuscular Hemoglobin 31.3 pg (27.0-33.0); Mean Corpuscular Volume 97.2 fL (80-98); Mean Platelet Volume 10.1 fL (9.4-12.4); Monocytes Absolute Auto 1.2 X10*3/uL (0.1-1.2); Monocytes Percent Auto 6.7 % (2-11); Neutrophils Percent Auto 89.2 % (45-73); Platelet Count 330 X10*3/uL (160-400); Red Blood Count 3.16 X10*6/uL (4.60-5.80); Red Cell Distribution Width 16.2 % (11.0-16.0); SCAN SMEAR FLAG 1
[2020-06-15 07:14] LABS: Anion Gap 15 (12-20); Blood Urea Nitrogen 19 mg/dL (9-16); Calcium 7.4 mg/dL (8.4-10.2); Carbon Dioxide 24 mmol/L (22-29); Chloride 105 mmol/L (96-108); Creatinine Clr Calc Pharmacy 81.6; Estimated Glomerular Filt Rate > 60; Glucose Random 208 mg/dL (60-115); Potassium 4.1 mmol/l (3.3-5.1); Sodium 140 mmol/L (135-145)
[2020-06-15 07:45] LABS: Glucose, Whole Blood 221 mg/dL (60-115)
--- NOTE | 2020-06-15 07:51 | ECG_ITS ---
Test Reason : CHECK QTC Blood Pressure : / mmHG Vent. Rate : 085 BPM Atrial Rate : 085 BPM P-R Int : 154 ms QRS Dur : 082 ms QT Int : 386 ms P-R-T Axes : 069 005 022 degrees QTc Int : 459 ms Normal sinus rhythm Possible Inferior infarct , age undetermined Abnormal ECG When compared with ECG of 12-JUN-2020 14:38, Borderline criteria for Inferior infarct are now Present Referred By: Rommel Sanchez Electronically Signed By:Dennis Armenta
[2020-06-15 08:29] LABS: SLIDE REVIEW VERIFIED
[2020-06-15] MEDS: Carbidopa/Levodopa CR 50/200 TABLET.ER 1 TAB PO ×2 (09:15→21:54)
[2020-06-15] MEDS: dilTIAZem HCL CD 180 MG CAP.ER.24H PO (09:16)
[2020-06-15] MEDS: Morphine Sulfate ER 30 MG TABLET.ER PO ×2 (09:16→21:54)
[2020-06-15] MEDS: Sotalol HCL 80 MG TABLET 120 MG PO ×2 (09:16→21:55)
[2020-06-15 11:42] LABS: Glucose, Whole Blood 332 mg/dL (60-115)
--- NOTE | 2020-06-15 11:47 | HO.PM.IMPN ---
Subjective Subjective Date of Service: 06/15/20 Interval History: denies any GI bleeding or abd pain unfortunately had a bowl of broth this AM, so colonoscopy rescheduled for later today and IVC filter for tomorrow Physical Exam Vital Signs: Vital Signs: Last Vital Signs Temp 98.5 F 06/15/20 11:23 Pulse 73 06/15/20 11:23 Resp 18 06/15/20 11:23 BP 186/80 H 06/15/20 11:23 Pulse Ox 97 06/15/20 11:23 Body Mass Index 27.1 Gen: in no acute distress HEENT: sclera anicteric, pale conjunctivae, moist mucus membranes Neck: supple Lungs: clear to auscultation bilaterally Heart: mechanical S2, no m/r/g Abd: soft, non-tender, non-distended : Hebert draining clear yellow urine Ext: no edema Skin: warm/well-perfused Neuro: alert and oriented x3, no focal findings Psych: appropriate affect Objective Data Current Medications Generic Name Dose Route Start Last Admin Trade Name Colinq PRN Reason Stop Dose Admin Acetaminophen 650 mg 06/12/20 22:48 06/14/20 12:55 Acetaminophen 325 Mg Tablet PO 650 mg Q6H PRN Administration Pain, Mild (Pain Scale 1-3) Albuterol Sulfate 2 puff 06/12/20 22:40 Albuterol Sulfate 90 Mcg 8 Gm Inhaler INHALE Q4H PRN Dyspnea Carbidopa/Levodopa 1 tab 06/12/20 22:48 06/15/20 09:15 Carbidopa/Levodopa Cr 50/200 Tablet.Er PO 1 tab TID VIDAL Administration Diltiazem HCl 180 mg 06/13/20 09:00 06/15/20 09:16 Diltiazem Hcl Cd 180 Mg Cap.Er.24h PO 180 mg DAILY VIDAL Administration Protocol Ceftriaxone Sodium 1 gm/ 50 mls @ 100 mls/hr 06/13/20 17:00 06/14/20 18:06 Sodium Chloride IV Infused Q24H VIDAL Infusion Lactated Ringer's 1,000 mls @ 50 mls/hr 06/13/20 13:30 06/15/20 06:16 Lr IVCONT Not Given .Q20H VIDAL Insulin Human Lispro 0 unit 06/12/20 22:40 06/15/20 09:20 Insulin Lispro 100 Unit/Ml 3 Ml Vial SUBCUT Not Given QIDACHS [facility] Protocol Levothyroxine Sodium 50 mcg 06/13/20 06:00 06/15/20 06:10 Levothyroxine Sodium 50 Mcg Tablet PO 50 mcg DAILY@0600 VIDAL Administration Morphine Sulfate 30 mg 06/13/20 09:00 06/15/20 09:16 Morphine Sulfate Er 30 Mg Tablet.Er PO 30 mg BID VIDAL Administration Ondansetron HCl 4 mg 06/12/20 22:40 Ondansetron Hcl 4 Mg/2 Ml Vial IVPUSH Q8H PRN Nausea and Vomiting Oxycodone HCl 5 mg 06/12/20 22:40 Oxycodone Hcl Immed Release 5 Mg Tablet PO Q8H PRN Breakthrough Pain, Moderate Pantoprazole Sodium 40 mg 06/12/20 23:00 06/15/20 06:10 Pantoprazole Sodium 40 Mg/10 Ml Vial IVPUSH 40 mg BID@0630,1630 [facility] Administration Pharmacy Consult 1 each 06/12/20 16:28 Consult Rx Perform Med Rec MISCELLANE ONCE PRN Consult order Polyethylene Glycol 17 gm 06/14/20 09:00 06/14/20 09:29 Polyethylene Glycol 3350 17 Gm Powd.Pack PO 17 gm DAILY [facility] Administration Pravastatin Sodium 40 mg 06/13/20 09:00 06/14/20 09:25 Pravastatin Sodium 40 Mg Tablet PO 40 mg DAILY VIDAL Administration Simethicone 80 mg 06/13/20 21:00 06/14/20 21:32 Simethicone 80 Mg Tab.Chew PO 80 mg BID VIDAL Administration Sodium Chloride 3 ml 06/13/20 00:00 06/15/20 09:20 0.9 % Sodium Chloride Flush 3 Ml Syringe IVFLUSH 3 ml QSHIFT [facility] Administration Sotalol HCl 120 mg 06/13/20 09:00 06/15/20 09:16 Sotalol Hcl 80 Mg Tablet PO 120 mg BID [facility] Administration Tiotropium [place] 2 puff 06/13/20 08:00 06/15/20 07:31 Tiotropium [place] 18 Mcg Cap.W.Dev INHALE 2 puff RDAILY [facility] Administration Labs CBC & Chem 7: 06/15/20 05:27 06/15/20 05:27 Labs: Laboratory Results - last 24 hr 06/14/20 06/14/20 06/14/20 06:44 17:11 22:00 WBC RBC Hgb Hct MCV MCH MCHC RDW Plt Count MPV Immature Gran % (Auto) Neut % (Auto) Lymph % (Auto) [place] % (Auto) Eos % (Auto) Baso % (Auto) Lymph # (Auto) [place] # (Auto) Eos # (Auto) Baso # (Auto) Abs Immat Gran (auto) Absolute Neuts (auto) Absolute Nucleated RBC Nucleated RBC % (auto) Smear Tech's Comments Sodium Potassium Chloride Carbon Dioxide Anion Gap BUN Creatinine Estim Creat Clear Calc Estimated GFR POC Glucose 238 H 315 H Random Glucose Estimat Average Glucose 100 Hemoglobin A1c % 5.1 Calcium 06/15/20 06/15/20 06/15/20 05:27 05:27 07:18 WBC 18.0 H RBC 3.16 L Hgb 9.9 L Hct 30.7 L MCV 97.2 MCH 31.3 MCHC 32.2 RDW 16.2 H Plt Count 330 MPV 10.1 Immature Gran % (Auto) 0.6 H Neut % (Auto) 89.2 H Lymph % (Auto) 2.3 L [place] % (Auto) 6.7 Eos % (Auto) 1.0 Baso % (Auto) 0.2 Lymph # (Auto) 0.4 L [place] # (Auto) 1.2 Eos # (Auto) 0.2 Baso # (Auto) 0.0 Abs Immat Gran (auto) 0.10 H Absolute Neuts (auto) 16.0 H Absolute Nucleated RBC 0.000 Nucleated RBC % (auto) 0.0 Smear Tech's Comments VERIFIED Sodium 140 Potassium 4.1 Chloride 105 Carbon Dioxide 24 Anion Gap 15 BUN 19 H Creatinine 0.82 Estim Creat Clear Calc 81.6 Estimated GFR > 60 POC Glucose 221 H Random Glucose 208 H Estimat Average Glucose Hemoglobin A1c % Calcium 7.4 L 06/15/20 11:26 WBC RBC Hgb Hct MCV MCH MCHC RDW Plt Count MPV Immature Gran % (Auto) Neut % (Auto) Lymph % (Auto) [place] % (Auto) Eos % (Auto) Baso % (Auto) Lymph # (Auto) [place] # (Auto) Eos # (Auto) Baso # (Auto) Abs Immat Gran (auto) Absolute Neuts (auto) Absolute Nucleated RBC Nucleated RBC % (auto) Smear Tech's Comments Sodium Potassium Chloride Carbon Dioxide Anion Gap BUN Creatinine Estim Creat Clear Calc Estimated GFR POC Glucose 332 H Random Glucose Estimat Average Glucose Hemoglobin A1c % Calcium Microbiology Microbiology Results: Microbiology 06/14/20 18:11 Urine [place] Urine Culture - Preliminary No growth to date. 06/12/20 15:17 Blood - Venous Blood Culture - Preliminary No growth after 48 hours. 06/12/20 15:03 Blood - Venous Blood Culture - Preliminary No growth after 48 hours. Assessment and Plan (1) Acute blood loss anemia: Status: Acute (2) MICKIE (acute kidney injury): Status: Acute Assessment and Plan: hospital d#4 74yo M with metastatic adenoCA of unknown primary (colorectal, upper GI, or pancreatobiliary; followed by Dr Mast), anticoagulated with LMWH for mechanical aortic valve and PE (diagnosed 04/28/20 and changed then from warfarin to LMWH) p/w weakness, abd pain, dizziness, and urinary retention admitted for anemia with +FOBT, MICKIE, hyponatremia, hyperK, urinary retention # acute blood loss anemia # possible GIB - Hb stable s/p 3u pRBCs transfused - EGD 06/13/20 (Dr Garcia) showed 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 colonoscopy later today. - bid IV PPI # mechanical aortic valve # PE # AF - per Heme (Dr Mast) IVC filter, arranged for tomorrow - continue sotalol + diltiazem # prerenal MICKIE # hyperK # hypoNa - resolved s/p transfusion + IV fluids + SPS # urinary retention - Hebert # question of UTI - ceftriaxone d#4, UCx NGTD but sent after 3d of ABX # DM2 - correction-dose lispro, A1c only 5.1 # COPD, not in acute exacerbation - continue LAMA + prn IVA # chronic pain - continue MSSR + prn oxycodone # Parkinson disease - continue Sinemet # hypothyroidism - continue LT4 # adenoCA of unknown primary - f/u with Dr Mast for further treatment as outpt # dispo - home with [facility] pending stabilization of GIB and placement of IVC filter
[2020-06-15] MEDS: polyethylene glycoL 3350 17 GM POWD.PACK PO (12:27)
[2020-06-15] MEDS: Insulin Lispro 100 UNIT/ML 3 ML VIAL SUBCUT ×2 (12:55→22:01)
--- NOTE | 2020-06-15 15:59 | W.MHC.ACPN ---
Advanced Care Planning Note Advanced Care Planning Note Discussed with: patient and family member(s) ( Trish) Time spent (in minutes): 20 Narrative: Trish called to clarify DNR/DNI status. Per discussion with Dr White, pt is DNR/DNI. I attempted to engage the patient but he was really fixated on the leaving the hospital [facility] and could not answer my questions properly. is the HCP and per her understanding, the patient would NOT want CPR or mechanical ventilation. He has clearly stated in the past that he wants no machines . Discussed what this would mean in the event of cardiopulmonary arrest and pt's agreed that DNR/DNI is consistent with the pt's imputed wishes. Problems Discussed (1) Acute blood loss anemia: (2) MICKIE (acute kidney injury):
[2020-06-15 16:49] LABS: Glucose, Whole Blood 241 mg/dL (60-115)
--- NOTE | 2020-06-15 16:54 | MHC.SHP ---
Pre-Procedural Eval Section A The patient is an INPATIENT: Yes Changes since office visit: No Cold of Flu in the past 2 weeks, No New Medical Problems, No Changes in Medication and No Patient answered all questions The History & Physical has been completed within 30 days and I have reviewed it.: Yes Section B Chief Complaint: GI BLEED, PE Allergies: Allergies Allergy/AdvReac Type Severity Reaction Status Date / Time No Known Allergies Allergy Verified 06/12/20 14:32 [No Known Allergies*] Plan I have reviewed the history and physical and performed a pertinent physical examination on my patient. No changes have occurred unless specified.
--- NOTE | 2020-06-15 17:26 | HO.ANESPROP2 ---
[facility] Past Medical History Medical History (Updated 06/14/20 @ 12:22 by Dennis Armenta MD) Anemia Bony sclerosis COPD (chronic obstructive pulmonary disease) Diabetes mellitus GI bleed Hyperlipidemia Hypertension Hypothyroidism Lytic bone lesion of hip Lytic lesion of bone on x-ray Overweight (BMI 25.0-29.9) Pancreatic cancer Parkinson's disease Paroxysmal atrial fibrillation Pleural effusion, right Pulmonary embolism Functional capacity: uses cane/walker Family History Family History Father Cardiovascular disease Mother Stroke Other Colon cancer FH: Parkinson's disease Surgical History Surgical History (Updated 06/14/20 @ 12:22 by Dennis Armenta MD) History of aortic valve replacement (~11/29/12) History of carpal tunnel release (~06/24/13) Status post anal 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) Status post mechanical aortic valve replacement Social History Social History Household Members: Spouse Housing: House Alcohol intake: current Alcohol intake frequency: does not drink Alcohol type: hard liquor Smoking Status: Former smoker Smoking Quit Date: 30 years ago Use of substances other than those prescribed or required for medical reasons: No Currently Displaying Signs/Symptoms of Drug Intoxication Withdrawal: No Have you been hit, kicked, punched, or otherwise hurt by someone within the past year? If so, by whom?: No Do you feel safe in your current relationship?: No Is there a partner from a previous relationship who is making you feel unsafe now?: No Are you made to feel afraid or neglected: No Anabaptism Healthcare Practices: jain Advance Directives: No Advance Directives Information Provided: Yes Do you have thoughts of harming others: None Do you have a plan to hurt others: No Plan Recently lost weight without trying: Unsure service: No Current occupational status: retired Meds Allergies Allergy/AdvReac Type Severity Reaction Status Date / Time No Known Allergies Allergy Verified 06/12/20 14:32 [No Known Allergies*] Home Medications Medication Instructions Recorded Confirmed Type carbidopa-levodopa 1 tab PO TID 04/28/20 06/12/20 History losartan 25 mg PO DAILY 04/28/20 06/12/20 History albuterol sulfate [ProAir HFA] 2 puff INHALATION Q4-6H PRN 06/12/20 06/12/20 History insulin asp prt-insulin aspart 8 unit SUBCUT TID 06/12/20 06/12/20 History [Novolog Mix 70-30FlexPen U-100] Exam Exam Date and Time: June 15, 2020 1727 Height,Weight and Vital Signs: Height 5 ft 11 in Weight 88.1 kg Last Vital Signs Temp 98.9 F 06/15/20 16:39 Pulse 67 06/15/20 16:39 Resp 20 06/15/20 16:39 BP 151/51 H 06/15/20 16:39 Pulse Ox 96 06/15/20 16:39 Pertinent Lab Results Pertinent Lab Results: Laboratory Tests 06/12/20 06/12/20 06/12/20 15:03 15:03 15:03 WBC 16.1 H RBC 2.24 L D Hgb 7.1 L D Hct 21.4 L D MCV 95.5 MCH 31.7 MCHC 33.2 RDW 13.8 Plt Count 421 H MPV 10.2 Immature Gran % (Auto) 1.0 H Neut % (Auto) 87.7 H Lymph % (Auto) 3.9 L [place] % (Auto) 7.1 Eos % (Auto) 0.1 Baso % (Auto) 0.2 Lymph # (Auto) 0.6 L [place] # (Auto) 1.2 Eos # (Auto) 0.0 Baso # (Auto) 0.0 Abs Immat Gran (auto) 0.16 H Absolute Neuts (auto) 14.1 H Absolute Nucleated RBC 0.020 H Nucleated RBC % (auto) 0.1 Neutrophils % (Manual) 88 H Band Neutrophils % 3 Lymphocytes % (Manual) 3 L Monocytes % (Manual) 5 Basophils % (Manual) 1 Abs Neuts (Manual) 14.7 H Lymphocytes # (Manual) 0.5 L Monocytes # (Manual) 0.8 Basophils # (Manual) 0.2 Platelet Estimate NORMAL Large Platelets PRESENT Plt Morphology Comment NOTED RBC Morphology NOTED Polychromasia 1+ Hypochromasia 1+ Basophilic Stippling 1+ Smear Tech's Comments VERIFIED Absolute Retic 0.100 H Percent Retic 4.5 H Immature Retic Fraction 42.1 H Retic Hgb Equivalent 35.4 H PT INR Sodium 128 L Potassium 5.8 H D Chloride 96 Carbon Dioxide 24 Anion Gap 14 BUN 62 H D Creatinine 1.44 H Estim Creat Clear Calc 46.4 Estimated GFR 48 POC Glucose Random Glucose 364 H* Estimat Average Glucose Hemoglobin A1c % Lactic Acid 1.3 Calcium 8.3 L Magnesium 1.9 Total Bilirubin 0.7 Direct Bilirubin 0.6 H AST 81 H ALT 16 Alkaline Phosphatase 365 H Troponin I High Sens Total Protein 5.6 L Albumin 3.1 L Lipase 24 Urine Color Urine Appearance Urine pH Ur Specific [place] Urine Protein Urine Glucose (UA) Urine Ketones Urine Blood Urine Nitrite Ur Leukocyte Esterase Stool Occult Blood COVID-19 (ONEAL) COVID-19 [facility] Com Blood Type Antibody Screen Crossmatch 06/12/20 06/12/20 06/12/20 15:03 15:03 15:55 WBC RBC Hgb Hct MCV MCH MCHC RDW Plt Count MPV Immature Gran % (Auto) Neut % (Auto) Lymph % (Auto) [place] % (Auto) Eos % (Auto) Baso % (Auto) Lymph # (Auto) [place] # (Auto) Eos # (Auto) Baso # (Auto) Abs Immat Gran (auto) Absolute Neuts (auto) Absolute Nucleated RBC Nucleated RBC % (auto) Neutrophils % (Manual) Band Neutrophils % Lymphocytes % (Manual) Monocytes % (Manual) Basophils % (Manual) Abs Neuts (Manual) Lymphocytes # (Manual) Monocytes # (Manual) Basophils # (Manual) Platelet Estimate Large Platelets Plt Morphology Comment RBC Morphology Polychromasia Hypochromasia Basophilic Stippling Smear Tech's Comments Absolute Retic Percent Retic Immature Retic Fraction Retic Hgb Equivalent PT 16.3 H INR 1.4 H Sodium Potassium Chloride Carbon Dioxide Anion Gap BUN Creatinine Estim Creat Clear Calc Estimated GFR POC Glucose Random Glucose Estimat Average Glucose Hemoglobin A1c % Lactic Acid Calcium Magnesium Total Bilirubin Direct Bilirubin AST ALT Alkaline Phosphatase Troponin I High Sens 40.6 H D Total Protein Albumin Lipase Urine Color Urine Appearance Urine pH Ur Specific [place] Urine Protein Urine Glucose (UA) Urine Ketones Urine Blood Urine Nitrite Ur Leukocyte Esterase Stool Occult Blood POS COVID-19 (ONEAL) COVID-19 [facility] Blood Type Antibody Screen Crossmatch 06/12/20 06/12/20 06/12/20 16:25 16:35 18:39 WBC RBC Hgb Hct MCV MCH MCHC RDW Plt Count MPV Immature Gran % (Auto) Neut % (Auto) Lymph % (Auto) [place] % (Auto) Eos % (Auto) Baso % (Auto) Lymph # (Auto) [place] # (Auto) Eos # (Auto) Baso # (Auto) Abs Immat Gran (auto) Absolute Neuts (auto) Absolute Nucleated RBC Nucleated RBC % (auto) Neutrophils % (Manual) Band Neutrophils % Lymphocytes % (Manual) Monocytes % (Manual) Basophils % (Manual) Abs Neuts (Manual) Lymphocytes # (Manual) Monocytes # (Manual) Basophils # (Manual) Platelet Estimate Large Platelets Plt Morphology Comment RBC Morphology Polychromasia Hypochromasia Basophilic Stippling Smear Tech's Comments Absolute Retic Percent Retic Immature Retic Fraction Retic Hgb Equivalent PT INR Sodium Potassium Chloride Carbon Dioxide Anion Gap BUN Creatinine Estim Creat Clear Calc Estimated GFR POC Glucose Random Glucose Estimat Average Glucose Hemoglobin A1c % Lactic Acid Calcium Magnesium Total Bilirubin Direct Bilirubin AST ALT Alkaline Phosphatase Troponin I High Sens Total Protein Albumin Lipase Urine Color YELLOW Urine Appearance CLEAR Urine pH 5.5 Ur Specific [place] 1.010 Urine Protein NEG Urine Glucose (UA) NEG Urine Ketones NEG Urine Blood NEG Urine Nitrite NEG Ur Leukocyte Esterase NEG Stool Occult Blood COVID-19 (ONEAL) Negative COVID-19 Clin Com See Note Blood Type O Positive Antibody Screen NEGATIVE Crossmatch See Detail 06/12/20 06/12/20 06/13/20 20:09 23:25 00:30 WBC RBC Hgb 7.7 L Hct 22.9 L MCV MCH MCHC RDW Plt Count MPV Immature Gran % (Auto) Neut % (Auto) Lymph % (Auto) [place] % (Auto) Eos % (Auto) Baso % (Auto) Lymph # (Auto) [place] # (Auto) Eos # (Auto) Baso # (Auto) Abs Immat Gran (auto) Absolute Neuts (auto) Absolute Nucleated RBC Nucleated RBC % (auto) Neutrophils % (Manual) Band Neutrophils % Lymphocytes % (Manual) Monocytes % (Manual) Basophils % (Manual) Abs Neuts (Manual) Lymphocytes # (Manual) Monocytes # (Manual) Basophils # (Manual) Platelet Estimate Large Platelets Plt Morphology Comment RBC Morphology Polychromasia Hypochromasia Basophilic Stippling Smear Tech's Comments Absolute Retic Percent Retic Immature Retic Fraction Retic Hgb Equivalent PT INR Sodium 133 L 133 L Potassium 5.0 5.1 Chloride 100 101 Carbon Dioxide 26 26 Anion Gap 12 11 L BUN 54 H 48 H Creatinine 1.25 1.11 Estim Creat Clear Calc 53.5 60.3 Estimated GFR 56 > 60 POC Glucose Random Glucose 328 H 339 H Estimat Average Glucose Hemoglobin A1c % Lactic Acid Calcium 8.1 L 7.7 L Magnesium Total Bilirubin Direct Bilirubin AST ALT Alkaline Phosphatase Troponin I High Sens Total Protein Albumin Lipase Urine Color Urine Appearance Urine pH Ur Specific [place] Urine Protein Urine Glucose (UA) Urine Ketones Urine Blood Urine Nitrite Ur Leukocyte Esterase Stool Occult Blood COVID-19 (ONEAL) COVID-19 Clin Com Blood Type Antibody Screen Crossmatch 06/13/20 06/13/20 06/13/20 00:40 06:31 06:31 WBC 17.5 H RBC 2.39 L Hgb 7.4 L Hct 22.4 L MCV 93.7 MCH 31.0 MCHC 33.0 RDW 14.4 Plt Count 376 MPV 9.8 Immature Gran % (Auto) 1.1 H Neut % (Auto) 85.6 H Lymph % (Auto) 3.4 L [place] % (Auto) 9.2 Eos % (Auto) 0.5 Baso % (Auto) 0.2 Lymph # (Auto) 0.6 L [place] # (Auto) 1.6 H Eos # (Auto) 0.1 Baso # (Auto) 0.0 Abs Immat Gran (auto) 0.20 H Absolute Neuts (auto) 15.0 H Absolute Nucleated RBC 0.040 H Nucleated RBC % (auto) 0.2 Neutrophils % (Manual) Band Neutrophils % Lymphocytes % (Manual) Monocytes % (Manual) Basophils % (Manual) Abs Neuts (Manual) Lymphocytes # (Manual) Monocytes # (Manual) Basophils # (Manual) Platelet Estimate Large Platelets Plt Morphology Comment RBC Morphology Polychromasia Hypochromasia Basophilic Stippling Smear Tech's Comments VERIFIED Absolute Retic Percent Retic Immature Retic Fraction Retic Hgb Equivalent PT INR Sodium 137 Potassium 4.5 Chloride 104 Carbon Dioxide 24 Anion Gap 14 BUN 39 H Creatinine 0.89 Estim Creat Clear Calc 75.2 Estimated GFR > 60 POC Glucose 340 H Random Glucose 206 H D Estimat Average Glucose Hemoglobin A1c % Lactic Acid Calcium 7.8 L Magnesium Total Bilirubin Direct Bilirubin AST ALT Alkaline Phosphatase Troponin I High Sens Total Protein Albumin Lipase Urine Color Urine Appearance Urine pH Ur Specific [place] Urine Protein Urine Glucose (UA) Urine Ketones Urine Blood Urine Nitrite Ur Leukocyte Esterase Stool Occult Blood COVID-19 (ONEAL) COVID-19 Clin Com Blood Type Antibody Screen Crossmatch 06/13/20 06/13/20 06/13/20 07:10 11:06 16:16 WBC RBC Hgb Hct MCV MCH MCHC RDW Plt Count MPV Immature Gran % (Auto) Neut % (Auto) Lymph % (Auto) [place] % (Auto) Eos % (Auto) Baso % (Auto) Lymph # (Auto) [place] # (Auto) Eos # (Auto) Baso # (Auto) Abs Immat Gran (auto) Absolute Neuts (auto) Absolute Nucleated RBC Nucleated RBC % (auto) Neutrophils % (Manual) Band Neutrophils % Lymphocytes % (Manual) Monocytes % (Manual) Basophils % (Manual) Abs Neuts (Manual) Lymphocytes # (Manual) Monocytes # (Manual) Basophils # (Manual) Platelet Estimate Large Platelets Plt Morphology Comment RBC Morphology Polychromasia Hypochromasia Basophilic Stippling Smear Tech's Comments Absolute Retic Percent Retic Immature Retic Fraction Retic Hgb Equivalent PT INR Sodium Potassium Chloride Carbon Dioxide Anion Gap BUN Creatinine Estim Creat Clear Calc Estimated GFR POC Glucose 238 H 284 H 355 H* Random Glucose Estimat Average Glucose Hemoglobin A1c % Lactic Acid Calcium Magnesium Total Bilirubin Direct Bilirubin AST ALT Alkaline Phosphatase Troponin I High Sens Total Protein Albumin Lipase Urine Color Urine Appearance Urine pH Ur Specific [place] Urine Protein Urine Glucose (UA) Urine Ketones Urine Blood Urine Nitrite Ur Leukocyte Esterase Stool Occult Blood COVID-19 (ONEAL) COVID-19 [facility] Blood Type Antibody Screen Crossmatch 06/13/20 06/13/20 06/14/20 18:43 20:27 01:03 WBC 17.0 H RBC 3.17 L D Hgb 9.8 L D 8.9 L Hct 29.6 L D 26.3 L MCV 93.4 MCH 30.9 MCHC 33.1 RDW 14.7 Plt Count 336 MPV 9.4 Immature Gran % (Auto) Neut % (Auto) Lymph % (Auto) [place] % (Auto) Eos % (Auto) Baso % (Auto) Lymph # (Auto) [place] # (Auto) Eos # (Auto) Baso # (Auto) Abs Immat Gran (auto) Absolute Neuts (auto) Absolute Nucleated RBC 0.020 H Nucleated RBC % (auto) 0.1 Neutrophils % (Manual) Band Neutrophils % Lymphocytes % (Manual) Monocytes % (Manual) Basophils % (Manual) Abs Neuts (Manual) Lymphocytes # (Manual) Monocytes # (Manual) Basophils # (Manual) Platelet Estimate Large Platelets Plt Morphology Comment RBC Morphology Polychromasia Hypochromasia Basophilic Stippling Smear Tech's Comments Absolute Retic Percent Retic Immature Retic Fraction Retic Hgb Equivalent PT INR Sodium Potassium Chloride Carbon Dioxide Anion Gap BUN Creatinine Estim Creat Clear Calc Estimated GFR POC Glucose 313 H Random Glucose Estimat Average Glucose Hemoglobin A1c % Lactic Acid Calcium Magnesium Total Bilirubin Direct Bilirubin AST ALT Alkaline Phosphatase Troponin I High Sens Total Protein Albumin Lipase Urine Color Urine Appearance Urine pH Ur Specific [place] Urine Protein Urine Glucose (UA) Urine Ketones Urine Blood Urine Nitrite Ur Leukocyte Esterase Stool Occult Blood COVID-19 (ONEAL) COVID-19 Clin Com Blood Type Antibody Screen Crossmatch 06/14/20 06/14/20 06/14/20 05:27 05:27 06:44 WBC 17.7 H RBC 3.12 L Hgb 9.7 L Hct 29.6 L MCV 94.9 MCH 31.1 MCHC 32.8 RDW 15.5 Plt Count 331 MPV 9.9 Immature Gran % (Auto) Neut % (Auto) Lymph % (Auto) [place] % (Auto) Eos % (Auto) Baso % (Auto) Lymph # (Auto) [place] # (Auto) Eos # (Auto) Baso # (Auto) Abs Immat Gran (auto) Absolute Neuts (auto) Absolute Nucleated RBC 0.020 H Nucleated RBC % (auto) 0.1 Neutrophils % (Manual) Band Neutrophils % Lymphocytes % (Manual) Monocytes % (Manual) Basophils % (Manual) Abs Neuts (Manual) Lymphocytes # (Manual) Monocytes # (Manual) Basophils # (Manual) Platelet Estimate Large Platelets Plt Morphology Comment RBC Morphology Polychromasia Hypochromasia Basophilic Stippling Smear Tech's Comments Absolute Retic Percent Retic Immature Retic Fraction Retic Hgb Equivalent PT INR Sodium 140 Potassium 4.4 Chloride 105 Carbon Dioxide 26 Anion Gap 13 BUN 23 H Creatinine 0.83 Estim Creat Clear Calc 80.6 Estimated GFR > 60 POC Glucose Random Glucose 221 H Estimat Average Glucose 100 Hemoglobin A1c % 5.1 Lactic Acid Calcium 7.7 L Magnesium Total Bilirubin Direct Bilirubin AST ALT Alkaline Phosphatase Troponin I High Sens Total Protein Albumin Lipase Urine Color Urine Appearance Urine pH Ur Specific [place] Urine Protein Urine Glucose (UA) Urine Ketones Urine Blood Urine Nitrite Ur Leukocyte Esterase Stool Occult Blood COVID-19 (ONEAL) COVID-19 Clin Com Blood Type Antibody Screen Crossmatch 06/14/20 06/14/20 06/14/20 08:03 11:14 17:11 WBC RBC Hgb Hct MCV MCH MCHC RDW Plt Count MPV Immature Gran % (Auto) Neut % (Auto) Lymph % (Auto) [place] % (Auto) Eos % (Auto) Baso % (Auto) Lymph # (Auto) [place] # (Auto) Eos # (Auto) Baso # (Auto) Abs Immat Gran (auto) Absolute Neuts (auto) Absolute Nucleated RBC Nucleated RBC % (auto) Neutrophils % (Manual) Band Neutrophils % Lymphocytes % (Manual) Monocytes % (Manual) Basophils % (Manual) Abs Neuts (Manual) Lymphocytes # (Manual) Monocytes # (Manual) Basophils # (Manual) Platelet Estimate Large Platelets Plt Morphology Comment RBC Morphology Polychromasia Hypochromasia Basophilic Stippling Smear Tech's Comments Absolute Retic Percent Retic Immature Retic Fraction Retic Hgb Equivalent PT INR Sodium Potassium Chloride Carbon Dioxide Anion Gap BUN Creatinine Estim Creat Clear Calc Estimated GFR POC Glucose 217 H 223 H 238 H Random Glucose Estimat Average Glucose Hemoglobin A1c % Lactic Acid Calcium Magnesium Total Bilirubin Direct Bilirubin AST ALT Alkaline Phosphatase Troponin I High Sens Total Protein Albumin Lipase Urine Color Urine Appearance Urine pH Ur Specific [place] Urine Protein Urine Glucose (UA) Urine Ketones Urine Blood Urine Nitrite Ur Leukocyte Esterase Stool Occult Blood COVID-19 (ONEAL) COVID-19 [facility] Blood Type Antibody Screen Crossmatch 06/14/20 06/15/20 06/15/20 22:00 05:27 05:27 WBC 18.0 H RBC 3.16 L Hgb 9.9 L Hct 30.7 L MCV 97.2 MCH 31.3 MCHC 32.2 RDW 16.2 H Plt Count 330 MPV 10.1 Immature Gran % (Auto) 0.6 H Neut % (Auto) 89.2 H Lymph % (Auto) 2.3 L [place] % (Auto) 6.7 Eos % (Auto) 1.0 Baso % (Auto) 0.2 Lymph # (Auto) 0.4 L [place] # (Auto) 1.2 Eos # (Auto) 0.2 Baso # (Auto) 0.0 Abs Immat Gran (auto) 0.10 H Absolute Neuts (auto) 16.0 H Absolute Nucleated RBC 0.000 Nucleated RBC % (auto) 0.0 Neutrophils % (Manual) Band Neutrophils % Lymphocytes % (Manual) Monocytes % (Manual) Basophils % (Manual) Abs Neuts (Manual) Lymphocytes # (Manual) Monocytes # (Manual) Basophils # (Manual) Platelet Estimate Large Platelets Plt Morphology Comment RBC Morphology Polychromasia Hypochromasia Basophilic Stippling Smear Tech's Comments VERIFIED Absolute Retic Percent Retic Immature Retic Fraction Retic Hgb Equivalent PT INR Sodium 140 Potassium 4.1 Chloride 105 Carbon Dioxide 24 Anion Gap 15 BUN 19 H Creatinine 0.82 Estim Creat Clear Calc 81.6 Estimated GFR > 60 POC Glucose 315 H Random Glucose 208 H Estimat Average Glucose Hemoglobin A1c % Lactic Acid Calcium 7.4 L Magnesium Total Bilirubin Direct Bilirubin AST ALT Alkaline Phosphatase Troponin I High Sens Total Protein Albumin Lipase Urine Color Urine Appearance Urine pH Ur Specific [place] Urine Protein Urine Glucose (UA) Urine Ketones Urine Blood Urine Nitrite Ur Leukocyte Esterase Stool Occult Blood COVID-19 (ONEAL) COVID-19 [facility] Blood Type Antibody Screen Crossmatch 06/15/20 06/15/20 06/15/20 07:18 11:26 16:46 WBC RBC Hgb Hct MCV MCH MCHC RDW Plt Count MPV Immature Gran % (Auto) Neut % (Auto) Lymph % (Auto) [place] % (Auto) Eos % (Auto) Baso % (Auto) Lymph # (Auto) [place] # (Auto) Eos # (Auto) Baso # (Auto) Abs Immat Gran (auto) Absolute Neuts (auto) Absolute Nucleated RBC Nucleated RBC % (auto) Neutrophils % (Manual) Band Neutrophils % Lymphocytes % (Manual) Monocytes % (Manual) Basophils % (Manual) Abs Neuts (Manual) Lymphocytes # (Manual) Monocytes # (Manual) Basophils # (Manual) Platelet Estimate Large Platelets Plt Morphology Comment RBC Morphology Polychromasia Hypochromasia Basophilic Stippling Smear Tech's Comments Absolute Retic Percent Retic Immature Retic Fraction Retic Hgb Equivalent PT INR Sodium Potassium Chloride Carbon Dioxide Anion Gap BUN Creatinine Estim Creat Clear Calc Estimated GFR POC Glucose 221 H 332 H 241 H Random Glucose Estimat Average Glucose Hemoglobin A1c % Lactic Acid Calcium Magnesium Total Bilirubin Direct Bilirubin AST ALT Alkaline Phosphatase Troponin I High Sens Total Protein Albumin Lipase Urine Color Urine Appearance Urine pH Ur Specific [place] Urine Protein Urine Glucose (UA) Urine Ketones Urine Blood Urine Nitrite Ur Leukocyte Esterase Stool Occult Blood COVID-19 (ONEAL) COVID-19 [facility] Blood Type Antibody Screen Crossmatch Airway Mallampati Class: II TM Dist: >3cm Neck ROM: Full Loose/Missing/Broken Teeth: No Heart: RRR Lungs: CTA Assessment and Plan Assessment Anesthesia Assessment: Anesthesia Plan Discussed Final Anesthetic Review NPO: Yes ASA Class: IV and Emergency Final Preanesthetic Review: No Changes in Pt Med Stat, Meds/Allgs Chart Reviewed, Consent Obtained/Reviewed, Anes Risks/Benef Reviewed and DNR Form (If Appl.) Patient Risk: High Procedure Risk: Low Assessment/Block/Sedation in SS: Assess/Block/Sedation-SS Anesthetic Plan Anesthetic Plan: MAC: Disposition: Standard PACU
--- NOTE | 2020-06-15 18:01 | PM.OP ---
Brief Operative Note Date of Service: 06/15/20 Pre-op diagnosis: anemia, heme positive stools Post-op diagnosis: same (int hemorrhoids) Procedure: colonoscopy Surgeon: Juliano Jeffrey Anesthesia: MAC Estimated blood loss (mL): 0 Pathology: none sent Condition: stable Disposition: PACU
--- NOTE | 2020-06-15 18:02 | PM.EVENT ---
Event Note Date of Service: 06/15/20 Event Note: colonoscopy note dictated no source for metastatic cancer identified mod internal hemorrhoids advance diet anticoagulation for mechanical AVR may be restarted.
[2020-06-15] MEDS: cefTRIAXone sodium 1 GM in 0.9 % Sodium Chloride 50 ML IV (19:41)
--- NOTE | 2020-06-15 20:52 | OP_ITS ---
SURGEON: Juliano Jeffrey MD INDICATIONS: Anemia and Hemoccult-positive stools. PREOPERATIVE DIAGNOSIS: POSTOPERATIVE DIAGNOSIS: PROCEDURE PERFORMED: Colonoscopy to the terminal ileum. ESTIMATED BLOOD LOSS: COMPLICATIONS: ANESTHESIA: ASSISTANTS: SPECIMENS: MEDICATIONS: Monitored anesthesia care. DESCRIPTION OF PROCEDURE: History and physical performed. The risks and benefits of the procedure were explained to the patient. Informed consent was obtained. The patient was placed in the left lateral decubitus position. A digital rectal exam was performed and was found to be normal. The Olympus pediatric video colonoscope was introduced into the rectum and advanced to the cecum without difficulty. The cecum was identified by transillumination, palpation, and identification of ileocecal valve. Examination was performed and the scope was removed. He tolerated the procedure well and was taken to recovery area in stable condition. FINDINGS: The terminal ileum was examined and appeared normal. The visualized colonic mucosa was normal. There was a large amount of liquid stool, which was washed and suctioned. This did limit the sensitivity examination for detection of small polyps. There were several less than 5 mm hyperplastic appearing polyps in the rectum. These were not biopsied. Retroflexed examination showed small to moderate size internal hemorrhoids. IMPRESSION: No source for GI blood loss or metastatic cancer identified. RECOMMENDATIONS: 1. Follow up as needed. Repeat colonoscopy is not recommended for screening. 2. Advance diet. 3. Anticoagulation may be reinstituted for his mechanical heart valve. MD ANANDA Mota/CLARAL / [id number] MTDD
[2020-06-15 21:52] LABS: Glucose, Whole Blood 246 mg/dL (60-115)
[2020-06-15] MEDS: Simethicone 80 MG TAB.CHEW PO (21:54)
[2020-06-16] VITALS (7 sets, daily range): BP systolic 126–154; BP diastolic 55–65; PULSE 53–67; RESP 17–18; TEMP 36–36.9; O2SAT 95–100; BMI 25.2
[2020-06-16] MEDS: Levothyroxine Sodium 50 MCG TABLET PO (05:13)
[2020-06-16 06:52] LABS: Basophils Percent Auto 0.2 % (0-2); Eosinophils Absolute Auto 0.1 X10*3/uL (0.0-0.4); Eosinophils Percent Auto 0.7 % (0-4); Hematocrit 29.3 % (42-52); Hemoglobin 9.3 g/dl (14.0-18.0); Imm Gran Abs Auto 0.08 X10*3/uL (0.00-0.03); Imm Gran Pct Auto 0.5 % (0.0-0.4); Lymphocytes Absolute Auto 0.5 X10*3/uL (1.2-4.9); Lymphocytes Percent Auto 2.9 % (20-40); MANUAL DIFF FLAG SCAN; Mean Corpuscular HGB Conc 31.7 g/dl (31.0-36.0); Mean Corpuscular Hemoglobin 31.4 pg (27.0-33.0); Mean Platelet Volume 10.2 fL (9.4-12.4); Monocytes Absolute Auto 1.3 X10*3/uL (0.1-1.2); Monocytes Percent Auto 7.5 % (2-11); Neutrophils Absolute Auto 14.7 X10*3/uL (2.0-8.3); Neutrophils Percent Auto 88.2 % (45-73); Platelet Count 290 X10*3/uL (160-400); Red Blood Count 2.96 X10*6/uL (4.60-5.80); Red Cell Distribution Width 16.1 % (11.0-16.0); SCAN SMEAR FLAG 1; White Blood Count 16.7 X10*3/uL (4.8-10.8)
[2020-06-16 07:15] LABS: Anion Gap 12 (12-20); Blood Urea Nitrogen 24 mg/dL (9-16); Calcium 7.2 mg/dL (8.4-10.2); Carbon Dioxide 27 mmol/L (22-29); Chloride 105 mmol/L (96-108); Creatinine Clr Calc Pharmacy 61.9; Estimated Glomerular Filt Rate > 60; Glucose Random 229 mg/dL (60-115); Potassium 4.4 mmol/l (3.3-5.1); Sodium 140 mmol/L (135-145)
[2020-06-16 07:49] LABS: Glucose, Whole Blood 221 mg/dL (60-115)
--- NOTE | 2020-06-16 08:41 | HO.POSTANES ---
Post Anesthesia Evaluation Post Anesthesia Evaluation Vital Signs: Vital Signs Temp Pulse Resp BP Pulse Ox 06/16/20 07:31 96.8 F 60 17 136/57 L 95 06/16/20 03:24 97.2 F 53 17 126/60 97 06/15/20 23:36 98.2 F 63 15 116/53 L 99 06/15/20 21:55 73 115/51 L Anesthesia: Monitored Mental Status: Awake Pain Control: Satisfactory Nausea/Vomiting: None Hydration: Adequate Anesthesia-Related Issues: No Anes. Related Issues
[2020-06-16 09:08] LABS: SLIDE REVIEW VERIFIED
[2020-06-16] MEDS: Sotalol HCL 80 MG TABLET 120 MG PO ×2 (09:37→21:43)
[2020-06-16] MEDS: Morphine Sulfate ER 30 MG TABLET.ER PO ×2 (09:37→21:46)
[2020-06-16] MEDS: dilTIAZem HCL CD 180 MG CAP.ER.24H PO (09:38)
[2020-06-16] MEDS: Carbidopa/Levodopa CR 50/200 TABLET.ER 1 TAB PO ×3 (09:38→21:42)
[2020-06-16] MEDS: 0.9 % Sodium Chloride Flush 3 ML SYRINGE IVFLUSH ×2 (09:39→16:39)
[2020-06-16 11:32] LABS: Glucose, Whole Blood 248 mg/dL (60-115)
[2020-06-16] MEDS: Pravastatin Sodium 40 MG TABLET PO (12:33)
[2020-06-16] MEDS: polyethylene glycoL 3350 17 GM POWD.PACK PO (12:34)
[2020-06-16] MEDS: Simethicone 80 MG TAB.CHEW PO ×2 (12:34→21:43)
[2020-06-16] MEDS: Insulin Lispro 100 UNIT/ML 3 ML VIAL SUBCUT ×3 (12:34→21:42)
[2020-06-16] MEDS: Enoxaparin Sodium 80 MG/0.8 ML SYRINGE SUBCUT ×2 (12:57→21:41)
--- NOTE | 2020-06-16 14:46 | MHC.CM.PN ---
Patient is on 3 liters O2 and Iv Ceftriaxone. Discharge plan is home no services. will provide transportation.
--- NOTE | 2020-06-16 16:25 | HO.PM.IMPN ---
Subjective Subjective Date of Service: 06/16/20 Interval History: C-scope done, no bleeding lesions. Resuming anticoagulation. Pt eager to go home. No other complaints. Physical Exam Vital Signs: Vital Signs: Last Vital Signs Temp 97.9 F 06/16/20 15:43 Pulse 60 06/16/20 15:43 Resp 18 06/16/20 15:43 BP 149/65 H 06/16/20 15:43 Pulse Ox 99 06/16/20 15:43 Body Mass Index 25.2 Gen: in no acute distress HEENT: sclera anicteric, pale conjunctivae, moist mucus membranes Neck: supple Lungs: clear to auscultation bilaterally Heart: mechanical S2, no m/r/g Abd: soft, non-tender, non-distended : Hebert draining clear yellow urine Ext: no edema Skin: warm/well-perfused Neuro: alert and oriented x3, no focal findings Psych: appropriate affect Objective Data Current Medications Generic Name Dose Route Start Last Admin Trade Name Freq PRN Reason Stop Dose Admin Acetaminophen 650 mg 06/12/20 22:48 06/14/20 12:55 Acetaminophen 325 Mg Tablet PO 650 mg Q6H PRN Administration Pain, Mild (Pain Scale 1-3) Albuterol Sulfate 2 puff 06/12/20 22:40 Albuterol Sulfate 90 Mcg 8 Gm Inhaler INHALE Q4H PRN Dyspnea Carbidopa/Levodopa 1 tab 06/12/20 22:48 06/16/20 14:45 Carbidopa/Levodopa Cr 50/200 Tablet.Er PO 1 tab TID VIDAL Administration Diltiazem HCl 180 mg 06/13/20 09:00 06/16/20 09:38 Diltiazem Hcl Cd 180 Mg Cap.Er.24h PO 180 mg DAILY VIDAL Administration Protocol Enoxaparin Sodium 80 mg 06/16/20 10:00 06/16/20 12:57 Enoxaparin Sodium 80 Mg/0.8 Ml Syringe 1 mg/kg (80 mg) 80 mg SUBCUT Administration Q12H [facility] Ceftriaxone Sodium 1 gm/ 50 mls @ 100 mls/hr 06/13/20 17:00 06/15/20 20:35 Sodium Chloride IV Infused Q24H [facility] Infusion Insulin Human Lispro 0 unit 06/12/20 22:40 06/16/20 12:34 Insulin Lispro 100 Unit/Ml 3 Ml Vial SUBCUT 2 unit QIDACHS VIDAL Administration Protocol Levothyroxine Sodium 50 mcg 06/13/20 06:00 06/16/20 05:13 Levothyroxine Sodium 50 Mcg Tablet PO 50 mcg DAILY@0600 VIDAL Administration Morphine Sulfate 30 mg 06/13/20 09:00 06/16/20 09:37 Morphine Sulfate Er 30 Mg Tablet.Er PO 30 mg BID VIDAL Administration Ondansetron HCl 4 mg 06/12/20 22:40 Ondansetron Hcl 4 Mg/2 Ml Vial IVPUSH Q8H PRN Nausea and Vomiting Oxycodone HCl 5 mg 06/12/20 22:40 Oxycodone Hcl Immed Release 5 Mg Tablet PO Q8H PRN Breakthrough Pain, Moderate Pharmacy Consult 1 each 06/12/20 16:28 Consult Rx Perform Med Rec MISCELLANE ONCE PRN Consult order Polyethylene Glycol 17 gm 06/14/20 09:00 06/16/20 12:34 Polyethylene Glycol 3350 17 Gm Powd.Pack PO 17 gm DAILY VIDAL Administration Pravastatin Sodium 40 mg 06/13/20 09:00 06/16/20 12:33 Pravastatin Sodium 40 Mg Tablet PO 40 mg DAILY VIDAL Administration Simethicone 80 mg 06/13/20 21:00 06/16/20 12:34 Simethicone 80 Mg Tab.Chew PO 80 mg BID VIDAL Administration Sodium Chloride 3 ml 06/13/20 00:00 06/16/20 09:39 0.9 % Sodium Chloride Flush 3 Ml Syringe IVFLUSH 3 ml QSHIFT VIDAL Administration Sotalol HCl 120 mg 06/13/20 09:00 06/16/20 09:37 Sotalol Hcl 80 Mg Tablet PO 120 mg BID VIDAL Administration Tiotropium [place] 2 puff 06/13/20 08:00 06/15/20 07:31 Tiotropium [place] 18 Mcg Cap.W.Dev INHALE 2 puff RDAILY [facility] Administration Labs CBC & Chem 7: 06/16/20 04:22 06/16/20 04:22 Labs: Laboratory Results - last 24 hr 06/15/20 06/15/20 06/16/20 16:46 21:43 04:22 WBC 16.7 H RBC 2.96 L Hgb 9.3 L Hct 29.3 L MCV 99.0 H MCH 31.4 MCHC 31.7 RDW 16.1 H Plt Count 290 MPV 10.2 Immature Gran % (Auto) 0.5 H Neut % (Auto) 88.2 H Lymph % (Auto) 2.9 L [place] % (Auto) 7.5 Eos % (Auto) 0.7 Baso % (Auto) 0.2 Lymph # (Auto) 0.5 L [place] # (Auto) 1.3 H Eos # (Auto) 0.1 Baso # (Auto) 0.0 Abs Immat Gran (auto) 0.08 H Absolute Neuts (auto) 14.7 H Absolute Nucleated RBC 0.000 Nucleated RBC % (auto) 0.0 Smear Tech's Comments VERIFIED Sodium Potassium Chloride Carbon Dioxide Anion Gap BUN Creatinine Estim Creat Clear Calc Estimated GFR POC Glucose 241 H 246 H Random Glucose Calcium 06/16/20 06/16/20 06/16/20 04:22 07:44 11:19 WBC RBC Hgb Hct MCV MCH MCHC RDW Plt Count MPV Immature Gran % (Auto) Neut % (Auto) Lymph % (Auto) [place] % (Auto) Eos % (Auto) Baso % (Auto) Lymph # (Auto) [place] # (Auto) Eos # (Auto) Baso # (Auto) Abs Immat Gran (auto) Absolute Neuts (auto) Absolute Nucleated RBC Nucleated RBC % (auto) Smear Tech's Comments Sodium 140 Potassium 4.4 Chloride 105 Carbon Dioxide 27 Anion Gap 12 BUN 24 H Creatinine 1.08 Estim Creat Clear Calc 61.9 Estimated GFR > 60 POC Glucose 221 H 248 H Random Glucose 229 H Calcium 7.2 L Microbiology Microbiology Results: Microbiology 06/14/20 18:11 Urine [place] Urine Culture - Final No growth. 06/12/20 15:17 Blood - Venous Blood Culture - Preliminary No growth after 48 hours. 06/12/20 15:03 Blood - Venous Blood Culture - Preliminary No growth after 48 hours. Assessment and Plan (1) Acute blood loss anemia: Status: Acute (2) MICKIE (acute kidney injury): Status: Acute Assessment and Plan: hospital d#5 74yo M with metastatic adenoCA of unknown primary (colorectal, upper GI, or pancreatobiliary; followed by Dr Mast), anticoagulated with LMWH for mechanical aortic valve and PE (diagnosed 04/28/20 and changed then from warfarin to LMWH) p/w weakness, abd pain, dizziness, and urinary retention admitted for anemia with +FOBT, MICKIE, hyponatremia, hyperK, urinary retention # acute blood loss anemia # possible GIB - Hb stable s/p 3u pRBCs transfused - per Dr Garcia EGD 06/13/20 with erosive esophagitis, not hemorrhagic - per Dr Jeffrey C-scope 06/16/20 with internal hemorrhoids, no colonic source of bleeding and no metastasis - OK to resume anticoagulation, will cancel IVC filter # mechanical aortic valve # PE # AF - resume LMWH 1 mg/kg q12h and monitor Hb - continue sotalol + diltiazem # prerenal MICKIE # hyperK # hypoNa - resolved s/p transfusion + IV fluids + SPS # urinary retention - Hebert # question of UTI - ceftriaxone d#5, UCx NGTD but sent after 3d of ABX # DM2 - correction-dose lispro, A1c only 5.1 # COPD, not in acute exacerbation - continue LAMA + prn IVA # chronic pain - continue MSSR + prn oxycodone # Parkinson disease - continue Sinemet # hypothyroidism - continue LT4 # adenoCA of unknown primary - f/u with Dr Mast for further treatment as outpt # dispo - home with VNA after monitoring in hospital 1-2d on LMWH I updated the pt's Trish via telephone
[2020-06-16] MEDS: cefTRIAXone sodium 1 GM in 0.9 % Sodium Chloride 50 ML IV (17:21)
[2020-06-16 20:59] LABS: Glucose, Whole Blood 293 mg/dL (60-115)
[2020-06-17] VITALS (11 sets, daily range): BP systolic 134–160; BP diastolic 61–71; PULSE 59–74; RESP 18; TEMP 36.6–36.7; O2SAT 93–100
[2020-06-17] MEDS: Levothyroxine Sodium 50 MCG TABLET PO (05:53)
[2020-06-17 07:15] LABS: Basophils Percent Auto 0.2 % (0-2); Eosinophils Absolute Auto 0.4 X10*3/uL (0.0-0.4); Eosinophils Percent Auto 2.3 % (0-4); Hematocrit 33.2 % (42-52); Hemoglobin 10.3 g/dl (14.0-18.0); Imm Gran Abs Auto 0.06 X10*3/uL (0.00-0.03); Imm Gran Pct Auto 0.4 % (0.0-0.4); Lymphocytes Absolute Auto 0.3 X10*3/uL (1.2-4.9); Lymphocytes Percent Auto 1.8 % (20-40); MANUAL DIFF FLAG SCAN; Mean Corpuscular Hemoglobin 30.8 pg (27.0-33.0); Mean Corpuscular Volume 99.4 fL (80-98); Mean Platelet Volume 10.5 fL (9.4-12.4); Monocytes Absolute Auto 1.3 X10*3/uL (0.1-1.2); Monocytes Percent Auto 7.6 % (2-11); Neutrophils Absolute Auto 14.8 X10*3/uL (2.0-8.3); Neutrophils Percent Auto 87.7 % (45-73); Platelet Count 370 X10*3/uL (160-400); Red Blood Count 3.34 X10*6/uL (4.60-5.80); Red Cell Distribution Width 15.8 % (11.0-16.0); SCAN SMEAR FLAG 1; White Blood Count 16.9 X10*3/uL (4.8-10.8)
[2020-06-17 07:28] LABS: Glucose, Whole Blood 216 mg/dL (60-115)
[2020-06-17] MEDS: Insulin Lispro 100 UNIT/ML 3 ML VIAL SUBCUT ×4 (07:34→21:41)
[2020-06-17] MEDS: 0.9 % Sodium Chloride Flush 3 ML SYRINGE IVFLUSH ×3 (07:34→21:10)
[2020-06-17 08:56] LABS: SLIDE REVIEW VERIFIED
[2020-06-17] MEDS: polyethylene glycoL 3350 17 GM POWD.PACK PO (09:08)
[2020-06-17] MEDS: Enoxaparin Sodium 80 MG/0.8 ML SYRINGE SUBCUT ×2 (09:10→21:10)
[2020-06-17] MEDS: dilTIAZem HCL CD 180 MG CAP.ER.24H PO (09:11)
[2020-06-17] MEDS: Carbidopa/Levodopa CR 50/200 TABLET.ER 1 TAB PO ×3 (09:11→21:10)
[2020-06-17] MEDS: Morphine Sulfate ER 30 MG TABLET.ER PO ×2 (09:11→21:08)
[2020-06-17] MEDS: Simethicone 80 MG TAB.CHEW PO ×2 (09:11→21:10)
[2020-06-17] MEDS: Pravastatin Sodium 40 MG TABLET PO (09:12)
[2020-06-17] MEDS: Sotalol HCL 80 MG TABLET 120 MG PO ×2 (09:15→22:49)
[2020-06-17 11:07] LABS: Glucose, Whole Blood 276 mg/dL (60-115)
--- NOTE | 2020-06-17 12:02 | P.PNIM_ITS ---
Subjective Subjective Date of Service: 06/17/20 Interval History: No hematochezia or melena. Denies abd pain. Physical Exam Vital Signs: Vital Signs: Last Vital Signs Temp 97.8 F 06/17/20 11:19 Pulse 61 06/17/20 11:19 Resp 18 06/17/20 11:19 BP 154/63 H 06/17/20 11:19 Pulse Ox 97 06/17/20 11:19 Body Mass Index 25.2 Gen: in no acute distress HEENT: sclera anicteric, pale conjunctivae, moist mucus membranes Neck: supple Lungs: clear to auscultation bilaterally Heart: mechanical S2, no m/r/g Abd: soft, non-tender, non-distended : Hebert draining clear yellow urine Ext: no edema Skin: warm/well-perfused Neuro: alert and oriented x3, no focal findings Psych: appropriate affect Objective Data Current Medications Generic Name Dose Route Start Last Admin Trade Name Freq PRN Reason Stop Dose Admin Acetaminophen 650 mg 06/12/20 22:48 06/14/20 12:55 Acetaminophen 325 Mg Tablet PO 650 mg Q6H PRN Administration Pain, Mild (Pain Scale 1-3) Albuterol Sulfate 2 puff 06/12/20 22:40 Albuterol Sulfate 90 Mcg 8 Gm Inhaler INHALE Q4H PRN Dyspnea Carbidopa/Levodopa 1 tab 06/12/20 22:48 06/17/20 09:11 Carbidopa/Levodopa Cr 50/200 Tablet.Er PO 1 tab TID VIDAL Administration Diltiazem HCl 180 mg 06/13/20 09:00 06/17/20 09:11 Diltiazem Hcl Cd 180 Mg Cap.Er.24h PO 180 mg DAILY VIDAL Administration Protocol Enoxaparin Sodium 80 mg 06/16/20 10:00 06/17/20 09:10 Enoxaparin Sodium 80 Mg/0.8 Ml Syringe 1 mg/kg (80 mg) 80 mg SUBCUT Administration Q12H REPLACED BY [facility] Ceftriaxone Sodium 1 gm/ 50 mls @ 100 mls/hr 06/13/20 17:00 06/16/20 17:57 Sodium Chloride IV Infused Q24H REPLACED BY [facility] Infusion Insulin Human Lispro 0 unit 06/12/20 22:40 06/17/20 11:12 Insulin Lispro 100 Unit/Ml 3 Ml Vial SUBCUT 4 unit QIDACHS VIDAL Administration Protocol Levothyroxine Sodium 50 mcg 06/13/20 06:00 06/17/20 05:53 Levothyroxine Sodium 50 Mcg Tablet PO 50 mcg DAILY@0600 VIDAL Administration Morphine Sulfate 30 mg 06/13/20 09:00 06/17/20 09:11 Morphine Sulfate Er 30 Mg Tablet.Er PO 30 mg BID VIDAL Administration Ondansetron HCl 4 mg 06/12/20 22:40 Ondansetron Hcl 4 Mg/2 Ml Vial IVPUSH Q8H PRN Nausea and Vomiting Oxycodone HCl 5 mg 06/12/20 22:40 Oxycodone Hcl Immed Release 5 Mg Tablet PO Q8H PRN Breakthrough Pain, Moderate Pharmacy Consult 1 each 06/12/20 16:28 Consult Rx Perform Med Rec MISCELLANE ONCE PRN Consult order Polyethylene Glycol 17 gm 06/14/20 09:00 06/17/20 09:08 Polyethylene Glycol 3350 17 Gm Powd.Pack PO 17 gm DAILY VIDAL Administration Pravastatin Sodium 40 mg 06/13/20 09:00 06/17/20 09:12 Pravastatin Sodium 40 Mg Tablet PO 40 mg DAILY VIDAL Administration Simethicone 80 mg 06/13/20 21:00 06/17/20 09:11 Simethicone 80 Mg Tab.Chew PO 80 mg BID VIDAL Administration Sodium Chloride 3 ml 06/13/20 00:00 06/17/20 07:34 0.9 % Sodium Chloride Flush 3 Ml Syringe IVFLUSH 3 ml QSHIFT VIDAL Administration Sotalol HCl 120 mg 06/13/20 09:00 06/17/20 09:15 Sotalol Hcl 80 Mg Tablet PO 120 mg BID VIDAL Administration Tiotropium [place] 2 puff 06/13/20 08:00 06/17/20 07:29 Tiotropium [place] 18 Mcg Cap.W.Dev INHALE 2 puff RDAILY VIDAL Administration Labs CBC & Chem 7: 06/17/20 05:20 06/16/20 04:22 Labs: Laboratory Results - last 24 hr 06/16/20 06/17/20 06/17/20 20:47 05:20 07:23 WBC 16.9 H RBC 3.34 L Hgb 10.3 L Hct 33.2 L MCV 99.4 H MCH 30.8 MCHC 31.0 RDW 15.8 Plt Count 370 D MPV 10.5 Immature Gran % (Auto) 0.4 Neut % (Auto) 87.7 H Lymph % (Auto) 1.8 L [place] % (Auto) 7.6 Eos % (Auto) 2.3 Baso % (Auto) 0.2 Lymph # (Auto) 0.3 L [place] # (Auto) 1.3 H Eos # (Auto) 0.4 Baso # (Auto) 0.0 Abs Immat Gran (auto) 0.06 H Absolute Neuts (auto) 14.8 H Absolute Nucleated RBC 0.000 Nucleated RBC % (auto) 0.0 Smear Tech's Comments VERIFIED POC Glucose 293 H 216 H 06/17/20 11:01 WBC RBC Hgb Hct MCV MCH MCHC RDW Plt Count MPV Immature Gran % (Auto) Neut % (Auto) Lymph % (Auto) [place] % (Auto) Eos % (Auto) Baso % (Auto) Lymph # (Auto) [place] # (Auto) Eos # (Auto) Baso # (Auto) Abs Immat Gran (auto) Absolute Neuts (auto) Absolute Nucleated RBC Nucleated RBC % (auto) Smear Tech's Comments POC Glucose 276 H Microbiology Microbiology Results: Microbiology 06/14/20 18:11 Urine [place] Urine Culture - Final No growth. 06/12/20 15:17 Blood - Venous Blood Culture - Preliminary No growth after 48 hours. 06/12/20 15:03 Blood - Venous Blood Culture - Preliminary No growth after 48 hours. Assessment and Plan (1) Acute blood loss anemia: Status: Acute (2) MICKIE (acute kidney injury): Status: Acute Assessment and Plan: hospital d#6 74yo M with metastatic adenoCA of unknown primary (colorectal, upper GI, or pancreatobiliary; followed by Dr Mast), anticoagulated with LMWH for mechanical aortic valve and PE (diagnosed 04/28/20 and changed then from warfarin to LMWH) p/w weakness, abd pain, dizziness, and urinary retention admitted for anemia with +FOBT, MICKIE, hyponatremia, hyperK, urinary retention # acute blood loss anemia # possible GIB - Hb stable s/p 3u pRBCs transfused - per Dr Garcia EGD 06/13/20 with erosive esophagitis, not hemorrhagic - per Dr Jeffrey C-scope 06/16/20 with internal hemorrhoids, no colonic source of bleeding and no metastasis - OK to resume anticoagulation, will cancel IVC filter # mechanical aortic valve # PE # AF - resume LMWH 1 mg/kg q12h and monitor Hb - continue sotalol + diltiazem # prerenal MICKIE # hyperK # hypoNa - resolved s/p transfusion + IV fluids + SPS # leukocytosis - likely due to underlying CA rather than infection # urinary retention - voiding trial # question of UTI - s/p 5d ceftriaxone, UCx NGTD but sent after 3d of ABX # DM2 - correction-dose lispro, A1c only 5.1 # COPD, not in acute exacerbation - continue LAMA + prn IVA # chronic pain - continue MSSR + prn oxycodone # Parkinson disease - continue Sinemet # hypothyroidism - continue LT4 # adenoCA of unknown primary - f/u with Dr Mast for further treatment as outpt # dispo - home with VNA likely tomorrow if Hb stable I updated the pt's Trish via telephone
--- NOTE | 2020-06-17 12:35 | W.MHC.F2F ---
Service Date Service Date: 06/17/20 Encounter Date of encounter: 06/17/20 Reasons for Services Reason for senior living: medication management, medication treatment, teach disease management and GI/ assessment Reason for physical therapy: home safety and mobility, therapeutic exercises, gait/transfer training, assess need for DME, ADL training and energy conservation MD Overseeing Care: Jorge Currie Homebound: Leaving the home is medically contraindicated at this time without the asist of a device and/or another person due th the listed conditions above and below. Reason homebound: unsteady gait / fall risk and weakness related to hospital stay Homebound supporting statement: Mr [place] [facility] [place] Certification: Based on the above findings, I certify that this patient is confined to the home and needs intermittent senior living care, physical therapy and/or speech therapy, or continues to need occupational therapy. The patient is under my care, and I have initiated the establishment of the plan of care. The patient will be followed by a physician who will periodically review the plan of care.
--- NOTE | 2020-06-17 15:42 | MHC.CM.PN ---
CM met with patient to discuss discharge since PT recommends home PT. Referral made to [facility] per patient request. CM will continue to follow patient for discharge needs.
[2020-06-17 17:20] LABS: Glucose, Whole Blood 259 mg/dL (60-115)
[2020-06-17 20:30] LABS: Glucose, Whole Blood 259 mg/dL (60-115)
[2020-06-18] VITALS: BP 119/58; PULSE 59; RESP 18; TEMP 36.6; O2SAT 94
[2020-06-18 03:40] VITALS: BP 137/63; PULSE 58; RESP 18; TEMP 36.7; O2SAT 98
[2020-06-18] MEDS: Levothyroxine Sodium 50 MCG TABLET PO (05:09)
[2020-06-18 08:00] VITALS: BP 137/64; PULSE 68; RESP 20; TEMP 37.3; O2SAT 93
[2020-06-18 08:26] LABS: Glucose, Whole Blood 211 mg/dL (60-115)
[2020-06-18 08:32] VITALS: PULSE 65; O2SAT 99
[2020-06-18] MEDS: Insulin Lispro 100 UNIT/ML 3 ML VIAL SUBCUT ×2 (08:50→11:54)
[2020-06-18] MEDS: Enoxaparin Sodium 80 MG/0.8 ML SYRINGE SUBCUT (08:51)
[2020-06-18] MEDS: polyethylene glycoL 3350 17 GM POWD.PACK PO (08:52)
[2020-06-18 08:54] VITALS: BP 137/64; PULSE 67
[2020-06-18] MEDS: dilTIAZem HCL CD 180 MG CAP.ER.24H PO (08:54)
[2020-06-18] MEDS: 0.9 % Sodium Chloride Flush 3 ML SYRINGE IVFLUSH (08:54)
[2020-06-18 08:55] VITALS: BP 137/64; PULSE 67
[2020-06-18] MEDS: Sotalol HCL 80 MG TABLET 120 MG PO (08:55)
[2020-06-18] MEDS: Simethicone 80 MG TAB.CHEW PO (08:55)
[2020-06-18] MEDS: Morphine Sulfate ER 30 MG TABLET.ER PO (08:57)
[2020-06-18] MEDS: Pravastatin Sodium 40 MG TABLET PO (08:57)
[2020-06-18] MEDS: Carbidopa/Levodopa CR 50/200 TABLET.ER 1 TAB PO (08:57)
[2020-06-18 09:47] LABS: Basophils Percent Auto 0.3 % (0-2); Eosinophils Absolute Auto 0.3 X10*3/uL (0.0-0.4); Eosinophils Percent Auto 2.1 % (0-4); Hematocrit 32.1 % (42-52); Hemoglobin 10.4 g/dl (14.0-18.0); Imm Gran Abs Auto 0.06 X10*3/uL (0.00-0.03); Imm Gran Pct Auto 0.4 % (0.0-0.4); Lymphocytes Absolute Auto 0.3 X10*3/uL (1.2-4.9); Lymphocytes Percent Auto 2.5 % (20-40); MANUAL DIFF FLAG SCAN; Mean Corpuscular HGB Conc 32.4 g/dl (31.0-36.0); Mean Corpuscular Hemoglobin 31.6 pg (27.0-33.0); Mean Corpuscular Volume 97.6 fL (80-98); Mean Platelet Volume 10.3 fL (9.4-12.4); Monocytes Absolute Auto 0.9 X10*3/uL (0.1-1.2); Monocytes Percent Auto 6.4 % (2-11); Neutrophils Absolute Auto 11.9 X10*3/uL (2.0-8.3); Neutrophils Percent Auto 88.3 % (45-73); Platelet Count 386 X10*3/uL (160-400); Red Blood Count 3.29 X10*6/uL (4.60-5.80); Red Cell Distribution Width 15.2 % (11.0-16.0); SCAN SMEAR FLAG 1; White Blood Count 13.4 X10*3/uL (4.8-10.8)
[2020-06-18 10:20] LABS: SLIDE REVIEW VERIFIED
[2020-06-18 11:39] LABS: Glucose, Whole Blood 232 mg/dL (60-115)
--- NOTE | 2020-06-18 11:39 | P.DS_ITS ---
DS: Providers Provider Date of Service: 06/18/20 Date of admission: 06/12/20 19:10 Primary care physician: Jorge Currie MD Consults: 06/12/20 22:40 Consult to Cardiology Routine Consulting Provider: Alfredo Orellana Reason for consultation: aortic valve, gi bleed Has provider been notified: No 06/13/20 07:57 Consult to Gastroenterology Routine Consulting Provider: Day Garcia Reason for consultation: GI bleed Has provider been notified: No 06/13/20 07:58 Consult to Hematology / Oncology Routine Consulting Provider: Kaela Mast Reason for consultation: pulm embolism , metastatic cancer , gi bleed on lovenox Has provider been notified: No DS: Diagnosis Discharge Diagnosis (1) Acute blood loss anemia: Status: Acute (2) MICKIE (acute kidney injury): Status: Acute (3) Status post mechanical aortic valve replacement: Status: Acute (4) Adenocarcinoma of unknown primary: Status: Acute (5) Leukocytosis: Status: Acute (6) UTI (urinary tract infection): Status: Acute (7) Hyperkalemia: Status: Acute DS: Medications Discharge Medications Home Medications: Home Medications Medication Instructions Recorded Confirmed carbidopa-levodopa 1 tab PO TID 04/28/20 06/17/20 losartan 25 mg PO DAILY 04/28/20 06/17/20 albuterol sulfate [ProAir HFA] 2 puff INHALATION Q4-6H PRN 06/12/20 06/17/20 insulin asp prt-insulin aspart 8 unit SUBCUT TID 06/12/20 06/17/20 [Novolog Mix 70-30FlexPen U-100] Previous Rx's Medication Instructions Recorded diltiazem HCl 180 mg 180 mg PO DAILY 90 Days #90 cap 03/22/20 capsule,extended release 24 hr furosemide 20 mg tablet 40 mg PO DAILY 90 Days #180 tab 03/22/20 levothyroxine 50 mcg tablet 50 mcg PO DAILY 90 Days #90 tab 03/22/20 pravastatin 40 mg tablet 40 mg PO DAILY 90 Days #90 tab 03/22/20 sotalol 120 mg tablet 120 mg PO BID 90 Days #180 tab 03/22/20 oxycodone 5 mg PO Q8H PRN #40 cap 04/27/20 enoxaparin 90 mg SUBCUT Q12H 30 Days #54 ml 04/30/20 blood sugar diagnostic #100 ea 06/02/20 tiotropium bromide 2.5 2 puff INHALATION DAILY 90 Days #3 06/02/20 mcg/actuation mist for inhalation units morphine [MS Contin] 30 mg PO Q12H #60 tab 06/09/20 DS: Summary Hospital Course Hospital Course: From admission history and physical by hospitalist María Trevino 06/12/19: 74 year old man presenting with abdominal pain, dizziness and urinary retention. Over the last 3 days he has been stating that he is hungry but has no appetite. He was feeling dizzy with some abdominal pain. Today he started having nausea and vomited one time. He reported having some lower abdominal pain and difficulty with urination. According to his he had no fever, chills, no bloody stools. He has been generally declining and and has been more weak recently. 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 Patient was also having issues with his blood sugar and his medications had been adjusted due to hypoglycemiaHe was started on Lovenox for PE. He was on warfarin previously due to mechanical aortic valve. In the ED, he had multiple abnormalities including sodium 128, potassium 5.8, creatinine 1.4. Urinalysis w as positive for infection. He received a dose of Rocephin, insulin, kayexalate and 2 liters of IV fluids. Two units of PRBC was also ordered. He will be admitted for further management and treatment of GI bleed. The patient was transfused a total of 3 units of pRBCs and his hemoglobin stabilized. He underwent EGD on 06/13/[address] Day Garcia that showed mild, non-hemorrhagic erosive esophatgitis. Colonoscopy on 06/16/[address] Juliano Jeffrey showed internal hemorrhoids; there was no colonic source of bleeding and no metastases. Anticoagulation was resumed with enoxaparin 1 mg/kg q12h and his hemoglobin remained stable. Prerenal MICKIE and hyperkalemia resolved after transfusion, IV fluids, and SPS. He was treated with ceftriaxone for 5 days for UTI. Leukocytosis was attributed to the underlying untreated adenocarcinoma rather than to infection. 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 Future order for CBC with differential and basic metabolic panel in 1 week was placed. Time Spent with Patient Time attestation: Total time spent providing and/or coordinating discharge services: 45 Discharge coordination time: Greater than 30 minutes Physical Exam Vital Signs: Vital Signs: Last Vital Signs Temp 99.1 F 06/18/20 08:00 Pulse 67 06/18/20 08:55 Resp 20 06/18/20 08:00 BP 137/64 06/18/20 08:55 Pulse Ox 93 06/18/20 08:00 Body Mass Index 25.2 Gen: in no acute distress HEENT: sclera anicteric, pale conjunctivae, moist mucus membranes Neck: supple Lungs: clear to auscultation bilaterally Heart: mechanical S2, no m/r/g Abd: soft, non-tender, non-distended : Hebert draining clear yellow urine Ext: no edema Skin: warm/well-perfused Neuro: alert and oriented x3, no focal findings Psych: appropriate affectGen: in no acute distress HEENT: sclera anicteric, pale conjunctivae, moist mucus membranes Neck: supple Lungs: clear to auscultation bilaterally Heart: mechanical S2, no m/r/g Abd: soft, non-tender, non-distended : Hebert draining clear yellow urine Ext: no edema Skin: warm/well-perfused Neuro: alert and oriented x3, no focal findings Psych: appropriate affect DS: Data Data Completed and Pending Labs on day of discharge: Laboratory Results WBC 13.4 X10*3/uL (4.8-10.8) H 06/18/20 09:05 RBC 3.29 X10*6/uL (4.60-5.80) L 06/18/20 09:05 Hgb 10.4 g/dl (14.0-18.0) L 06/18/20 09:05 Hct 32.1 % (42-52) L 06/18/20 09:05 MCV 97.6 fL (80-98) 06/18/20 09:05 MCH 31.6 pg (27.0-33.0) 06/18/20 09:05 MCHC 32.4 g/dl (31.0-36.0) 06/18/20 09:05 RDW 15.2 % (11.0-16.0) 06/18/20 09:05 Plt Count 386 X10*3/uL (160-400) 06/18/20 09:05 MPV 10.3 fL (9.4-12.4) 06/18/20 09:05 Immature Gran % (Auto) 0.4 % (0.0-0.4) 06/18/20 09:05 Neut % (Auto) 88.3 % (45-73) H 06/18/20 09:05 Lymph % (Auto) 2.5 % (20-40) L 06/18/20 09:05 [facility] % (Auto) 6.4 % (2-11) 06/18/20 09:05 Eos % (Auto) 2.1 % (0-4) 06/18/20 09:05 Baso % (Auto) 0.3 % (0-2) 06/18/20 09:05 Lymph # (Auto) 0.3 X10*3/uL (1.2-4.9) L 06/18/20 09:05 [facility] # (Auto) 0.9 X10*3/uL (0.1-1.2) 06/18/20 09:05 Eos # (Auto) 0.3 X10*3/uL (0.0-0.4) 06/18/20 09:05 Baso # (Auto) 0.0 X10*3/uL (0.0-0.2) 06/18/20 09:05 Abs Immat Gran (auto) 0.06 X10*3/uL (0.00-0.03) H 06/18/20 09:05 Absolute Neuts (auto) 11.9 X10*3/uL (2.0-8.3) H 06/18/20 09:05 Absolute Nucleated RBC 0.000 X10*3/uL (0.0-0.012) 06/18/20 09:05 Nucleated RBC % (auto) 0.0 /100WBC (0.0-0.2) 06/18/20 09:05 Neutrophils % (Manual) 88 % (45-73) H 06/12/20 15:03 Band Neutrophils % 3 % (3-5) 06/12/20 15:03 Lymphocytes % (Manual) 3 % (20-40) L 06/12/20 15:03 Monocytes % (Manual) 5 % (2-11) 06/12/20 15:03 Basophils % (Manual) 1 % (0-1) 06/12/20 15:03 Abs Neuts (Manual) 14.7 X10*3/uL (2.2-7.9) H 06/12/20 15:03 Lymphocytes # (Manual) 0.5 X10*3/uL (0.6-4.8) L 06/12/20 15:03 Monocytes # (Manual) 0.8 X10*3/uL (0.0-1.2) 06/12/20 15:03 Basophils # (Manual) 0.2 X10*3/uL (0.0-0.3) 06/12/20 15:03 Platelet Estimate NORMAL (NORMAL) 06/12/20 15:03 Large Platelets PRESENT 06/12/20 15:03 Plt Morphology Comment NOTED 06/12/20 15:03 RBC Morphology NOTED 06/12/20 15:03 Polychromasia 1+ 06/12/20 15:03 Hypochromasia 1+ 06/12/20 15:03 Basophilic Stippling 1+ 06/12/20 15:03 Smear Tech's Comments VERIFIED 06/18/20 09:05 Absolute Retic 0.100 X10*6/uL (0.026-0.095) H 06/12/20 15:03 Percent Retic 4.5 % (0.5-1.8) H 06/12/20 15:03 Immature Retic Fraction 42.1 % (2.3-13.4) H 06/12/20 15:03 Retic Hgb Equivalent 35.4 pg (30.0-35.0) H 06/12/20 15:03 PT 16.3 SEC (10.8-13.0) H 06/12/20 15:03 INR 1.4 (0.9-1.1) H 06/12/20 15:03 Sodium 140 mmol/L (135-145) 06/16/20 04:22 Potassium 4.4 mmol/l (3.3-5.1) 06/16/20 04:22 Chloride 105 mmol/L (96-108) 06/16/20 04:22 Carbon Dioxide 27 mmol/L (22-29) 06/16/20 04:22 Anion Gap 12 (12-20) 06/16/20 04:22 BUN 24 mg/dL (9-16) H 06/16/20 04:22 Creatinine 1.08 mg/dL (0.5-1.4) 06/16/20 04:22 Estim Creat Clear Calc 61.9 06/16/20 04:22 Estimated GFR > 60 06/16/20 04:22 POC Glucose 232 mg/dL (60-115) H 06/18/20 11:29 Random Glucose 229 mg/dL (60-115) H 06/16/20 04:22 Estimat Average Glucose 100 mg/dL 06/14/20 06:44 Hemoglobin A1c % 5.1 % 06/14/20 06:44 Lactic Acid 1.3 mmol/L (0.5-2.0) 06/12/20 15:03 Calcium 7.2 mg/dL (8.4-10.2) L 06/16/20 04:22 Magnesium 1.9 mg/dL (1.6-2.6) 06/12/20 15:03 Total Bilirubin 0.7 mg/dL (0.0-1.0) 06/12/20 15:03 Direct Bilirubin 0.6 mg/dL (0.0-0.5) H 06/12/20 15:03 AST 81 U/L (5-37) H 06/12/20 15:03 ALT 16 U/L (0-40) 06/12/20 15:03 Alkaline Phosphatase 365 U/L (39-117) H 06/12/20 15:03 Troponin I High Sens 40.6 ng/L (<3.5-35.0) H D 06/12/20 15:03 Total Protein 5.6 g/dL (6.5-8.0) L 06/12/20 15:03 Albumin 3.1 g/dL (3.5-5.0) L 06/12/20 15:03 Lipase 24 U/L (8-78) 06/12/20 15:03 Urine Color YELLOW 06/12/20 18:39 Urine Appearance CLEAR 06/12/20 18:39 Urine pH 5.5 (5.0-8.0) 06/12/20 18:39 Ur Specific [place] 1.010 (1.005-1.025) 06/12/20 18:39 Urine Protein NEG MG/DL (NEG-TRACE) 06/12/20 18:39 Urine Glucose (UA) NEG MG/DL (NEG) 06/12/20 18:39 Urine Ketones NEG MG/DL (NEG) 06/12/20 18:39 Urine Blood NEG (NEG) 06/12/20 18:39 Urine Nitrite NEG (NEG) 06/12/20 18:39 Ur Leukocyte Esterase NEG (NEG) 06/12/20 18:39 Stool Occult Blood POS (NEG) 06/12/20 15:55 COVID-19 (ONEAL) Negative (Negative) 06/12/20 16:35 COVID-19 Clin Com See Note 06/12/20 16:35 Blood Type O Positive 06/12/20 16:25 Antibody Screen NEGATIVE 06/12/20 16:25 Crossmatch See Detail 06/12/20 16:25 Impressions Abdomen/Pelvis CT 06/12/20 15:50 IMPRESSION: 1. Ovoid, hyperdense foci within the right greater than left rectus abdominis muscles, which could represent intramuscular hematomas. The largest on the right measures up to 2.2 cm in greatest axial dimension. 2. No intra-abdominal, pelvic, or retroperitoneal hematoma. 3. Cirrhosis is redemonstrated with slight interval increase in simple ascites. Heterogeneity redemonstrated throughout the right hepatic lobe. 4. Central mesenteric and retroperitoneal lymphadenopathy is similar when compared to the recent PET/CT and slightly increased when compared to the CT dated 04/28/2020. 5. Multiple lytic lesions redemonstrated throughout the osseous structures, similar when compared to the recent PET/CT. 6. Additional chronic findings are unchanged. Venous Duplex 06/12/20 16:55 IMPRESSION: No DVT demonstrated in the bilateral lower extremities. Discharge Plan Discharge Anticipated Discharge Date/Time: 06/18/20 11:33 Patient Disposition: Home Health Service Referrals: [facility] [Outside] Jorge Currie MD [Primary Care Provider] - Kaela Mast MD [Physician] - (week of 06/21/20) Discharge Medications: Continued Spiriva Respimat 2.5 mcg/actuation mist 2 puff inhalation DAILY 90 Days Qty: 3 RF: 3 (DME) OneTouch Verio test strips Strip See Rx Instructions .ROUTE .MEDSUPPLY Qty: 100 RF: 12 morphine [MS Contin] 30 mg Tablet Extended Release 30 mg PO Q12H Qty: 60 RF: 0 oxycodone 5 mg Capsule 5 mg PO Q8H PRN (Reason: Breakthrough Pain, Moderate) Qty: 40 RF: 0 losartan 50 mg Tablet 25 mg PO DAILY RF: 0 carbidopa-levodopa 50-200 mg tablet extended release 1 tab PO TID RF: 0 enoxaparin 100 mg/mL Syringe 90 mg subcut Q12H 30 Days Qty: 54 RF: 2 albuterol sulfate [ProAir HFA] 90 mcg/actuation Hfa Aerosol Inhaler 2 puff INHALATION Q4-6H PRN (Reason: Dyspnea) RF: 0 insulin asp prt-insulin aspart [Novolog Mix 70-30FlexPen U-100] 100 unit/mL (70-30) insulin pen 8 unit subcut TID RF: 0 diltiazem HCl 180 mg capsule,extended release 24hr 180 mg PO DAILY 90 Days Qty: 90 RF: 3 sotalol 120 mg tablet 120 mg PO BID 90 Days Qty: 180 RF: 3 levothyroxine 50 mcg tablet 50 mcg PO DAILY 90 Days Qty: 90 RF: 3 pravastatin 40 mg tablet 40 mg PO DAILY 90 Days Qty: 90 RF: 3 furosemide 20 mg tablet 40 mg PO DAILY 90 Days Qty: 180 RF: 3 Discharge Orders: Discharge Order (Routine); Ordered 06/18/20 Ordered By: Rommel Sanchez Diet: diabetic diet Activity on Discharge: As tolerated Other Ambulatory Orders: Basic Metabolic Panel (Routine) Timeframe: 1 Week Facility: [facility] - Location: Laboratory Ordered By: Rommel Sanchez Complete Blood Count Auto Diff (Routine) Timeframe: 1 Week Facility: [facility] - Location: Laboratory Ordered By: Rommel Sanchez Visit Report Forms: Patient Portal Discharge page Care Plan Goals: treatment of cancer Health Concerns: cancer of unknown primary anemia question of GI bleeding pulmonary embolism, atrial fibrillation, and mechanical aortic valve acute kidney injury, resolved Plan of Treatment: follow up with Dr Mast for treatment of cancer resume Lovenox injections recheck lab studies in 1 week: CBC with differential and BMP [non-fasting]
--- NOTE | 2020-06-18 11:56 | MHC.CM.PN ---
Patient will be discharging home today with services from [facility]. Trish will provide transport. Patient, and nurse are all aware.
--- NOTE | 2020-06-18 14:29 | MHC.HEMONCSW ---
PATIENT JUST DISCHARGE HOME WITH [facility]NA FROM [facility] AND IS UNABLE TO CARE FOR HIM AT HOME. SHE HAD LEFT A MESSAGE FOR DR. ROSALES. I ALERTED CASE MANAGEMENT AND MYKEL TOLD ME TO HAVE PATIENT RETURN TO THE ER. PHONED, INFORMED OF THIS BUT TOLD HER TO CALL THE BOY'S ADVISER WHO DC'ED HIM HOME TODAY PRIOR TO COMING TO ER. WANTS PLACEMENT, STATES EVEN HER FAMILY ISN'T ENOUGH HELP THEY NEED.
== END 2020-06-18 13:04 | disposition home health service (06) | DRG 369 ==
LOC: HO.ED 17:18 → HO.IMC 21:23
PROVIDERS: Internal Medicine Gastroenterology; Nurse Practitioner Acute Care; Physician Assistant; Admitting Provider Internal Medicine; Emergency Provider Emergency Medicine; PCP Internal Medicine; Visit Provider Family Medicine
PROC: 0DJ08ZZ Inspection of Upper Intestinal Tract, Via Natural or Artificial Opening Endoscopic (ICD-10-PCS; CPT 43235; principal; 2020-06-13 11:00)
PROC: 0DJD8ZZ Inspection of Lower Intestinal Tract, Via Natural or Artificial Opening Endoscopic (ICD-10-PCS; CPT 45378; principal; 2020-06-15 12:30)
DX: K20.91 Esophagitis, unspecified with bleeding (principal); D62 Acute posthemorrhagic anemia; N17.9 Acute kidney failure, unspecified; N39.0 Urinary tract infection, site not specified; E87.1 Hypo-osmolality and hyponatremia; C79.51 Secondary malignant neoplasm of bone; E78.5 Hyperlipidemia, unspecified; I10 Essential (primary) hypertension; E87.5 Hyperkalemia; J44.9 Chronic obstructive pulmonary disease, unspecified; I48.0 Paroxysmal atrial fibrillation; E03.9 Hypothyroidism, unspecified; G89.29 Other chronic pain; K64.8 Other hemorrhoids; G20 Parkinson's disease; Z20.828 Contact with and (suspected) exposure to other viral communicable diseases; E11.649 Type 2 diabetes mellitus with hypoglycemia without coma; Z95.2 Presence of prosthetic heart valve; Z87.891 Personal history of nicotine dependence; Z79.4 Long term (current) use of insulin; Z79.01 Long term (current) use of anticoagulants; Z79.890 Hormone replacement therapy; Z79.891 Long term (current) use of opiate analgesic; Z79.899 Other long term (current) drug therapy
CPT/HCPCS: 36415; 36430; 74176; 80048; 80053; 80076; 81001; 81003; 82272; 82947; 83036; 83605; 83690; 83735; 84484; 85007; 85014; 85018; 85025; 85027; 85045; 85610; 86850; 86900; 86901; 86920; 86923; 87040; 87086; 87635; 93005; 93970; 96361; 96365; 96374; 96375; 97162; 99284; 99285; J0696; J1100; J1650; J2405; P9016

== ENCOUNTER 2020-06-18 14:55 | Inpatient (IN) | payer MEDICARE, SELFPAY ==
[2020-06-18 14:59] VITALS: BP 172/52; PULSE 69; RESP 16; TEMP 37.1; O2SAT 95; BMI 27.3
--- NOTE | 2020-06-18 16:08 | ED.GENADULT ---
HPI - General Adult General Chief complaint: General Medical Stated complaint: d/c today, difficulty ambulating Time Seen by Provider: 06/18/20 15:19 Source: EMS Mode of arrival: EMS Limitations: no limitations History of Present Illness HPI narrative: Patient is brought to the emergency room via EMS. Patient was discharged earlier from this facility. Prior to discharge, physical therapy evaluated the patient, they recommended physical therapy. When patient got home, he need to use the restroom, patient's was unable to get him up and patient is too weak. Patient was return to the emergency room, requesting case management and physical therapy consult for placement. Patient states that he feels well, no complaints other than feeling weak. MD complaint: Generalized weakness Related Data Home Medications Medication Instructions Recorded Confirmed carbidopa-levodopa 1 tab PO TID 04/28/20 06/17/20 losartan 25 mg PO DAILY 04/28/20 06/17/20 albuterol sulfate [ProAir HFA] 2 puff INHALATION Q4-6H PRN 06/12/20 06/17/20 insulin asp prt-insulin aspart 8 unit SUBCUT TID 06/12/20 06/17/20 [Novolog Mix 70-30FlexPen U-100] Previous Rx's Medication Instructions Recorded diltiazem HCl 180 mg 180 mg PO DAILY 90 Days #90 cap 03/22/20 capsule,extended release 24 hr furosemide 20 mg tablet 40 mg PO DAILY 90 Days #180 tab 03/22/20 levothyroxine 50 mcg tablet 50 mcg PO DAILY 90 Days #90 tab 03/22/20 pravastatin 40 mg tablet 40 mg PO DAILY 90 Days #90 tab 03/22/20 sotalol 120 mg tablet 120 mg PO BID 90 Days #180 tab 03/22/20 oxycodone 5 mg PO Q8H PRN #40 cap 04/27/20 enoxaparin 90 mg SUBCUT Q12H 30 Days #54 ml 04/30/20 blood sugar diagnostic #100 ea 06/02/20 tiotropium bromide 2.5 2 puff INHALATION DAILY 90 Days #3 06/02/20 mcg/actuation mist for inhalation units morphine [MS Contin] 30 mg PO Q12H #60 tab 06/09/20 Allergies Allergy/AdvReac Type Severity Reaction Status Date / Time No Known Allergies Allergy Verified 06/17/20 13:40 [No Known Allergies*] Review of Systems Review of Systems: Constitutional : No Weight loss, No Fever, No Chills, No Night Sweats, no malaise, complaining of generalized weakness ENT/Mouth : No Hearing loss, No Ear Pain, No Nasal Congestion, No Sinus Pain, No Hoarseness, No sore throat, No Rhinorrhea, No Swallowing Difficulty Eyes: No Eye Pain, No Swelling, No Redness, No Foreign Body, No Discharge, No Vision Changes Cardiovascular : No Chest Pain, No SOB, No Dyspnea on Exertion, No Orthopnea, No Edema, No Palpitations Respiratory : No Cough, No Sputum, No Wheezing, No Smoke Exposure, No Dyspnea Gastrointestinal : No Nausea, No Vomiting, No Diarrhea, No Constipation, No abdominal Pain, No Hematochezia, No Melena Genitourinary : no irregular bleeding, No Dysuria, No Urinary Frequency, No Hematuria, No Urinary Incontinence, No Urgency, No Flank Pain, No Urinary Flow Changes, No Hesitancy Musculoskeletal : No joint pain, No Myalgias, No Joint Swelling Skin : No Skin Lesions, No rash Neuro : No Weakness, No Numbness, No Paresthesias, No Loss of Consciousness, No Dizziness, No Headache Psych : No Anxiety/Panic, No Depression, No SI/HI/AH/VH, No Social Issues, Heme/Lymph: No Bruising, No Bleeding,No Lymphadenopathy Endocrine : No Polyuria, No Polydipsia, No Temperature Intolerance [facility] Past Medical History Medical History Anemia Bony sclerosis COPD (chronic obstructive pulmonary disease) Diabetes mellitus GI bleed Hyperlipidemia Hypertension Hypothyroidism Lytic bone lesion of hip Lytic lesion of bone on x-ray Overweight (BMI 25.0-29.9) Pancreatic cancer Parkinson's disease Paroxysmal atrial fibrillation Pleural effusion, right Pulmonary embolism Surgical History History of aortic valve replacement (~11/29/12) History of carpal tunnel release (~06/24/13) Status post anal 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) Status post mechanical aortic valve replacement Family History Family History Father Cardiovascular disease Mother Stroke Other Colon cancer FH: Parkinson's disease Social History Social History Household Members: Spouse Housing: House Alcohol intake: current Alcohol intake frequency: does not drink Alcohol type: hard liquor Smoking Status: Former smoker Advance Directives: No Advance Directives Information Provided: Yes service: No Current occupational status: retired Physical Exam Vital Signs: Vital Signs: Last Vital Signs Temp 98.7 F 06/18/20 14:59 Pulse 69 06/18/20 14:59 Resp 16 06/18/20 14:59 BP 172/52 H 06/18/20 14:59 Pulse Ox 95 06/18/20 14:59 Body Mass Index 27.3 Appearance: Alert. Oriented X3. No acute distress. Eyes: Pupils equal, round and reactive to light. ENT: Pharynx normal. Neck: Normal inspection. Neck supple. No lymph nodes noted. No crepitus CVS: Normal heart rate and rhythm. Pulses normal. Normal S1 and S2 Respiratory: No respiratory distress. Breath sounds normal. No Wheezing. No rales Abdomen: Soft and nontender. No rigidity. No distention. good BS x4 Skin: Skin warm and dry. Extremities: No lower extremity edema. Neuro: No motor deficit. No sensory deficit. Moving all extermities. No slurred speech. Cranial nerves 2-12 grossly intact Course Course Course Narrative: Patient's urinalysis pending. Case management is aware that the patient returned, physical therapy evaluation needs to be repeated, then the plan is to discharge the patient to a short-term rehab. Patient is aware of the plan. Sign-out given to Dr. Gamez Discharge Plan Discharge Clinical Impression: Weakness Prescriptions: No Action Spiriva Respimat 2.5 mcg/actuation mist 2 puff inhalation DAILY 90 Days Qty: 3 RF: 3 (DME) OneTouch Verio test strips Strip See Rx Instructions .ROUTE .MEDSUPPLY Qty: 100 RF: 12 morphine [MS Contin] 30 mg Tablet Extended Release 30 mg PO Q12H Qty: 60 RF: 0 oxycodone 5 mg Capsule 5 mg PO Q8H PRN (Reason: Breakthrough Pain, Moderate) Qty: 40 RF: 0 losartan 50 mg Tablet 25 mg PO DAILY RF: 0 carbidopa-levodopa 50-200 mg tablet extended release 1 tab PO TID RF: 0 enoxaparin 100 mg/mL Syringe 90 mg subcut Q12H 30 Days Qty: 54 RF: 2 albuterol sulfate [ProAir HFA] 90 mcg/actuation Hfa Aerosol Inhaler 2 puff INHALATION Q4-6H PRN (Reason: Dyspnea) RF: 0 insulin asp prt-insulin aspart [Novolog Mix 70-30FlexPen U-100] 100 unit/mL (70-30) insulin pen 8 unit subcut TID RF: 0 diltiazem HCl 180 mg capsule,extended release 24hr 180 mg PO DAILY 90 Days Qty: 90 RF: 3 sotalol 120 mg tablet 120 mg PO BID 90 Days Qty: 180 RF: 3 levothyroxine 50 mcg tablet 50 mcg PO DAILY 90 Days Qty: 90 RF: 3 pravastatin 40 mg tablet 40 mg PO DAILY 90 Days Qty: 90 RF: 3 furosemide 20 mg tablet 40 mg PO DAILY 90 Days Qty: 180 RF: 3
--- NOTE | 2020-06-18 16:41 | MHC.CM.ED ---
Patient was discharged from [facility] on 06/18 with home physical therapy. By the time patient arrived home, he was a max assist of 2. Patient lives with his . She is unable to care for him. He was sent back to the hospital. Spoke with Trish via telephone at [phone]. Explained physical therapy will need to see patient again. Anticipate patient will remain in ER overnight. Rehab choices: 1) [facility] 2)Sunday 3)[facility] 4)[facility]. Referrals made via allscripts. Continue to monitor for d/c needs.
[2020-06-18 17:16] LABS: COVID-19 Test Negative (Negative)
[2020-06-18 18:28] VITALS: BP 168/59; PULSE 79; RESP 18; O2SAT 98
[2020-06-19] VITALS (13 sets, daily range): BP systolic 146–191; BP diastolic 54–82; PULSE 67–89; RESP 16–18; TEMP 36.7–37.2; O2SAT 92–98
[2020-06-19] MEDS: LORazepam 1 MG TABLET PO (00:45)
--- NOTE | 2020-06-19 09:37 | PC.NURSE ---
PT REQUIRED 2 ASSIST FROM BED TO COMMODE AND BACK TO BED X 2.
--- NOTE | 2020-06-19 10:12 | XR_ITS ---
EXAMINATION: XR PELVIS XR FEMUR, RIGHT CLINICAL INFORMATION: Status post fall, pain COMPARISON: CT abdomen and pelvis from 06/12/2020 TECHNIQUE: AP view of the pelvis and 4 views of the right femur were obtained FINDINGS: No acute visible fracture or dislocation. Degenerative changes of the bilateral femoral acetabular joints. Degenerative changes of the right knee are visualized. Redemonstration of a large lytic lesion involving the left ischium. Degenerative changes of the lower lumbar spine. Extensive atherosclerotic calcifications are visualized. Bowel gas pattern is unremarkable. Soft tissues are unremarkable. XR/XR pelvis 1-2V IMPRESSION: 1. No acute visible fracture or dislocation. 2. Redemonstration of large lytic lesion involving the left ischium. 3. Degenerative change of the bilateral femoral acetabular joints, right knee, and lower lumbar spine. 4. Extensive atherosclerotic calcifications.
--- NOTE | 2020-06-19 10:12 | XR_ITS ---
EXAMINATION: XR PELVIS XR FEMUR, RIGHT CLINICAL INFORMATION: Status post fall, pain COMPARISON: CT abdomen and pelvis from 06/12/2020 TECHNIQUE: AP view of the pelvis and 4 views of the right femur were obtained FINDINGS: No acute visible fracture or dislocation. Degenerative changes of the bilateral femoral acetabular joints. Degenerative changes of the right knee are visualized. Redemonstration of a large lytic lesion involving the left ischium. Degenerative changes of the lower lumbar spine. Extensive atherosclerotic calcifications are visualized. Bowel gas pattern is unremarkable. Soft tissues are unremarkable. XR/XR femur RT 1V IMPRESSION: 1. No acute visible fracture or dislocation. 2. Redemonstration of large lytic lesion involving the left ischium. 3. Degenerative change of the bilateral femoral acetabular joints, right knee, and lower lumbar spine. 4. Extensive atherosclerotic calcifications.
[2020-06-19] MEDS: Sotalol HCL 80 MG TABLET 120 MG PO (14:01)
[2020-06-19] MEDS: Levothyroxine Sodium 50 MCG TABLET PO (14:03)
[2020-06-19] MEDS: Furosemide 20 MG TABLET 40 MG PO (14:03)
[2020-06-19] MEDS: Pravastatin Sodium 40 MG TABLET PO (14:04)
[2020-06-19] MEDS: Losartan Potassium 50 MG TABLET 25 MG PO (14:04)
[2020-06-19] MEDS: dilTIAZem HCL CD 180 MG CAP.ER.24H PO (14:05)
[2020-06-19] MEDS: Morphine Sulfate ER 30 MG TABLET.ER PO (14:06)
[2020-06-19] MEDS: Enoxaparin Sodium 100 MG/ML SYRINGE 90 MG SUBCUT (14:06)
--- NOTE | 2020-06-19 16:14 | MHC.CM.PN ---
CM SPOKE TO PTS , JULIANNA [phone] SEVERAL TIMES THROUGHOUT THE DAY. SHE REPORTS WHEN THE PT RETURNED HOME SHE WAS WORRIED BECAUSE HE WAS SO WEAK. SHE REPORTS HE TYPICALLY GETS UP SEVERAL TIMES A NIGHT TO USE THE REST ROOM AND SHE WAS WORRIED HE WOULD FALL. SHE REPORTS RIGHT NOW HER SON IS IN QUARANTINE FOR 5 MORE DAYS SO IS UNABLE TO HELP HER. SHE HOPES THAT THE PT CAN GO TO STR FOR A FEW DAYS SHE HAS REQUESTED REFERRALS TO ALL THREE ACUTE REHABS AND [facility]. CM INFORMED HER THIS MORNING THAT A PT EVAL WOULD BE NEEDED FOR PLACEMENT AND THAT IT SHOULD BE IN TODAY. CM LEARNED THIS AFTERNOON THAT THE PT WAS NOT EVALUATED BY PT AND THAT PT WOULD BE UNAVAILABLE PRIOR TO SUNDAY. JULIANNA WAS INFORMED AND CM WILL RESUME STR SEARCH ONCE PT EVAL COMPLETED.
[2020-06-19 16:34] LABS: Glucose, Whole Blood 277 mg/dL (60-115)
[2020-06-19] MEDS: Insulin Lispro 100 UNIT/ML 3 ML VIAL SUBCUT ×2 (16:39→21:19)
[2020-06-19] MEDS: Carbidopa/Levodopa CR 50/200 TABLET.ER 1 TAB PO ×2 (16:41→21:14)
[2020-06-19 16:57] LABS: Appearance Urine CLEAR; Color Urine YELLOW; Glucose Urine UA 100 MG/DL (NEG); Leukocyte Esterase Urine NEG (NEG); Nitrite Urine NEG (NEG); PH 5.5 (5.0-8.0); Specific Gravity - Urine 1.025 (1.005-1.025); Urine Blood NEG (NEG); Urine Ketones 15 MG/DL (NEG); Urine Protein NEG (NEG-TRACE)
[2020-06-19 17:04] LABS: Hematocrit 29.6 % (42-52); Hemoglobin 9.6 g/dl (14.0-18.0); Mean Corpuscular HGB Conc 32.4 g/dl (31.0-36.0); Mean Corpuscular Hemoglobin 30.8 pg (27.0-33.0); Mean Corpuscular Volume 94.9 fL (80-98); Mean Platelet Volume 9.8 fL (9.4-12.4); Platelet Count 369 X10*3/uL (160-400); Red Blood Count 3.12 X10*6/uL (4.60-5.80); White Blood Count 14.7 X10*3/uL (4.8-10.8)
[2020-06-19 17:09] LABS: INTERNATIONAL NORM RATIO 1.3 (0.9-1.1); Prothrombin Time 15.5 SEC (10.8-13.0)
[2020-06-19 17:12] LABS: Partial Thromboplastin Time 38.5 SEC (24.1-38.0)
--- NOTE | 2020-06-19 21:01 | PC.NURSE ---
PATIENT SLEEPING AT THIS TIME. CARBIDOPA-LEVODOPA UNAVAILABLE IN XIS, CALLED PHARMACY. WILL MEDICATE UPON ARRIVAL TO ED. ALSO AWAITING GLUCOMETER (UNAVAILABLE AT THIS TIME) PRIOR TO MEDICATING WITH INSULIN. WILL CONTINUE TO MONITOR. MD AND PIE FILLER AWARE.
[2020-06-19] MEDS: Insulin Glargine,Hum.rec.anlog 100 UNIT/ML 10 ML VIAL 13 UNIT SUBCUT (21:13)
[2020-06-19 21:27] LABS: Glucose, Whole Blood 170 mg/dL (60-115)
[2020-06-20] VITALS (11 sets, daily range): BP systolic 118–184; BP diastolic 41–63; PULSE 60–76; RESP 14–18; TEMP 37.1–37.6; O2SAT 94–98
[2020-06-20] MEDS: Morphine Sulfate ER 30 MG TABLET.ER PO ×3 (02:25→23:37)
[2020-06-20] MEDS: Sotalol HCL 80 MG TABLET 120 MG PO ×2 (02:25→15:34)
[2020-06-20] MEDS: Enoxaparin Sodium 100 MG/ML SYRINGE 90 MG SUBCUT ×3 (02:27→23:36)
[2020-06-20] MEDS: Albuterol Sulfate 90 MCG 8 GM INHALER 2 PUFF INHALE (03:17)
--- NOTE | 2020-06-20 05:12 | PC.NURSE ---
PATIENT VOIDED IN URINAL, ABLE TO USE CALL STONE AND MAKE NEEDS KNOWN. REQUESTED AND GIVEN WATER, JELLO, AND 1 CUP OF ORANGE JUICE. VITAL SIGNS STABLE. WILL CONTINUE TO MONITOR.
[2020-06-20 05:54] LABS: Hematocrit 28.8 % (42-52); Hemoglobin 9.4 g/dl (14.0-18.0); Mean Corpuscular HGB Conc 32.6 g/dl (31.0-36.0); Mean Platelet Volume 9.4 fL (9.4-12.4); Platelet Count 355 X10*3/uL (160-400); Red Blood Count 3.03 X10*6/uL (4.60-5.80); Red Cell Distribution Width 15.1 % (11.0-16.0); White Blood Count 13.8 X10*3/uL (4.8-10.8)
--- NOTE | 2020-06-20 07:45 | PC.NURSE ---
report taken from karine humphreys pt lying on l side in bed, appears to be incontinent of urine. all linens changed, pt given bed bath w warm wipes. coccyx wound dressing appears in tact from 06/19/20. coccyx dressing replaced and pt repositioned semi fowlers w pressure release on l side w pillows. pt vss. awaiting case mgmt. pt updated over phone. wctm for discharge needs.
[2020-06-20 07:59] LABS: Glucose, Whole Blood 170 mg/dL (60-115)
--- NOTE | 2020-06-20 08:02 | XR_ITS ---
EXAMINATION: XR CHEST CLINICAL INFORMATION: Cough, evaluate for pneumonia COMPARISON: Chest radiograph from 05/31/2020 TECHNIQUE: Frontal view of the chest was obtained. FINDINGS: Left-sided dual lead pacemaker, stable. Status post sternotomy with valvular placement.Patchy airspace opacity involving the right mid and lower lung parrish. Atelectatic changes versus scarring involving the right midlung field. There is no pneumothorax. Cardiac mediastinal silhouette is stable. Osseous structures are intact. Soft tissues are unremarkable. XR/XR chest 1V IMPRESSION: 1. Patchy airspace opacity involving the right mid and lower lung parrish. 2. Atelectatic changes versus scarring involving the right midlung field.
--- NOTE | 2020-06-20 08:15 | PC.NURSE ---
pt not interested in eating breakfast. encouraged to at least try a few bites, pt resistant. insulin coverage held d/t pt not wanting to eat. plan for chest xray d/t rhonchorous cough.
[2020-06-20] MEDS: Carbidopa/Levodopa CR 50/200 TABLET.ER 1 TAB PO ×3 (10:12→21:18)
[2020-06-20] MEDS: Pravastatin Sodium 40 MG TABLET PO (10:12)
[2020-06-20] MEDS: Levothyroxine Sodium 50 MCG TABLET PO (10:12)
[2020-06-20] MEDS: Furosemide 20 MG TABLET 40 MG PO (10:12)
[2020-06-20] MEDS: dilTIAZem HCL CD 180 MG CAP.ER.24H PO (10:12)
[2020-06-20] MEDS: Losartan Potassium 50 MG TABLET 25 MG PO (10:13)
[2020-06-20 12:38] LABS: Glucose, Whole Blood 188 mg/dL (60-115)
[2020-06-20] MEDS: Insulin Lispro 100 UNIT/ML 3 ML VIAL SUBCUT ×2 (13:38→20:48)
--- NOTE | 2020-06-20 13:57 | PC.NURSE ---
PT GIVEN AFTERNOON MEDS AND INSULIN COVERAGE. TOLERATING PO W/O ISSUE. PT ABLE TO EAT PUDDING, MASHED POTATOS AND A FEW GREEN BEANS FOR LUNCH. DRANK ALL OF QUART OF MILK. PT REPOSITIONED OVER TO L SIDE W PILLOWS.
[2020-06-20 15:35] LABS: INTERNATIONAL NORM RATIO 1.3 (0.9-1.1); Prothrombin Time 15.7 SEC (10.8-13.0)
--- NOTE | 2020-06-20 17:11 | PC.NURSE ---
cx and lactic acid level drawn and sent. pt ordered abx for pna.
[2020-06-20] MEDS: Azithromycin 500 MG TABLET PO (17:29)
[2020-06-20 17:31] LABS: Basophils Absolute Auto 0.1 X10*3/uL (0.0-0.2); Basophils Percent Auto 0.4 % (0-2); Eosinophils Absolute Auto 0.3 X10*3/uL (0.0-0.4); Eosinophils Percent Auto 1.8 % (0-4); Hematocrit 29.9 % (42-52); Hemoglobin 9.4 g/dl (14.0-18.0); Imm Gran Abs Auto 0.06 X10*3/uL (0.00-0.03); Imm Gran Pct Auto 0.4 % (0.0-0.4); Lymphocytes Absolute Auto 0.4 X10*3/uL (1.2-4.9); Lymphocytes Percent Auto 2.6 % (20-40); MANUAL DIFF FLAG SCAN; Mean Corpuscular HGB Conc 31.4 g/dl (31.0-36.0); Mean Corpuscular Hemoglobin 30.5 pg (27.0-33.0); Mean Corpuscular Volume 97.1 fL (80-98); Mean Platelet Volume 10.1 fL (9.4-12.4); Monocytes Absolute Auto 1.4 X10*3/uL (0.1-1.2); Monocytes Percent Auto 9.6 % (2-11); Neutrophils Percent Auto 85.2 % (45-73); Platelet Count 395 X10*3/uL (160-400); Red Blood Count 3.08 X10*6/uL (4.60-5.80); Red Cell Distribution Width 15.2 % (11.0-16.0); SCAN SMEAR FLAG 1; White Blood Count 14.1 X10*3/uL (4.8-10.8)
[2020-06-20 17:41] LABS: Glucose, Whole Blood 185 mg/dL (60-115)
[2020-06-20 17:46] LABS: Anion Gap 14 (12-20); Blood Urea Nitrogen 22 mg/dL (9-16); Calcium 7.5 mg/dL (8.4-10.2); Carbon Dioxide 29 mmol/L (22-29); Chloride 102 mmol/L (96-108); Creatinine Clr Calc Pharmacy 69.7; Estimated Glomerular Filt Rate > 60; Glucose Random 187 mg/dL (60-115); Potassium 4.5 mmol/l (3.3-5.1); Sodium 140 mmol/L (135-145)
[2020-06-20 17:48] LABS: SLIDE REVIEW VERIFIED
--- NOTE | 2020-06-20 18:37 | PC.NURSE ---
pt not interested in dinner. held insuln.
--- NOTE | 2020-06-20 19:38 | PC.NURSE ---
Report taken from maurice Amador RN resuming care. Pt found laying in bed on right side sleeping, pt wakes easily to voice, repositioned onto back, bed in upright position. Pt pale, skin clammy, coarse wet cough noted. Pt on O2 via NC @ 2 lpm, satting at 98%. VSS. Continue to monitor.
[2020-06-20 20:44] LABS: Glucose, Whole Blood 170 mg/dL (60-115)
[2020-06-20] MEDS: Insulin Glargine,Hum.rec.anlog 100 UNIT/ML 10 ML VIAL 13 UNIT SUBCUT (20:48)
--- NOTE | 2020-06-20 20:59 | PC.NURSE ---
Addendum entered by Cathi Junior 06/20/20 21:11: Testicles noted to be bright red in color, pt reporting pain to testicles. Annemarie care provided, barrier cream applied to testicles. Pharm contacted regarding Carbidopa/Levodopa. Pharm to bring to ED. Awaiting medication. Original Note: Pt medicated per AUG. Pharm contacted regarding duplicate Ceftin, Pharm advising this RN to continue with 2100 dose when pt received initial @ 1730. Meds crushed in jello. Pt incontinent of urine, provided wth a complete bed change.
--- NOTE | 2020-06-20 22:01 | PC.NURSE ---
Pt calling this RN into room, reports increased SOB. O2 sat 97% on 2 lpm, pt coughing regularly. Cough noted to be coarse and wet. Pt unable to cough anything up. Left lobe diminished, rales noted to right lobe. MD aware of SOB.
--- NOTE | 2020-06-20 22:21 | PC.NURSE ---
MD at bedside to reevaluate pt due to pt reporting SOB. Pt sleeping in bed at this time, VSS. Per MD, plan to monitor. Continue to monitor.
[2020-06-21] VITALS (16 sets, daily range): BP systolic 107–173; BP diastolic 43–87; PULSE 60–75; RESP 13–22; TEMP 36.8–37.1; O2SAT 88–100
[2020-06-21] MEDS: Sotalol HCL 80 MG TABLET 120 MG PO ×2 (01:26→17:29)
--- NOTE | 2020-06-21 01:41 | PC.NURSE ---
Pt medicated per MAR. Pt incontinent of urine, georgina are and complete bed change provide. Multiple stage 2 pressure ulcers noted to coccyx, barrier cream applied with a large foam pad dressing. Pt repositioned upright onto left side. VSS. Continue to monitor.
--- NOTE | 2020-06-21 05:19 | PC.NURSE ---
Pt yelling help! from bed. Pt reports increasing SOB. VSS at this time, O2 sat 97% on 2 lpm. Pt pulling off gown and EKG cables. RT at bedside for eval due to frequent complaints of increased SOB. Continue to monitor.
--- NOTE | 2020-06-21 05:41 | PC.NURSE ---
Pt again repositioned upright in bed. This RN again discussing pt condition with MD regarding plan for PT consult VS admission due to worsening PNA. MD to reevaluate.
--- NOTE | 2020-06-21 06:26 | PC.NURSE ---
Pt sleeping in bed at this time, visible chest rise noted. Pt noted to be clean/dry at this time. Continue to monitor.
--- NOTE | 2020-06-21 06:36 | PC.NURSE ---
at bedside to reevaluate pt condition.
--- NOTE | 2020-06-21 06:48 | PC.NURSE ---
Pt noted to desat to 88% on RA. aware. Labs obtained and sent. Continue to monitor.
[2020-06-21 07:02] LABS: Basophils Absolute Auto 0.1 X10*3/uL (0.0-0.2); Basophils Percent Auto 0.4 % (0-2); Eosinophils Absolute Auto 0.4 X10*3/uL (0.0-0.4); Eosinophils Percent Auto 3.4 % (0-4); Hematocrit 29.6 % (42-52); Hemoglobin 9.2 g/dl (14.0-18.0); Imm Gran Abs Auto 0.05 X10*3/uL (0.00-0.03); Imm Gran Pct Auto 0.4 % (0.0-0.4); Lymphocytes Absolute Auto 0.5 X10*3/uL (1.2-4.9); MANUAL DIFF FLAG SCAN; Mean Corpuscular HGB Conc 31.1 g/dl (31.0-36.0); Mean Corpuscular Hemoglobin 30.5 pg (27.0-33.0); Mean Platelet Volume 9.6 fL (9.4-12.4); Monocytes Absolute Auto 1.1 X10*3/uL (0.1-1.2); Monocytes Percent Auto 9.8 % (2-11); Neutrophils Absolute Auto 9.2 X10*3/uL (2.0-8.3); Platelet Count 406 X10*3/uL (160-400); Red Blood Count 3.02 X10*6/uL (4.60-5.80); Red Cell Distribution Width 15.1 % (11.0-16.0); SCAN SMEAR FLAG 1; White Blood Count 11.3 X10*3/uL (4.8-10.8)
[2020-06-21] MEDS: Piperacillin Sodium/Tazobactam 3.375 GM in 0.9 % Sodium Chloride 50 ML IV (07:34)
[2020-06-21 07:35] LABS: Anion Gap 12 (12-20); Blood Urea Nitrogen 23 mg/dL (9-16); Calcium 7.6 mg/dL (8.4-10.2); Carbon Dioxide 31 mmol/L (22-29); Chloride 103 mmol/L (96-108); Estimated Glomerular Filt Rate > 60; Glucose Random 137 mg/dL (60-115); Potassium 4.5 mmol/l (3.3-5.1); Sodium 141 mmol/L (135-145)
--- NOTE | 2020-06-21 07:42 | PC.NURSE ---
Report from DELON Winkler. IV abx up as ordered. Congested cough noted. Respirations non labored at rest. SR on monitor. Resting comfortably on stretcher. No acute distress noted
[2020-06-21 07:53] LABS: SLIDE REVIEW VERIFIED
[2020-06-21] MEDS: dilTIAZem HCL CD 180 MG CAP.ER.24H PO (09:00)
[2020-06-21] MEDS: Losartan Potassium 50 MG TABLET 25 MG PO (09:01)
[2020-06-21] MEDS: Furosemide 20 MG TABLET 40 MG PO (09:02)
[2020-06-21] MEDS: Pravastatin Sodium 40 MG TABLET PO (09:02)
[2020-06-21] MEDS: Levothyroxine Sodium 50 MCG TABLET PO (09:02)
[2020-06-21] MEDS: Carbidopa/Levodopa CR 50/200 TABLET.ER 1 TAB PO ×3 (09:03→21:12)
[2020-06-21] MEDS: vancomycin HCL 1,000 MG in 0.9 % Sodium Chloride 250 ML 270 MG IV (09:04)
[2020-06-21 09:13] LABS: Glucose, Whole Blood 157 mg/dL (60-115)
[2020-06-21] MEDS: Insulin Lispro 100 UNIT/ML 3 ML VIAL SUBCUT ×2 (09:16→17:28)
[2020-06-21 11:21] LABS: Glucose, Whole Blood 133 mg/dL (60-115)
--- NOTE | 2020-06-21 11:21 | PM.IMHP ---
History of Present Illness Date of Service: 06/21/20 <JESI House - Last Filed: 06/21/20 11:57> Chief Complaint: weakness <JESI House - Last Filed: 06/21/20 11:57> This is a 74-year-old male with history of mechanical aortic valve, PE, atrial fibrillation anticoagulated with therapeutic Lovenox who presents with weakness. He was recently admitted for anemia/GIB. He underwent EGD 06/13/2020 which showed erosive esophagitis, colonoscopy with internal hemorrhoids. He was discharged home June 18 in the morning. He returned back to the emergency department the same evening with generalized weakness and his was unable to care for him. The plan was for him to be placed by case management. On 06/20 he was noted to have a cough and had a chest x-ray which showed pneumonia. He was afebrile and not requiring any oxygen so the decision was made to treat him with oral antibiotics continue plan for placement. Today his oxygen saturation dropped to 88%, he was transitioned to IV antibiotics and a decision made to admit him to the hospital for further management of pneumonia. Patient reports no shortness of breath, he does report cough, chest congestion and difficulty bringing up phlegm. <JESI House - Last Filed: 06/21/20 11:57> Review of Systems Review of Systems: Yes all other systems are reviewed and are negative <JESI House - Last Filed: 06/21/20 11:57> Constitutional: Constitutional: Denies chills and Denies fever(s) <JESI House Last Filed: 06/21/20 11:57> Cardiovascular: Cardiovascular: Denies chest pain and Denies dyspnea <JESI House - Last Filed: 06/21/20 11:57> Respiratory: Respiratory: Reports cough and Denies dyspnea <JESI House Last Filed: 06/21/20 11:57> Gastrointestinal: Gastrointestinal: Denies abdominal pain <JESI House Last Filed: 06/21/20 11:57> [facility], [facility] Medical History: Medical History Anemia Bony sclerosis COPD (chronic obstructive pulmonary disease) Diabetes mellitus GI bleed Hyperlipidemia Hypertension Hypothyroidism Lytic bone lesion of hip Lytic lesion of bone on x-ray Overweight (BMI 25.0-29.9) Pancreatic cancer Parkinson's disease Paroxysmal atrial fibrillation Pleural effusion, right Pulmonary embolism <JESI House - Last Filed: 06/21/20 11:57> Family History: Family History Father Cardiovascular disease Mother Stroke Other Colon cancer FH: Parkinson's disease <JESI House - Last Filed: 06/21/20 11:57> Family history: reviewed and not pertinent <JESI House - Last Filed: 06/21/20 11:57> Surgical History: Surgical History History of aortic valve replacement (~11/29/12) History of carpal tunnel release (~06/24/13) Status post anal 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) Status post mechanical aortic valve replacement <JESI House - Last Filed: 06/21/20 11:57> Social History: Social History Household Members: Spouse Housing: House Alcohol intake: unknown Smoking Status: Never smoker Second Hand Smoke Exposure: No Use of substances other than those prescribed or required for medical reasons: No Have you been hit, kicked, punched, or otherwise hurt by someone within the past year? If so, by whom?: No Do you feel safe in your current relationship?: Yes Is there a partner from a previous relationship who is making you feel unsafe now?: No Are you made to feel afraid or neglected: No Advance Directives: No Advance Directives Information Provided: Yes Do you have thoughts of harming others: None Do you have a plan to hurt others: No Plan Recently lost weight without trying: Unsure service: No Current occupational status: retired <JESI House - Last Filed: 06/21/20 11:57> Meds Allergies/Adverse reactions: Allergies Allergy/AdvReac Type Severity Reaction Status Date / Time No Known Allergies Allergy Verified 06/17/20 13:40 [No Known Allergies*] <JESI House Last Filed: 06/21/20 11:57> Home medications: Home Medications Medication Instructions Recorded Confirmed Type carbidopa-levodopa 1 tab PO TID 04/28/20 06/19/20 History losartan 25 mg PO DAILY 04/28/20 06/19/20 History albuterol sulfate [ProAir HFA] 2 puff INHALATION Q4-6H PRN 06/12/20 06/19/20 History insulin asp prt-insulin aspart 8 unit SUBCUT TID 06/12/20 06/19/20 History [Novolog Mix 70-30FlexPen U-100] <JESI House Last Filed: 06/21/20 11:57> Physical Exam Vital Signs and Narrative: Vital Signs: Last Vital Signs Temp 98.6 F 06/21/20 05:17 Pulse 67 06/21/20 09:00 Resp 16 06/21/20 07:44 BP 134/45 L 06/21/20 09:00 Pulse Ox 93 06/21/20 07:44 Body Mass Index 27.3 <JESI House Last Filed: 06/21/20 11:57> Const: General: alert, awake and ill appearing <JESI House Last Filed: 06/21/20 11:57> Nutritional Appearance: well nourished <JESI House Last Filed: 06/21/20 11:57> HENMT: Head: Yes normocephalic and Yes atraumatic <JESI House Last Filed: 06/21/20 11:57> Eyes: Sclerae: sclerae normal <JESI House Last Filed: 06/21/20 11:57> Chest: Chest palpation & inspection: normal inspection of the chest <JESI House Last Filed: 06/21/20 11:57> Resp: Other: course breath sounds b/l <JESI House Last Filed: 06/21/20 11:57> Effort & Inspection: normal respiratory effort and no respiratory distress <JESI House - Last Filed: 06/21/20 11:57> Cardio: Rate: regular rate <JESI House - Last Filed: 06/21/20 11:57> Rhythm: regular rhythm <JESI House - Last Filed: 06/21/20 11:57> GI: Palpation (GI): Soft to palpation and nontender <JESI House - Last Filed: 06/21/20 11:57> Skin: General skin exam: no rashes or lesions noted <JESI House - Last Filed: 06/21/20 11:57> Neuro: Cranial nerves: Yes CN's II-XII intact bilaterally and Yes Bilaterally intact EOM present <JESI House - Last Filed: 06/21/20 11:57> Extrem: General: Yes normal to inspection <JESI House - Last Filed: 06/21/20 11:57> Results Labs CBC and Chem 7: : 06/22/20 05:09 06/21/20 06:48 <JESI House - Last Filed: 06/21/20 11:57> Labs: Laboratory Results - last 24 hr 06/20/20 06/20/20 06/20/20 12:35 15:22 17:08 MCV 97.1 MCH 30.5 MCHC 31.4 RDW 15.2 Plt Count 395 MPV 10.1 Immature Gran % (Auto) 0.4 Neut % (Auto) 85.2 H Lymph % (Auto) 2.6 L Drew % (Auto) 9.6 Eos % (Auto) 1.8 Baso % (Auto) 0.4 Lymph # (Auto) 0.4 L Drew # (Auto) 1.4 H Eos # (Auto) 0.3 Baso # (Auto) 0.1 Abs Immat Gran (auto) 0.06 H Absolute Neuts (auto) 12.0 H Absolute Nucleated RBC 0.000 Nucleated RBC % (auto) 0.0 Smear Tech's Comments VERIFIED PT 15.7 H INR 1.3 H Anion Gap Estim Creat Clear Calc Estimated GFR POC Glucose 188 H Random Glucose Lactic Acid Calcium 06/20/20 06/20/20 06/20/20 17:08 17:08 17:37 MCV MCH MCHC RDW Plt Count MPV Immature Gran % (Auto) Neut % (Auto) Lymph % (Auto) Drew % (Auto) Eos % (Auto) Baso % (Auto) Lymph # (Auto) Drew # (Auto) Eos # (Auto) Baso # (Auto) Abs Immat Gran (auto) Absolute Neuts (auto) Absolute Nucleated RBC Nucleated RBC % (auto) Smear Tech's Comments PT INR Anion Gap 14 Estim Creat Clear Calc 69.7 Estimated GFR > 60 POC Glucose 185 H Random Glucose 187 H Lactic Acid 1.0 Calcium 7.5 L 06/20/20 06/21/20 06/21/20 20:40 06:48 06:48 MCV 98.0 MCH 30.5 MCHC 31.1 RDW 15.1 Plt Count 406 H MPV 9.6 Immature Gran % (Auto) 0.4 Neut % (Auto) 82.0 H Lymph % (Auto) 4.0 L Drew % (Auto) 9.8 Eos % (Auto) 3.4 Baso % (Auto) 0.4 Lymph # (Auto) 0.5 L Drew # (Auto) 1.1 Eos # (Auto) 0.4 Baso # (Auto) 0.1 Abs Immat Gran (auto) 0.05 H Absolute Neuts (auto) 9.2 H Absolute Nucleated RBC 0.000 Nucleated RBC % (auto) 0.0 Smear Tech's Comments VERIFIED PT INR Anion Gap 12 Estim Creat Clear Calc 69.0 Estimated GFR > 60 POC Glucose 170 H Random Glucose 137 H Lactic Acid Calcium 7.6 L 06/21/20 09:09 MCV MCH MCHC RDW Plt Count MPV Immature Gran % (Auto) Neut % (Auto) Lymph % (Auto) Drew % (Auto) Eos % (Auto) Baso % (Auto) Lymph # (Auto) Drew # (Auto) Eos # (Auto) Baso # (Auto) Abs Immat Gran (auto) Absolute Neuts (auto) Absolute Nucleated RBC Nucleated RBC % (auto) Smear Tech's Comments PT INR Anion Gap Estim Creat Clear Calc Estimated GFR POC Glucose 157 H Random Glucose Lactic Acid Calcium <JESI House - Last Filed: 06/21/20 11:57> Assessment and Plan (1) Pneumonia: Qualifiers: Laterality: right Lung location: middle lobe of lung Pneumonia type: due to unspecified organism Qualified Code(s): J18.9 - Pneumonia, unspecified organism <JESI House - Last Filed: 06/21/20 11:57> Status: Inactive <JESI House - Last Filed: 06/21/20 11:57> This is a 74-year-old male with Parkinson's disease, mechanical aortic valve, atrial fibrillation, history of PE, adenocarcinoma of unknown primary on anticoagulation with therapeutic Lovenox, recent admission for GIB/anemia who returns with weakness found to have peumonia. Pneumonia Likely Gram-negative/Gram-positive -IV ceftriaxone/doxycycline -continue supplemental oxygen as needed Anemia Recent admission for GI bleed EGD showed erosive esophagitis/colonoscopy with hemorrhoids H/H slight downward trend -Follow CBC closely Mechanical aortic Continue anticoagulation with Lovenox Atrial fibrillation Continue diltiazem, sotalol, Lovenox Diabetes On 70/30 at home, has been converted to 13U Lantus in ED x 2 day, will continue Will start SSI, starting at blood sugar of 200 ADA diet chronic pain Continue home dose of MS contin, Oxycodone Parkinsons dz Continue sinetmet HTN continue losartan Hypothyroidism Continue losartan AC of unknown primary Continue outpatient FU with Dr. Mast DVT ppx - lovenox Code status - DNR This case was discussed with Dr. Bryant <JESI House - Last Filed: 06/21/20 11:57>
[2020-06-21] MEDS: Morphine Sulfate ER 30 MG TABLET.ER PO (11:50)
[2020-06-21] MEDS: Enoxaparin Sodium 100 MG/ML SYRINGE 90 MG SUBCUT (11:51)
--- NOTE | 2020-06-21 16:07 | PM.EVENT ---
Event Note Date of Service: 06/21/20 Event Note: Addendum to H and P by Mid-level Provider I saw and examined the patient and participated in the soria portion of the E/M service. I agree with the history and exam as documented by PA. Patient likely has PNA. Will admit for IV Abx and work up. Pressure ulcer present on admission. Standard pressure ulcer measures and consider Wound consult. Otherwise, I agree with assessment and plan as outlined in the H and P.
[2020-06-21 17:28] LABS: Glucose, Whole Blood 220 mg/dL (60-115)
[2020-06-21] MEDS: 0.9 % Sodium Chloride Flush 3 ML SYRINGE IVFLUSH (17:29)
[2020-06-21 20:48] LABS: Glucose, Whole Blood 150 mg/dL (60-115)
[2020-06-21] MEDS: Doxycycline Hyclate 100 MG in 0.9 % Sodium Chloride 250 ML 166.67 MG IV (21:10)
[2020-06-21] MEDS: Insulin Glargine,Hum.rec.anlog 100 UNIT/ML 10 ML VIAL 13 UNIT SUBCUT (21:11)
[2020-06-21] MEDS: guaiFENesin LA 600 MG TAB.ER.12H PO (21:12)
[2020-06-22] VITALS (10 sets, daily range): BP systolic 135–182; BP diastolic 59–138; PULSE 58–74; RESP 17–20; TEMP 36.6–37.3; O2SAT 88–99
--- NOTE | 2020-06-22 03:34 | PC.NURSE ---
pt able to stand and pivot well to co,,ode, assist of walker. pt still has padded bandage on coccyx. pt had large soft brown bm.
[2020-06-22 05:20] LABS: Basophils Percent Auto 0.3 % (0-2); Eosinophils Absolute Auto 0.3 X10*3/uL (0.0-0.4); Eosinophils Percent Auto 2.2 % (0-4); Hematocrit 30.6 % (42-52); Hemoglobin 9.7 g/dl (14.0-18.0); Imm Gran Abs Auto 0.05 X10*3/uL (0.00-0.03); Imm Gran Pct Auto 0.4 % (0.0-0.4); Lymphocytes Absolute Auto 0.5 X10*3/uL (1.2-4.9); Lymphocytes Percent Auto 3.5 % (20-40); MANUAL DIFF FLAG SCAN; Mean Corpuscular HGB Conc 31.7 g/dl (31.0-36.0); Mean Corpuscular Hemoglobin 30.7 pg (27.0-33.0); Mean Corpuscular Volume 96.8 fL (80-98); Mean Platelet Volume 9.8 fL (9.4-12.4); Monocytes Percent Auto 7.8 % (2-11); Neutrophils Absolute Auto 11.1 X10*3/uL (2.0-8.3); Neutrophils Percent Auto 85.8 % (45-73); Platelet Count 431 X10*3/uL (160-400); Red Blood Count 3.16 X10*6/uL (4.60-5.80); SCAN SMEAR FLAG 1; White Blood Count 12.9 X10*3/uL (4.8-10.8)
--- NOTE | 2020-06-22 05:30 | PC.NURSE ---
multiple attempts to get out of bed, bed alarm on. pt does well ambulating very short distance with walker, tires easily. pt still has frequent cough. pt has been awake all night. pt repositioned every 2 hours.
[2020-06-22] MEDS: Sotalol HCL 80 MG TABLET 120 MG PO ×2 (05:53→16:33)
[2020-06-22] MEDS: Morphine Sulfate ER 30 MG TABLET.ER PO ×2 (05:54→16:32)
[2020-06-22 05:55] LABS: SLIDE REVIEW VERIFIED
[2020-06-22] MEDS: Enoxaparin Sodium 100 MG/ML SYRINGE 90 MG SUBCUT ×2 (05:55→16:32)
--- NOTE | 2020-06-22 07:27 | PC.NURSE ---
pt awake and requesting to urinate, one assist to stand, pt also assisted to the commode states he needs to have a bowel movement, no bowel movement at this time, pt does have a stage two pressure sore on the coccyx, pressure dressing in place. poc 173, lispro held at this time. pt does have a wet but non productive cough. breakfast try provided and set up.
[2020-06-22 07:36] LABS: Glucose, Whole Blood 172 mg/dL (60-115)
[2020-06-22] MEDS: cefTRIAXone sodium 1 GM in 0.9 % Sodium Chloride 50 ML IV (08:11)
[2020-06-22] MEDS: Levothyroxine Sodium 50 MCG TABLET PO (08:14)
[2020-06-22] MEDS: dilTIAZem HCL CD 180 MG CAP.ER.24H PO (08:15)
[2020-06-22] MEDS: Furosemide 20 MG TABLET 40 MG PO (08:15)
[2020-06-22] MEDS: Carbidopa/Levodopa CR 50/200 TABLET.ER 1 TAB PO ×3 (08:15→20:24)
[2020-06-22] MEDS: guaiFENesin LA 600 MG TAB.ER.12H PO ×2 (08:15→20:24)
[2020-06-22] MEDS: Losartan Potassium 50 MG TABLET 25 MG PO (08:15)
[2020-06-22] MEDS: Pravastatin Sodium 40 MG TABLET PO (08:16)
--- NOTE | 2020-06-22 09:02 | MHC.CM.ED ---
Received notification from case management office that patient's , Justin is requesting an update. Attempted to call Trish. Left voicemail explaining patient would be admitted and requesting a return telephone call. Continue to monitor for d/c needs.
[2020-06-22] MEDS: Doxycycline Hyclate 100 MG in 0.9 % Sodium Chloride 250 ML 166.67 MG IV ×2 (09:12→20:25)
--- NOTE | 2020-06-22 09:51 | PC.NURSE ---
called imc to give report, awaiting a call back
--- NOTE | 2020-06-22 10:02 | MHC.CM.PN ---
Patient was discharged home on 06/18. At that time, physical therapy was recommending home therapy. When patient returned home, he was unable to self ambulate. Patient returned to ER. Short term rehab was being pursued. Patient developed pneumonia and needed to be admitted. Spoke with patient's , Justin via telephone at [phone]. Explained patient would be admitted due to pneumonia. IMM explained and left with patient. PCP verified. HCP verified to be on file. Trish doesn't feel patient can safely return home, unless he can ambulate independently. Rehab choices: 1)[facility] 2) [facility] 3)[facility] 4)[facility]. At this time, [facility] and [facility] are unable to offer beds. Will update [facility] via [facility]. Continue to monitor for d/c needs.
--- NOTE | 2020-06-22 10:25 | PC.NURSE ---
report given to imc rn
[2020-06-22 11:45] LABS: Glucose, Whole Blood 181 mg/dL (60-115)
[2020-06-22] MEDS: Insulin Lispro 100 UNIT/ML 3 ML VIAL SUBCUT (12:38)
--- NOTE | 2020-06-22 14:12 | HO.PM.IMPN ---
Subjective Subjective Date of Service: 06/22/20 Interval History: Seen in follow-up for pneumonia. Seems confused and agitated at times there was a sitter in the room. Physical Exam Vital Signs: Vital Signs: Last Vital Signs Temp 97.8 F 06/22/20 12:00 Pulse 60 06/22/20 12:00 Resp 17 06/22/20 12:00 BP 162/68 H 06/22/20 12:00 Pulse Ox 94 06/22/20 12:00 Body Mass Index 27.3 Const: General: alert, awake and ill appearing Nutritional Appearance: well nourished Resp: Other: good air entry alexis Effort & Inspection: normal respiratory effort and no respiratory distress Cardio: Rate: regular rate Rhythm: regular rhythm GI: Palpation (GI): Soft to palpation and nontender Skin: Other: Pressure ulcer see picture General skin exam: no rashes or lesions noted Neuro: Cranial nerves: Yes CN's II-XII intact bilaterally and Yes Bilaterally intact EOM present Extrem: General: Yes normal to inspection Objective Data Current Medications Generic Name Dose Route Start Last Admin Trade Name Freq PRN Reason Stop Dose Admin Acetaminophen 650 mg 06/21/20 11:16 Acetaminophen 325 Mg Tablet PO Q6H PRN Pain, Mild (Pain Scale 1-3) Albuterol Sulfate 2 puff 06/19/20 11:59 06/20/20 03:17 Albuterol Sulfate 90 Mcg 8 Gm Inhaler INHALE 2 puff Q4H PRN Administration Dyspnea Albuterol Sulfate 2.5 mg 06/21/20 11:16 Albuterol Sulfate (0.083%) 2.5 Mg/3 Ml Vial.Neb INHALE RQ4H PRN Shortness of Breath Carbidopa/Levodopa 1 tab 06/19/20 15:00 06/22/20 08:15 Carbidopa/Levodopa Cr 50/200 Tablet.Er PO 1 tab TID VIDAL Administration Diltiazem HCl 180 mg 06/19/20 12:15 06/22/20 08:15 Diltiazem Hcl Cd 180 Mg Cap.Er.24h PO 180 mg DAILY VIDAL Administration Protocol Docusate Sodium 100 mg 06/21/20 11:16 Docusate Sodium 100 Mg Capsule PO DAILY PRN Constipation Enoxaparin Sodium 90 mg 06/22/20 18:00 Enoxaparin Sodium 100 Mg/Ml Syringe SUBCUT Q12H VIDAL Furosemide 40 mg 06/19/20 12:15 06/22/20 08:15 Furosemide 20 Mg Tablet PO 40 mg DAILY VIDAL Administration Protocol Guaifenesin 600 mg 06/21/20 21:00 06/22/20 08:15 Guaifenesin La 600 Mg Tab.Er.12h PO 600 mg BID VIDAL Administration Ceftriaxone Sodium 1 gm/ 50 mls @ 100 mls/hr 06/22/20 07:00 06/22/20 08:43 Sodium Chloride IV Infused Q24H VIDAL Infusion Doxycycline Hyclate 100 mg/ 250 mls @ 166.67 mls/hr 06/21/20 21:00 06/22/20 11:00 Sodium Chloride IV Infused Q12H VIDAL Infusion Insulin Glargine 13 unit 06/19/20 21:00 06/21/20 21:11 Insulin Glargine,Hum.Rec.Anlog 100 Unit/Ml 10 Ml Vial SUBCUT 13 unit BEDTIME VIDAL Administration Insulin Human Lispro 0 unit 06/21/20 16:30 06/22/20 12:38 Insulin Lispro 100 Unit/Ml 3 Ml Vial SUBCUT 2 unit QIDACHS VIDAL Administration Protocol Levothyroxine Sodium 50 mcg 06/19/20 12:15 06/22/20 08:14 Levothyroxine Sodium 50 Mcg Tablet PO 50 mcg DAILY VIDAL Administration Losartan Potassium 25 mg 06/19/20 12:15 06/22/20 08:15 Losartan Potassium 50 Mg Tablet PO 25 mg DAILY VIDAL Administration Protocol Morphine Sulfate 30 mg 06/22/20 18:00 Morphine Sulfate Er 30 Mg Tablet.Er PO Q12H [facility] Oxycodone HCl 5 mg 06/19/20 11:59 Oxycodone Hcl Immed Release 5 Mg Tablet PO Q8H PRN Breakthrough Pain, Moderate Pravastatin Sodium 40 mg 06/19/20 12:15 06/22/20 08:16 Pravastatin Sodium 40 Mg Tablet PO 40 mg DAILY [facility] Administration Sodium Chloride 3 ml 06/21/20 16:00 06/22/20 12:37 0.9 % Sodium Chloride Flush 3 Ml Syringe IVFLUSH Not Given QSHIFT [facility] Sotalol HCl 120 mg 06/22/20 18:00 Sotalol Hcl 80 Mg Tablet PO Q12H [facility] Tiotropium Harbert 1 puff 06/20/20 09:00 06/22/20 12:11 Tiotropium Harbert 18 Mcg Cap.W.Dev INHALE Not Given DAILY VIDAL Labs CBC & Chem 7: 06/22/20 05:09 06/23/20 05:44 Microbiology Microbiology Results: Microbiology 06/20/20 17:08 Blood - Venous Blood Culture - Preliminary No growth after 24 hours. 06/20/20 16:57 Blood - Venous Blood Culture - Preliminary No growth after 24 hours. Assessment and Plan (1) Pneumonia: Status: Inactive Assessment and Plan: 74-year-old male with Parkinson's disease, mechanical aortic valve, atrial fibrillation, history of PE, adenocarcinoma of unknown primary on anticoagulation with therapeutic Lovenox, recent admission for GIB/anemia who returns with weakness found to have peumonia. Pneumonia Likely Gram-negative/Gram-positive -IV ceftriaxone/doxycycline -continue supplemental oxygen as needed Anemia Recent admission for GI bleed EGD showed erosive esophagitis/colonoscopy with hemorrhoids H/H slight downward trend -Follow CBC closely Mechanical aortic Continue anticoagulation with Lovenox Atrial fibrillation Continue diltiazem, sotalol, Lovenox Diabetes On 70/30 at home, has been converted to 13U Lantus in ED x 2 day, will continue Continue SSI, starting at blood sugar of 200 ADA diet chronic pain Continue home dose of MS contin, Oxycodone Parkinsons dz Continue sinetmet HTN continue losartan Hypothyroidism Continue losartan Adenocarcinoma of unknown primary Continue outpatient FU with Dr. Mast Stage 2 -3 pressure ulcer as above--Standard pressure ulcer measures, wound consult DVT ppx - lovenox
[2020-06-22] MEDS: 0.9 % Sodium Chloride Flush 3 ML SYRINGE IVFLUSH (16:33)
[2020-06-22 16:52] LABS: Glucose, Whole Blood 103 mg/dL (60-115)
[2020-06-22] MEDS: Insulin Glargine,Hum.rec.anlog 100 UNIT/ML 10 ML VIAL 13 UNIT SUBCUT (20:25)
[2020-06-22 20:42] LABS: Glucose, Whole Blood 109 mg/dL (60-115)
[2020-06-23] VITALS (10 sets, daily range): BP systolic 122–163; BP diastolic 54–76; PULSE 58–74; RESP 18–20; TEMP 36.6–36.9; O2SAT 91–100; BMI 27.3
[2020-06-23] MEDS: 0.9 % Sodium Chloride Flush 3 ML SYRINGE IVFLUSH ×4 (00:41→21:10)
[2020-06-23] MEDS: Morphine Sulfate ER 30 MG TABLET.ER PO ×2 (05:59→17:34)
[2020-06-23] MEDS: cefTRIAXone sodium 1 GM in 0.9 % Sodium Chloride 50 ML IV (05:59)
[2020-06-23] MEDS: Enoxaparin Sodium 100 MG/ML SYRINGE 90 MG SUBCUT ×2 (05:59→17:35)
[2020-06-23] MEDS: Sotalol HCL 80 MG TABLET 120 MG PO ×2 (06:00→17:35)
[2020-06-23 07:23] LABS: Anion Gap 12 (12-20); Blood Urea Nitrogen 21 mg/dL (9-16); Calcium 7.4 mg/dL (8.4-10.2); Carbon Dioxide 32 mmol/L (22-29); Chloride 104 mmol/L (96-108); Creatinine Clr Calc Pharmacy 70.4; Estimated Glomerular Filt Rate > 60; Glucose Random 76 mg/dL (60-115); Sodium 144 mmol/L (135-145)
[2020-06-23 07:46] LABS: Glucose, Whole Blood 93 mg/dL (60-115)
[2020-06-23] MEDS: Doxycycline Hyclate 100 MG in 0.9 % Sodium Chloride 250 ML 166.67 MG IV (09:29)
[2020-06-23] MEDS: Carbidopa/Levodopa CR 50/200 TABLET.ER 1 TAB PO ×3 (09:33→21:09)
[2020-06-23] MEDS: Furosemide 20 MG TABLET 40 MG PO (09:34)
[2020-06-23] MEDS: Levothyroxine Sodium 50 MCG TABLET PO (09:34)
[2020-06-23] MEDS: Losartan Potassium 50 MG TABLET 25 MG PO (09:35)
[2020-06-23] MEDS: guaiFENesin LA 600 MG TAB.ER.12H PO ×2 (09:37→21:09)
[2020-06-23] MEDS: Pravastatin Sodium 40 MG TABLET PO (09:37)
[2020-06-23] MEDS: dilTIAZem HCL CD 180 MG CAP.ER.24H PO (09:38)
--- NOTE | 2020-06-23 11:42 | PC.NURSE ---
while eating breakfast, pt c/o not being able to swallow, wet/gurgly voice noted. speech therapist in same room with other pt. failed bedside nursing swallow eval, breakfast tray removed. message sent to hospitalist, awaiting response.
[2020-06-23 11:53] LABS: Glucose, Whole Blood 122 mg/dL (60-115)
--- NOTE | 2020-06-23 13:12 | MHC.CM.PN ---
Patient is on 2 liters O2, IV Doxycycline and IV Ceftriaxone for PNA. Discharge plan is [facility], [facility] is following. Patient will need BLS transport. CM will continue to follow patient for discharge needs.
--- NOTE | 2020-06-23 14:13 | P.PNIM_ITS ---
Subjective Subjective Date of Service: 06/23/20 Interval History: Seen in follow-up for pneumonia. No shortness of breath he is much more alert and more cooperative today than yesterday. Review of Systems No shortness of breath, no fever, less confused today. Physical Exam Vital Signs: Vital Signs: Last Vital Signs Temp 98.2 F 06/23/20 12:00 Pulse 59 06/23/20 12:00 Resp 20 06/23/20 12:00 BP 149/63 H 06/23/20 12:00 Pulse Ox 97 06/23/20 12:00 Body Mass Index 27.3 Const: Other: Less confused today General: alert, awake and ill appearing Nutritional Appearance: well nourished Resp: Other: good air entry alexis Effort & Inspection: normal respiratory effort and no respiratory distress Cardio: Rate: regular rate Rhythm: regular rhythm GI: Palpation (GI): Soft to palpation and nontender Skin: Other: Essentially unchanged. General skin exam: no rashes or lesions noted Neuro: Cranial nerves: Yes CN's II-XII intact bilaterally and Yes Bilaterally intact EOM present Extrem: General: Yes normal to inspection Objective Data Current Medications Generic Name Dose Route Start Last Admin Trade Name Freq PRN Reason Stop Dose Admin Acetaminophen 650 mg 06/21/20 11:16 Acetaminophen 325 Mg Tablet PO Q6H PRN Pain, Mild (Pain Scale 1-3) Albuterol Sulfate 2 puff 06/19/20 11:59 06/20/20 03:17 Albuterol Sulfate 90 Mcg 8 Gm Inhaler INHALE 2 puff Q4H PRN Administration Dyspnea Albuterol Sulfate 2.5 mg 06/21/20 11:16 Albuterol Sulfate (0.083%) 2.5 Mg/3 Ml Vial.Neb INHALE RQ4H PRN Shortness of Breath Carbidopa/Levodopa 1 tab 06/19/20 15:00 06/23/20 09:33 Carbidopa/Levodopa Cr 50/200 Tablet.Er PO 1 tab TID VIDAL Administration Diltiazem HCl 180 mg 06/19/20 12:15 06/23/20 09:38 Diltiazem Hcl Cd 180 Mg Cap.Er.24h PO 180 mg DAILY VIDAL Administration Protocol Docusate Sodium 100 mg 06/21/20 11:16 Docusate Sodium 100 Mg Capsule PO DAILY PRN Constipation Enoxaparin Sodium 90 mg 06/22/20 18:00 06/23/20 05:59 Enoxaparin Sodium 100 Mg/Ml Syringe SUBCUT 90 mg Q12H VIDAL Administration Furosemide 40 mg 06/19/20 12:15 06/23/20 09:34 Furosemide 20 Mg Tablet PO 40 mg DAILY VIDAL Administration Protocol Guaifenesin 600 mg 06/21/20 21:00 06/23/20 09:37 Guaifenesin La 600 Mg Tab.Er.12h PO 600 mg BID VIDAL Administration Ceftriaxone Sodium 1 gm/ 50 mls @ 100 mls/hr 06/22/20 07:00 06/23/20 06:00 Sodium Chloride IV 0 mls/hr Q24H VIDAL Infusion Doxycycline Hyclate 100 mg/ 250 mls @ 166.67 mls/hr 06/21/20 21:00 06/23/20 10:50 Sodium Chloride IV Infused Q12H VIDAL Infusion Insulin Glargine 13 unit 06/19/20 21:00 06/22/20 20:25 Insulin Glargine,Hum.Rec.Anlog 100 Unit/Ml 10 Ml Vial SUBCUT 13 unit BEDTIME VIDAL Administration Insulin Human Lispro 0 unit 06/21/20 16:30 06/23/20 12:40 Insulin Lispro 100 Unit/Ml 3 Ml Vial SUBCUT Not Given QIDACHS [facility] Protocol Levothyroxine Sodium 50 mcg 06/19/20 12:15 06/23/20 09:34 Levothyroxine Sodium 50 Mcg Tablet PO 50 mcg DAILY VIDAL Administration Losartan Potassium 25 mg 06/19/20 12:15 06/23/20 09:35 Losartan Potassium 50 Mg Tablet PO 25 mg DAILY VIDAL Administration Protocol Morphine Sulfate 30 mg 06/22/20 18:00 06/23/20 05:59 Morphine Sulfate Er 30 Mg Tablet.Er PO 30 mg Q12H VIDAL Administration Oxycodone HCl 5 mg 06/19/20 11:59 Oxycodone Hcl Immed Release 5 Mg Tablet PO Q8H PRN Breakthrough Pain, Moderate Pravastatin Sodium 40 mg 06/19/20 12:15 06/23/20 09:37 Pravastatin Sodium 40 Mg Tablet PO 40 mg DAILY VIDAL Administration Sodium Chloride 3 ml 06/21/20 16:00 06/23/20 09:28 0.9 % Sodium Chloride Flush 3 Ml Syringe IVFLUSH 3 ml QSHIFT VIDAL Administration Sotalol HCl 120 mg 06/22/20 18:00 06/23/20 06:00 Sotalol Hcl 80 Mg Tablet PO 120 mg Q12H VIDAL Administration Tiotropium [place] 1 puff 06/20/20 09:00 06/23/20 07:10 Tiotropium [place] 18 Mcg Cap.W.Dev INHALE Not Given DAILY [facility] Labs CBC & Chem 7: 06/22/20 05:09 06/23/20 05:44 Microbiology Microbiology Results: Microbiology 06/20/20 17:08 Blood - Venous Blood Culture - Preliminary No growth after 48 hours. 06/20/20 16:57 Blood - Venous Blood Culture - Preliminary No growth after 48 hours. Assessment and Plan (1) Pneumonia: Status: Inactive Assessment and Plan: 74-year-old male with Parkinson's disease, mechanical aortic valve, atrial fibrillation, history of PE, adenocarcinoma of unknown primary on anticoagu lation with therapeutic Lovenox, recent admission for GIB/anemia who returns with weakness found to have peumonia. Pneumonia--he has no fever or chill he is not coughing. WBCs are within normal. I would continue IV antibiotics for 1 more day then switched to oral Ceftin 500 mg twice a day for total of 7 days. Continue doxycycline for total of 5 days. Can also switch to p.o. starting today. Anemia Recent admission for GI bleed EGD showed erosive esophagitis/colonoscopy with hemorrhoids H/H slight downward trend -Follow CBC closely Mechanical aortic Continue anticoagulation with Lovenox Atrial fibrillation Continue diltiazem, sotalol, Lovenox Diabetes On 70/30 at home, has been converted to 13U Lantus in ED x 2 day, will continue Continue SSI, starting at blood sugar of 200 ADA diet chronic pain Continue home dose of MS contin, Oxycodone Parkinsons dz Continue sinetmet HTN continue losartan Hypothyroidism Continue losartan Adenocarcinoma of unknown primary Continue outpatient FU with Dr. Mast Stage 2 -3 pressure ulcer as above--Standard pressure ulcer measures, wound consult DVT ppx - lovenox
[2020-06-23 16:45] LABS: Glucose, Whole Blood 143 mg/dL (60-115)
--- NOTE | 2020-06-23 19:28 | HO.WOUNDCONS ---
History of Present Illness Data of Consult Service Date: 06/23/20 [facility]ing physician: [facility] Primary Care Provider: Jorge Currie MD HPI Reason for consult: sacral and buttock wounds 74-year-old male with Parkinson's disease, mechanical aortic valve, atrial fibrillation, history of PE, adenocarcinoma of unknown primary on anticoagulation with therapeutic Lovenox, recent admission for GIB/anemia who returns with weakness found to have peumonia. being treated for this but in the meantime developed sacral wounds due to pressure. pt however, is more alert and oriented and moving around and less confused. Review of Systems Review of Systems: No shortness of breath, no fever, less confused today. Yes all other systems are reviewed and are negative [facility] Medical History Anemia Bony sclerosis COPD (chronic obstructive pulmonary disease) Diabetes mellitus GI bleed Hyperlipidemia Hypertension Hypothyroidism Lytic bone lesion of hip Lytic lesion of bone on x-ray Overweight (BMI 25.0-29.9) Pancreatic cancer Parkinson's disease Paroxysmal atrial fibrillation Pleural effusion, right Pulmonary embolism Family History Father Cardiovascular disease Mother Stroke Other Colon cancer FH: Parkinson's disease Family history: reviewed and not pertinent Surgical History History of aortic valve replacement (~11/29/12) History of carpal tunnel release (~06/24/13) Status post anal 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) Status post mechanical aortic valve replacement Social History Household Members: Spouse Housing: House Alcohol intake: unknown Smoking Status: Never smoker Second Hand Smoke Exposure: No Use of substances other than those prescribed or required for medical reasons: No Currently Displaying Signs/Symptoms of Drug Intoxication Withdrawal: No Have you been hit, kicked, punched, or otherwise hurt by someone within the past year? If so, by whom?: No Do you feel safe in your current relationship?: Yes Is there a partner from a previous relationship who is making you feel unsafe now?: No Are you made to feel afraid or neglected: No Advance Directives: No Advance Directives Information Provided: Yes Do you have thoughts of harming others: None Do you have a plan to hurt others: No Plan Recently lost weight without trying: Unsure service: No Current occupational status: retired Meds Allergies Allergy/AdvReac Type Severity Reaction Status Date / Time No Known Allergies Allergy Verified 06/17/20 13:40 [No Known Allergies*] Home Medications Medication Instructions Recorded Confirmed Type carbidopa-levodopa 1 tab PO TID 04/28/20 06/19/20 History losartan 25 mg PO DAILY 04/28/20 06/19/20 History albuterol sulfate [ProAir HFA] 2 puff INHALATION Q4-6H PRN 06/12/20 06/19/20 History insulin asp prt-insulin aspart 8 unit SUBCUT TID 06/12/20 06/19/20 History [Novolog Mix 70-30FlexPen U-100] Physical Exam Vital Signs and Narrative: Vital Signs: Last Vital Signs Temp 98.4 F 06/23/20 19:08 Pulse 71 06/23/20 19:08 Resp 18 06/23/20 19:08 BP 163/76 H 06/23/20 19:08 Pulse Ox 91 L 06/23/20 19:08 Body Mass Index 27.3 Const: General: alert, awake and ill appearing Nutritional Appearance: well nourished HENMT: Head: Yes normocephalic and Yes atraumatic Eyes: Sclerae: sclerae normal Skin: Other: pt with partial thickness pressure injury Stage 2 to sacral and left buttock area - no fatty tissue noted but dermis and surrounding purplish color consistent with deep tissue injury. The tissue here seems good however and not boggy or too concerning for progressive breakdown. left buttock cheek with dime size skin opening to dermal/fatty junction Results Labs CBC and Chem 7: 06/22/20 05:09 06/23/20 05:44 Labs: Laboratory Results - last 24 hr 06/22/20 06/23/20 06/23/20 20:38 05:44 07:43 Anion Gap 12 Estim Creat Clear Calc 70.4 Estimated GFR > 60 POC Glucose 109 93 Random Glucose 76 D Calcium 7.4 L 06/23/20 06/23/20 11:38 16:30 Anion Gap Estim Creat Clear Calc Estimated GFR POC Glucose 122 H 143 H Random Glucose Calcium Assessment and Plan (1) Pneumonia: Qualifiers: Laterality: right Lung location: middle lobe of lung Pneumonia type: due to unspecified organism Qualified Code(s): J18.9 - Pneumonia, unspecified organism Status: Inactive (2) Stage II pressure ulcer: Status: Acute 74-year-old male with Parkinson's disease, mechanical aortic valve, atrial fibrillation, history of PE, adenocarcinoma of unknown primary on anticoagulation with therapeutic Lovenox, recent admission for GIB/anemia who returns with weakness found to have peumonia. stage 2 pressure wound at the sacrum and left buttock cheek - doing ok pt is better medically from confusion and pneumonia and GI bleed therefore should be able to move and offload the area better. need to keep a close eye to make sure the purplish area doesnt progeress to skin and soft tissue breakdown - cover the surrounding area with zinc oxide and use alginate dressing to sacral wound. change daily and cover with foam protective dressing. we would be happy to follow along with this pt as an outpt in the Wound care clinic when discharged.
[2020-06-23 20:20] LABS: Glucose, Whole Blood 176 mg/dL (60-115)
[2020-06-23] MEDS: Insulin Glargine,Hum.rec.anlog 100 UNIT/ML 10 ML VIAL 13 UNIT SUBCUT (21:09)
[2020-06-24] VITALS (10 sets, daily range): BP systolic 133–169; BP diastolic 56–73; PULSE 61–72; RESP 18–19; TEMP 36.3–36.7; O2SAT 90–96
--- NOTE | 2020-06-24 06:01 | ECG_ITS ---
Test Reason : MEDS Blood Pressure : / mmHG Vent. Rate : 079 BPM Atrial Rate : 079 BPM P-R Int : 162 ms QRS Dur : 080 ms QT Int : 186 ms P-R-T Axes : 061 -22 -60 degrees QTc Int : 213 ms Sinus rhythm with Premature supraventricular complexes Nonspecific T wave abnormality Abnormal ECG When compared to the previous EKG of No significant changes seen Referred By: Addison Bryant Electronically Signed By:SUZETTE SHARMA MD
[2020-06-24] MEDS: Sotalol HCL 80 MG TABLET 120 MG PO (06:10)
[2020-06-24] MEDS: Enoxaparin Sodium 100 MG/ML SYRINGE 90 MG SUBCUT (06:10)
[2020-06-24] MEDS: Morphine Sulfate ER 30 MG TABLET.ER PO (06:10)
[2020-06-24 06:15] LABS: Hematocrit 31.1 % (42-52); Hemoglobin 9.6 g/dl (14.0-18.0); Mean Corpuscular HGB Conc 30.9 g/dl (31.0-36.0); Mean Corpuscular Hemoglobin 29.9 pg (27.0-33.0); Mean Corpuscular Volume 96.9 fL (80-98); Mean Platelet Volume 10.3 fL (9.4-12.4); Platelet Count 430 X10*3/uL (160-400); Red Blood Count 3.21 X10*6/uL (4.60-5.80); Red Cell Distribution Width 14.9 % (11.0-16.0); White Blood Count 12.5 X10*3/uL (4.8-10.8)
[2020-06-24] MEDS: guaiFENesin LA 600 MG TAB.ER.12H PO (11:04)
[2020-06-24] MEDS: Furosemide 20 MG TABLET 40 MG PO (11:04)
[2020-06-24] MEDS: Losartan Potassium 50 MG TABLET 25 MG PO (11:04)
[2020-06-24] MEDS: Carbidopa/Levodopa CR 50/200 TABLET.ER 1 TAB PO (11:04)
[2020-06-24] MEDS: dilTIAZem HCL CD 180 MG CAP.ER.24H PO (11:05)
[2020-06-24] MEDS: Pravastatin Sodium 40 MG TABLET PO (11:05)
[2020-06-24] MEDS: 0.9 % Sodium Chloride Flush 3 ML SYRINGE IVFLUSH (11:05)
[2020-06-24] MEDS: Levothyroxine Sodium 50 MCG TABLET PO (11:05)
[2020-06-24 11:42] LABS: Glucose, Whole Blood 129 mg/dL (60-115)
[2020-06-24 11:43] LABS: Glucose, Whole Blood 150 mg/dL (60-115)
--- NOTE | 2020-06-24 12:36 | MHC.CM.PN ---
Addendum entered by Rocio Quach 06/24/20 15:04: pts , Trish, called T/W back and was given the address and phone number of [facility] rehab where pt will be transferred at 1600 hours via [facility] BLS Original Note: Pt cleared for DC, [facility] willing to offer a bed pending new Covid swab. CM met with pt who is agreeable to DC plan. CM contacted pts , Trish ([phone]) who is also agreeable to the DC plan but reports she is hoping he will only go for a few days. However she understands he has to be strong enough to ambulate with minimal assistance. Trish reports she will call this underwriter solicitation director back when she returns home to obtain the number for [facility]. Medicare rights were reviewed on 06/22/20.
[2020-06-24 15:19] LABS: COVID-19 Test Negative (Negative)
--- NOTE | 2020-06-24 15:24 | PM.DS ---
DS: Providers Provider Date of Service: 06/24/20 Date of admission: 06/21/20 11:16 Date of discharge: 06/24/20 Primary care physician: Jorge Currie MD Consults: 06/22/20 14:09 Consult to Wound Care Provider Routine Consulting Provider: Amauri Cox Reason for consultation: Coccyx ulcer DS: Diagnosis Discharge Diagnosis (1) Pneumonia: Status: Inactive (2) Stage II pressure ulcer: Status: Acute (3) Anemia: Status: Acute (4) Pneumonia: Status: Acute DS: Medications Discharge Medications Home Medications: Home Medications Medication Instructions Recorded Confirmed carbidopa-levodopa 1 tab PO TID 04/28/20 06/19/20 losartan 25 mg PO DAILY 04/28/20 06/19/20 albuterol sulfate [ProAir HFA] 2 puff INHALATION Q4-6H PRN 06/12/20 06/19/20 insulin asp prt-insulin aspart 8 unit SUBCUT TID 06/12/20 06/19/20 [Novolog Mix 70-30FlexPen U-100] Previous Rx's Medication Instructions Recorded diltiazem HCl 180 mg 180 mg PO DAILY 90 Days #90 cap 03/22/20 capsule,extended release 24 hr furosemide 20 mg tablet 40 mg PO DAILY 90 Days #180 tab 03/22/20 levothyroxine 50 mcg tablet 50 mcg PO DAILY 90 Days #90 tab 03/22/20 pravastatin 40 mg tablet 40 mg PO DAILY 90 Days #90 tab 03/22/20 sotalol 120 mg tablet 120 mg PO BID 90 Days #180 tab 03/22/20 oxycodone 5 mg PO Q8H PRN #40 cap 04/27/20 enoxaparin 90 mg SUBCUT Q12H 30 Days #54 ml 04/30/20 blood sugar diagnostic #100 ea 06/02/20 tiotropium bromide 2.5 2 puff INHALATION DAILY 90 Days #3 06/02/20 mcg/actuation mist for inhalation units morphine [MS Contin] 30 mg PO Q12H #60 tab 06/09/20 DS: Summary Hospital Course Hospital Course: 74-year-old male with history of mechanical aortic valve, PE, atrial fibrillation anticoagulated with therapeutic Lovenox who presents with weakness. He was recently admitted for anemia/GIB. He underwent EGD 06/13/2020 which showed erosive esophagitis, colonoscopy with internal hemorrhoids. He was discharged home June 18 in the morning. He returned back to the emergency department the same evening with generalized weakness and his was unable to care for him. The plan was for him to be placed by case management. On 06/20 he was noted to have a cough and had a chest x-ray which showed pneumonia. He was afebrile and not requiring any oxygen so the decision was made to treat him with oral antibiotics continue plan for placement. Today his oxygen saturation dropped to 88%, he was transitioned to IV antibiotics and a decision made to admit him to the hospital for further management of pneumonia. Patient reports no shortness of breath, he does report cough, chest congestion and difficulty bringing up phlegm. Hospital Course problem ruiz section: 74-year-old male with Parkinson's disease, mechanical aortic valve, atrial fibrillation, history of PE, adenocarcinoma of unknown primary on anticoagulation with therapeutic Lovenox, recent admission for GIB/anemia who returns with weakness found to have peumonia. 1.Pneumonia--he has no fever or chill he is not coughing. WBCs are within normal. I would continue IV antibiotics for 1 more day then switched to oral Ceftin 500 mg twice a day for total of 7 days. Continue doxycycline for total of 6 days. 2.Anemia Recent admission for GI bleed EGD showed erosive esophagitis/colonoscopy with hemorrhoids H/H slight downward trend-moniter CBC closely in rehab. 3.Mechanical aortic Continue anticoagulation with Lovenox Monitor CBC closely because of anemia - since patient is on subQ Lovenox due to has history of mechanical aortic wall, AFib. 4.Atrial fibrillation Continue diltiazem, sotalol, Lovenox 5.Adenocarcinoma of unknown primary:Continue outpatient FU with Dr. Mast 6.Stage 2 pressure ulcer as above--Standard pressure ulcer measures. seen by wound dr Love: recomended - moniter closely -cover the surrounding area with zinc oxide and use alginate dressing to sacral wound. change daily and cover with foam protective dressing. we would be happy to follow along with this pt as an outpt in the Wound care clinic . Above management discussed with the patient in detail length he understand and in agreement with the above plan, time spent 50 minutes and 50% time spent on counseling. Significant findings: As above. Procedures performed: None. Treatment and response: As above. Complications: None. Time Spent with Patient Time attestation: Total time spent providing and/or coordinating discharge services: Discharge coordination time: Greater than 30 minutes Physical Exam Vital Signs: Vital Signs: Last Vital Signs Temp 98.0 F 06/24/20 12:00 Pulse 61 06/24/20 12:00 Resp 18 06/24/20 12:00 BP 169/73 H 06/24/20 12:00 Pulse Ox 96 06/24/20 12:00 Body Mass Index 27.3 Physical exam: Constitutional: Not in acute distress, pleasant sitting and taching tv. Cvs: rrr, [id number] , no murmur res: clear to auscultation ,no rhonchii or wheezing abd: no rebound or guarding ,nt, bs present. ext pulses present , no cyanosis neuro: axo3 , nonfocal. DS: Data Data Completed and Pending Completed studies during hospitalization [Text1]: Procedures Inspection of Lower Intestinal Tract, Via Natural or Artificial Opening Endoscopic (06/12/20) Inspection of Upper Intestinal Tract, Via Natural or Artificial Opening Endoscopic (06/12/20) Transfusion of Nonautologous Red Blood Cells into Peripheral Vein, Percutaneous Approach (06/12/20) Labs on day of discharge: Laboratory Tests 06/18/20 06/19/20 06/19/20 16:38 16:30 16:51 WBC RBC Hgb Hct MCV MCH MCHC RDW Plt Count MPV Immature Gran % (Auto) Neut % (Auto) Lymph % (Auto) [place] % (Auto) Eos % (Auto) Baso % (Auto) Lymph # (Auto) [place] # (Auto) Eos # (Auto) Baso # (Auto) Abs Immat Gran (auto) Absolute Neuts (auto) Absolute Nucleated RBC Nucleated RBC % (auto) Smear Tech's Comments PT INR APTT Sodium Potassium Chloride Carbon Dioxide Anion Gap BUN Creatinine Estim Creat Clear Calc Estimated GFR POC Glucose 277 H Random Glucose Lactic Acid Calcium Urine Color YELLOW Urine Appearance CLEAR Urine pH 5.5 Ur Specific [place] 1.025 Urine Protein NEG Urine Glucose (UA) 100 H Urine Ketones 15 Urine Blood NEG Urine Nitrite NEG Ur Leukocyte Esterase NEG COVID-19 (ONEAL) Negative COVID-19 Clin Com See Note 06/19/20 06/19/20 06/19/20 16:59 16:59 21:10 WBC 14.7 H RBC 3.12 L Hgb 9.6 L Hct 29.6 L MCV 94.9 MCH 30.8 MCHC 32.4 RDW 15.0 Plt Count 369 MPV 9.8 Immature Gran % (Auto) Neut % (Auto) Lymph % (Auto) [place] % (Auto) Eos % (Auto) Baso % (Auto) Lymph # (Auto) [place] # (Auto) Eos # (Auto) Baso # (Auto) Abs Immat Gran (auto) Absolute Neuts (auto) Absolute Nucleated RBC 0.000 Nucleated RBC % (auto) 0.0 Smear Tech's Comments PT 15.5 H INR 1.3 H APTT 38.5 H Sodium Potassium Chloride Carbon Dioxide Anion Gap BUN Creatinine Estim Creat Clear Calc Estimated GFR POC Glucose 170 H Random Glucose Lactic Acid Calcium Urine Color Urine Appearance Urine pH Ur Specific [place] Urine Protein Urine Glucose (UA) Urine Ketones Urine Blood Urine Nitrite Ur Leukocyte Esterase COVID-19 (ONEAL) [employer] 06/20/20 06/20/20 06/20/20 05:50 07:56 12:35 WBC 13.8 H RBC 3.03 L Hgb 9.4 L Hct 28.8 L MCV 95.0 MCH 31.0 MCHC 32.6 RDW 15.1 Plt Count 355 MPV 9.4 Immature Gran % (Auto) Neut % (Auto) Lymph % (Auto) [place] % (Auto) Eos % (Auto) Baso % (Auto) Lymph # (Auto) [place] # (Auto) Eos # (Auto) Baso # (Auto) Abs Immat Gran (auto) Absolute Neuts (auto) Absolute Nucleated RBC 0.000 Nucleated RBC % (auto) 0.0 Smear Tech's Comments PT INR APTT Sodium Potassium Chloride Carbon Dioxide Anion Gap BUN Creatinine Estim Creat Clear Calc Estimated GFR POC Glucose 170 H 188 H Random Glucose Lactic Acid Calcium Urine Color Urine Appearance Urine pH Ur Specific [place] Urine Protein Urine Glucose (UA) Urine Ketones Urine Blood Urine Nitrite Ur Leukocyte Esterase COVID-19 (ONEAL) [employer] 06/20/20 06/20/20 06/20/20 15:22 17:08 17:08 WBC 14.1 H RBC 3.08 L Hgb 9.4 L Hct 29.9 L MCV 97.1 MCH 30.5 MCHC 31.4 RDW 15.2 Plt Count 395 MPV 10.1 Immature Gran % (Auto) 0.4 Neut % (Auto) 85.2 H Lymph % (Auto) 2.6 L [place] % (Auto) 9.6 Eos % (Auto) 1.8 Baso % (Auto) 0.4 Lymph # (Auto) 0.4 L [place] # (Auto) 1.4 H Eos # (Auto) 0.3 Baso # (Auto) 0.1 Abs Immat Gran (auto) 0.06 H Absolute Neuts (auto) 12.0 H Absolute Nucleated RBC 0.000 Nucleated RBC % (auto) 0.0 Smear Tech's Comments VERIFIED PT 15.7 H INR 1.3 H APTT Sodium 140 Potassium 4.5 Chloride 102 Carbon Dioxide 29 Anion Gap 14 BUN 22 H Creatinine 0.96 Estim Creat Clear Calc 69.7 Estimated GFR > 60 POC Glucose Random Glucose 187 H Lactic Acid Calcium 7.5 L Urine Color Urine Appearance Urine pH Ur Specific [place] Urine Protein Urine Glucose (UA) Urine Ketones Urine Blood Urine Nitrite Ur Leukocyte Esterase COVID-19 (ONEAL) [employer] 06/20/20 06/20/20 06/20/20 17:08 17:37 20:40 WBC RBC Hgb Hct MCV MCH MCHC RDW Plt Count MPV Immature Gran % (Auto) Neut % (Auto) Lymph % (Auto) [place] % (Auto) Eos % (Auto) Baso % (Auto) Lymph # (Auto) [place] # (Auto) Eos # (Auto) Baso # (Auto) Abs Immat Gran (auto) Absolute Neuts (auto) Absolute Nucleated RBC Nucleated RBC % (auto) Smear Tech's Comments PT INR APTT Sodium Potassium Chloride Carbon Dioxide Anion Gap BUN Creatinine Estim Creat Clear Calc Estimated GFR POC Glucose 185 H 170 H Random Glucose Lactic Acid 1.0 Calcium Urine Color Urine Appearance Urine pH Ur Specific [place] Urine Protein Urine Glucose (UA) Urine Ketones Urine Blood Urine Nitrite Ur Leukocyte Esterase COVID-19 (ONEAL) [employer] ([employer] 06/21/20 06/21/20 06/21/20 06:48 06:48 09:09 WBC 11.3 H RBC 3.02 L Hgb 9.2 L Hct 29.6 L MCV 98.0 MCH 30.5 MCHC 31.1 RDW 15.1 Plt Count 406 H MPV 9.6 Immature Gran % (Auto) 0.4 Neut % (Auto) 82.0 H Lymph % (Auto) 4.0 L [place] % (Auto) 9.8 Eos % (Auto) 3.4 Baso % (Auto) 0.4 Lymph # (Auto) 0.5 L [place] # (Auto) 1.1 Eos # (Auto) 0.4 Baso # (Auto) 0.1 Abs Immat Gran (auto) 0.05 H Absolute Neuts (auto) 9.2 H Absolute Nucleated RBC 0.000 Nucleated RBC % (auto) 0.0 Smear Tech's Comments VERIFIED PT INR APTT Sodium 141 Potassium 4.5 Chloride 103 Carbon Dioxide 31 H Anion Gap 12 BUN 23 H Creatinine 0.97 Estim Creat Clear Calc 69.0 Estimated GFR > 60 POC Glucose 157 H Random Glucose 137 H Lactic Acid Calcium 7.6 L Urine Color Urine Appearance Urine pH Ur Specific [place] Urine Protein Urine Glucose (UA) Urine Ketones Urine Blood Urine Nitrite Ur Leukocyte Esterase COVID-19 (ONEAL) [employer] 06/21/20 06/21/20 06/21/20 11:17 17:24 20:44 WBC RBC Hgb Hct MCV MCH MCHC RDW Plt Count MPV Immature Gran % (Auto) Neut % (Auto) Lymph % (Auto) [place] % (Auto) Eos % (Auto) Baso % (Auto) Lymph # (Auto) [place] # (Auto) Eos # (Auto) Baso # (Auto) Abs Immat Gran (auto) Absolute Neuts (auto) Absolute Nucleated RBC Nucleated RBC % (auto) Smear Tech's Comments PT INR APTT Sodium Potassium Chloride Carbon Dioxide Anion Gap BUN Creatinine Estim Creat Clear Calc Estimated GFR POC Glucose 133 H 220 H 150 H Random Glucose Lactic Acid Calcium Urine Color Urine Appearance Urine pH Ur Specific [place] Urine Protein Urine Glucose (UA) Urine Ketones Urine Blood Urine Nitrite Ur Leukocyte Esterase COVID-19 (ONEAL) [employer] 06/22/20 06/22/20 06/22/20 05:09 07:16 11:42 WBC 12.9 H RBC 3.16 L Hgb 9.7 L Hct 30.6 L MCV 96.8 MCH 30.7 MCHC 31.7 RDW 15.0 Plt Count 431 H MPV 9.8 Immature Gran % (Auto) 0.4 Neut % (Auto) 85.8 H Lymph % (Auto) 3.5 L [place] % (Auto) 7.8 Eos % (Auto) 2.2 Baso % (Auto) 0.3 Lymph # (Auto) 0.5 L [place] # (Auto) 1.0 Eos # (Auto) 0.3 Baso # (Auto) 0.0 Abs Immat Gran (auto) 0.05 H Absolute Neuts (auto) 11.1 H Absolute Nucleated RBC 0.000 Nucleated RBC % (auto) 0.0 Smear Tech's Comments VERIFIED PT INR APTT Sodium Potassium Chloride Carbon Dioxide Anion Gap BUN Creatinine Estim Creat Clear Calc Estimated GFR POC Glucose 172 H 181 H Random Glucose Lactic Acid Calcium Urine Color Urine Appearance Urine pH Ur Specific [place] Urine Protein Urine Glucose (UA) Urine Ketones Urine Blood Urine Nitrite Ur Leukocyte Esterase COVID-19 (ONEAL) [employer] 06/22/20 06/22/20 06/23/20 16:46 20:38 05:44 WBC RBC Hgb Hct MCV MCH MCHC RDW Plt Count MPV Immature Gran % (Auto) Neut % (Auto) Lymph % (Auto) [place] % (Auto) Eos % (Auto) Baso % (Auto) Lymph # (Auto) [place] # (Auto) Eos # (Auto) Baso # (Auto) Abs Immat Gran (auto) Absolute Neuts (auto) Absolute Nucleated RBC Nucleated RBC % (auto) Smear Tech's Comments PT INR APTT Sodium 144 Potassium 4.0 Chloride 104 Carbon Dioxide 32 H Anion Gap 12 BUN 21 H Creatinine 0.95 Estim Creat Clear Calc 70.4 Estimated GFR > 60 POC Glucose 103 109 Random Glucose 76 D Lactic Acid Calcium 7.4 L Urine Color Urine Appearance Urine pH Ur Specific [place] Urine Protein Urine Glucose (UA) Urine Ketones Urine Blood Urine Nitrite Ur Leukocyte Esterase COVID-19 (ONEAL) [employer] 06/23/20 06/23/20 06/23/20 07:43 11:38 16:30 WBC RBC Hgb Hct MCV MCH MCHC RDW Plt Count MPV Immature Gran % (Auto) Neut % (Auto) Lymph % (Auto) [place] % (Auto) Eos % (Auto) Baso % (Auto) Lymph # (Auto) [place] # (Auto) Eos # (Auto) Baso # (Auto) Abs Immat Gran (auto) Absolute Neuts (auto) Absolute Nucleated RBC Nucleated RBC % (auto) Smear Tech's Comments PT INR APTT Sodium Potassium Chloride Carbon Dioxide Anion Gap BUN Creatinine Estim Creat Clear Calc Estimated GFR POC Glucose 93 122 H 143 H Random Glucose Lactic Acid Calcium Urine Color Urine Appearance Urine pH Ur Specific [place] Urine Protein Urine Glucose (UA) Urine Ketones Urine Blood Urine Nitrite Ur Leukocyte Esterase COVID-19 (ONEAL) [employer] 06/23/20 06/24/20 06/24/20 20:04 05:12 07:34 WBC 12.5 H RBC 3.21 L Hgb 9.6 L Hct 31.1 L MCV 96.9 MCH 29.9 MCHC 30.9 L RDW 14.9 Plt Count 430 H MPV 10.3 Immature Gran % (Auto) Neut % (Auto) Lymph % (Auto) [place] % (Auto) Eos % (Auto) Baso % (Auto) Lymph # (Auto) [place] # (Auto) Eos # (Auto) Baso # (Auto) Abs Immat Gran (auto) Absolute Neuts (auto) Absolute Nucleated RBC 0.000 Nucleated RBC % (auto) 0.0 Smear Tech's Comments PT INR APTT Sodium Potassium Chloride Carbon Dioxide Anion Gap BUN Creatinine Estim Creat Clear Calc Estimated GFR POC Glucose 176 H 129 H Random Glucose Lactic Acid Calcium Urine Color Urine Appearance Urine pH Ur Specific [place] Urine Protein Urine Glucose (UA) Urine Ketones Urine Blood Urine Nitrite Ur Leukocyte Esterase COVID-19 (ONEAL) [employer] 06/24/20 06/24/20 11:18 14:45 WBC RBC Hgb Hct MCV MCH MCHC RDW Plt Count MPV Immature Gran % (Auto) Neut % (Auto) Lymph % (Auto) [place] % (Auto) Eos % (Auto) Baso % (Auto) Lymph # (Auto) [place] # (Auto) Eos # (Auto) Baso # (Auto) Abs Immat Gran (auto) Absolute Neuts (auto) Absolute Nucleated RBC Nucleated RBC % (auto) Smear Tech's Comments PT INR APTT Sodium Potassium Chloride Carbon Dioxide Anion Gap BUN Creatinine Estim Creat Clear Calc Estimated GFR POC Glucose 150 H Random Glucose Lactic Acid Calcium Urine Color Urine Appearance Urine pH Ur Specific [place] Urine Protein Urine Glucose (UA) Urine Ketones Urine Blood Urine Nitrite Ur Leukocyte Esterase COVID-19 (ONEAL) Negative [employer] See Note Preliminary micro results at discharge 06/20/20 17:08 Blood Culture - Preliminary Blood - Venous No growth after 48 hours. 06/20/20 16:57 Blood Culture - Preliminary Blood - Venous No growth after 48 hours. Discharge Plan Discharge Patient Disposition: er [facility] Referrals: [facility] [Outside] Jorge Currie MD [Primary Care Provider] - Discharge Medications: New guaifenesin [Mucinex] 600 mg Tablet Extended Release 12hr 600 mg PO BID Qty: 6 RF: 0 cefuroxime axetil 500 mg Tablet 500 mg PO Q12H Qty: 12 RF: 0 doxycycline hyclate 100 mg Tablet 100 mg PO BID Qty: 12 RF: 0 Continued Spiriva Respimat 2.5 mcg/actuation mist 2 puff inhalation DAILY 90 Days Qty: 3 RF: 3 (DME) OneTouch Verio test strips Strip See Rx Instructions .ROUTE .MEDSUPPLY Qty: 100 RF: 12 morphine [MS Contin] 30 mg Tablet Extended Release 30 mg PO Q12H Qty: 60 RF: 0 oxycodone 5 mg Capsule 5 mg PO Q8H PRN (Reason: Breakthrough Pain, Moderate) Qty: 40 RF: 0 carbidopa-levodopa 50-200 mg tablet extended release 1 tab PO TID RF: 0 enoxaparin 100 mg/mL Syringe 90 mg subcut Q12H 30 Days Qty: 54 RF: 2 insulin asp prt-insulin aspart [Novolog Mix 70-30FlexPen U-100] 100 unit/mL (70-30) insulin pen 8 unit subcut TID RF: 0 diltiazem HCl 180 mg capsule,extended release 24hr 180 mg PO DAILY 90 Days Qty: 90 RF: 3 sotalol 120 mg tablet 120 mg PO BID 90 Days Qty: 180 RF: 3 levothyroxine 50 mcg tablet 50 mcg PO DAILY 90 Days Qty: 90 RF: 3 pravastatin 40 mg tablet 40 mg PO DAILY 90 Days Qty: 90 RF: 3 furosemide 20 mg tablet 40 mg PO DAILY 90 Days Qty: 180 RF: 3 albuterol sulfate [ProAir HFA] 90 mcg/actuation Hfa Aerosol Inhaler 2 puff INHALATION Q4-6H PRN (Reason: Dyspnea) Qty: 1 RF: 0 losartan 50 mg Tablet 25 mg PO DAILY Qty: 30 RF: 0 Discharge Orders: Discharge Order (Routine); Ordered 06/24/20 Ordered By: Raymundo White Diet: advance to usual diet Activity on Discharge: As tolerated Other Ambulatory Orders: Basic Metabolic Panel Fasting (Routine) Timeframe: 2 Days Facility: [facility] - Location: Laboratory Ordered By: Raymundo White Complete Blood Count no Diff (Routine) Timeframe: 2 Days Facility: [facility] - Location: Laboratory Ordered By: Raymundo White Visit Report Forms: Patient Portal Discharge page Care Plan Goals: Patient given pneumonia-started on IV antibiotics subsequently shortness of breath improving and going to rehab with p.o. antibiotics. Monitor CBC closely because of anemia - since patient is on subQ Lovenox due to has history of mechanical aortic wall, AFib. Health Concerns: as above. Plan of Treatment: as above.
== END 2020-06-24 16:53 | disposition skilled nursing facility (03) | DRG 195 ==
LOC: HO.ED 15:19 → HO.IMC 06-22 07:58
PROVIDERS: Emergency Medicine; Nurse Practitioner Family; Physician Assistant Medical; Admitting Provider Internal Medicine; Emergency Provider Emergency Medicine; PCP Internal Medicine; Visit Provider Internal Medicine
DX: J18.9 Pneumonia, unspecified organism (principal); E03.9 Hypothyroidism, unspecified; I48.91 Unspecified atrial fibrillation; E11.9 Type 2 diabetes mellitus without complications; G20 Parkinson's disease; L89.152 Pressure ulcer of sacral region, stage 2; L89.322 Pressure ulcer of left buttock, stage 2; D64.9 Anemia, unspecified; E78.5 Hyperlipidemia, unspecified; Z20.828 Contact with and (suspected) exposure to other viral communicable diseases; Z95.0 Presence of cardiac pacemaker; Z95.2 Presence of prosthetic heart valve; Z79.4 Long term (current) use of insulin; Z79.890 Hormone replacement therapy; Z87.891 Personal history of nicotine dependence; Z79.899 Other long term (current) drug therapy
CPT/HCPCS: 36415; 71045; 72170; 73551; 80048; 81003; 82947; 83605; 85025; 85027; 85610; 85730; 87040; 87635; 93005; 94640; 94664; 97110; 97116; 97162; 97530; 99285; J0696; J1650; J2543; J3370

== ENCOUNTER 2020-07-09 10:44 | Inpatient (IN) | payer MEDICARE, SELFPAY ==
--- NOTE | ~2020-07-09 | XR_ITS ---
EXAMINATION: XR CHEST CLINICAL INFORMATION: Suspect aspiration COMPARISON: 07/15/2020 TECHNIQUE: Frontal view of the chest was obtained. FINDINGS: There are patchy bilateral airspace opacities, similar in appearance to the previous examination. Platelike atelectasis within the middle lobe laterally. Trace bilateral pleural effusions. No pneumothorax. Heart size and pulmonary vascularity within normal limits. Aortic valve replacement. Dual-lead PPM leads stably positioned. XR/XR chest 1V IMPRESSION: Stable bilateral patchy airspace opacities. Trace bilateral pleural effusions.
[2020-07-09 10:51] VITALS: BP 143/48; BP 169/69; PULSE 63; PULSE 66; RESP 18; TEMP 36.7; O2SAT 98; BMI 22.4
[2020-07-09 11:18] VITALS: BP 139/44; PULSE 61; RESP 16; TEMP 36.7; O2SAT 97
--- NOTE | 2020-07-09 11:20 | ECG_ITS ---
Test Reason : GI BLEED Blood Pressure : / mmHG Vent. Rate : 061 BPM Atrial Rate : 061 BPM P-R Int : 164 ms QRS Dur : 084 ms QT Int : 432 ms P-R-T Axes : 058 -07 005 degrees QTc Int : 434 ms Normal sinus rhythm Otherwise normal ECG When compared with ECG of 24-JUN-2020 06:06, nonspecific T wave changes Referred By: Calvin Ge Electronically Signed By:Dennis Armenta
--- NOTE | 2020-07-09 11:20 | ED.GIBLEED ---
HPI - GI Bleed General Chief complaint: GI Bleed Stated complaint: blood in stool Time Seen by Provider: 07/09/20 11:19 Source: EMS Mode of arrival: EMS History of Present Illness HPI Narrative: This is a 74-year-old male with past medical history as noted below including history of chronic obstructive pulmonary disease, diabetes, hyperlipidemia, hypertension, hypothyroidism, pancreatic CA, paroxysmal atrial fibrillation as well as artificial valve on ? Eliquis according to EMS unsure as well as prior history of pulmonary embolism and surgical history of aortic valve replacement, carpal tunnel release syndrome, pacemaker who presents from home via EMS has had increase in generalized weakness also complaining of blood in stool call his primary care advised to come to emergency room. To this facility has had several admissions for anemia as well as [facility] and most recently from June 21 to June 24 for pneumonia subsequently discharged to rehab and apparently lives at home his and question of needing more care than she can provide. Related Data Home Medications Medication Instructions Recorded Confirmed carbidopa-levodopa 1 tab PO TID 04/28/20 07/09/20 insulin asp prt-insulin aspart 8 unit SUBCUT TID 06/12/20 07/09/20 [Novolog Mix 70-30FlexPen U-100] furosemide [Lasix] 40 mg PO BID 07/09/20 07/09/20 Previous Rx's Medication Instructions Recorded diltiazem HCl 180 mg 180 mg PO DAILY 90 Days #90 cap 03/22/20 capsule,extended release 24 hr levothyroxine 50 mcg tablet 50 mcg PO DAILY 90 Days #90 tab 03/22/20 pravastatin 40 mg tablet 40 mg PO DAILY 90 Days #90 tab 03/22/20 sotalol 120 mg tablet 120 mg PO BID 90 Days #180 tab 03/22/20 enoxaparin 90 mg SUBCUT Q12H 30 Days #54 ml 04/30/20 blood sugar diagnostic #100 ea 06/02/20 tiotropium bromide 2.5 2 puff INHALATION DAILY 90 Days #3 06/02/20 mcg/actuation mist for inhalation units morphine [MS Contin] 30 mg PO Q12H #60 tab 06/09/20 losartan 25 mg PO DAILY #30 tab 06/24/20 Allergies Allergy/AdvReac Type Severity Reaction Status Date / Time No Known Allergies Allergy Verified 06/17/20 13:40 [No Known Allergies*] Review of Systems Review of Systems: Constitutional: No Weight loss, No Fever, No Chills, No Night Sweats, No Fatigue, No Malaise ENT/Mouth: No Hearing loss, No Ear Pain, No Nasal Congestion, No Sinus Pain, No Hoarseness, No sore throat, No Rhinorrhea, No Swallowing Difficulty Eyes: No Eye Pain, No Swelling, No Redness, No Foreign Body, No Discharge, No Vision Changes Cardiovascular: No Chest Pain, No SOB, No Dyspnea on Exertion, No Orthopnea, No Edema, No Palpitations Respiratory: No Cough, No Sputum, No Wheezing, No Smoke Exposure, No Dyspnea Gastrointestinal: No Nausea, No Vomiting, No Diarrhea, No Constipation, No abdominal Pain, as noted in HPI Genitourinary: no irregular bleeding, No Dysuria, No Urinary Frequency, No Hematuria, No Urinary Incontinence, No Urgency, No Flank Pain Musculoskeletal: No joint pain, No Myalgias, No Joint Swelling Skin: No Skin Lesions, No rash Neuro: + generalized weakness, No Numbness, No Paresthesias, No Loss of Consciousness, No Dizziness, No Headache Psych: Negative Heme/Lymph: No Bruising, No Bleeding,No Lymphadenopathy Endocrine: No Polyuria, No Polydipsia, No Temperature Intolerance Yes all other systems are reviewed and are negative PMFSH Past Medical History Medical History (Updated 07/09/20 @ 16:32 by Calvin Ge NP) Anemia Bony sclerosis COPD (chronic obstructive pulmonary disease) Diabetes mellitus GI bleed Hyperlipidemia Hypertension Hypothyroidism Lytic bone lesion of hip Lytic lesion of bone on x-ray Metastatic bone tumor Overweight (BMI 25.0-29.9) Pancreatic cancer Parkinson's disease Paroxysmal atrial fibrillation Pleural effusion, right Pulmonary embolism Surgical History History of aortic valve replacement (~11/29/12) History of carpal tunnel release (~06/24/13) Status post anal 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) Family History Family History Father Cardiovascular disease Mother Stroke Other Colon cancer FH: Parkinson's disease Social History Social History Household Members: Spouse Housing: House Alcohol intake: never Smoking Status: Never smoker Second Hand Smoke Exposure: No Use of substances other than those prescribed or required for medical reasons: No Advance Directives: No Advance Directives Information Provided: Yes service: No Current occupational status: retired Physical Exam Vital Signs: Vital Signs: Last Vital Signs Temp 98.0 F 07/09/20 11:18 Pulse 64 07/09/20 11:36 Resp 18 07/09/20 11:36 BP 158/56 H 07/09/20 11:36 Pulse Ox 97 07/09/20 11:36 Body Mass Index 22.4 Reviewed Const: General: cooperative and healthy appearing; No acute distress or intoxicated appearing Nutritional Appearance: average body habitus Orientation/consciousness: patient oriented x3 HENMT: Head: Yes normal to inspection Ears: hearing grossly normal bilaterally Eyes: General: appearance normal, both eyes and all related structures Visual Card: normal visual card by confrontation Neck: Neck: Yes normal visual inspection and No positive Brudzinski's sign Chest: Chest palpation & inspection: normal inspection of the chest Resp: Effort & Inspection: normal respiratory effort Auscultation: clear to auscultation bilaterally Cardio: Jugular venous distension: no JVD Rhythm: regular rhythm Heart sounds: S1 normal heart sound present and S2 normal heart sound present GI: Inspection: Yes normal to inspection Palpation (GI): Soft to palpation Percussion: Yes normal to percussion Auscultation: normal bowel sounds Rectal Exam - Male: Yes heme positive stool (yanique loss/blackish stool, strongly positive at bedside sent for lab) : General: Yes no CVA tenderness Back/Spine/Pelvis: Back: no CVA tenderness Skin: General skin exam: no rashes or lesions noted Neuro: General: patient oriented x3 Extrem: General: Yes normal to inspection Course Course Course Narrative: 74-year-old with mechanical valve EMS reports on Eliquis however review the chart shows that he is actually on Eliquis occult stool positive H&H shows a decline case discussed with GI recommends further evaluation for EDG on Sunday. Hemodynamically stable at this time. Case discussed hospitalist for admission. MDM - GI Bleed Medical Records Attestation: I reviewed the patient's medical records. Lab Data Attestation: I reviewed the patient's lab results. Result diagrams: 07/09/20 11:42 07/09/20 11:42 Labs: Lab Results 07/09/20 07/09/20 07/09/20 Range/Units 11:42 11:42 11:42 WBC 10.6 (4.8-10.8) X10*3/uL RBC 2.61 L (4.60-5.80) X10*6/uL Hgb 8.1 L (14.0-18.0) g/dl Hct 24.5 L D (42-52) % MCV 93.9 (80-98) fL MCH 31.0 (27.0-33.0) pg MCHC 33.1 (31.0-36.0) g/dl RDW 16.6 H (11.0-16.0) % Plt Count 253 D (160-400) X10*3/uL MPV 10.1 (9.4-12.4) fL Immature Gran % (Auto) 0.4 (0.0-0.4) % Neut % (Auto) 86.4 H (45-73) % Lymph % (Auto) 4.2 L (20-40) % Anson % (Auto) 6.9 (2-11) % Eos % (Auto) 1.8 (0-4) % Baso % (Auto) 0.3 (0-2) % Lymph # (Auto) 0.5 L (1.2-4.9) X10*3/uL Anson # (Auto) 0.7 (0.1-1.2) X10*3/uL Eos # (Auto) 0.2 (0.0-0.4) X10*3/uL Baso # (Auto) 0.0 (0.0-0.2) X10*3/uL Abs Immat Gran (auto) 0.04 H (0.00-0.03) X10*3/uL Absolute Neuts (auto) 9.2 H (2.0-8.3) X10*3/uL Absolute Nucleated RBC 0.000 (0.0-0.012) X10*3/uL Nucleated RBC % (auto) 0.0 (0.0-0.2) /100WBC Smear Tech's Comments VERIFIED PT 14.7 H (10.8-13.0) SEC INR 1.2 H (0.9-1.1) APTT 42.5 H (24.1-38.0) SEC Sodium 137 (135-145) mmol/L Potassium 3.8 (3.3-5.1) mmol/L Chloride 99 (96-108) mmol/L Carbon Dioxide 31 H (22-29) mmol/L Anion Gap 11 L (12-20) BUN 28 H (9-16) mg/dL Creatinine 0.99 (0.5-1.4) mg/dL Estim Creat Clear Calc 65.5 Estimated GFR > 60 Random Glucose 218 H D (60-115) mg/dL Calcium 7.4 L (8.4-10.2) mg/dL Magnesium 2.0 (1.6-2.6) mg/dL Total Bilirubin 1.2 H (0.0-1.0) mg/dL AST 100 H (5-37) U/L ALT 18 (0-40) U/L Alkaline Phosphatase 561 H D (39-117) U/L Troponin I High Sens (<3.5-35.0) ng/L B-Natriuretic Peptide (<100) pg/mL Total Protein 5.3 L (6.5-8.0) g/dL Albumin 2.4 L D (3.5-5.0) g/dL Stool Occult Blood (NEG) COVID-19 (ONEAL) (Negative) COVID-19 Clin Com 07/09/20 07/09/20 07/09/20 Range/Units 11:42 11:42 11:42 WBC (4.8-10.8) X10*3/uL RBC (4.60-5.80) X10*6/uL Hgb (14.0-18.0) g/dl Hct (42-52) % MCV (80-98) fL MCH (27.0-33.0) pg MCHC (31.0-36.0) g/dl RDW (11.0-16.0) % Plt Count (160-400) X10*3/uL MPV (9.4-12.4) fL Immature Gran % (Auto) (0.0-0.4) % Neut % (Auto) (45-73) % Lymph % (Auto) (20-40) % Anson % (Auto) (2-11) % Eos % (Auto) (0-4) % Baso % (Auto) (0-2) % Lymph # (Auto) (1.2-4.9) X10*3/uL Anson # (Auto) (0.1-1.2) X10*3/uL Eos # (Auto) (0.0-0.4) X10*3/uL Baso # (Auto) (0.0-0.2) X10*3/uL Abs Immat Gran (auto) (0.00-0.03) X10*3/uL Absolute Neuts (auto) (2.0-8.3) X10*3/uL Absolute Nucleated RBC (0.0-0.012) X10*3/uL Nucleated RBC % (auto) (0.0-0.2) /100WBC Smear Tech's Comments PT (10.8-13.0) SEC INR (0.9-1.1) APTT (24.1-38.0) SEC Sodium (135-145) mmol/L Potassium (3.3-5.1) mmol/L Chloride (96-108) mmol/L Carbon Dioxide (22-29) mmol/L Anion Gap (12-20) BUN (9-16) mg/dL Creatinine (0.5-1.4) mg/dL Estim Creat Clear Calc Estimated GFR Random Glucose (60-115) mg/dL Calcium (8.4-10.2) mg/dL Magnesium (1.6-2.6) mg/dL Total Bilirubin (0.0-1.0) mg/dL AST (5-37) U/L ALT (0-40) U/L Alkaline Phosphatase (39-117) U/L Troponin I High Sens 19.8 D (<3.5-35.0) ng/L B-Natriuretic Peptide 836 H (<100) pg/mL Total Protein (6.5-8.0) g/dL Albumin (3.5-5.0) g/dL Stool Occult Blood (NEG) COVID-19 (ONEAL) Negative (Negative) COVID-19 Clin Com See Note 07/09/20 Range/Units 11:42 WBC (4.8-10.8) X10*3/uL RBC (4.60-5.80) X10*6/uL Hgb (14.0-18.0) g/dl Hct (42-52) % MCV (80-98) fL MCH (27.0-33.0) pg MCHC (31.0-36.0) g/dl RDW (11.0-16.0) % Plt Count (160-400) X10*3/uL MPV (9.4-12.4) fL Immature Gran % (Auto) (0.0-0.4) % Neut % (Auto) (45-73) % Lymph % (Auto) (20-40) % Anson % (Auto) (2-11) % Eos % (Auto) (0-4) % Baso % (Auto) (0-2) % Lymph # (Auto) (1.2-4.9) X10*3/uL Anson # (Auto) (0.1-1.2) X10*3/uL Eos # (Auto) (0.0-0.4) X10*3/uL Baso # (Auto) (0.0-0.2) X10*3/uL Abs Immat Gran (auto) (0.00-0.03) X10*3/uL Absolute Neuts (auto) (2.0-8.3) X10*3/uL Absolute Nucleated RBC (0.0-0.012) X10*3/uL Nucleated RBC % (auto) (0.0-0.2) /100WBC Smear Tech's Comments PT (10.8-13.0) SEC INR (0.9-1.1) APTT (24.1-38.0) SEC Sodium (135-145) mmol/L Potassium (3.3-5.1) mmol/L Chloride (96-108) mmol/L Carbon Dioxide (22-29) mmol/L Anion Gap (12-20) BUN (9-16) mg/dL Creatinine (0.5-1.4) mg/dL Estim Creat Clear Calc Estimated GFR Random Glucose (60-115) mg/dL Calcium (8.4-10.2) mg/dL Magnesium (1.6-2.6) mg/dL Total Bilirubin (0.0-1.0) mg/dL AST (5-37) U/L ALT (0-40) U/L Alkaline Phosphatase (39-117) U/L Troponin I High Sens (<3.5-35.0) ng/L B-Natriuretic Peptide (<100) pg/mL Total Protein (6.5-8.0) g/dL Albumin (3.5-5.0) g/dL Stool Occult Blood POS (NEG) COVID-19 (ONEAL) (Negative) COVID-19 Clin Com Imaging Data Chest x-ray: Radiologist's impression: [address] [id number] ReportSigned Patient: Marciano Washington LMR#: [id number]: 1945cct:[id number]/Sex: 74 / MADM Date: 07/09/20Loc: [address]: Ordering Physician: Calvin Ge [employer] Date of Service: 07/09/20 Procedure(s): XR chest 1V Accession Number(s): [id number] cc: Calvin Ge [employer]~ EXAMINATION: XR CHEST CLINICAL INFORMATION: Weakness, right lung infiltrates. COMPARISON: 06/20/2020 and 05/31/2020 chest radiographs. TECHNIQUE: Frontal view of the chest was obtained. FINDINGS: There has been interval decrease in right mid and lower lung infiltrates with minimal residual markings. The heart and mediastinal structures are unremarkable. The left-sided pacemaker is unchanged. XR/XR chest 1V IMPRESSION: Interval improvement in right mid and lower lung infiltrates with minimal residual markings. Dictated By:PANCHITO LANDON MDSigned By:<Electronically signed by PANCHITO LANDON MD in [place]>07/09/20 1142 DD/ 1120TD/TT: Molding Machine Tender: IMANI Head CT: Radiologist's impression: [address] [id number] Scan ReportSigned Patient: Marciano Washington LMR#: [id number]: [id number]:[id number]/Sex: 74 / MADM Date: 07/09/20Loc: [address]: Ordering Physician: Calvin Ge [employer] Date of Service: 07/09/20 Procedure(s): CT head/brain wo con Accession Number(s): [id number] cc: Calvin Ge [employer]~ EXAMINATION: CT HEAD WITHOUT CONTRAST CLINICAL INFORMATION: Fall COMPARISON: None TECHNIQUE: Contiguous axial imaging was performed from the skull base to vertex without intravenous administration of contrast. This CT examination was performed using dose optimization techniques as appropriate, variously including the following: *Automated exposure control *Adjustment of mA and/or kV according to patient size (this includes techniques or standardized protocols for targeted exams where dose is matched to indication/reason for exam; i.e. extremities or head) *Use of iterative reconstruction technique DLP: 756 mGy-cm FINDINGS: There is no evidence of acute intra-axial or extra-axial bleed, masses or midline shift. There is subtle hypodensity in the left douglas suspicious for an infarct. No abnormal mass effect or midline shift is seen. Seay to white matter differentiation is well preserved. No extra-axial fluid collections are identified. The lateral ventricles are symmetrical but enlarged. There is diffuse periventricular hypodensity in both cerebral hemispheres without mass effect. Dystrophic calcification is seen in bilateral basal ganglia. The osseous structures and soft tissues are normal. The mastoid air cells and visualized portions of the paranasal sinuses are well aerated. CT/CT head/brain wo con IMPRESSION: No acute intracranial process seen. Dictated By:JOHNNY WEINSTEIN MDSigned By:<Electronically signed by JOHNNY WEINSTEIN MD in [place]>07/09/20 1227 DD/ 1132TD/TT: Molding Machine Tender: CONSTANCE ECG Data Interpretation: Normal sinus rhythm Otherwise normal ECG When compared with ECG of 24-JUN-2020 06:06, Current undetermined rhythm precludes rhythm comparison, needs review ST now depressed in Anterior leads T wave inversion no longer evident in Anterior leads QT has lengthened Discharge Plan Discharge Clinical Impression: GI bleed, Anemia, Weakness Patient Disposition: Admitted As Inpatient
--- NOTE | 2020-07-09 11:32 | CT_ITS ---
EXAMINATION: CT HEAD WITHOUT CONTRAST CLINICAL INFORMATION: Fall COMPARISON: None TECHNIQUE: Contiguous axial imaging was performed from the skull base to vertex without intravenous administration of contrast. This CT examination was performed using dose optimization techniques as appropriate, variously including the following: *Automated exposure control *Adjustment of mA and/or kV according to patient size (this includes techniques or standardized protocols for targeted exams where dose is matched to indication/reason for exam; i.e. extremities or head) *Use of iterative reconstruction technique DLP: 756 mGy-cm FINDINGS: There is no evidence of acute intra-axial or extra-axial bleed, masses or midline shift. There is subtle hypodensity in the left douglas suspicious for an infarct. No abnormal mass effect or midline shift is seen. Seay to white matter differentiation is well preserved. No extra-axial fluid collections are identified. The lateral ventricles are symmetrical but enlarged. There is diffuse periventricular hypodensity in both cerebral hemispheres without mass effect. Dystrophic calcification is seen in bilateral basal ganglia. The osseous structures and soft tissues are normal. The mastoid air cells and visualized portions of the paranasal sinuses are well aerated. CT/CT head/brain wo con IMPRESSION: No acute intracranial process seen.
[2020-07-09 11:36] VITALS: BP 158/56; PULSE 64; RESP 18; O2SAT 97
[2020-07-09 11:52] LABS: Basophils Percent Auto 0.3 % (0-2); Eosinophils Absolute Auto 0.2 X10*3/uL (0.0-0.4); Eosinophils Percent Auto 1.8 % (0-4); Hematocrit 24.5 % (42-52); Hemoglobin 8.1 g/dl (14.0-18.0); Imm Gran Abs Auto 0.04 X10*3/uL (0.00-0.03); Imm Gran Pct Auto 0.4 % (0.0-0.4); Lymphocytes Absolute Auto 0.5 X10*3/uL (1.2-4.9); Lymphocytes Percent Auto 4.2 % (20-40); MANUAL DIFF FLAG SCAN; Mean Corpuscular HGB Conc 33.1 g/dl (31.0-36.0); Mean Corpuscular Volume 93.9 fL (80-98); Mean Platelet Volume 10.1 fL (9.4-12.4); Monocytes Absolute Auto 0.7 X10*3/uL (0.1-1.2); Monocytes Percent Auto 6.9 % (2-11); Neutrophils Absolute Auto 9.2 X10*3/uL (2.0-8.3); Neutrophils Percent Auto 86.4 % (45-73); OBS Int Ctl Valid YES; OBS1 POS (NEG); Platelet Count 253 X10*3/uL (160-400); Red Blood Count 2.61 X10*6/uL (4.60-5.80); Red Cell Distribution Width 16.6 % (11.0-16.0); SCAN SMEAR FLAG 1; White Blood Count 10.6 X10*3/uL (4.8-10.8)
[2020-07-09 11:58] LABS: INTERNATIONAL NORM RATIO 1.2 (0.9-1.1); Prothrombin Time 14.7 SEC (10.8-13.0)
[2020-07-09 12:01] LABS: Partial Thromboplastin Time 42.5 SEC (24.1-38.0)
[2020-07-09 12:09] LABS: COVID-19 Test Negative (Negative)
[2020-07-09 12:15] LABS: SLIDE REVIEW VERIFIED
[2020-07-09 12:33] LABS: B Type Natriuretic Peptide 836 pg/mL (<100); Troponin-I High Sensitivity 19.8 ng/L (<3.5-35.0)
[2020-07-09 12:43] LABS: Alanine Aminotransferase 18 U/L (0-40); Albumin Level 2.4 g/dL (3.5-5.0); Alkaline Phosphatase 561 U/L (39-117); Anion Gap 11 (12-20); Aspartate Amino Transferase 100 U/L (5-37); Bilirubin Total 1.2 mg/dL (0.0-1.0); Blood Urea Nitrogen 28 mg/dL (9-16); Calcium 7.4 mg/dL (8.4-10.2); Carbon Dioxide 31 mmol/L (22-29); Chloride 99 mmol/L (96-108); Creatinine Clr Calc Pharmacy 65.5; Estimated Glomerular Filt Rate > 60; Glucose Random 218 mg/dL (60-115); Potassium 3.8 mmol/L (3.3-5.1); Sodium 137 mmol/L (135-145); Total Protein 5.3 g/dL (6.5-8.0)
--- NOTE | 2020-07-09 15:43 | P.HPHOSP_ITS ---
History of Present Illness Date of Service: 07/09/20 <JESI House - Last Filed: 07/09/20 16:04> Chief Complaint: Dark stools <JESI House - Last Filed: 07/09/20 16:04> This is a 74-year-old male with recent admission for GI bleed who presents to the emergency department with dark stools. Patient was discharged June 18 after admission for GI bleeding. He had EGD on June 13 which showed nonhemorrhagic erosive esophagitis. Colonoscopy was done on the same admission which showed internal hemorrhoids but no colonic source of bleeding. His anticoagulation with Lovenox was resumed in his H/H remained stable. He was readmitted a few days later for management of pneumonia. At that time his H/H remained stable. Today he presents with 4-5 days of black stool. He denies any associated abdominal pain. His H/H was 8.1/24.5 which was a decrease from his previous 9.6/31.1 on 06/24. GI evaluated him in the emergency department and plans for repeat endoscopy on Sunday. <JESI House - Last Filed: 07/09/20 16:04> Review of Systems Review of Systems: Yes all other systems are reviewed and are negative <JESI House - Last Filed: 07/09/20 16:04> Constitutional: Constitutional: Denies chills and Denies fever(s) <JESI House - Last Filed: 07/09/20 16:04> Cardiovascular: Cardiovascular: Denies chest pain <JESI House Last Filed: 07/09/20 16:04> Respiratory: Respiratory: Reports cough <JESI House - Last Filed: 07/09/20 16:04> Gastrointestinal: Gastrointestinal: Denies abdominal pain <JESI House - Last Filed: 07/09/20 16:04> [facility] Medical History: Medical History (Updated 07/09/20 @ 16:32 by Calvin Ge NP) Anemia Bony sclerosis COPD (chronic obstructive pulmonary disease) Diabetes mellitus GI bleed Hyperlipidemia Hypertension Hypothyroidism Lytic bone lesion of hip Lytic lesion of bone on x-ray Metastatic bone tumor Overweight (BMI 25.0-29.9) Pancreatic cancer Parkinson's disease Paroxysmal atrial fibrillation Pleural effusion, right Pulmonary embolism <JESI House - Last Filed: 07/09/20 16:04> Family History: Family History Father Cardiovascular disease Mother Stroke Other Colon cancer FH: Parkinson's disease <JESI House - Last Filed: 07/09/20 16:04> Surgical History: Surgical History History of aortic valve replacement (~11/29/12) History of carpal tunnel release (~06/24/13) Status post anal 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) <JESI House - Last Filed: 07/09/20 16:04> Social History: Social History Household Members: Spouse Housing: House Alcohol intake: never Smoking Status: Never smoker Second Hand Smoke Exposure: No Use of substances other than those prescribed or required for medical reasons: No Advance Directives: No Advance Directives Information Provided: Yes service: No Current occupational status: retired <JESI House - Last Filed: 07/09/20 16:04> Meds Allergies/Adverse reactions: Allergies Allergy/AdvReac Type Severity Reaction Status Date / Time No Known Allergies Allergy Verified 06/17/20 13:40 [No Known Allergies*] <JESI House - Last Filed: 07/09/20 16:04> Home medications: Home Medications Medication Instructions Recorded Confirmed Type carbidopa-levodopa 1 tab PO TID 04/28/20 07/09/20 History insulin asp prt-insulin aspart 8 unit SUBCUT TID 06/12/20 07/09/20 History [Novolog Mix 70-30FlexPen U-100] furosemide [Lasix] 40 mg PO BID 07/09/20 07/09/20 History <JESI House - Last Filed: 07/09/20 16:04> Physical Exam Vital Signs and Narrative: Vital Signs: Last Vital Signs Temp 98.0 F 07/09/20 11:18 Pulse 64 07/09/20 11:36 Resp 18 07/09/20 11:36 BP 158/56 H 07/09/20 11:36 Pulse Ox 97 07/09/20 11:36 Body Mass Index 22.4 <JESI House - Last Filed: 07/09/20 16:04> Const: General: alert and awake <JESI House - Last Filed: 07/09/20 16:04> Nutritional Appearance: well nourished <JESI House - Last Filed: 07/09/20 16:04> HENMT: Head: Yes normocephalic and Yes atraumatic <JESI House - Last Filed: 07/09/20 16:04> Eyes: Sclerae: sclerae normal <JESI House Last Filed: 07/09/20 16:04> Chest: Chest palpation & inspection: normal inspection of the chest <JESI House Last Filed: 07/09/20 16:04> Resp: Effort & Inspection: normal respiratory effort and no respiratory distress <JESI House - Last Filed: 07/09/20 16:04> Cardio: Rate: regular rate <JESI House Last Filed: 07/09/20 16:04> Rhythm: regular rhythm <JESI House - Last Filed: 07/09/20 16:04> GI: Palpation (GI): Soft to palpation and nontender <JESI House - Last Filed: 07/09/20 16:04> Skin: General skin exam: no rashes or lesions noted <JESI House Last Filed: 07/09/20 16:04> Neuro: Cranial nerves: Yes CN's II-XII intact bilaterally and Yes Bilaterally intact EOM present <JESI House - Last Filed: 07/09/20 16:04> Extrem: General: Yes normal to inspection <JESI House Last Filed: 07/09/20 16:04> Results Labs CBC and Chem 7: : 07/09/20 11:42 07/09/20 11:42 <JESI House - Last Filed: 07/09/20 16:04> Labs: Laboratory Results - last 24 hr 07/09/20 07/09/20 07/09/20 11:42 11:42 11:42 MCV 93.9 MCH 31.0 MCHC 33.1 RDW 16.6 H Plt Count 253 D MPV 10.1 Immature Gran % (Auto) 0.4 Neut % (Auto) 86.4 H Lymph % (Auto) 4.2 L [place] % (Auto) 6.9 Eos % (Auto) 1.8 Baso % (Auto) 0.3 Lymph # (Auto) 0.5 L [place] # (Auto) 0.7 Eos # (Auto) 0.2 Baso # (Auto) 0.0 Abs Immat Gran (auto) 0.04 H Absolute Neuts (auto) 9.2 H Absolute Nucleated RBC 0.000 Nucleated RBC % (auto) 0.0 Smear Tech's Comments VERIFIED PT 14.7 H INR 1.2 H APTT 42.5 H Anion Gap 11 L Estim Creat Clear Calc 65.5 Estimated GFR > 60 Random Glucose 218 H D Calcium 7.4 L Total Bilirubin 1.2 H AST 100 H ALT 18 Alkaline Phosphatase 561 H D Troponin I High Sens B-Natriuretic Peptide Total Protein 5.3 L Albumin 2.4 L D Stool Occult Blood COVID-19 ([facility]) [facility] 07/09/20 07/09/20 07/09/20 11:42 11:42 11:42 MCV MCH MCHC RDW Plt Count MPV Immature Gran % (Auto) Neut % (Auto) Lymph % (Auto) [place] % (Auto) Eos % (Auto) Baso % (Auto) Lymph # (Auto) [place] # (Auto) Eos # (Auto) Baso # (Auto) Abs Immat Gran (auto) Absolute Neuts (auto) Absolute Nucleated RBC Nucleated RBC % (auto) Smear Tech's Comments PT INR APTT Anion Gap Estim Creat Clear Calc Estimated GFR Random Glucose Calcium Total Bilirubin AST ALT Alkaline Phosphatase Troponin I High Sens 19.8 D B-Natriuretic Peptide 836 H Total Protein Albumin Stool Occult Blood COVID-19 ([facility]) Negative [facility] See Note 07/09/20 11:42 MCV MCH MCHC RDW Plt Count MPV Immature Gran % (Auto) Neut % (Auto) Lymph % (Auto) [place] % (Auto) Eos % (Auto) Baso % (Auto) Lymph # (Auto) [place] # (Auto) Eos # (Auto) Baso # (Auto) Abs Immat Gran (auto) Absolute Neuts (auto) Absolute Nucleated RBC Nucleated RBC % (auto) Smear Tech's Comments PT INR APTT Anion Gap Estim Creat Clear Calc Estimated GFR Random Glucose Calcium Total Bilirubin AST ALT Alkaline Phosphatase Troponin I High Sens B-Natriuretic Peptide Total Protein Albumin Stool Occult Blood POS COVID-19 ([facility]) COVID-19 Clin Com <JESI House - Last Filed: 07/09/20 16:04> Imaging Radiologist's Impressions: Impressions Chest X-Ray 07/09/20 11:20 IMPRESSION: Interval improvement in right mid and lower lung infiltrates with minimal residual markings. Head CT 07/09/20 11:32 IMPRESSION: No acute intracranial process seen. <JESI House - Last Filed: 07/09/20 16:04> Assessment and Plan (1) GI bleed: Status: Acute <JESI House - Last Filed: 07/09/20 16:04> This is a 74-year-old male with Parkinson's disease, mechanical aortic valve, atrial fibrillation, history of PE, adenocarcinoma of unknown primary on anticoagulation with therapeutic Lovenox, recent admission for GIB/anemia who returns with dark stools. GIB, likely upper source Recent admission for GI bleed - EGD showed erosive esophagitis/colonoscopy with hemorrhoids hemodynamically stable at this time -GI evaluation - plan for endoscopy Sunday -IV PPI -Clear liquid diet -Trend CBC -Need to continue AC due to mechanical AV, changed from lovenox to heparin Mechanical aortic valve Lovenox changed to heparin due to GIB Atrial fibrillation Continue diltiazem, sotalol lovenox changed to heparin due to GIB Diabetes -SSI, POCs ADA diet chronic pain Continue home dose of MS contin Parkinsons dz Continue sinetmet HTN continue losartan Hypothyroidism Continue synthroid sacral pressure ulcer present on last admission continue local wound care AC of unknown primary Continue outpatient FU with Dr. Mast DVT ppx - heparin Code status - DNR This case was discussed with Dr. Bryant <JESI House - Last Filed: 07/09/20 16:04>
[2020-07-09] MEDS: Furosemide 20 MG/2 ML VIAL 10 MG IVPUSH (15:45)
--- NOTE | 2020-07-09 16:01 | PM.EVENT ---
Event Note Date of Service: 07/09/20 Event Note: Addendum to H and P by Mid-level Provider I saw and examined the patient and participated in the soria portion of the E/M service. I agree with the history and exam as documented by PA. Patient has history of rcurrent GIB and was recently admitted for PNA. He presents yet again with GIB, acute blood loss anemia in setting of mechanical aortic valve for which he's chronically on Lovenox. Will admitt for GI work up, may need repeat EGD, will transfuse iwth Hgb < 8. Admit for IV Abx and work up. Pressure ulcer present on admission. Standard pressure ulcer measures and consider Wound consult, Otherwise, I agree with assessment and plan as outlined in the H and P.
[2020-07-09] MEDS: Pantoprazole Sodium 40 MG/10 ML VIAL IVPUSH (17:25)
--- NOTE | 2020-07-09 17:51 | P.CNGI_ITS ---
History of Present Illness Data of Consult Service Date: 07/09/20 Requesting physician: [facility] Primary Care Provider: Jorge Currie MD [facility] Reason for consult: acute on chronic blood loss anemia 74-year-old male with Parkinson's disease, mechanical aortic valve, atrial fibrillation, history of PE, adenocarcinoma of unknown primary on anticoagulation with therapeutic Lovenox, who I am seeing for assessment for acute on chronic blood loss anemia. Comes in today with AMS and 3 d of melenic stools, with some nausea but no vomiting and no abdominal pain. He has some dyspnea but denies cough or wheezing. He was [facility] with [facility] bleeding and had EGD and colonoscopy at the time, EGD with erosive esophagitis and colonoscopy with internal hemorrhoids. He was readmitted a few days later for management of pneumonia which has improved per repeat cxr today. His H/H was 8.1/24.5 which was a decrease from his previous 9.6/31.1 on 06/24. Review of Systems Review of Systems: Constitutional: No Weight loss, No Fever, No Chills, No Night Sweats, No Fatigue, No Malaise ENT/Mouth: No Hearing loss, No Ear Pain, No Nasal Congestion, No Sinus Pain, No Hoarseness, No sore throat, No Rhinorrhea, No Swallowing Difficulty Eyes: No Eye Pain, No Swelling, No Redness, No Foreign Body, No Discharge, No Vision Changes Cardiovascular: No Chest Pain, No SOB, No Dyspnea on Exertion, No Orthopnea, No Edema, No Palpitations Respiratory: No Cough, No Sputum, No Wheezing, No Smoke Exposure, No Dyspnea Gastrointestinal: No Nausea, No Vomiting, No Diarrhea, No Constipation, No abdominal Pain, as noted in HPI Genitourinary: no irregular bleeding, No Dysuria, No Urinary Frequency, No Hematuria, No Urinary Incontinence, No Urgency, No Flank Pain Musculoskeletal: No joint pain, No Myalgias, No Joint Swelling Skin: No Skin Lesions, No rash Neuro: + generalized weakness, No Numbness, No Paresthesias, No Loss of Consciousness, No Dizziness, No Headache, pill rolling tremor Psych: Negative Heme/Lymph: No Bruising, No Bleeding,No Lymphadenopathy Endocrine: No Polyuria, No Polydipsia, No Temperature Intolerance Yes all other systems are reviewed and are negative Constitutional: Constitutional: Denies chills and Denies fever(s) Cardiovascular: Cardiovascular: Denies chest pain Respiratory: Respiratory: Reports cough Gastrointestinal: Gastrointestinal: Denies abdominal pain [facility] Past Medical History Medical History (Updated 07/09/20 @ 16:32 by Calvin Ge NP) Anemia Bony sclerosis COPD (chronic obstructive pulmonary disease) Diabetes mellitus GI bleed Hyperlipidemia Hypertension Hypothyroidism Lytic bone lesion of hip Lytic lesion of bone on x-ray Metastatic bone tumor Overweight (BMI 25.0-29.9) Pancreatic cancer Parkinson's disease Paroxysmal atrial fibrillation Pleural effusion, right Pulmonary embolism Family History Family History Father Cardiovascular disease Mother Stroke Other Colon cancer FH: Parkinson's disease Surgical History Surgical History History of aortic valve replacement (~11/29/12) History of carpal tunnel release (~06/24/13) Status post anal 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) Social History Social History Household Members: Spouse Housing: House Alcohol intake: never Smoking Status: Never smoker Second Hand Smoke Exposure: No Use of substances other than those prescribed or required for medical reasons: No Advance Directives: No Advance Directives Information Provided: Yes service: No Current occupational status: retired Meds Allergies Allergy/AdvReac Type Severity Reaction Status Date / Time No Known Allergies Allergy Verified 06/17/20 13:40 [No Known Allergies*] Home Medications Medication Instructions Recorded Confirmed Type carbidopa-levodopa 1 tab PO TID 04/28/20 07/09/20 History insulin asp prt-insulin aspart 8 unit SUBCUT TID 06/12/20 07/09/20 History [Novolog Mix 70-30FlexPen U-100] furosemide [Lasix] 40 mg PO BID 07/09/20 07/09/20 History Physical Exam Vital Signs: Vital Signs: Last Vital Signs Temp 98.0 F 07/09/20 11:18 Pulse 64 07/09/20 11:36 Resp 18 07/09/20 11:36 BP 158/56 H 07/09/20 11:36 Pulse Ox 97 07/09/20 11:36 Body Mass Index 22.4 parkinsonian facies Const: General: cooperative, healthy appearing, alert and awake; No acute distress or intoxicated appearing Nutritional Appearance: average body habitus and well nourished Orientation/consciousness: patient oriented x3 HENMT: Head: Yes normal to inspection, Yes normocephalic and Yes atraumatic Ears: hearing grossly normal bilaterally Eyes: General: appearance normal, both eyes and all related structures Visual Card: normal visual card by confrontation Sclerae: sclerae normal Neck: Neck: Yes normal visual inspection and No positive Brudzinski's sign Chest: Chest palpation & inspection: normal inspection of the chest Resp: Effort & Inspection: normal respiratory effort and no respiratory distress Auscultation: clear to auscultation bilaterally Cardio: Jugular venous distension: no JVD Rate: regular rate Rhythm: regular rhythm Heart sounds: S1 normal heart sound present and S2 normal heart sound present GI: Inspection: Yes normal to inspection Palpation (GI): Soft to palpation and nontender Percussion: Yes normal to percussion Auscultation: normal bowel sounds Rectal Exam - Male: Yes heme positive stool (yanique loss/blackish stool, strongly positive at bedside sent for lab) : General: Yes no CVA tenderness Back/Spine/Pelvis: Back: no CVA tenderness Skin: General skin exam: no rashes or lesions noted Neuro: General: patient oriented x3 Cranial nerves: Yes CN's II-XII intact bilaterally and Yes Bilaterally intact EOM present Motor exam (neuro): Trem ors during motor activity present Extrem: General: Yes normal to inspection Psych: Appearance: disheveled Results Labs CBC & Chem 7: 07/09/20 11:42 07/09/20 11:42 Labs: Short CBC 07/09/20 Range/Units 11:42 WBC 10.6 (4.8-10.8) X10*3/uL Hgb 8.1 L (14.0-18.0) g/dl Hct 24.5 L D (42-52) % Plt Count 253 D (160-400) X10*3/uL BMP 07/09/20 11:42 Sodium 137 Potassium 3.8 Chloride 99 Carbon Dioxide 31 H BUN 28 H Creatinine 0.99 Calcium 7.4 L Liver Function 07/09/20 Range/Units 11:42 Total Bilirubin 1.2 H (0.0-1.0) mg/dL AST 100 H (5-37) U/L ALT 18 (0-40) U/L Alkaline Phosphatase 561 H D (39-117) U/L Albumin 2.4 L D (3.5-5.0) g/dL Assessment and Plan (1) GI bleed: Status: Acute 1/ Acute on chronic blood loss anemia, on lovenox ddx; PUD, erosive gastritis or esophagitis, small bowel mass or lesion, AVM, dieulafoy lesion PLAN: 1/ Allow clears as tolerated 2/ Commence PPI e.g pantoprazole 40 mg BID IV, can add carafate 3/ Can switch to IV heparin 4/ If HGB and clinical condition stable then EGD possible push enteroscopy on Sunday, if worsening HGB and clinical needs dictate then endoscopy over the weekend, will need to stop heparin for 4-6 hr prior to procedure 5./ check iron studies, b12 and folate 6/ transfuse for hgb around 9 g/dl, watch for fluid overload
[2020-07-09 17:55] VITALS: BP 157/43; PULSE 66; RESP 20; TEMP 37; O2SAT 96
[2020-07-09 18:27] LABS: Glucose Urine UA NEG (NEG); Leukocyte Esterase Urine NEG (NEG); Nitrite Urine NEG (NEG); Urine Blood NEG (NEG); Urine Ketones 5 MG/DL (NEG); Urine Protein NEG (NEG-TRACE)
[2020-07-09 18:33] LABS: Appearance Urine CLEAR; Color Urine YELLOW
[2020-07-09 18:52] LABS: RBC Urine 0 /HPF (0); WBC Urine 0 /HPF (0-4)
[2020-07-09 19:13] VITALS: BP 142/47; PULSE 69; RESP 18; TEMP 36.9; O2SAT 94
--- NOTE | 2020-07-09 20:24 | PC.NURSE ---
Report called to [facility] without incidence
[2020-07-09 21:19] VITALS: BP 133/61; PULSE 73; RESP 18; TEMP 36.3; O2SAT 96
[2020-07-09 21:42] LABS: Glucose, Whole Blood 203 mg/dL (60-115)
[2020-07-09] MEDS: Insulin Lispro 100 UNIT/ML 3 ML VIAL SUBCUT (22:12)
[2020-07-09] MEDS: Morphine Sulfate ER 30 MG TABLET.ER PO (22:12)
[2020-07-09] MEDS: 0.9 % Sodium Chloride Flush 3 ML SYRINGE IVFLUSH ×2 (22:12→22:14)
[2020-07-09] MEDS: Carbidopa/Levodopa CR 50/200 TABLET.ER 1 TAB PO (22:12)
[2020-07-09 22:15] LABS: PTT Heparin Drip 34.4 SEC (53-77.9)
[2020-07-10 00:07] VITALS: BP 137/63; PULSE 69; RESP 18; TEMP 36.8; O2SAT 96
[2020-07-10 04:00] VITALS: BP 162/67; PULSE 71; RESP 16; TEMP 36.6; O2SAT 95
[2020-07-10] MEDS: Pantoprazole Sodium 40 MG/10 ML VIAL IVPUSH ×2 (06:37→17:14)
[2020-07-10 07:18] LABS: Basophils Percent Auto 0.4 % (0-2); Eosinophils Absolute Auto 0.6 X10*3/uL (0.0-0.4); Eosinophils Percent Auto 5.1 % (0-4); Hematocrit 24.3 % (42-52); Hemoglobin 7.7 g/dl (14.0-18.0); Imm Gran Abs Auto 0.05 X10*3/uL (0.00-0.03); Imm Gran Pct Auto 0.4 % (0.0-0.4); Lymphocytes Absolute Auto 0.5 X10*3/uL (1.2-4.9); Mean Corpuscular HGB Conc 31.7 g/dl (31.0-36.0); Mean Corpuscular Hemoglobin 30.2 pg (27.0-33.0); Mean Corpuscular Volume 95.3 fL (80-98); Mean Platelet Volume 10.3 fL (9.4-12.4); Monocytes Absolute Auto 0.8 X10*3/uL (0.1-1.2); Monocytes Percent Auto 6.9 % (2-11); Neutrophils Absolute Auto 9.2 X10*3/uL (2.0-8.3); Neutrophils Percent Auto 83.2 % (45-73); Platelet Count 248 X10*3/uL (160-400); Red Blood Count 2.55 X10*6/uL (4.60-5.80); Red Cell Distribution Width 16.7 % (11.0-16.0); White Blood Count 11.1 X10*3/uL (4.8-10.8)
[2020-07-10 07:26] LABS: INTERNATIONAL NORM RATIO 1.2 (0.9-1.1); Prothrombin Time 13.7 SEC (10.8-13.0)
[2020-07-10 07:46] LABS: Anion Gap 11 (12-20); Blood Urea Nitrogen 20 mg/dL (9-16); Calcium 7.4 mg/dL (8.4-10.2); Carbon Dioxide 31 mmol/L (22-29); Chloride 101 mmol/L (96-108); Creatinine Clr Calc Pharmacy 84.2; Estimated Glomerular Filt Rate > 60; Glucose Random 146 mg/dL (60-115); Potassium 3.6 mmol/L (3.3-5.1); Sodium 139 mmol/L (135-145)
[2020-07-10 08:23] VITALS: BP 138/55; PULSE 77; RESP 18; TEMP 36.6; O2SAT 94
[2020-07-10 08:31] LABS: Glucose, Whole Blood 165 mg/dL (60-115)
[2020-07-10] MEDS: Morphine Sulfate ER 30 MG TABLET.ER PO ×2 (11:12→21:24)
[2020-07-10] MEDS: Levothyroxine Sodium 50 MCG TABLET PO (11:13)
[2020-07-10] MEDS: Carbidopa/Levodopa CR 50/200 TABLET.ER 1 TAB PO ×3 (11:13→21:25)
[2020-07-10] MEDS: dilTIAZem HCL CD 180 MG CAP.ER.24H PO (11:13)
[2020-07-10] MEDS: Sotalol HCL 80 MG TABLET 120 MG PO ×2 (11:13→21:25)
[2020-07-10] MEDS: Losartan Potassium 25 MG TABLET PO (11:13)
[2020-07-10] MEDS: 0.9 % Sodium Chloride Flush 3 ML SYRINGE IVFLUSH ×3 (11:14→21:26)
[2020-07-10] MEDS: Pravastatin Sodium 40 MG TABLET PO (11:14)
--- NOTE | 2020-07-10 11:21 | P.PNIM_ITS ---
Subjective Subjective Date of Service: 07/10/20 Interval History: Seen in f/u for gib, acute blood loss anemia. No issues reported overnight, no bleeding reported H/H is down Review of Systems no rectal bleeding, no chest pain no sob Review of Systems: Yes all other systems are reviewed and are negative Physical Exam Vital Signs: Vital Signs: Last Vital Signs Temp 98 F 07/10/20 08:23 Pulse 77 07/10/20 08:23 Resp 18 07/10/20 08:23 BP 138/55 L 07/10/20 08:23 Pulse Ox 94 07/10/20 08:23 Body Mass Index 22.4 Const: General: alert and awake Eyes: Sclerae: sclerae normal Chest: Chest palpation & inspection: normal inspection of the chest Resp: Effort & Inspection: normal respiratory effort and no respiratory distress Cardio: Rate: regular rate Rhythm: regular rhythm GI: Palpation (GI): Soft to palpation and nontender Skin: General skin exam: no rashes or lesions noted Extrem: General: Yes normal to inspection Objective Data Current Medications Generic Name Dose Route Start Last Admin Trade Name Colinq PRN Reason Stop Dose Admin Acetaminophen 650 mg 07/09/20 20:38 Acetaminophen 325 Mg Tablet PO Q6H PRN Pain, Mild (Pain Scale 1-3) Carbidopa/Levodopa 1 tab 07/09/20 21:00 07/10/20 11:13 Carbidopa/Levodopa Cr 50/200 Tablet.Er PO 1 tab TID VIDAL Administration Diltiazem HCl 180 mg 07/10/20 09:00 07/10/20 11:13 Diltiazem Hcl Cd 180 Mg Cap.Er.24h PO 180 mg DAILY VIDAL Administration Protocol Docusate Sodium 100 mg 07/09/20 20:38 Docusate Sodium 100 Mg Capsule PO DAILY PRN Constipation Insulin Human Lispro 0 unit 07/09/20 20:38 07/10/20 11:14 Insulin Lispro 100 Unit/Ml 3 Ml Vial SUBCUT Not Given QIDACHS [facility] Protocol Levothyroxine Sodium 50 mcg 07/10/20 09:00 07/10/20 11:13 Levothyroxine Sodium 50 Mcg Tablet PO 50 mcg DAILY@0600 VIDAL Administration Losartan Potassium 25 mg 07/10/20 09:00 07/10/20 11:13 Losartan Potassium 25 Mg Tablet PO 25 mg DAILY VIDAL Administration Protocol Morphine Sulfate 30 mg 07/09/20 21:00 07/10/20 11:12 Morphine Sulfate Er 30 Mg Tablet.Er PO 30 mg Q12H VIDAL Administration Pantoprazole Sodium 40 mg 07/09/20 16:30 07/10/20 06:37 Pantoprazole Sodium 40 Mg/10 Ml Vial IVPUSH 40 mg BID@0630,1630 VIDAL Administration Pharmacy Consult 1 each 07/09/20 14:26 Consult Rx Perform Med Rec MISCELLANE ONCE PRN Consult order Pravastatin Sodium 40 mg 07/10/20 09:00 07/10/20 11:14 Pravastatin Sodium 40 Mg Tablet PO 40 mg DAILY VIDAL Administration Sodium Chloride 3 ml 07/09/20 20:38 07/10/20 11:14 0.9 % Sodium Chloride Flush 3 Ml Syringe IVFLUSH 3 ml QSHIFT VIDAL Administration Sotalol HCl 120 mg 07/10/20 09:00 07/10/20 11:13 Sotalol Hcl 80 Mg Tablet PO 120 mg BID VIDAL Administration Tiotropium [place] 2 puff 07/10/20 08:00 07/10/20 08:01 Tiotropium [place] 18 Mcg Cap.W.Dev INHALE Not Given RDAILY [facility] Labs CBC & Chem 7: 07/10/20 06:17 07/10/20 06:17 Assessment and Plan (1) GI bleed: Status: Acute Assessment and Plan: 74-year-old male with Parkinson's disease, mechanical aortic valve, atrial fibrillation, history of PE, adenocarcinoma of unknown primary on anticoag ulation with therapeutic Lovenox, recent admission for GIB/anemia who returns with dark stools. GIB, likely upper source Recent admission for GI bleed - EGD showed erosive esophagitis/colonoscopy with hemorrhoids hemodynamically stable at this time -GI evaluation - plan for endoscopy Sunday -IV PPI -Clear liquid diet -Trend CBC -H/H is lower, so will transfuse 2 units Atrial fibrillation Continue diltiazem, sotalol Diabetes -SSI, POCs ADA diet chronic pain Continue home dose of MS contin Parkinsons dz Continue sinetmet HTN continue losartan Hypothyroidism Continue synthroid sacral pressure ulcer present on last admission continue local wound care AC of unknown primary Continue outpatient FU with Dr. Mast Heparin was stopped last night, no reason given. Looking into the posibility of restarting anticoagulation
[2020-07-10 11:39] LABS: Glucose, Whole Blood 194 mg/dL (60-115)
[2020-07-10] MEDS: Insulin Lispro 100 UNIT/ML 3 ML VIAL SUBCUT ×2 (12:43→17:14)
[2020-07-10 16:00] VITALS: BP 106/51; PULSE 55; RESP 16; TEMP 36.8; O2SAT 95
[2020-07-10 17:05] LABS: Glucose, Whole Blood 159 mg/dL (60-115)
[2020-07-10 20:00] VITALS: BP 109/48; PULSE 80; RESP 18; TEMP 36.4; O2SAT 94
[2020-07-10 20:37] LABS: Glucose, Whole Blood 110 mg/dL (60-115)
[2020-07-10 23:53] VITALS: BP 95/43; PULSE 53; RESP 15; TEMP 36.4; O2SAT 85
[2020-07-11] VITALS (16 sets, daily range): BP systolic 96–146; BP diastolic 39–68; PULSE 54–78; RESP 16–19; TEMP 35.9–36.9; O2SAT 97–100
[2020-07-11] MEDS: Pantoprazole Sodium 40 MG/10 ML VIAL IVPUSH ×2 (06:02→16:43)
[2020-07-11] MEDS: Levothyroxine Sodium 50 MCG TABLET PO (06:02)
[2020-07-11 07:30] LABS: Glucose, Whole Blood 143 mg/dL (60-115)
[2020-07-11 08:24] LABS: Hematocrit 22.9 % (42-52); Hemoglobin 7.2 g/dl (14.0-18.0); Mean Corpuscular HGB Conc 31.4 g/dl (31.0-36.0); Mean Corpuscular Hemoglobin 30.3 pg (27.0-33.0); Mean Corpuscular Volume 96.2 fL (80-98); Mean Platelet Volume 10.2 fL (9.4-12.4); Platelet Count 216 X10*3/uL (160-400); Red Blood Count 2.38 X10*6/uL (4.60-5.80); Red Cell Distribution Width 17.2 % (11.0-16.0); White Blood Count 10.7 X10*3/uL (4.8-10.8)
--- NOTE | 2020-07-11 09:58 | PC.NURSE ---
Patient BP 96/47, rechecked manually and 108/46. Dr. Gardner made aware. Patients cardizem held per Dr. Gardner
[2020-07-11] MEDS: 0.9 % Sodium Chloride Flush 3 ML SYRINGE IVFLUSH ×3 (10:01→20:53)
[2020-07-11] MEDS: Morphine Sulfate ER 30 MG TABLET.ER PO ×2 (10:01→20:44)
[2020-07-11] MEDS: Carbidopa/Levodopa CR 50/200 TABLET.ER 1 TAB PO ×3 (10:02→20:44)
[2020-07-11] MEDS: Losartan Potassium 25 MG TABLET PO (10:02)
--- NOTE | 2020-07-11 10:02 | HO.PM.IMPN ---
Subjective Subjective Date of Service: 07/11/20 Interval History: Seen in f/u for gib, acute blood loss anemia. No issues reported overnight, no bleeding. His H/H has dropped further with Hemoglobin now 7.2 this in the abscence of anticoagulation. Review of Systems no rectal bleeding, no chest pain no sob Physical Exam Vital Signs: Vital Signs: Last Vital Signs Temp 96.7 F L 07/11/20 07:21 Pulse 54 07/11/20 07:21 Resp 19 07/11/20 07:21 BP 96/47 L 07/11/20 07:21 Pulse Ox 98 07/11/20 07:21 Body Mass Index 22.4 Const: General: alert and awake Nutritional Appearance: well nourished HENMT: Head: Yes normocephalic and Yes atraumatic Eyes: Sclerae: sclerae normal Chest: Chest palpation & inspection: normal inspection of the chest Resp: Effort & Inspection: normal respiratory effort and no respiratory distress Cardio: Rate: regular rate Rhythm: regular rhythm GI: Palpation (GI): Soft to palpation and nontender Skin: General skin exam: no rashes or lesions noted Neuro: Motor exam (neuro): Normal motor muscle tone present throughout Extrem: General: Yes normal to inspection Objective Data Current Medications Generic Name Dose Route Start Last Admin Trade Name Freq PRN Reason Stop Dose Admin Acetaminophen 650 mg 07/09/20 20:38 Acetaminophen 325 Mg Tablet PO Q6H PRN Pain, Mild (Pain Scale 1-3) Carbidopa/Levodopa 1 tab 07/09/20 21:00 07/10/20 21:25 Carbidopa/Levodopa Cr 50/200 Tablet.Er PO 1 tab TID VIDAL Administration Diltiazem HCl 180 mg 07/10/20 09:00 07/10/20 11:13 Diltiazem Hcl Cd 180 Mg Cap.Er.24h PO 180 mg DAILY VIDAL Administration Protocol Docusate Sodium 100 mg 07/09/20 20:38 Docusate Sodium 100 Mg Capsule PO DAILY PRN Constipation Insulin Human Lispro 0 unit 07/09/20 20:38 07/11/20 07:27 Insulin Lispro 100 Unit/Ml 3 Ml Vial SUBCUT Not Given QIDACHS [facility] Protocol Levothyroxine Sodium 50 mcg 07/10/20 09:00 07/11/20 06:02 Levothyroxine Sodium 50 Mcg Tablet PO 50 mcg DAILY@0600 VIDAL Administration Losartan Potassium 25 mg 07/10/20 09:00 07/10/20 11:13 Losartan Potassium 25 Mg Tablet PO 25 mg DAILY VIDAL Administration Protocol Morphine Sulfate 30 mg 07/09/20 21:00 07/10/20 21:24 Morphine Sulfate Er 30 Mg Tablet.Er PO 30 mg Q12H VIDAL Administration Pantoprazole Sodium 40 mg 07/09/20 16:30 07/11/20 06:02 Pantoprazole Sodium 40 Mg/10 Ml Vial IVPUSH 40 mg BID@0630,1630 [facility] Administration Pharmacy Consult 1 each 07/09/20 14:26 Consult Rx Perform Med Rec MISCELLANE ONCE PRN Consult order Pravastatin Sodium 40 mg 07/10/20 09:00 07/10/20 11:14 Pravastatin Sodium 40 Mg Tablet PO 40 mg DAILY VIDAL Administration Sodium Chloride 3 ml 07/09/20 20:38 07/10/20 21:26 0.9 % Sodium Chloride Flush 3 Ml Syringe IVFLUSH 3 ml QSHIFT [facility] Administration Sotalol HCl 120 mg 07/10/20 09:00 07/10/20 21:25 Sotalol Hcl 80 Mg Tablet PO 120 mg BID VIDAL Administration Tiotropium [place] 2 puff 07/10/20 08:00 07/11/20 07:56 Tiotropium [place] 18 Mcg Cap.W.Dev INHALE Not Given RDAILY [facility] Labs CBC & Chem 7: 07/11/20 08:07 07/10/20 06:17 Assessment and Plan (1) GI bleed: Status: Acute Assessment and Plan: 74-year-old male with Parkinson's disease, mechanical aortic valve, atrial fibrillation, history of PE, adenocarcinoma of unknown primary on anticoagulation with therapeutic Lovenox, recent admission for GIB/anemia who returns with dark stools. GIB, likely upper source given prior history Recent admission for GI bleed - EGD showed erosive esophagitis/colonoscopy with hemorrhoids hemodynamically stable at this time -GI evaluation - plan for endoscopy Sunday -IV PPI -Clear liquid diet -H/H is lower, so will transfuse 2 units Atrial fibrillation--continue soltalol, hold cardiem d/t low BP. Anticoagulation on hold at this time due to signficant anemia with GIB Diabetes -SSI, POCs ADA diet chronic pain Continue home dose of MS contin Parkinsons dz Continue sinetmet HTN continue losartan Hypothyroidism Continue synthroid sacral pressure ulcer present on last admission continue local wound care AC of unknown primary Continue outpatient FU with Dr. Mast Patient was ordered heparin but was stopped due to gib and persistent decreasing hemoglobin
[2020-07-11] MEDS: Pravastatin Sodium 40 MG TABLET PO (10:03)
[2020-07-11] MEDS: Sotalol HCL 80 MG TABLET 120 MG PO ×2 (10:03→20:45)
--- NOTE | 2020-07-11 10:05 | MHC.CM.PN ---
PATIENT LIVES WITH HIS /HCP JULIANNA. COPY REQUESTED. STATES THAT IT SHOULD BE ON FILE. HE USES A WALKER, AND HIS CANE WAS RECENTLY STOLEN. HE IS ACTIVE WITH [facility] FOLLOWING A REHAB STAY AT [facility]. THEY PROVIDE PHYSICAL THERAPY THREE TIMES PER WEEK. IMM 07/11 IN CHART.
--- NOTE | 2020-07-11 11:29 | MHC.CM.PN ---
HCP PRINTED OUT FROM PREVIOUS [facility] REFERRAL. COPY PLACED IN CHART FOR MEDICAL RECORDS
[2020-07-11 11:37] LABS: Glucose, Whole Blood 236 mg/dL (60-115)
[2020-07-11] MEDS: Insulin Lispro 100 UNIT/ML 3 ML VIAL SUBCUT (12:19)
[2020-07-11] MEDS: Acetaminophen 325 MG TABLET 650 MG PO (14:54)
[2020-07-11 16:45] LABS: Glucose, Whole Blood 110 mg/dL (60-115)
--- NOTE | 2020-07-11 16:46 | P.PNGI_ITS ---
Subjective Subjective Date of Service: 07/11/20 Interval History: More relaxed today\ no abdominal pain no nausea or vomiting no further melenic type stool, no stool for few days acutally mild cough and sputum Physical Exam Vital Signs: Vital Signs: Last Vital Signs Temp 97.9 F 07/11/20 15:38 Pulse 56 07/11/20 15:38 Resp 18 07/11/20 15:38 BP 115/56 L 07/11/20 15:38 Pulse Ox 99 07/11/20 15:38 Body Mass Index 22.4 Const: Orientation/consciousness: patient oriented x3 Resp: Effort & Inspection: normal respiratory effort Auscultation: rhonchi GI: Inspection: Yes normal to inspection Palpation (GI): nontender Neuro: General: patient oriented x3 Objective Data Labs CBC & Chem 7: 07/11/20 08:07 07/10/20 06:17 Labs: Laboratory Results - last 24 hr 07/09/20 07/10/20 07/10/20 17:51 17:01 20:32 WBC RBC Hgb Hct MCV MCH MCHC RDW Plt Count MPV Absolute Nucleated RBC Nucleated RBC % (auto) POC Glucose 159 H 110 Blood Type O Positive Antibody Screen NEGATIVE Crossmatch See Detail 07/11/20 07/11/20 07/11/20 07:23 08:07 11:28 WBC 10.7 RBC 2.38 L Hgb 7.2 L Hct 22.9 L MCV 96.2 MCH 30.3 MCHC 31.4 RDW 17.2 H Plt Count 216 MPV 10.2 Absolute Nucleated RBC 0.000 Nucleated RBC % (auto) 0.0 POC Glucose 143 H 236 H Blood Type Antibody Screen Crossmatch 07/11/20 16:38 WBC RBC Hgb Hct MCV MCH MCHC RDW Plt Count MPV Absolute Nucleated RBC Nucleated RBC % (auto) POC Glucose 110 Blood Type Antibody Screen Crossmatch Progress Note: A&P Assessment and plan (1) GI bleed: Problem details: ?gastritis, esophagitis, PUD, mass/neoplasia Status: Acute Assessment and Plan: PLAN: 1/ NPO midnight 2/ EGD and possible push enteroscopy tomorrow 3/ cont with PPI 4/ anti coagulation has been temp held Fall Risk Details Current Medications: Current Medications Generic Name Dose Route Start Last Admin Trade Name Freq PRN Reason Stop Dose Admin Acetaminophen 650 mg 07/09/20 20:38 07/11/20 14:54 Acetaminophen 325 Mg Tablet PO 650 mg Q6H PRN Administration Pain, Mild (Pain Scale 1-3) Carbidopa/Levodopa 1 tab 07/09/20 21:00 07/11/20 14:54 Carbidopa/Levodopa Cr 50/200 Tablet.Er PO 1 tab TID VIDAL Administration Diltiazem HCl 180 mg 07/10/20 09:00 07/11/20 10:03 Diltiazem Hcl Cd 180 Mg Cap.Er.24h PO Not Given DAILY [facility] Protocol Docusate Sodium 100 mg 07/09/20 20:38 Docusate Sodium 100 Mg Capsule PO DAILY PRN Constipation Insulin Human Lispro 0 unit 07/09/20 20:38 07/11/20 16:40 Insulin Lispro 100 Unit/Ml 3 Ml Vial SUBCUT Not Given QIDACHS [facility] Protocol Levothyroxine Sodium 50 mcg 07/10/20 09:00 07/11/20 06:02 Levothyroxine Sodium 50 Mcg Tablet PO 50 mcg DAILY@0600 VIDAL Administration Losartan Potassium 25 mg 07/10/20 09:00 07/11/20 10:02 Losartan Potassium 25 Mg Tablet PO 25 mg DAILY [facility] Administration Protocol Morphine Sulfate 30 mg 07/09/20 21:00 07/11/20 10:01 Morphine Sulfate Er 30 Mg Tablet.Er PO 30 mg Q12H [facility]AL Administration Pantoprazole Sodium 40 mg 07/09/20 16:30 07/11/20 16:43 Pantoprazole Sodium 40 Mg/10 Ml Vial IVPUSH 40 mg BID@0630,1630 [facility] Administration Pharmacy Consult 1 each 07/09/20 14:26 Consult Rx Perform Med Rec MISCELLANE ONCE PRN Consult order Pravastatin Sodium 40 mg 07/10/20 09:00 07/11/20 10:03 Pravastatin Sodium 40 Mg Tablet PO 40 mg DAILY VIDAL Administration Sodium Chloride 3 ml 07/09/20 20:38 07/11/20 16:43 0.9 % Sodium Chloride Flush 3 Ml Syringe IVFLUSH 3 ml QSHIFT [facility] Administration Sotalol HCl 120 mg 07/10/20 09:00 07/11/20 10:03 Sotalol Hcl 80 Mg Tablet PO 120 mg BID VIDAL Administration Tiotropium [place] 2 puff 07/10/20 08:00 07/11/20 07:56 Tiotropium [place] 18 Mcg Cap.W.Dev INHALE Not Given D[facility] Time Spent With Patient Time with patient: 15 - 24 minutes
[2020-07-11 20:37] LABS: Glucose, Whole Blood 135 mg/dL (60-115)
[2020-07-12] VITALS (10 sets, daily range): BP systolic 114–163; BP diastolic 42–81; PULSE 63–74; RESP 12–20; TEMP 36.2–36.8; O2SAT 95–100; BMI 22.4
[2020-07-12] MEDS: Pantoprazole Sodium 40 MG/10 ML VIAL IVPUSH ×2 (05:58→17:41)
[2020-07-12] MEDS: Levothyroxine Sodium 50 MCG TABLET PO (05:58)
[2020-07-12 08:07] LABS: Glucose, Whole Blood 137 mg/dL (60-115)
[2020-07-12 08:56] LABS: Hematocrit 30.8 % (42-52); Hemoglobin 9.7 g/dl (14.0-18.0); Mean Corpuscular HGB Conc 31.5 g/dl (31.0-36.0); Mean Corpuscular Hemoglobin 29.6 pg (27.0-33.0); Mean Corpuscular Volume 93.9 fL (80-98); Platelet Count 213 X10*3/uL (160-400); Red Blood Count 3.28 X10*6/uL (4.60-5.80); Red Cell Distribution Width 17.4 % (11.0-16.0); White Blood Count 11.8 X10*3/uL (4.8-10.8)
[2020-07-12] MEDS: 0.9 % Sodium Chloride Flush 3 ML SYRINGE IVFLUSH ×3 (09:54→21:30)
[2020-07-12 12:13] LABS: Glucose, Whole Blood 159 mg/dL (60-115)
--- NOTE | 2020-07-12 12:48 | P.CONAN_ITS ---
[facility] Past Medical History Medical History Anemia Bony sclerosis COPD (chronic obstructive pulmonary disease) Diabetes mellitus GI bleed Hyperlipidemia Hypertension Hypothyroidism Lytic bone lesion of hip Lytic lesion of bone on x-ray Metastatic bone tumor Overweight (BMI 25.0-29.9) Pancreatic cancer Parkinson's disease Paroxysmal atrial fibrillation Pleural effusion, right Pulmonary embolism Family History Family History Father Cardiovascular disease Mother Stroke Other Colon cancer FH: Parkinson's disease Surgical History Surgical History History of aortic valve replacement (~11/29/12) History of carpal tunnel release (~06/24/13) Status post anal 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) Social History Social History Household Members: Spouse Housing: House Alcohol intake: never Smoking Status: Never smoker Second Hand Smoke Exposure: No service: No Current occupational status: retired [employer] Allergies Allergy/AdvReac Type Severity Reaction Status Date / Time No Known Allergies Allergy Verified 06/17/20 13:40 [No Known Allergies*] Home Medications Medication Instructions Recorded Confirmed Type carbidopa-levodopa 1 tab PO TID 04/28/20 07/09/20 History insulin asp prt-insulin aspart 8 unit SUBCUT TID 06/12/20 07/09/20 History [Novolog Mix 70-30FlexPen U-100] furosemide [Lasix] 40 mg PO BID 07/09/20 07/09/20 History Exam Exam Date and Time: July 12, 2020 1248 Height,Weight and Vital Signs: Height 5 ft 11 in Weight 73 kg Last Vital Signs Temp 97.3 F 07/12/20 12:00 Pulse 68 07/12/20 12:00 Resp 17 07/12/20 12:00 BP 163/72 H 07/12/20 12:00 Pulse Ox 96 07/12/20 12:00 Pertinent Lab Results Pertinent Lab Results: Laboratory Tests 07/09/20 07/09/20 07/09/20 11:42 11:42 11:42 WBC 10.6 RBC 2.61 L Hgb 8.1 L Hct 24.5 L D MCV 93.9 MCH 31.0 MCHC 33.1 RDW 16.6 H Plt Count 253 D MPV 10.1 Immature Gran % (Auto) 0.4 Neut % (Auto) 86.4 H Lymph % (Auto) 4.2 L Person % (Auto) 6.9 Eos % (Auto) 1.8 Baso % (Auto) 0.3 Lymph # (Auto) 0.5 L Person # (Auto) 0.7 Eos # (Auto) 0.2 Baso # (Auto) 0.0 Abs Immat Gran (auto) 0.04 H Absolute Neuts (auto) 9.2 H Absolute Nucleated RBC 0.000 Nucleated RBC % (auto) 0.0 Smear Tech's Comments VERIFIED PT 14.7 H INR 1.2 H APTT 42.5 H PTT (Heparin Protocol) Sodium 137 Potassium 3.8 Chloride 99 Carbon Dioxide 31 H Anion Gap 11 L BUN 28 H Creatinine 0.99 Estim Creat Clear Calc 65.5 Estimated GFR > 60 POC Glucose Random Glucose 218 H D Calcium 7.4 L Magnesium 2.0 Total Bilirubin 1.2 H AST 100 H ALT 18 Alkaline Phosphatase 561 H D Troponin I High Sens B-Natriuretic Peptide Total Protein 5.3 L Albumin 2.4 L D Urine Color Urine Appearance Urine pH Ur Specific Thompson Urine Protein Urine Glucose (UA) Urine Ketones Urine Blood Urine Nitrite Ur Leukocyte Esterase Urine RBC Urine WBC Ur Squamous Epith Cells Urine Bacteria Stool Occult Blood COVID-19 (ONEAL) COVID-19 Clin Com Blood Type Antibody Screen Crossmatch 07/09/20 07/09/20 07/09/20 11:42 11:42 11:42 WBC RBC Hgb Hct MCV MCH MCHC RDW Plt Count MPV Immature Gran % (Auto) Neut % (Auto) Lymph % (Auto) Person % (Auto) Eos % (Auto) Baso % (Auto) Lymph # (Auto) Person # (Auto) Eos # (Auto) Baso # (Auto) Abs Immat Gran (auto) Absolute Neuts (auto) Absolute Nucleated RBC Nucleated RBC % (auto) Smear Tech's Comments PT INR APTT PTT (Heparin Protocol) Sodium Potassium Chloride Carbon Dioxide Anion Gap BUN Creatinine Estim Creat Clear Calc Estimated GFR POC Glucose Random Glucose Calcium Magnesium Total Bilirubin AST ALT Alkaline Phosphatase Troponin I High Sens 19.8 D B-Natriuretic Peptide 836 H Total Protein Albumin Urine Color Urine Appearance Urine pH Ur Specific Thompson Urine Protein Urine Glucose (UA) Urine Ketones Urine Blood Urine Nitrite Ur Leukocyte Esterase Urine RBC Urine WBC Ur Squamous Epith Cells Urine Bacteria Stool Occult Blood COVID-19 (ONEAL) Negative COVID-19 Clin Com See Note Blood Type Antibody Screen Crossmatch 07/09/20 07/09/20 07/09/20 11:42 17:51 18:15 WBC RBC Hgb Hct MCV MCH MCHC RDW Plt Count MPV Immature Gran % (Auto) Neut % (Auto) Lymph % (Auto) Person % (Auto) Eos % (Auto) Baso % (Auto) Lymph # (Auto) Person # (Auto) Eos # (Auto) Baso # (Auto) Abs Immat Gran (auto) Absolute Neuts (auto) Absolute Nucleated RBC Nucleated RBC % (auto) Smear Tech's Comments PT INR APTT PTT (Heparin Protocol) Sodium Potassium Chloride Carbon Dioxide Anion Gap BUN Creatinine Estim Creat Clear Calc Estimated GFR POC Glucose Random Glucose Calcium Magnesium Total Bilirubin AST ALT Alkaline Phosphatase Troponin I High Sens B-Natriuretic Peptide Total Protein Albumin Urine Color YELLOW Urine Appearance CLEAR Urine pH 6.0 Ur Specific Thompson 1.020 Urine Protein NEG Urine Glucose (UA) NEG Urine Ketones 5 Urine Blood NEG Urine Nitrite NEG Ur Leukocyte Esterase NEG Urine RBC 0 Urine WBC 0 Ur Squamous Epith Cells NONE Urine Bacteria NONE Stool Occult Blood POS COVID-19 ([facility]AL) COVID-19 Clin Com Blood Type O Positive Antibody Screen NEGATIVE Crossmatch See Detail 07/09/20 07/09/20 07/10/20 21:38 21:46 06:17 WBC 11.1 H RBC 2.55 L Hgb 7.7 L Hct 24.3 L MCV 95.3 MCH 30.2 MCHC 31.7 RDW 16.7 H Plt Count 248 MPV 10.3 Immature Gran % (Auto) 0.4 Neut % (Auto) 83.2 H Lymph % (Auto) 4.0 L Person % (Auto) 6.9 Eos % (Auto) 5.1 H Baso % (Auto) 0.4 Lymph # (Auto) 0.5 L Person # (Auto) 0.8 Eos # (Auto) 0.6 H Baso # (Auto) 0.0 Abs Immat Gran (auto) 0.05 H Absolute Neuts (auto) 9.2 H Absolute Nucleated RBC 0.000 Nucleated RBC % (auto) 0.0 Smear Tech's Comments PT INR APTT PTT (Heparin Protocol) 34.4 L Sodium Potassium Chloride Carbon Dioxide Anion Gap BUN Creatinine Estim Creat Clear Calc Estimated GFR POC Glucose 203 H Random Glucose Calcium Magnesium Total Bilirubin AST ALT Alkaline Phosphatase Troponin I High Sens B-Natriuretic Peptide Total Protein Albumin Urine Color Urine Appearance Urine pH Ur Specific Thompson Urine Protein Urine Glucose (UA) Urine Ketones Urine Blood Urine Nitrite Ur Leukocyte Esterase Urine RBC Urine WBC Ur Squamous Epith Cells Urine Bacteria Stool Occult Blood COVID-19 ([facility]) COVID-[facility] [place] Blood Type Antibody Screen Crossmatch 07/10/20 07/10/20 07/10/20 06:17 06:17 08:27 WBC RBC Hgb Hct MCV MCH MCHC RDW Plt Count MPV Immature Gran % (Auto) Neut % (Auto) Lymph % (Auto) Person % (Auto) Eos % (Auto) Baso % (Auto) Lymph # (Auto) Person # (Auto) Eos # (Auto) Baso # (Auto) Abs Immat Gran (auto) Absolute Neuts (auto) Absolute Nucleated RBC Nucleated RBC % (auto) Smear Tech's Comments PT 13.7 H INR 1.2 H APTT PTT (Heparin Protocol) Sodium 139 Potassium 3.6 Chloride 101 Carbon Dioxide 31 H Anion Gap 11 L BUN 20 H Creatinine 0.77 Estim Creat Clear Calc 84.2 Estimated GFR > 60 POC Glucose 165 H Random Glucose 146 H Calcium 7.4 L Magnesium Total Bilirubin AST ALT Alkaline Phosphatase Troponin I High Sens B-Natriuretic Peptide Total Protein Albumin Urine Color Urine Appearance Urine pH Ur Specific Thompson Urine Protein Urine Glucose (UA) Urine Ketones Urine Blood Urine Nitrite Ur Leukocyte Esterase Urine RBC Urine WBC Ur Squamous Epith Cells Urine Bacteria Stool Occult Blood COVID-19 ([facility]) COVID-19 [facility] Blood Type Antibody Screen Crossmatch 07/10/20 07/10/20 07/10/20 11:19 17:01 20:32 WBC RBC Hgb Hct MCV MCH MCHC RDW Plt Count MPV Immature Gran % (Auto) Neut % (Auto) Lymph % (Auto) Person % (Auto) Eos % (Auto) Baso % (Auto) Lymph # (Auto) Person # (Auto) Eos # (Auto) Baso # (Auto) Abs Immat Gran (auto) Absolute Neuts (auto) Absolute Nucleated RBC Nucleated RBC % (auto) Smear Tech's Comments PT INR APTT PTT (Heparin Protocol) Sodium Potassium Chloride Carbon Dioxide Anion Gap BUN Creatinine Estim Creat Clear Calc Estimated GFR POC Glucose 194 H 159 H 110 Random Glucose Calcium Magnesium Total Bilirubin AST ALT Alkaline Phosphatase Troponin I High Sens B-Natriuretic Peptide Total Protein Albumin Urine Color Urine Appearance Urine pH Ur Specific Thompson Urine Protein Urine Glucose (UA) Urine Ketones Urine Blood Urine Nitrite Ur Leukocyte Esterase Urine RBC Urine WBC Ur Squamous Epith Cells Urine Bacteria Stool Occult Blood COVID-19 (ONEAL) COVID-19 [facility] Blood Type Antibody Screen Crossmatch 07/11/20 07/11/20 07/11/20 07:23 08:07 11:28 WBC 10.7 RBC 2.38 L Hgb 7.2 L Hct 22.9 L MCV 96.2 MCH 30.3 MCHC 31.4 RDW 17.2 H Plt Count 216 MPV 10.2 Immature Gran % (Auto) Neut % (Auto) Lymph % (Auto) Person % (Auto) Eos % (Auto) Baso % (Auto) Lymph # (Auto) Person # (Auto) Eos # (Auto) Baso # (Auto) Abs Immat Gran (auto) Absolute Neuts (auto) Absolute Nucleated RBC 0.000 Nucleated RBC % (auto) 0.0 Smear Tech's Comments PT INR APTT PTT (Heparin Protocol) Sodium Potassium Chloride Carbon Dioxide Anion Gap BUN Creatinine Estim Creat Clear Calc Estimated GFR POC Glucose 143 H 236 H Random Glucose Calcium Magnesium Total Bilirubin AST ALT Alkaline Phosphatase Troponin I High Sens B-Natriuretic Peptide Total Protein Albumin Urine Color Urine Appearance Urine pH Ur Specific Thompson Urine Protein Urine Glucose (UA) Urine Ketones Urine Blood Urine Nitrite Ur Leukocyte Esterase Urine RBC Urine WBC Ur Squamous Epith Cells Urine Bacteria Stool Occult Blood COVID-19 (ONEAL) COVID-19 [facility] Blood Type Antibody Screen Crossmatch 07/11/20 07/11/20 07/12/20 16:38 20:13 07:14 WBC RBC Hgb Hct MCV MCH MCHC RDW Plt Count MPV Immature Gran % (Auto) Neut % (Auto) Lymph % (Auto) Person % (Auto) Eos % (Auto) Baso % (Auto) Lymph # (Auto) Person # (Auto) Eos # (Auto) Baso # (Auto) Abs Immat Gran (auto) Absolute Neuts (auto) Absolute Nucleated RBC Nucleated RBC % (auto) Smear Tech's Comments PT INR APTT PTT (Heparin Protocol) Sodium Potassium Chloride Carbon Dioxide Anion Gap BUN Creatinine Estim Creat Clear Calc Estimated GFR POC Glucose 110 135 H 137 H Random Glucose Calcium Magnesium Total Bilirubin AST ALT Alkaline Phosphatase Troponin I High Sens B-Natriuretic Peptide Total Protein Albumin Urine Color Urine Appearance Urine pH Ur Specific [place] Urine Protein Urine Glucose (UA) Urine Ketones Urine Blood Urine Nitrite Ur Leukocyte Esterase Urine RBC Urine WBC Ur Squamous Epith Cells Urine Bacteria Stool Occult Blood COVID-19 (ONEAL) COVID-19 [employer] Com Blood Type Antibody Screen Crossmatch 07/12/20 07/12/20 08:40 12:08 WBC 11.8 H RBC 3.28 L D Hgb 9.7 L D Hct 30.8 L D MCV 93.9 MCH 29.6 MCHC 31.5 RDW 17.4 H Plt Count 213 MPV 10.0 Immature Gran % (Auto) Neut % (Auto) Lymph % (Auto) Person % (Auto) Eos % (Auto) Baso % (Auto) Lymph # (Auto) Person # (Auto) Eos # (Auto) Baso # (Auto) Abs Immat Gran (auto) Absolute Neuts (auto) Absolute Nucleated RBC 0.000 Nucleated RBC % (auto) 0.0 Smear Tech's Comments PT INR APTT PTT (Heparin Protocol) Sodium Potassium Chloride Carbon Dioxide Anion Gap BUN Creatinine Estim Creat Clear Calc Estimated GFR POC Glucose 159 H Random Glucose Calcium Magnesium Total Bilirubin AST ALT Alkaline Phosphatase Troponin I High Sens B-Natriuretic Peptide Total Protein Albumin Urine Color Urine Appearance Urine pH Ur Specific Thompson Urine Protein Urine Glucose (UA) Urine Ketones Urine Blood Urine Nitrite Ur Leukocyte Esterase Urine RBC Urine WBC Ur Squamous Epith Cells Urine Bacteria Stool Occult Blood COVID-19 (ONEAL) COVID-19 Clin Com Blood Type Antibody Screen Crossmatch Airway Mallampati Class: III TM Dist: >3cm Neck ROM: Full Heart: RRR Lungs: CTA Assessment and Plan Assessment Anesthesia Assessment: Anesthesia Plan Discussed and Chart Reviewed Final Anesthetic Review NPO: Yes ASA Class: IV Final Preanesthetic Review: Meds/Allgs Chart Reviewed and Consent Obtained/Reviewed Patient Risk: High Procedure Risk: Intermediate Anesthetic Plan Anesthetic Plan: MAC: Disposition: Standard PACU
--- NOTE | 2020-07-12 13:24 | P.PNIM_ITS ---
Subjective Subjective Date of Service: 07/12/20 Interval History: Denies abd pain, melena, or hematochezia. Denies cough or dyspnea. Constitutional Constitutional: Denies fever(s) Cardiovascular Cardiovascular: Denies chest pain Respiratory Respiratory: Denies cough Gastrointestinal Gastrointestinal: Denies abdominal pain, Denies melena and Denies hematochezia Physical Exam Vital Signs: Vital Signs: Last Vital Signs Temp 98.3 F 07/12/20 13:04 Pulse 71 07/12/20 13:04 Resp 18 07/12/20 13:04 BP 157/64 H 07/12/20 13:04 Pulse Ox 99 07/12/20 13:04 Body Mass Index 22.4 Gen: in no acute distress HEENT: sclera anicteric, moist mucus membranes Neck: supple Lungs: clear to auscultation bilaterally Heart: mechanical S2, no murmurs Abd: soft, non-tender, non-distended Ext: no edema Skin: warm/well-perfused Neuro: alert and oriented x3, no focal findings Psych: appropriate affect Objective Data Current Medications Generic Name Dose Route Start Last Admin Trade Name Freq PRN Reason Stop Dose Admin Acetaminophen 650 mg 07/09/20 20:38 07/11/20 14:54 Acetaminophen 325 Mg Tablet PO 650 mg Q6H PRN Administration Pain, Mild (Pain Scale 1-3) Carbidopa/Levodopa 1 tab 07/09/20 21:00 07/12/20 08:19 Carbidopa/Levodopa Cr 50/200 Tablet.Er PO Not Given TID [facility] Diltiazem HCl 180 mg 07/10/20 09:00 07/12/20 08:19 Diltiazem Hcl Cd 180 Mg Cap.Er.24h PO Not Given DAILY [facility] Protocol Docusate Sodium 100 mg 07/09/20 20:38 Docusate Sodium 100 Mg Capsule PO DAILY PRN Constipation Insulin Human Lispro 0 unit 07/09/20 20:38 07/12/20 12:56 Insulin Lispro 100 Unit/Ml 3 Ml Vial SUBCUT Not Given QIDACHS [facility] Protocol Levothyroxine Sodium 50 mcg 07/10/20 09:00 07/12/20 05:58 Levothyroxine Sodium 50 Mcg Tablet PO 50 mcg DAILY@0600 [facility] Administration Losartan Potassium 25 mg 07/10/20 09:00 07/12/20 08:20 Losartan Potassium 25 Mg Tablet PO Not Given DAILY [facility] Protocol Morphine Sulfate 30 mg 07/09/20 21:00 07/12/20 08:20 Morphine Sulfate Er 30 Mg Tablet.Er PO Not Given Q12H [facility] Pantoprazole Sodium 40 mg 07/09/20 16:30 07/12/20 05:58 Pantoprazole Sodium 40 Mg/10 Ml Vial IVPUSH 40 mg BID@0630,1630 [facility] Administration Pharmacy Consult 1 each 07/09/20 14:26 Consult Rx Perform Med Rec MISCELLANE ONCE PRN Consult order Pravastatin Sodium 40 mg 07/10/20 09:00 07/12/20 08:20 Pravastatin Sodium 40 Mg Tablet PO Not Given DAILY [facility] Sodium Chloride 3 ml 07/09/20 20:38 07/12/20 09:54 0.9 % Sodium Chloride Flush 3 Ml Syringe IVFLUSH 3 ml QSHIFT [facility] Administration Sotalol HCl 120 mg 07/10/20 09:00 07/12/20 08:20 Sotalol Hcl 80 Mg Tablet PO Not Given BID [facility] Tiotropium [place] 2 puff 07/12/20 09:47 Tiotropium [place] 18 Mcg Cap.W.Dev INHALE RDAILY [facility] Labs CBC & Chem 7: 07/12/20 08:40 07/10/20 06:17 Labs: Laboratory Results - last 24 hr 07/09/20 07/11/20 07/11/20 17:51 16:38 20:13 WBC RBC Hgb Hct MCV MCH MCHC RDW Plt Count MPV Absolute Nucleated RBC Nucleated RBC % (auto) POC Glucose 110 135 H Blood Type O Positive Antibody Screen NEGATIVE Crossmatch See Detail 07/12/20 07/12/20 07/12/20 07:14 08:40 12:08 WBC 11.8 H RBC 3.28 L D Hgb 9.7 L D Hct 30.8 L D MCV 93.9 MCH 29.6 MCHC 31.5 RDW 17.4 H Plt Count 213 MPV 10.0 Absolute Nucleated RBC 0.000 Nucleated RBC % (auto) 0.0 POC Glucose 137 H 159 H Blood Type Antibody Screen Crossmatch Assessment and Plan (1) GI bleed: Status: Acute Assessment and Plan: hospital d#4 74yo M with Parkinson's disease on therapeutic LMWH for atrial fibrillation + mechanical aortic valve + PE (dx 04/28/20) associated with adenoCA of unknown primary; recent admissions for anemia due to GIB and pneumonia, re-admitted for melena # GIB - likely upper GI source; Dr Farnsworth plans EGD today - continue IV PPI # acute blood loss anemia - Hb responded appropriately to 2u pRBCs # AF - continue sotalol; diltiazem on hold due to soft BP yesterday - hold AC due to GIB # PE # mechanical aortic valve - holding AC as above # HTN - continue diltiazem + losartan # DM2 - correction-dose lispro # COPD - continue LAMA + prn IVA # chronic pain - continue MSSR # Parkinsons disease - continue levodopa/carbidopa # hypothyroidism - continue LT4 # sacral pressure ulcer present on admission - continue local wound care # adenoCA of unknown primary care - continue f/u with Dr Mast as outpt
--- NOTE | 2020-07-12 13:29 | MHC.SHP ---
Pre-Procedural Eval Section A The patient is an INPATIENT: Yes The History & Physical has been completed within 30 days and I have reviewed it.: Yes Section B Chief Complaint: GIB Allergies: Allergies Allergy/AdvReac Type Severity Reaction Status Date / Time No Known Allergies Allergy Verified 06/17/20 13:40 [No Known Allergies*] Plan Diagnosis/Plan: Unchanged I have reviewed the history and physical and performed a pertinent physical examination on my patient. No changes have occurred unless specified.
--- NOTE | 2020-07-12 13:58 | PM.OP ---
Brief Operative Note Date of Service: 07/12/20 Pre-op diagnosis: melena, anemia Post-op diagnosis: same Procedure: see op note Surgeon: Rob Farnsworth MD Anesthesia: MAC Estimated blood loss (mL): 0 Condition: stable Disposition: PACU
--- NOTE | 2020-07-12 13:58 | W.PM.OPN ---
Operative Note Operative Note Date of Service: 07/12/20 Narrative: Procedure Description: EGD FLEXIBLE TRANSORAL UPPER GASTROINTESTINAL ENDOSCOPY UPPER ENDOSCOPY Consent: Indications for the procedure and potential complications of bleeding, perforation, reaction to medications and missed diagnosis were discussed with the patient and informed consent was obtained. Instrument: Olympus GIF H 190 J mid size upper endoscope Monitoring: Vital signs and clinical assessment, continuous EKG monitoring, Pulse oximetry, Carbon Dioxide monitoring and blood pressure monitoring were done throughout the procedure. Procedure: The patient was placed in the left lateral decubitis position and pre-procedure medications were administered and a bite block was placed. The endoscope was inserted into the mouth and advanced under direct vision to the third part of duodenum. A careful inspection was made as the upper endoscope was withdrawn including a retroflexed examination of the proximal stomach; Findings and interventions are described below. Findings: Larynx:normal Esophagus: GE junction at 38 cm, diaphragm hiatus at 38 cm, numeorus white plaque like lesion in esophagus consistent with candidiasis Stomach: AVM appearing lesion in mid body of stomach, circumferential APC applied with ablation. Grade 2 flap valve on retroflexed examination of the cardia. Duodenum: Normal bulb and descending duodenum, no blood noted Intervention: APC to stomach Impression/Findings: AVm stomach body PLAN: restart anticoagulation tomorrow Pantoprazole 40 mg bid sucralfate 1 g BID for 2 weeks if further melena then capsule endoscopy
[2020-07-12 16:43] LABS: Glucose, Whole Blood 169 mg/dL (60-115)
[2020-07-12] MEDS: Carbidopa/Levodopa CR 50/200 TABLET.ER 1 TAB PO ×2 (17:40→21:27)
[2020-07-12] MEDS: Insulin Lispro 100 UNIT/ML 3 ML VIAL SUBCUT ×2 (17:41→21:26)
[2020-07-12] MEDS: Sucralfate 1 GM TABLET PO (17:41)
[2020-07-12] MEDS: Sotalol HCL 80 MG TABLET 120 MG PO (21:27)
[2020-07-12] MEDS: Morphine Sulfate ER 30 MG TABLET.ER PO (21:27)
[2020-07-12 21:31] LABS: Glucose, Whole Blood 177 mg/dL (60-115)
[2020-07-13] VITALS (8 sets, daily range): BP systolic 114–144; BP diastolic 47–62; PULSE 54–77; RESP 18–20; TEMP 36.1–36.2; O2SAT 90–99
[2020-07-13] MEDS: Levothyroxine Sodium 50 MCG TABLET PO (05:16)
[2020-07-13] MEDS: Pantoprazole Sodium 40 MG/10 ML VIAL IVPUSH ×2 (05:17→17:07)
[2020-07-13 07:23] LABS: Basophils Percent Auto 0.3 % (0-2); Eosinophils Absolute Auto 0.6 X10*3/uL (0.0-0.4); Eosinophils Percent Auto 5.2 % (0-4); Hematocrit 32.5 % (42-52); Hemoglobin 10.4 g/dl (14.0-18.0); Imm Gran Pct Auto 0.8 % (0.0-0.4); Lymphocytes Absolute Auto 0.4 X10*3/uL (1.2-4.9); MANUAL DIFF FLAG SCAN; Mean Corpuscular Hemoglobin 30.3 pg (27.0-33.0); Mean Corpuscular Volume 94.8 fL (80-98); Mean Platelet Volume 9.7 fL (9.4-12.4); Monocytes Absolute Auto 0.7 X10*3/uL (0.1-1.2); Neutrophils Absolute Auto 10.4 X10*3/uL (2.0-8.3); Neutrophils Percent Auto 84.7 % (45-73); Platelet Count 243 X10*3/uL (160-400); Red Blood Count 3.43 X10*6/uL (4.60-5.80); Red Cell Distribution Width 17.3 % (11.0-16.0); SCAN SMEAR FLAG 1; White Blood Count 12.3 X10*3/uL (4.8-10.8)
[2020-07-13 07:43] LABS: Glucose, Whole Blood 137 mg/dL (60-115)
[2020-07-13 07:59] LABS: Anion Gap 10 (12-20); Blood Urea Nitrogen 14 mg/dL (9-16); Calcium 7.3 mg/dL (8.4-10.2); Carbon Dioxide 33 mmol/L (22-29); Chloride 98 mmol/L (96-108); Creatinine Clr Calc Pharmacy 79.1; Estimated Glomerular Filt Rate > 60; Glucose Random 141 mg/dL (60-115); Magnesium 2.2 mg/dL (1.6-2.6); Potassium 4.1 mmol/L (3.3-5.1); Sodium 137 mmol/L (135-145)
[2020-07-13 08:45] LABS: SLIDE REVIEW VERIFIED
[2020-07-13] MEDS: Pravastatin Sodium 40 MG TABLET PO (09:35)
[2020-07-13] MEDS: Carbidopa/Levodopa CR 50/200 TABLET.ER 1 TAB PO ×3 (09:35→22:36)
[2020-07-13] MEDS: Morphine Sulfate ER 30 MG TABLET.ER PO ×2 (09:35→22:36)
[2020-07-13] MEDS: Sotalol HCL 80 MG TABLET 120 MG PO ×2 (09:35→22:36)
[2020-07-13] MEDS: Sucralfate 1 GM TABLET PO ×2 (09:35→17:07)
[2020-07-13] MEDS: dilTIAZem HCL CD 180 MG CAP.ER.24H PO (09:36)
[2020-07-13] MEDS: Enoxaparin Sodium 80 MG/0.8 ML SYRINGE 75 MG SUBCUT ×2 (09:36→22:37)
[2020-07-13] MEDS: 0.9 % Sodium Chloride Flush 3 ML SYRINGE IVFLUSH ×2 (09:36→17:07)
[2020-07-13] MEDS: Losartan Potassium 25 MG TABLET PO (09:36)
--- NOTE | 2020-07-13 10:31 | HO.POSTANES ---
Post Anesthesia Evaluation Post Anesthesia Evaluation Vital Signs: Vital Signs Temp Pulse Resp BP Pulse Ox 07/13/20 09:36 77 142/55 H 07/13/20 09:35 77 142/55 H 07/13/20 09:17 77 142/55 H 91 L 07/13/20 08:00 97.1 F 77 18 142/55 H 91 L 07/13/20 03:50 97.1 F 67 20 144/62 H 99 07/12/20 23:21 97.1 F 67 18 119/81 97 Anesthesia: Monitored Mental Status: Awake Pain Control: Satisfactory Nausea/Vomiting: None Hydration: Adequate Anesthesia-Related Issues: No Anes. Related Issues
[2020-07-13 11:00] LABS: Procalcitonin 0.16 ng/mL
[2020-07-13 11:35] LABS: Glucose, Whole Blood 191 mg/dL (60-115)
[2020-07-13] MEDS: Insulin Lispro 100 UNIT/ML 3 ML VIAL SUBCUT ×2 (13:06→17:07)
[2020-07-13] MEDS: Caspofungin Acetate 70 MG in 0.9 % Sodium Chloride 250 ML 250 MG IV (13:12)
--- NOTE | 2020-07-13 14:22 | HO.PM.IMPN ---
Subjective Subjective Date of Service: 07/13/20 Interval History: tolerating clear liquids has intermittent cough no abd pain no further GI bleeding Physical Exam Vital Signs: Vital Signs: Last Vital Signs Temp 97.1 F 07/13/20 08:00 Pulse 77 07/13/20 09:36 Resp 18 07/13/20 08:00 BP 142/55 H 07/13/20 09:36 Pulse Ox 91 L 07/13/20 09:17 Body Mass Index 22.4 Gen: in no acute distress HEENT: sclera anicteric, moist mucus membranes Neck: supple Lungs: clear to auscultation bilaterally Heart: mechanical S2, no murmurs Abd: soft, non-tender, non-distended Ext: no edema Skin: warm/well-perfused Neuro: alert and oriented x3, no focal findings Psych: appropriate affect Objective Data Current Medications Generic Name Dose Route Start Last Admin Trade Name Freq PRN Reason Stop Dose Admin Acetaminophen 650 mg 07/09/20 20:38 07/11/20 14:54 Acetaminophen 325 Mg Tablet PO 650 mg Q6H PRN Administration Pain, Mild (Pain Scale 1-3) Albuterol Sulfate 2 puff 07/12/20 13:33 Albuterol Sulfate 90 Mcg 8 Gm Inhaler INHALE RQ4H PRN Shortness of Breath Carbidopa/Levodopa 1 tab 07/09/20 21:00 07/13/20 09:35 Carbidopa/Levodopa Cr 50/200 Tablet.Er PO 1 tab TID [facility] Administration Diltiazem HCl 180 mg 07/10/20 09:00 07/13/20 09:36 Diltiazem Hcl Cd 180 Mg Cap.Er.24h PO 180 mg DAILY [facility] Administration Protocol Docusate Sodium 100 mg 07/09/20 20:38 Docusate Sodium 100 Mg Capsule PO DAILY PRN Constipation Enoxaparin Sodium 75 mg 07/13/20 09:00 07/13/20 09:36 Enoxaparin Sodium 80 Mg/0.8 Ml Syringe 1 mg/kg (75 mg) 75 mg SUBCUT Administration Q12H [facility] Caspofungin 50 mg/ Sodium 250 mls @ 250 mls/hr 07/14/20 12:00 Chloride IV Q24H [facility] Insulin Human Lispro 0 unit 07/09/20 20:38 07/13/20 13:06 Insulin Lispro 100 Unit/Ml 3 Ml Vial SUBCUT 2 unit QIDACHS [facility] Administration Protocol Levothyroxine Sodium 50 mcg 07/10/20 09:00 07/13/20 05:16 Levothyroxine Sodium 50 Mcg Tablet PO 50 mcg DAILY@0600 [facility] Administration Losartan Potassium 25 mg 07/10/20 09:00 07/13/20 09:36 Losartan Potassium 25 Mg Tablet PO 25 mg DAILY [facility] Administration Protocol Morphine Sulfate 30 mg 07/09/20 21:00 07/13/20 09:35 Morphine Sulfate Er 30 Mg Tablet.Er PO 30 mg Q12H [facility] Administration Pantoprazole Sodium 40 mg 07/12/20 16:42 07/13/20 05:17 Pantoprazole Sodium 40 Mg/10 Ml Vial IVPUSH 40 mg BID@0630,1630 [facility] Administration Pharmacy Consult 1 each 07/09/20 14:26 Consult Rx Perform Med Rec MISCELLANE ONCE PRN Consult order Pravastatin Sodium 40 mg 07/10/20 09:00 07/13/20 09:35 Pravastatin Sodium 40 Mg Tablet PO 40 mg DAILY [facility] Administration Sodium Chloride 3 ml 07/09/20 20:38 07/13/20 09:36 0.9 % Sodium Chloride Flush 3 Ml Syringe IVFLUSH 3 ml QSHIFT [facility] Administration Sotalol HCl 120 mg 07/10/20 09:00 07/13/20 09:35 Sotalol Hcl 80 Mg Tablet PO 120 mg BID [facility] Administration Sucralfate 1 gm 07/12/20 16:30 07/13/20 09:35 Sucralfate 1 Gm Tablet PO 1 gm BIDAC [facility] Administration Tiotropium [place] 2 puff 07/12/20 09:47 07/13/20 07:57 Tiotropium [place] 18 Mcg Cap.W.Dev INHALE 2 puff RDAILY [facility] Administration Labs CBC & Chem 7: 07/13/20 06:57 07/13/20 06:57 Labs: Laboratory Results - last 24 hr 07/12/20 07/12/20 07/13/20 16:33 21:21 06:57 WBC 12.3 H RBC 3.43 L Hgb 10.4 L Hct 32.5 L MCV 94.8 MCH 30.3 MCHC 32.0 RDW 17.3 H Plt Count 243 MPV 9.7 Immature Gran % (Auto) 0.8 H Neut % (Auto) 84.7 H Lymph % (Auto) 3.0 L [place] % (Auto) 6.0 Eos % (Auto) 5.2 H Baso % (Auto) 0.3 Lymph # (Auto) 0.4 L [place] # (Auto) 0.7 Eos # (Auto) 0.6 H Baso # (Auto) 0.0 Abs Immat Gran (auto) 0.10 H Absolute Neuts (auto) 10.4 H Absolute Nucleated RBC 0.000 Nucleated RBC % (auto) 0.0 Smear Tech's Comments VERIFIED Sodium Potassium Chloride Carbon Dioxide Anion Gap BUN Creatinine Estim Creat Clear Calc Estimated GFR POC Glucose 169 H 177 H Random Glucose Calcium Magnesium Procalcitonin 07/13/20 07/13/20 07/13/20 06:57 06:57 07:36 WBC RBC Hgb Hct MCV MCH MCHC RDW Plt Count MPV Immature Gran % (Auto) Neut % (Auto) Lymph % (Auto) [place] % (Auto) Eos % (Auto) Baso % (Auto) Lymph # (Auto) [place] # (Auto) Eos # (Auto) Baso # (Auto) Abs Immat Gran (auto) Absolute Neuts (auto) Absolute Nucleated RBC Nucleated RBC % (auto) Smear Tech's Comments Sodium 137 Potassium 4.1 Chloride 98 Carbon Dioxide 33 H Anion Gap 10 L BUN 14 Creatinine 0.82 Estim Creat Clear Calc 79.1 Estimated GFR > 60 POC Glucose 137 H Random Glucose 141 H Calcium 7.3 L Magnesium 2.2 Procalcitonin 0.16 07/13/20 11:31 WBC RBC Hgb Hct MCV MCH MCHC RDW Plt Count MPV Immature Gran % (Auto) Neut % (Auto) Lymph % (Auto) [place] % (Auto) Eos % (Auto) Baso % (Auto) Lymph # (Auto) [place] # (Auto) Eos # (Auto) Baso # (Auto) Abs Immat Gran (auto) Absolute Neuts (auto) Absolute Nucleated RBC Nucleated RBC % (auto) Smear Tech's Comments Sodium Potassium Chloride Carbon Dioxide Anion Gap BUN Creatinine Estim Creat Clear Calc Estimated GFR POC Glucose 191 H Random Glucose Calcium Magnesium Procalcitonin Assessment and Plan (1) GI bleed: Status: Acute Assessment and Plan: hospital d#5 74yo M with Parkinson's disease on therapeutic LMWH for atrial fibrillation + mechanical aortic valve + PE (dx 04/28/20) associated with adenoCA of unknown primary; recent admissions for anemia due to GIB and pneumonia, re-admitted for melena # UGIB - EGD findings from 07/12/20: Esophagus: GE junction at 38 cm, diaphragm hiatus at 38 cm, numeorus white plaque like lesion in esophagus consistent with candidiasis Stomach: AVM appearing lesion in mid body of stomach, circumferential APC applied with ablation. Grade 2 flap valve on retroflexed examination of the cardia - continue IV PPI, added sucralfate # esophageal candidiaisis - will treat with caspofungin given critical QT-prolonging effect of fluconazole if it were added to sotalol; place PICC line; approved by ID # acute blood loss anemia - Hb stable, responded appropriately to 2u pRBCs # AF - continue sotalol and diltiazem - resumed LMWH today # PE # mechanical aortic valve - resumed LMWH today # HTN - continue diltiazem + losartan # DM2 - correction-dose lispro # COPD - continue LAMA + prn IVA # chronic pain - continue MSSR # Parkinsons disease - continue levodopa/carbidopa # hypothyroidism - continue LT4 # sacral pressure ulcer present on admission - continue local wound care # adenoCA of unknown primary care - continue f/u with Dr Mast as outpt # dispo - home with VNA after PICC line placed and no further bleeding while on LMWH
[2020-07-13 16:25] LABS: Glucose, Whole Blood 177 mg/dL (60-115)
[2020-07-13 20:25] LABS: Glucose, Whole Blood 140 mg/dL (60-115)
--- NOTE | 2020-07-13 21:06 | W.PM.IDCN ---
History of Present Illness Data of Consult Service Date: 07/13/20 Requesting physician: Rommel Sanchez Primary Care Provider: Jorge Currie MD HPI Reason for consult: janelle esophagitis He presents to hospital with dysphagia. He has no fever or chills He was diagnosed with janelle esophagitis He is on Sotolol for arrhythmias Review of Systems Review of Systems: Yes all other systems are reviewed and are negative [facility] Past Medical History Medical History (Updated 07/13/20 @ 21:11 by Pat Yan MD) Anemia Bony sclerosis Janelle esophagitis COPD (chronic obstructive pulmonary disease) Diabetes mellitus GI bleed Hyperlipidemia Hypertension Hypothyroidism Lytic bone lesion of hip Lytic lesion of bone on x-ray Metastatic bone tumor Overweight (BMI 25.0-29.9) Pancreatic cancer Parkinson's disease Paroxysmal atrial fibrillation Pleural effusion, right Pulmonary embolism Family History Family History Father Cardiovascular disease Mother Stroke Other Colon cancer FH: Parkinson's disease Family history: reviewed and not pertinent Surgical History Surgical History History of aortic valve replacement (~11/29/12) History of carpal tunnel release (~06/24/13) Status post anal 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) Social History Social History Household Members: Spouse Housing: House Alcohol intake: never Smoking Status: Never smoker Second Hand Smoke Exposure: No service: No Current occupational status: retired [employer] Allergies Allergy/AdvReac Type Severity Reaction Status Date / Time No Known Allergies Allergy Verified 06/17/20 13:40 [No Known Allergies*] Home Medications Medication Instructions Recorded Confirmed Type carbidopa-levodopa 1 tab PO TID 04/28/20 07/09/20 History insulin asp prt-insulin aspart 8 unit SUBCUT TID 06/12/20 07/09/20 History [Novolog Mix 70-30FlexPen U-100] furosemide [Lasix] 40 mg PO BID 07/09/20 07/09/20 History Physical Exam Vital Signs: Vital Signs: Last Vital Signs Temp 97.2 F 07/13/20 19:37 Pulse 62 07/13/20 19:37 Resp 18 07/13/20 19:37 BP 127/55 L 07/13/20 19:37 Pulse Ox 90 L 07/13/20 19:37 Body Mass Index 22.4 Const: General: cooperative Resp: Effort & Inspection: normal respiratory effort Cardio: Rate: regular rate GI: Palpation (GI): Soft to palpation and nontender : General: Yes no CVA tenderness Back/Spine/Pelvis: Back: no CVA tenderness Skin: General skin exam: no rashes or lesions noted Assessment and Plan (1) Janelle esophagitis: Problem details: Patient with fungal involvement esophagu He is not able to take diflucan and other similar since drug interaction Status: Acute Would give Caspofungin for 10 days due to lack of drug interactions F/U GI prn need Results Labs CBC & Chem 7: 07/13/20 06:57 07/13/20 06:57 Labs: Short CBC 07/13/20 Range/Units 06:57 WBC 12.3 H (4.8-10.8) X10*3/uL Hgb 10.4 L (14.0-18.0) g/dl Hct 32.5 L (42-52) % Plt Count 243 (160-400) X10*3/uL BMP 07/13/20 06:57 Sodium 137 Potassium 4.1 Chloride 98 Carbon Dioxide 33 H BUN 14 Creatinine 0.82 Calcium 7.3 L
[2020-07-14] VITALS: BP 118/59; PULSE 61; RESP 18; TEMP 36.5
[2020-07-14] MEDS: 0.9 % Sodium Chloride Flush 3 ML SYRINGE IVFLUSH ×4 (00:20→21:57)
[2020-07-14 04:00] VITALS: BP 114/56; PULSE 57; RESP 18; TEMP 36.6; O2SAT 98
[2020-07-14] MEDS: Pantoprazole Sodium 40 MG/10 ML VIAL IVPUSH (05:44)
[2020-07-14] MEDS: Levothyroxine Sodium 50 MCG TABLET PO (05:44)
[2020-07-14 06:48] LABS: Basophils Absolute Auto 0.1 X10*3/uL (0.0-0.2); Basophils Percent Auto 0.6 % (0-2); Eosinophils Absolute Auto 0.8 X10*3/uL (0.0-0.4); Eosinophils Percent Auto 8.1 % (0-4); Hemoglobin 9.8 g/dl (14.0-18.0); Imm Gran Abs Auto 0.04 X10*3/uL (0.00-0.03); Imm Gran Pct Auto 0.4 % (0.0-0.4); Lymphocytes Absolute Auto 0.4 X10*3/uL (1.2-4.9); Lymphocytes Percent Auto 4.4 % (20-40); MANUAL DIFF FLAG SCAN; Mean Corpuscular HGB Conc 31.6 g/dl (31.0-36.0); Mean Corpuscular Volume 94.8 fL (80-98); Mean Platelet Volume 9.8 fL (9.4-12.4); Monocytes Absolute Auto 0.8 X10*3/uL (0.1-1.2); Monocytes Percent Auto 8.4 % (2-11); Neutrophils Absolute Auto 7.6 X10*3/uL (2.0-8.3); Neutrophils Percent Auto 78.1 % (45-73); Platelet Count 280 X10*3/uL (160-400); Red Blood Count 3.27 X10*6/uL (4.60-5.80); Red Cell Distribution Width 16.9 % (11.0-16.0); SCAN SMEAR FLAG 1; White Blood Count 9.7 X10*3/uL (4.8-10.8)
[2020-07-14 07:46] VITALS: BP 148/65; PULSE 59; RESP 18; TEMP 37.2; O2SAT 98
[2020-07-14 07:53] LABS: Glucose, Whole Blood 147 mg/dL (60-115)
[2020-07-14] MEDS: Sucralfate 1 GM TABLET PO ×2 (07:53→17:37)
[2020-07-14] MEDS: Enoxaparin Sodium 80 MG/0.8 ML SYRINGE 75 MG SUBCUT ×2 (08:39→21:47)
[2020-07-14 08:40] LABS: SLIDE REVIEW VERIFIED
[2020-07-14] MEDS: Sotalol HCL 80 MG TABLET 120 MG PO ×2 (08:41→21:47)
[2020-07-14] MEDS: Carbidopa/Levodopa CR 50/200 TABLET.ER 1 TAB PO ×3 (08:42→21:47)
[2020-07-14] MEDS: dilTIAZem HCL CD 180 MG CAP.ER.24H PO (08:42)
[2020-07-14] MEDS: Losartan Potassium 25 MG TABLET PO (08:42)
[2020-07-14] MEDS: Morphine Sulfate ER 30 MG TABLET.ER PO ×2 (08:43→21:47)
[2020-07-14] MEDS: Pravastatin Sodium 40 MG TABLET PO (08:43)
[2020-07-14 11:16] VITALS: BP 141/85; PULSE 62; RESP 17; TEMP 36.6; O2SAT 97
[2020-07-14 11:58] LABS: Glucose, Whole Blood 222 mg/dL (60-115)
[2020-07-14] MEDS: Insulin Lispro 100 UNIT/ML 3 ML VIAL SUBCUT ×3 (12:03→21:48)
[2020-07-14] MEDS: Caspofungin Acetate 50 MG in 0.9 % Sodium Chloride 250 ML 250 MG IV (12:04)
--- NOTE | 2020-07-14 12:41 | MHC.CM.PN ---
Per ROUNDS discussion, Patient is getting a midline today and expected to dc to home with IV ABT tomorrow with VNA.CM will follow for dc planning and possible need to adjust the dc plan.
--- NOTE | 2020-07-14 13:20 | MHC.CLN ---
F/U 75-100% PO DIET RX: REGULAR-APPROPRIATE RECOMMEND ADDING WINTER AND GLUCERNA BID TO INCREASE KCALS AND PROMOTE WOUND HEALING FOLLOWING
--- NOTE | 2020-07-14 14:49 | HO.PM.IMPN ---
Subjective Subjective Date of Service: 07/14/20 Interval History: tolerating diet no GI bleeding no abd pain Physical Exam Vital Signs: Vital Signs: Last Vital Signs Temp 97.9 F 07/14/20 11:16 Pulse 62 07/14/20 11:16 Resp 17 07/14/20 11:16 BP 141/85 H 07/14/20 11:16 Pulse Ox 97 07/14/20 11:16 Body Mass Index 22.4 Gen: in no acute distress HEENT: sclera anicteric, moist mucus membranes Neck: supple Lungs: clear to auscultation bilaterally Heart: mechanical S2, no murmurs Abd: soft, non-tender, non-distended Ext: no edema Skin: warm/well-perfused Neuro: alert and oriented x3, no focal findings Psych: appropriate affect Objective Data Current Medications Generic Name Dose Route Start Last Admin Trade Name Freq PRN Reason Stop Dose Admin Acetaminophen 650 mg 07/09/20 20:38 07/11/20 14:54 Acetaminophen 325 Mg Tablet PO 650 mg Q6H PRN Administration Pain, Mild (Pain Scale 1-3) Albuterol Sulfate 2 puff 07/12/20 13:33 Albuterol Sulfate 90 Mcg 8 Gm Inhaler INHALE RQ4H PRN Shortness of Breath Benzonatate 100 mg 07/13/20 14:30 Benzonatate 100 Mg Capsule PO TID PRN Cough Carbidopa/Levodopa 1 tab 07/09/20 21:00 07/14/20 14:20 Carbidopa/Levodopa Cr 50/200 Tablet.Er PO 1 tab TID [facility] Administration Diltiazem HCl 180 mg 07/10/20 09:00 07/14/20 08:42 Diltiazem Hcl Cd 180 Mg Cap.Er.24h PO 180 mg DAILY [facility] Administration Protocol Docusate Sodium 100 mg 07/09/20 20:38 Docusate Sodium 100 Mg Capsule PO DAILY PRN Constipation Enoxaparin Sodium 75 mg 07/13/20 09:00 07/14/20 08:39 Enoxaparin Sodium 80 Mg/0.8 Ml Syringe 1 mg/kg (75 mg) 75 mg SUBCUT Administration Q12H [facility] Caspofungin 50 mg/ Sodium 250 mls @ 250 mls/hr 07/14/20 12:00 07/14/20 13:08 Chloride IV Infused Q24H [facility] Infusion Insulin Human Lispro 0 unit 07/09/20 20:38 07/14/20 12:03 Insulin Lispro 100 Unit/Ml 3 Ml Vial SUBCUT 4 unit QIDACHS [facility] Administration Protocol Levothyroxine Sodium 50 mcg 07/10/20 09:00 07/14/20 05:44 Levothyroxine Sodium 50 Mcg Tablet PO 50 mcg DAILY@0600 [facility] Administration Losartan Potassium 25 mg 07/10/20 09:00 07/14/20 08:42 Losartan Potassium 25 Mg Tablet PO 25 mg DAILY [facility] Administration Protocol Morphine Sulfate 30 mg 07/09/20 21:00 07/14/20 08:43 Morphine Sulfate Er 30 Mg Tablet.Er PO 30 mg Q12H [facility] Administration Pantoprazole Sodium 40 mg 07/12/20 16:42 07/14/20 05:44 Pantoprazole Sodium 40 Mg/10 Ml Vial IVPUSH 40 mg BID@0630,1630 [facility] Administration Pharmacy Consult 1 each 07/09/20 14:26 Consult Rx Perform Med Rec MISCELLANE ONCE PRN Consult order Pravastatin Sodium 40 mg 07/10/20 09:00 07/14/20 08:43 Pravastatin Sodium 40 Mg Tablet PO 40 mg DAILY [facility] Administration Sodium Chloride 3 ml 07/09/20 20:38 07/14/20 07:53 0.9 % Sodium Chloride Flush 3 Ml Syringe IVFLUSH 3 ml QSHIFT [facility] Administration Sotalol HCl 120 mg 07/10/20 09:00 07/14/20 08:41 Sotalol Hcl 80 Mg Tablet PO 120 mg BID [facility] Administration Sucralfate 1 gm 07/12/20 16:30 07/14/20 07:53 Sucralfate 1 Gm Tablet PO 1 gm BIDAC [facility] Administration Tiotropium [place] 2 puff 07/12/20 09:47 07/14/20 08:05 Tiotropium [place] 18 Mcg Cap.W.Dev INHALE 2 puff RDAILY [facility] Administration Labs CBC & Chem 7: 07/14/20 06:28 07/13/20 06:57 Labs: Laboratory Results - last 24 hr 07/13/20 07/13/20 07/14/20 16:18 20:14 06:28 WBC 9.7 RBC 3.27 L Hgb 9.8 L Hct 31.0 L MCV 94.8 MCH 30.0 MCHC 31.6 RDW 16.9 H Plt Count 280 MPV 9.8 Immature Gran % (Auto) 0.4 Neut % (Auto) 78.1 H Lymph % (Auto) 4.4 L [place] % (Auto) 8.4 Eos % (Auto) 8.1 H Baso % (Auto) 0.6 Lymph # (Auto) 0.4 L [place] # (Auto) 0.8 Eos # (Auto) 0.8 H Baso # (Auto) 0.1 Abs Immat Gran (auto) 0.04 H Absolute Neuts (auto) 7.6 Absolute Nucleated RBC 0.000 Nucleated RBC % (auto) 0.0 Smear Tech's Comments VERIFIED POC Glucose 177 H 140 H 07/14/20 07/14/20 07:49 11:15 WBC RBC Hgb Hct MCV MCH MCHC RDW Plt Count MPV Immature Gran % (Auto) Neut % (Auto) Lymph % (Auto) [place] % (Auto) Eos % (Auto) Baso % (Auto) Lymph # (Auto) [place] # (Auto) Eos # (Auto) Baso # (Auto) Abs Immat Gran (auto) Absolute Neuts (auto) Absolute Nucleated RBC Nucleated RBC % (auto) Smear Tech's Comments POC Glucose 147 H 222 H Assessment and Plan (1) GI bleed: Status: Acute Assessment and Plan: hospital d#6 74yo M with Parkinson's disease on therapeutic LMWH for atrial fibrillation + mechanical aortic valve + PE (dx 04/28/20) associated with adenoCA of unknown primary; recent admissions for anemia due to GIB and pneumonia, re-admitted for melena, likely UGIB from AVM, also has esophageal candidiasis # UGIB # gastric AVM - EGD findings from 07/12/20: Esophagus: GE junction at 38 cm, diaphragm hiatus at 38 cm, numeorus white plaque like lesion in esophagus consistent with candidiasis Stomach: AVM appearing lesion in mid body of stomach, circumferential APC applied with ablation. Grade 2 flap valve on retroflexed examination of the cardia - IV-> PO PPI + sucralfate # esophageal candidiaisis - d#06/20 of caspofungin (no azole due to QT-prolonging effect with sotalol in place). midline catheter today. arrange home VNA # acute blood loss anemia - Hb stable, responded appropriately to 2u pRBCs # AF - continue sotalol and diltiazem - resumed LMWH 07/13/20 # PE # mechanical aortic valve - resumed LMWH 07/13/20 # HTN - continue diltiazem + losartan # DM2 - correction-dose lispro # COPD - continue LAMA + prn IVA # chronic pain - continue MSSR # Parkinsons disease - continue levodopa/carbidopa # hypothyroidism - continue LT4 # sacral pressure ulcer present on admission - continue local wound care # adenoCA of unknown primary care - continue f/u with Dr Mast as outpt # dispo - likely home tomorrow with VNA
--- NOTE | 2020-07-14 14:55 | P.F2F_ITS ---
Service Date Service Date: 07/14/20 Encounter Date of encounter: 07/14/20 Reasons for Services Reason for nursing home: administration of IV, SQ, or IM injection, medication treatment and teach disease management Reason for physical therapy: home safety and mobility, therapeutic exercises, gait/transfer training, assess need for DME, ADL training and energy conservation MD Overseeing Care: Jorge Currie Homebound: Leaving the home is medically contraindicated at this time without the asist of a device and/or another person due th the listed conditions above and below. Reason homebound: unsteady gait / fall risk, immunosuppression / infection risk and weakness related to hospital stay Homebound supporting statement: patient was admitted to [facility] 07/09/20-07/15/20 for UGIB due to gastric AVM; also found to have esophageal candidiasis VNA services for administration of IV caspofungin as well as home PT Certification: Based on the above findings, I certify that this patient is confined to the home and needs intermittent nursing home care, physical therapy and/or speech therapy, or continues to need occupational therapy. The patient is under my care, and I have initiated the establishment of the plan of care. The patient will be followed by a physician who will periodically review the plan of care.
[2020-07-14 15:39] VITALS: BP 101/35; PULSE 52; RESP 18; TEMP 36.4; O2SAT 95
--- NOTE | 2020-07-14 15:41 | HO.MIDLINE ---
PICC Line Insertion MIDLINE INSERTION Diagnosis: CAMILLE ESOPHAGITIS Indication: SANDBLAST CARVER IV ANTIFUNGAL Pertinent Labs: REVIEWED Technique: Using sterile technique including cap and mask, glove and drape, the RIGHT arm was prepped and draped in the usual sterile fashion of full barrier technique with CHG. Using ultrasound guidance, BASILIC vein access was obtained IN SINGLE ATTEMPT BY THIS RN. A [id number] SINGLE LUMEN NON-PASV MIDline was positioned. The procedure was performed in 368-1. Ultrasound was used to document vein patency and for needle entry. A formal ultrasound picture was recorded. Vascular Blocker And Polisher Gold Wheel has released the line for use and it is currently dressed with a StatLock, Tegaderm, and CHG disc. Verification has been performed for blood return and line patency. Arm Circumference: 28CM Equipment: Weekend-a-gogo POWERGLIDE PRO MIDLINE Catheter Type: SINGLE LUMEN, NON-PASV, [id number] Lot #: [id number]
[2020-07-14 16:39] LABS: Glucose, Whole Blood 192 mg/dL (60-115)
[2020-07-14] MEDS: Omeprazole 20 MG CAPSULE.DR PO (17:38)
[2020-07-14] MEDS: Acetaminophen 325 MG TABLET 650 MG PO (17:43)
[2020-07-14] MEDS: Benzonatate 100 MG CAPSULE PO (17:44)
--- NOTE | 2020-07-14 19:27 | PC.NURSE ---
P-left foot redness ,swelling,scab black in color noted I-dr. Sanchez notified E-will monitor
[2020-07-14 19:55] VITALS: BP 145/60; PULSE 58; RESP 18; TEMP 36.2; O2SAT 90
[2020-07-14 20:11] LABS: Glucose, Whole Blood 174 mg/dL (60-115)
[2020-07-14] MEDS: Heparin Sodium,Porcine Flush 50 UNITS, 0.9 % Sodium Chloride Flush 5 ML IVFLUSH (21:47)
[2020-07-15] VITALS (8 sets, daily range): BP systolic 112–149; BP diastolic 47–70; PULSE 54–74; RESP 17–21; TEMP 36.2–36.8; O2SAT 91–98
--- NOTE | 2020-07-15 | XR_ITS ---
EXAMINATION: XR CHEST CLINICAL INFORMATION: Cough. Recent pneumonia. COMPARISON: 07/09/2020 TECHNIQUE: 2 views of the chest were obtained. FINDINGS: Left chest wall pacer is unchanged. Cardiac annular hardware noted. Median sternotomy wires appear intact. The lungs are well expanded. Patchy bilateral airspace opacities are noted, mildly increased on the left from prior. Small pleural effusions. No pneumothorax. The cardiomediastinal silhouette is unchanged, with a calcified aorta. XR/XR chest 2V IMPRESSION: Patchy diffuse bilateral airspace opacities are again noted, mildly increased on the left from prior. This could be infectious or inflammatory. Small pleural effusions.
[2020-07-15] MEDS: Omeprazole 20 MG CAPSULE.DR PO ×2 (05:44→16:10)
[2020-07-15] MEDS: Levothyroxine Sodium 50 MCG TABLET PO (05:44)
[2020-07-15 06:13] LABS: Basophils Absolute Auto 0.1 X10*3/uL (0.0-0.2); Basophils Percent Auto 0.5 % (0-2); Eosinophils Absolute Auto 0.6 X10*3/uL (0.0-0.4); Eosinophils Percent Auto 5.4 % (0-4); Hematocrit 30.7 % (42-52); Hemoglobin 9.6 g/dl (14.0-18.0); Imm Gran Abs Auto 0.04 X10*3/uL (0.00-0.03); Imm Gran Pct Auto 0.4 % (0.0-0.4); Lymphocytes Absolute Auto 0.4 X10*3/uL (1.2-4.9); Lymphocytes Percent Auto 3.4 % (20-40); MANUAL DIFF FLAG SCAN; Mean Corpuscular HGB Conc 31.3 g/dl (31.0-36.0); Mean Corpuscular Hemoglobin 29.9 pg (27.0-33.0); Mean Corpuscular Volume 95.6 fL (80-98); Mean Platelet Volume 9.7 fL (9.4-12.4); Monocytes Absolute Auto 0.7 X10*3/uL (0.1-1.2); Monocytes Percent Auto 6.7 % (2-11); Neutrophils Absolute Auto 8.7 X10*3/uL (2.0-8.3); Neutrophils Percent Auto 83.6 % (45-73); Platelet Count 284 X10*3/uL (160-400); Red Blood Count 3.21 X10*6/uL (4.60-5.80); Red Cell Distribution Width 16.5 % (11.0-16.0); SCAN SMEAR FLAG 1; White Blood Count 10.4 X10*3/uL (4.8-10.8)
[2020-07-15 06:50] LABS: Alanine Aminotransferase 7 U/L (0-40); Albumin Level 2.1 g/dL (3.5-5.0); Alkaline Phosphatase 449 U/L (39-117); Anion Gap 10 (12-20); Aspartate Amino Transferase 46 U/L (5-37); Bilirubin Total 1.2 mg/dL (0.0-1.0); Blood Urea Nitrogen 25 mg/dL (9-16); Calcium 7.5 mg/dL (8.4-10.2); Carbon Dioxide 33 mmol/L (22-29); Chloride 100 mmol/L (96-108); Creatinine Clr Calc Pharmacy 49.5; Estimated Glomerular Filt Rate 53; Glucose Random 150 mg/dL (60-115); Potassium 4.5 mmol/L (3.3-5.1); Sodium 138 mmol/L (135-145); Total Protein 5.3 g/dL (6.5-8.0)
[2020-07-15 07:15] LABS: SLIDE REVIEW VERIFIED
[2020-07-15] MEDS: Enoxaparin Sodium 80 MG/0.8 ML SYRINGE 75 MG SUBCUT ×2 (07:52→20:38)
[2020-07-15] MEDS: Sotalol HCL 80 MG TABLET 120 MG PO ×2 (07:54→20:41)
[2020-07-15] MEDS: dilTIAZem HCL CD 180 MG CAP.ER.24H PO (07:55)
[2020-07-15] MEDS: Losartan Potassium 25 MG TABLET PO (07:55)
[2020-07-15] MEDS: Carbidopa/Levodopa CR 50/200 TABLET.ER 1 TAB PO ×3 (07:55→20:38)
[2020-07-15] MEDS: Sucralfate 1 GM TABLET PO ×2 (07:55→16:10)
[2020-07-15] MEDS: Pravastatin Sodium 40 MG TABLET PO (07:55)
[2020-07-15 08:00] LABS: Glucose, Whole Blood 141 mg/dL (60-115)
[2020-07-15] MEDS: 0.9 % Sodium Chloride Flush 3 ML SYRINGE IVFLUSH ×2 (08:03→15:53)
[2020-07-15] MEDS: 0.9 % Sodium Chloride 1,000 ML 100 ML IVCONT (09:04)
[2020-07-15] MEDS: Morphine Sulfate ER 30 MG TABLET.ER PO ×2 (09:04→20:43)
[2020-07-15] MEDS: Benzonatate 100 MG CAPSULE PO (09:04)
--- NOTE | 2020-07-15 09:23 | P.PNIM_ITS ---
Subjective Subjective Date of Service: 07/15/20 Interval History: still coughing though states improved has some difficulty swallowing tolerating diet without abd pain no GI bleeding no fever had midline done yesterday Physical Exam Vital Signs: Vital Signs: Last Vital Signs Temp 98.0 F 07/15/20 07:19 Pulse 61 07/15/20 07:19 Resp 21 H 07/15/20 07:19 BP 126/52 L 07/15/20 07:19 Pulse Ox 94 07/15/20 07:19 Body Mass Index 22.4 Gen: in no acute distress HEENT: sclera anicteric, moist mucus membranes Neck: supple Lungs: clear to auscultation bilaterally Heart: mechanical S2, no murmurs Abd: soft, non-tender, non-distended Ext: no edema, RUE midline without signs of infection/bleeding Skin: warm/well-perfused Neuro: alert and oriented x3, no focal findings Psych: appropriate affect Objective Data Current Medications Generic Name Dose Route Start Last Admin Trade Name Freq PRN Reason Stop Dose Admin Acetaminophen 650 mg 07/09/20 20:38 07/14/20 17:43 Acetaminophen 325 Mg Tablet PO 650 mg Q6H PRN Administration Pain, Mild (Pain Scale 1-3) Albuterol Sulfate 2 puff 07/12/20 13:33 Albuterol Sulfate 90 Mcg 8 Gm Inhaler INHALE RQ4H PRN Shortness of Breath Benzonatate 100 mg 07/13/20 14:30 07/15/20 09:04 Benzonatate 100 Mg Capsule PO 100 mg TID PRN Administration Cough Carbidopa/Levodopa 1 tab 07/09/20 21:00 07/15/20 07:55 Carbidopa/Levodopa Cr 50/200 Tablet.Er PO 1 tab TID [facility] Administration Heparin Sodium (Porcine) 50 0 units 07/14/20 15:45 07/14/20 21:47 units/ Sodium Chloride 5 ml IVFLUSH 1 unit TID [facility] Administration Diltiazem HCl 180 mg 07/10/20 09:00 07/15/20 07:55 Diltiazem Hcl Cd 180 Mg Cap.Er.24h PO 180 mg DAILY [facility] Administration Protocol Docusate Sodium 100 mg 07/09/20 20:38 Docusate Sodium 100 Mg Capsule PO DAILY PRN Constipation Enoxaparin Sodium 75 mg 07/13/20 09:00 07/15/20 07:52 Enoxaparin Sodium 80 Mg/0.8 Ml Syringe 1 mg/kg (75 mg) 75 mg SUBCUT Administration Q[facility]H [facility] Caspofungin 50 mg/ Sodium 250 mls @ 250 mls/hr 07/14/20 12:00 07/14/20 13:08 Chloride IV Infused Q24H [facility] Infusion Sodium Chloride 1,000 mls @ 100 mls/hr 07/15/20 08:15 07/15/20 09:04 Ns IVCONT 07/15/20 18:14 100 mls/hr .Q10H [facility] Administration Insulin Human Lispro 0 unit 07/09/20 20:38 07/15/20 08:02 Insulin Lispro 100 Unit/Ml 3 Ml Vial SUBCUT Not Given QIDACHS [facility] Protocol Levothyroxine Sodium 50 mcg 07/10/20 09:00 07/15/20 05:44 Levothyroxine Sodium 50 Mcg Tablet PO 50 mcg DAILY@0600 [facility] Administration Losartan Potassium 25 mg 07/10/20 09:00 07/15/20 07:55 Losartan Potassium 25 Mg Tablet PO 25 mg DAILY [facility] Administration Protocol Morphine Sulfate 30 mg 07/09/20 21:00 07/15/20 09:04 Morphine Sulfate Er 30 Mg Tablet.Er PO 30 mg Q12H [facility] Administration Omeprazole 20 mg 07/14/20 16:30 07/15/20 05:44 Omeprazole 20 Mg Capsule.Dr PO 20 mg BID@0630,1630 [facility] Administration Pharmacy Consult 1 each 07/09/20 14:26 Consult Rx Perform Med Rec MISCELLANE ONCE PRN Consult order Pravastatin Sodium 40 mg 07/10/20 09:00 07/15/20 07:55 Pravastatin Sodium 40 Mg Tablet PO 40 mg DAILY [facility] Administration Sodium Chloride 3 ml 07/09/20 20:38 07/15/20 08:03 0.9 % Sodium Chloride Flush 3 Ml Syringe IVFLUSH 3 ml QSHIFT [facility] Administration Sotalol HCl 120 mg 07/10/20 09:00 07/15/20 07:54 Sotalol Hcl 80 Mg Tablet PO 120 mg BID [facility] Administration Sucralfate 1 gm 07/12/20 16:30 07/15/20 07:55 Sucralfate 1 Gm Tablet PO 1 gm BIDAC [facility] Administration Tiotropium [place] 2 puff 07/12/20 09:47 07/15/20 08:01 Tiotropium [place] 18 Mcg Cap.W.Dev INHALE 2 puff RDAILY [facility] Administration Labs CBC & Chem 7: 07/15/20 05:51 07/15/20 05:51 Labs: Laboratory Results - last 24 hr 07/14/20 07/14/20 07/14/20 11:15 16:26 19:54 WBC RBC Hgb Hct MCV MCH MCHC RDW Plt Count MPV Immature Gran % (Auto) Neut % (Auto) Lymph % (Auto) [place] % (Auto) Eos % (Auto) Baso % (Auto) Lymph # (Auto) [place] # (Auto) Eos # (Auto) Baso # (Auto) Abs Immat Gran (auto) Absolute Neuts (auto) Absolute Nucleated RBC Nucleated RBC % (auto) Smear Tech's Comments Sodium Potassium Chloride Carbon Dioxide Anion Gap BUN Creatinine Estim Creat Clear Calc Estimated GFR POC Glucose 222 H 192 H 174 H Random Glucose Calcium Total Bilirubin AST ALT Alkaline Phosphatase Total Protein Albumin 07/15/20 07/15/20 07/15/20 05:51 05:51 07:34 WBC 10.4 RBC 3.21 L Hgb 9.6 L Hct 30.7 L MCV 95.6 MCH 29.9 MCHC 31.3 RDW 16.5 H Plt Count 284 MPV 9.7 Immature Gran % (Auto) 0.4 Neut % (Auto) 83.6 H Lymph % (Auto) 3.4 L [place] % (Auto) 6.7 Eos % (Auto) 5.4 H Baso % (Auto) 0.5 Lymph # (Auto) 0.4 L [place] # (Auto) 0.7 Eos # (Auto) 0.6 H Baso # (Auto) 0.1 Abs Immat Gran (auto) 0.04 H Absolute Neuts (auto) 8.7 H Absolute Nucleated RBC 0.000 Nucleated RBC % (auto) 0.0 Smear Tech's Comments VERIFIED Sodium 138 Potassium 4.5 Chloride 100 Carbon Dioxide 33 H Anion Gap 10 L BUN 25 H D Creatinine 1.31 Estim Creat Clear Calc 49.5 Estimated GFR 53 POC Glucose 141 H Random Glucose 150 H Calcium 7.5 L Total Bilirubin 1.2 H AST 46 H D ALT 7 Alkaline Phosphatase 449 H Total Protein 5.3 L Albumin 2.1 L Assessment and Plan (1) GI bleed: Status: Acute Assessment and Plan: hospital d#7 74yo M with Parkinson's disease on therapeutic LMWH for atrial fibrillation + mechanical aortic valve + PE (dx 04/28/20) associated with adenoCA of unknown primary recent admissions for anemia due to GIB and pneumonia re-admitted for melena, likely UGIB from AVM, also found to have esophageal candidiasis # MICKIE - SCr 0.82->1.31. suspect prerenal, will give 1L IV NS and recheck BMP in am # UGIB # gastric AVM - EGD findings from 07/12/20: Esophagus: GE junction at 38 cm, diaphragm hiatus at 38 cm, numeorus white plaque like lesion in esophagus consistent with candidiasis Stomach: AVM appearing lesion in mid body of stomach, circumferential APC applied with ablation. Grade 2 flap valve on retroflexed examination of the cardia - PPI + sucralfate, will need outpt GI f/u # esophageal candidiaisis - d#07/21 of caspofungin (no azole due to QT-prolonging effect in this pt on sotalol). midline placed yesterday and will arrange home infusion with VNA # acute blood loss anemia - Hb stable, responded appropriately to 2u pRBCs # AF - continue sotalol and diltiazem - resumed LMWH 07/13/20; no signs of bleeding # PE # mechanical aortic valve - on LMWH as above # HTN - continue diltiazem + losartan # DM2 - correction-dose lispro # COPD - continue LAMA + prn IVA # chronic pain - continue MSSR # Parkinsons disease - continue levodopa/carbidopa # hypothyroidism - continue LT4 # sacral pressure ulcer present on admission - continue local wound care # adenoCA of unknown primary care - continue f/u with Dr Mast as outpt # dispo - likely home tomorrow with VNA
[2020-07-15] MEDS: Heparin Sodium,Porcine Flush 50 UNITS, 0.9 % Sodium Chloride Flush 5 ML IVFLUSH ×3 (10:30→20:40)
[2020-07-15 11:38] LABS: Glucose, Whole Blood 178 mg/dL (60-115)
[2020-07-15] MEDS: Insulin Lispro 100 UNIT/ML 3 ML VIAL SUBCUT ×3 (11:53→20:40)
[2020-07-15] MEDS: Caspofungin Acetate 50 MG in 0.9 % Sodium Chloride 250 ML 250 MG IV (11:53)
[2020-07-15 14:28] LABS: Procalcitonin 0.22 ng/mL
[2020-07-15] MEDS: Acetaminophen 325 MG TABLET 650 MG PO (16:09)
[2020-07-15 16:25] LABS: Glucose, Whole Blood 172 mg/dL (60-115)
[2020-07-15 20:21] LABS: Glucose, Whole Blood 158 mg/dL (60-115)
--- NOTE | 2020-07-15 20:44 | PC.NURSE ---
P-HR 56 BP 112/53,Betapace scheduled I-Dr. Leal notified E-will administer as scheduled
[2020-07-16] VITALS (8 sets, daily range): BP systolic 123–137; BP diastolic 55–96; PULSE 56–71; RESP 16–20; TEMP 36.2–36.6; O2SAT 91–99
[2020-07-16] MEDS: 0.9 % Sodium Chloride Flush 3 ML SYRINGE IVFLUSH ×4 (00:43→21:41)
[2020-07-16] MEDS: Acetaminophen 325 MG TABLET 650 MG PO (04:40)
[2020-07-16] MEDS: Levothyroxine Sodium 50 MCG TABLET PO (05:51)
[2020-07-16] MEDS: Omeprazole 20 MG CAPSULE.DR PO ×2 (05:51→16:57)
[2020-07-16 07:13] LABS: Anion Gap 11 (12-20); Blood Urea Nitrogen 29 mg/dL (9-16); Calcium 7.5 mg/dL (8.4-10.2); Carbon Dioxide 31 mmol/L (22-29); Chloride 101 mmol/L (96-108); Creatinine Clr Calc Pharmacy 55.9; Estimated Glomerular Filt Rate > 60; Glucose Random 166 mg/dL (60-115); Potassium 4.6 mmol/L (3.3-5.1); Sodium 138 mmol/L (135-145)
[2020-07-16 08:18] LABS: Glucose, Whole Blood 154 mg/dL (60-115)
[2020-07-16] MEDS: dilTIAZem HCL CD 180 MG CAP.ER.24H PO (09:04)
[2020-07-16] MEDS: Sucralfate 1 GM TABLET PO ×2 (09:06→16:57)
[2020-07-16] MEDS: Heparin Sodium,Porcine Flush 50 UNITS, 0.9 % Sodium Chloride Flush 5 ML IVFLUSH ×3 (09:06→21:33)
[2020-07-16] MEDS: Losartan Potassium 25 MG TABLET PO (09:08)
[2020-07-16] MEDS: Carbidopa/Levodopa CR 50/200 TABLET.ER 1 TAB PO ×3 (09:08→21:33)
[2020-07-16] MEDS: Sotalol HCL 80 MG TABLET 120 MG PO ×2 (09:09→21:34)
[2020-07-16] MEDS: Enoxaparin Sodium 80 MG/0.8 ML SYRINGE 75 MG SUBCUT ×2 (09:09→21:32)
[2020-07-16] MEDS: Morphine Sulfate ER 30 MG TABLET.ER PO ×2 (09:10→21:34)
[2020-07-16] MEDS: Pravastatin Sodium 40 MG TABLET PO (09:10)
[2020-07-16] MEDS: Insulin Lispro 100 UNIT/ML 3 ML VIAL SUBCUT ×4 (09:23→21:31)
--- NOTE | 2020-07-16 11:15 | MHC.CM.PN ---
Per MD, Patient is not medically cleared just yet for dc. Goal for dc is home with VNA & HI for IV Antifungal. CM will continue to follow for dc planning and possible need to adjust the dc plan.
[2020-07-16] MEDS: Caspofungin Acetate 50 MG in 0.9 % Sodium Chloride 250 ML 250 MG IV (12:12)
[2020-07-16 12:17] LABS: Glucose, Whole Blood 183 mg/dL (60-115)
--- NOTE | 2020-07-16 13:33 | MHC.CM.PN ---
Patient's has questions regarding her Husbands clinical status; CM has asked MD to phone her.
--- NOTE | 2020-07-16 14:17 | MHC.CM.PN ---
Patient's /Trish called, concerned about Patient. BENNIE spoke with MD, who indicated that he will call Trish as soon as he is able to. BENNIE assured Trish that MD is aware of her request to speak with him and that MD is agreeable to call.
--- NOTE | 2020-07-16 14:41 | MHC.CLN ---
F/U F/U 25% PO (07/15-07/16) DIET RX: 2000DM -CASE MANAGEMENT DIRECTOR RECOMMEND PUREED DWITH HT LIQ SEE REC DATED 07/15 PT RECEIVING WINTER AND GLUCERNA BID TO INCREASE KCALS AND PROMOTE WOUND HEALING WILL UPDATE DIET PER CASE MANAGEMENT DIRECTOR FOLLOWING
--- NOTE | 2020-07-16 14:48 | P.PNIM_ITS ---
Subjective Subjective Date of Service: 07/16/20 Interval History: Seen in f/u for gib, no bleeding reported, he seems more confused and somehow looks frail Review of Systems no rectal bleeding, no chest pain no sob Physical Exam Vital Signs: Vital Signs: Last Vital Signs Temp 97.8 F 07/16/20 12:00 Pulse 56 07/16/20 14:42 Resp 16 07/16/20 12:00 BP 128/63 07/16/20 14:42 Pulse Ox 91 L 07/16/20 14:42 Body Mass Index 22.4 Gen: in no acute distress HEENT: sclera anicteric, moist mucus membranes Neck: supple Lungs: clear to auscultation bilaterally Heart: mechanical S2, no murmurs Abd: soft, non-tender, non-distended Ext: no edema, RUE midline without signs of infection/bleeding Skin: warm/well-perfused Neuro: alert and oriented to ena, he thinks he is [place] Psych: appropriate affect Objective Data Current Medications Generic Name Dose Route Start Last Admin Trade Name Hector PRN Reason Stop Dose Admin Acetaminophen 650 mg 07/09/20 20:38 07/16/20 04:40 Acetaminophen 325 Mg Tablet PO 650 mg Q6H PRN Administration Pain, Mild (Pain Scale 1-3) Albuterol Sulfate 2 puff 07/12/20 13:33 Albuterol Sulfate 90 Mcg 8 Gm Inhaler INHALE RQ4H PRN Shortness of Breath Benzonatate 100 mg 07/13/20 14:30 07/15/20 09:04 Benzonatate 100 Mg Capsule PO 100 mg TID PRN Administration Cough Carbidopa/Levodopa 1 tab 07/09/20 21:00 07/16/20 09:08 Carbidopa/Levodopa Cr 50/200 Tablet.Er PO 1 tab TID [facility] Administration Heparin Sodium (Porcine) 50 0 units 07/14/20 15:45 07/16/20 09:06 units/ Sodium Chloride 5 ml IVFLUSH 50 unit TID [facility] Administration Diltiazem HCl 180 mg 07/10/20 09:00 07/16/20 09:04 Diltiazem Hcl Cd 180 Mg Cap.Er.24h PO 180 mg DAILY [facility] Administration Protocol Docusate Sodium 100 mg 07/09/20 20:38 Docusate Sodium 100 Mg Capsule PO DAILY PRN Constipation Enoxaparin Sodium 75 mg 07/13/20 09:00 07/16/20 09:09 Enoxaparin Sodium 80 Mg/0.8 Ml Syringe 1 mg/kg (75 mg) 75 mg SUBCUT Administration Q12H [facility] Caspofungin 50 mg/ Sodium 250 mls @ 250 mls/hr 07/14/20 12:00 07/16/20 12:12 Chloride IV 250 mls/hr Q24H [facility] Administration Insulin Human Lispro 0 unit 07/09/20 20:38 07/16/20 12:10 Insulin Lispro 100 Unit/Ml 3 Ml Vial SUBCUT 2 unit QIDACHS [facility] Administration Protocol Levothyroxine Sodium 50 mcg 07/10/20 09:00 07/16/20 05:51 Levothyroxine Sodium 50 Mcg Tablet PO 50 mcg DAILY@0600 [facility] Administration Losartan Potassium 25 mg 07/10/20 09:00 07/16/20 09:08 Losartan Potassium 25 Mg Tablet PO 25 mg DAILY [facility] Administration Protocol Morphine Sulfate 30 mg 07/09/20 21:00 07/16/20 09:10 Morphine Sulfate Er 30 Mg Tablet.Er PO 30 mg Q12H [facility] Administration Omeprazole 20 mg 07/14/20 16:30 07/16/20 05:51 Omeprazole 20 Mg Capsule. PO 20 mg BID@0630,1630 [facility] Administration Pharmacy Consult 1 each 07/09/20 14:26 Consult Rx Perform Med Rec MISCELLANE ONCE PRN Consult order Pravastatin Sodium 40 mg 07/10/20 09:00 07/16/20 09:10 Pravastatin Sodium 40 Mg Tablet PO 40 mg DAILY [facility] Administration Sodium Chloride 3 ml 07/09/20 20:38 07/16/20 09:09 0.9 % Sodium Chloride Flush 3 Ml Syringe IVFLUSH 3 ml QSHIFT [facility] Administration Sotalol HCl 120 mg 07/10/20 09:00 07/16/20 09:09 Sotalol Hcl 80 Mg Tablet PO 120 mg BID [facility] Administration Sucralfate 1 gm 07/12/20 16:30 07/16/20 09:06 Sucralfate 1 Gm Tablet PO 1 gm BIDAC [facility] Administration Tiotropium [place] 2 puff 07/12/20 09:47 07/16/20 08:08 Tiotropium [place] 18 Mcg Cap.W.Dev INHALE Not Given RDAILY [facility] Labs CBC & Chem 7: 07/15/20 05:51 07/16/20 06:22 Assessment and Plan (1) GI bleed: Status: Acute Assessment and Plan: hospital d#8 74yo M with Parkinson's disease on therapeutic LMWH for atrial fibrillation + mechanical aortic valve + PE (dx 04/28/20) associated with adenoCA of unknown primary recent admissions for anemia due to GIB and pneumonia re-admitted for melena, likely UGIB from AVM, also found to have esophageal candidiasis and MICKIE # Upper GI Bleeding-with acute blood loss anemia in setting of history of gastric AVM (atrial venous malformation). Hematocrit was 24 on 07/09 and dropped to 22 on 07/11 to . He was transfused 2 units of RBC on 07/11/20. He then underwent EGD on 07/12/20 and foud to have Esophagus: GE junction at 38 cm, diaphragm hiatus at 38 cm, numeorus white plaque like lesion in esophagus consistent with candidiasis Stomach: AVM appearing lesion in mid body of stomach, circumferential APC applied with ablation. Grade 2 flap valve on retroflexed examination of the cardia by Dr. Farnsworth amd recommend PPI and Sucralfate and to follow up with GI on outaptient basis. Hematocrit as of 07/15/20 is 30.7 and further bleeding episodes # MICKIE - SCr went from 0.8 and went up to 1.31 and is now 1.16 after IVF # esophageal candidiaisis--seen on EGD. ID recommend Caspofungin for 10 days and has a midline placed for this. Azole are to be avoided to due propensity to cause QT prolongation especially with Sotalol . Caspogungin Day 3 of 10 # Atrial fibrilation--rate is controlled on Sotalol and Diltiazem and to continue Lovenox which is also for PE and Mechacnial aortic valve. 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 # History of Pulmonary embolism--Lovenox as above # HTN - continue diltiazem + losartan # DM2--Sliding scale with Humalog # COPD - continue LAMA + prn IVA # chronic pain - continue MSSR # Parkinsons disease - continue levodopa/carbidopa # hypothyroidism - continue LT4 # sacral pressure ulcer, stage 3 present on admission - continue local wound care, frequent turning # adenoCA of unknown primary care - continue f/u with Dr Mast as outpt # dispo--frail and PT recommends STR
[2020-07-16 16:45] LABS: Glucose, Whole Blood 178 mg/dL (60-115)
--- NOTE | 2020-07-16 18:22 | PC.NURSE ---
PT CONFUSED WANTING TO LEAVE. ATTEMPTING TO GET OUT OF CHAIR BY HIMSELF. ATTEMPTED TO REDIRECT BUT PT UNCOOPERATIVE. O2 1L NC SATS 85%. O2 INCREASED TO 4L NC. SATS IMPROVED TO 94%. PT ASSISTED BACK INTO RECLINER. COOPERATIVE AT THIS TIME
[2020-07-16 20:47] LABS: Glucose, Whole Blood 163 mg/dL (60-115)
[2020-07-16 22:49] LABS: Glucose, Whole Blood 142 mg/dL (60-115)
[2020-07-17] VITALS (9 sets, daily range): BP systolic 86–147; BP diastolic 43–68; PULSE 51–70; RESP 13–20; TEMP 36.1–36.6; O2SAT 94–100
[2020-07-17] MEDS: Levothyroxine Sodium 50 MCG TABLET PO (05:32)
[2020-07-17] MEDS: Omeprazole 20 MG CAPSULE.DR PO ×2 (05:32→16:41)
[2020-07-17] MEDS: Enoxaparin Sodium 80 MG/0.8 ML SYRINGE 75 MG SUBCUT ×2 (07:36→22:47)
[2020-07-17] MEDS: Heparin Sodium,Porcine Flush 50 UNITS, 0.9 % Sodium Chloride Flush 5 ML IVFLUSH ×3 (07:38→22:48)
[2020-07-17] MEDS: Sucralfate 1 GM TABLET PO ×2 (07:40→16:41)
[2020-07-17] MEDS: Morphine Sulfate ER 30 MG TABLET.ER PO ×2 (07:40→22:48)
[2020-07-17] MEDS: dilTIAZem HCL CD 180 MG CAP.ER.24H PO (07:41)
[2020-07-17] MEDS: Pravastatin Sodium 40 MG TABLET PO (07:42)
[2020-07-17] MEDS: Carbidopa/Levodopa CR 50/200 TABLET.ER 1 TAB PO ×3 (07:42→22:48)
[2020-07-17] MEDS: Sotalol HCL 80 MG TABLET 120 MG PO (07:42)
[2020-07-17] MEDS: Losartan Potassium 25 MG TABLET PO (07:42)
[2020-07-17] MEDS: Insulin Lispro 100 UNIT/ML 3 ML VIAL SUBCUT ×3 (07:44→22:48)
[2020-07-17 07:59] LABS: Glucose, Whole Blood 156 mg/dL (60-115)
--- NOTE | 2020-07-17 10:25 | P.PNIM_ITS ---
Subjective Subjective Date of Service: 07/18/20 Interval History: Seen in f/u for gib, no bleeding reported, he seems more confused and somehow looks frail Review of Systems no rectal bleeding, no chest pain no sob Physical Exam Vital Signs: Vital Signs: Last Vital Signs Temp 97.1 F 07/17/20 07:14 Pulse 62 07/17/20 07:14 Resp 19 07/17/20 07:14 BP 147/68 H 07/17/20 07:14 Pulse Ox 97 07/17/20 07:14 Body Mass Index 22.4 Const: General: alert and awake Nutritional Appearance: well nourished HENMT: Head: Yes normocephalic and Yes atraumatic Eyes: Sclerae: sclerae normal Chest: Chest palpation & inspection: normal inspection of the chest Resp: Effort & Inspection: normal respiratory effort and no respiratory distress Cardio: Rate: regular rate Rhythm: regular rhythm GI: Palpation (GI): Soft to palpation and nontender Skin: General skin exam: no rashes or lesions noted Neuro: Cranial nerves: Yes CN's II-XII intact bilaterally and Yes Bilaterally intact EOM present Motor exam (neuro): Normal motor muscle tone present throughout Extrem: General: Yes normal to inspection Objective Data Current Medications Generic Name Dose Route Start Last Admin Trade Name Freq PRN Reason Stop Dose Admin Acetaminophen 650 mg 07/09/20 20:38 07/16/20 04:40 Acetaminophen 325 Mg Tablet PO 650 mg Q6H PRN Administration Pain, Mild (Pain Scale 1-3) Albuterol Sulfate 2 puff 07/12/20 13:33 Albuterol Sulfate 90 Mcg 8 Gm Inhaler INHALE RQ4H PRN Shortness of Breath Benzonatate 100 mg 07/13/20 14:30 07/15/20 09:04 Benzonatate 100 Mg Capsule PO 100 mg TID PRN Administration Cough Carbidopa/Levodopa 1 tab 07/09/20 21:00 07/17/20 07:42 Carbidopa/Levodopa Cr 50/200 Tablet.Er PO 1 tab TID [facility] Administration Heparin Sodium (Porcine) 50 0 units 07/14/20 15:45 07/17/20 07:38 units/ Sodium Chloride 5 ml IVFLUSH 50 unit TID [facility] Administration Diltiazem HCl 180 mg 07/10/20 09:00 07/17/20 07:41 Diltiazem Hcl Cd 180 Mg Cap.Er.24h PO 180 mg DAILY [facility] Administration Protocol Docusate Sodium 100 mg 07/09/20 20:38 Docusate Sodium 100 Mg Capsule PO DAILY PRN Constipation Enoxaparin Sodium 75 mg 07/13/20 09:00 07/17/20 07:36 Enoxaparin Sodium 80 Mg/0.8 Ml Syringe 1 mg/kg (75 mg) 75 mg SUBCUT Administration Q12H [facility] Caspofungin 50 mg/ Sodium 250 mls @ 250 mls/hr 07/14/20 12:00 07/16/20 15:41 Chloride IV Infused Q24H [facility] Infusion Insulin Human Lispro 0 unit 07/09/20 20:38 07/17/20 07:44 Insulin Lispro 100 Unit/Ml 3 Ml Vial SUBCUT 2 unit QIDACHS [facility] Administration Protocol Levothyroxine Sodium 50 mcg 07/10/20 09:00 07/17/20 05:32 Levothyroxine Sodium 50 Mcg Tablet PO 50 mcg DAILY@0600 [facility] Administration Losartan Potassium 25 mg 07/10/20 09:00 07/17/20 07:42 Losartan Potassium 25 Mg Tablet PO 25 mg DAILY [facility] Administration Protocol Morphine Sulfate 30 mg 07/09/20 21:00 07/17/20 07:40 Morphine Sulfate Er 30 Mg Tablet.Er PO 30 mg Q12H [facility] Administration Omeprazole 20 mg 07/14/20 16:30 07/17/20 05:32 Omeprazole 20 Mg Capsule.Dr PO 20 mg BID@0630,1630 [facility] Administration Pharmacy Consult 1 each 07/09/20 14:26 Consult Rx Perform Med Rec MISCELLANE ONCE PRN Consult order Pravastatin Sodium 40 mg 07/10/20 09:00 07/17/20 07:42 Pravastatin Sodium 40 Mg Tablet PO 40 mg DAILY [facility] Administration Sodium Chloride 3 ml 07/09/20 20:38 07/17/20 07:45 0.9 % Sodium Chloride Flush 3 Ml Syringe IVFLUSH Not Given QSHIFT [facility] Sotalol HCl 120 mg 07/10/20 09:00 07/17/20 07:42 Sotalol Hcl 80 Mg Tablet PO 120 mg BID [facility] Administration Sucralfate 1 gm 07/12/20 16:30 07/17/20 07:40 Sucralfate 1 Gm Tablet PO 1 gm BIDAC [facility] Administration Tiotropium [place] 2 puff 07/12/20 09:47 07/17/20 07:50 Tiotropium [place] 18 Mcg Cap.W.Dev INHALE 2 puff RDAILY [facility] Administration Labs CBC & Chem 7: 07/15/20 05:51 07/16/20 06:22 Assessment and Plan (1) GI bleed: Status: Acute Assessment and Plan: hospital d#8 74yo M with Parkinson's disease on therapeutic LMWH for atrial fibrillation + mechanical aortic valve + PE (dx 04/28/20) associated with adenoCA of unknown primary recent admissions for anemia due to GIB and pneumonia re-admitted for melena, likely UGIB from AVM, also found to have esophageal candidiasis and MICKIE # Upper GI Bleeding-with acute blood loss anemia in setting of history of gastric AVM (atrial venous malformation). Hematocrit was 24 on 07/09 and dropped to 22 on 07/11 to . He was transfused 2 units of RBC on 07/11/20. He then underwent EGD on 07/12/20 and foud to have Esophagus: GE junction at 38 cm, diaphragm hiatus at 38 cm, numeorus white plaque like lesion in esophagus c onsistent with candidiasis Stomach: AVM appearing lesion in mid body of stomach, circumferential APC applied with ablation. Grade 2 flap valve on retroflexed examination of the cardia by Dr. Farnsworth amd recommend PPI and Sucralfate and to follow up with GI on outaptient basis. Hematocrit as of 07/15/20 is 30.7 and further bleeding episodes # MICKIE - SCr went from 0.8 and went up to 1.31 and is now 1.16 after IVF # esophageal candidiaisis--seen on EGD. ID recommend Caspofungin for 10 days and has a midline placed for this. Azole are to be avoided to due propensity to cause QT prolongation especially with Sotalol . Caspogungin Day 3 of 10 # Atrial fibrilation--rate is controlled on Sotalol and Diltiazem and to continue Lovenox which is also for PE and Mechacnial aortic valve. 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 # History of Pulmonary embolism--Lovenox as above # HTN - continue diltiazem + losartan # DM2--Sliding scale with Humalog # COPD - continue LAMA + prn IVA # chronic pain - continue MSSR # Parkinsons disease - continue levodopa/carbidopa # hypothyroidism - continue LT4 # sacral pressure ulcer, stage 3 present on admission - continue local wound care, frequent turning # adenoCA of unknown primary care - continue f/u with Dr Mast as outpt # dispo--frail and PT recommends STR
[2020-07-17] MEDS: Caspofungin Acetate 50 MG in 0.9 % Sodium Chloride 250 ML 250 MG IV (12:47)
[2020-07-17 13:28] LABS: Glucose, Whole Blood 159 mg/dL (60-115)
[2020-07-17 16:34] LABS: Glucose, Whole Blood 163 mg/dL (60-115)
[2020-07-17] MEDS: 0.9 % Sodium Chloride Flush 3 ML SYRINGE IVFLUSH (16:41)
[2020-07-17 20:25] LABS: Glucose, Whole Blood 172 mg/dL (60-115)
[2020-07-18] VITALS (10 sets, daily range): BP systolic 117–155; BP diastolic 58–70; PULSE 55–69; RESP 12–28; TEMP -7.2–37.4; O2SAT 89–100
[2020-07-18] MEDS: 0.9 % Sodium Chloride Flush 3 ML SYRINGE IVFLUSH ×3 (03:49→17:02)
[2020-07-18] MEDS: Omeprazole 20 MG CAPSULE.DR PO (05:22)
[2020-07-18] MEDS: Levothyroxine Sodium 50 MCG TABLET PO (05:22)
[2020-07-18] MEDS: Insulin Lispro 100 UNIT/ML 3 ML VIAL SUBCUT ×2 (08:21→17:01)
[2020-07-18] MEDS: Carbidopa/Levodopa CR 50/200 TABLET.ER 1 TAB PO ×2 (08:22→14:12)
[2020-07-18] MEDS: Sucralfate 1 GM TABLET PO (08:22)
[2020-07-18] MEDS: Enoxaparin Sodium 80 MG/0.8 ML SYRINGE 75 MG SUBCUT (08:22)
[2020-07-18] MEDS: Pravastatin Sodium 40 MG TABLET PO (08:23)
[2020-07-18] MEDS: Heparin Sodium,Porcine Flush 50 UNITS, 0.9 % Sodium Chloride Flush 5 ML IVFLUSH ×2 (08:23→14:12)
[2020-07-18] MEDS: Morphine Sulfate ER 30 MG TABLET.ER PO (08:23)
[2020-07-18] MEDS: dilTIAZem HCL CD 180 MG CAP.ER.24H PO (08:25)
[2020-07-18] MEDS: Losartan Potassium 25 MG TABLET PO (08:25)
[2020-07-18] MEDS: Sotalol HCL 80 MG TABLET 120 MG PO (08:25)
[2020-07-18 08:26] LABS: Glucose, Whole Blood 156 mg/dL (60-115)
--- NOTE | 2020-07-18 09:37 | HO.PM.IMPN ---
Subjective Subjective Date of Service: 07/18/20 Interval History: Seen in f/u for gib, no bleeding reported, intermittently confused, and will yell Review of Systems no rectal bleeding, no chest pain no sob Physical Exam Vital Signs: Vital Signs: Last Vital Signs Temp 98.0 F 07/18/20 08:00 Pulse 64 07/18/20 08:25 Resp 19 07/18/20 08:00 BP 132/64 07/18/20 08:25 Pulse Ox 95 07/18/20 08:00 Body Mass Index 22.4 Const: General: alert and awake Nutritional Appearance: well nourished HENMT: Head: Yes normocephalic and Yes atraumatic Eyes: Sclerae: sclerae normal Chest: Chest palpation & inspection: normal inspection of the chest Resp: Effort & Inspection: normal respiratory effort and no respiratory distress Cardio: Rate: regular rate Rhythm: regular rhythm GI: Palpation (GI): Soft to palpation and nontender Skin: General skin exam: no rashes or lesions noted Neuro: Cranial nerves: Yes CN's II-XII intact bilaterally and Yes Bilaterally intact EOM present Motor exam (neuro): Normal motor muscle tone present throughout Extrem: General: Yes normal to inspection Objective Data Current Medications Generic Name Dose Route Start Last Admin Trade Name Freq PRN Reason Stop Dose Admin Acetaminophen 650 mg 07/09/20 20:38 07/16/20 04:40 Acetaminophen 325 Mg Tablet PO 650 mg Q6H PRN Administration Pain, Mild (Pain Scale 1-3) Albuterol Sulfate 2 puff 07/12/20 13:33 Albuterol Sulfate 90 Mcg 8 Gm Inhaler INHALE RQ4H PRN Shortness of Breath Benzonatate 100 mg 07/13/20 14:30 07/15/20 09:04 Benzonatate 100 Mg Capsule PO 100 mg TID PRN Administration Cough Carbidopa/Levodopa 1 tab 07/09/20 21:00 07/18/20 08:22 Carbidopa/Levodopa Cr 50/200 Tablet.Er PO 1 tab TID VIDAL Administration Heparin Sodium (Porcine) 50 0 units 07/14/20 15:45 07/18/20 08:23 units/ Sodium Chloride 5 ml IVFLUSH 50 unit TID VIDAL Administration Diltiazem HCl 180 mg 07/10/20 09:00 07/18/20 08:25 Diltiazem Hcl Cd 180 Mg Cap.Er.24h PO 180 mg DAILY VIDAL Administration Protocol Docusate Sodium 100 mg 07/09/20 20:38 Docusate Sodium 100 Mg Capsule PO DAILY PRN Constipation Enoxaparin Sodium 75 mg 07/13/20 09:00 07/18/20 08:22 Enoxaparin Sodium 80 Mg/0.8 Ml Syringe 1 mg/kg (75 mg) 75 mg SUBCUT Administration Q12H [facility] Caspofungin 50 mg/ Sodium 250 mls @ 250 mls/hr 07/14/20 12:00 07/17/20 14:50 Chloride IV Infused Q24H VIDAL Infusion Insulin Human Lispro 0 unit 07/09/20 20:38 07/18/20 08:21 Insulin Lispro 100 Unit/Ml 3 Ml Vial SUBCUT 2 unit QIDACHS [facility] Administration Protocol Levothyroxine Sodium 50 mcg 07/10/20 09:00 07/18/20 05:22 Levothyroxine Sodium 50 Mcg Tablet PO 50 mcg DAILY@0600 [facility] Administration Losartan Potassium 25 mg 07/10/20 09:00 07/18/20 08:25 Losartan Potassium 25 Mg Tablet PO 25 mg DAILY VIDAL Administration Protocol Morphine Sulfate 30 mg 07/09/20 21:00 07/18/20 08:23 Morphine Sulfate Er 30 Mg Tablet.Er PO 30 mg Q12H VIDAL Administration Omeprazole 20 mg 07/14/20 16:30 07/18/20 05:22 Omeprazole 20 Mg Capsule.Dr PO 20 mg BID@0630,1630 [facility] Administration Pharmacy Consult 1 each 07/09/20 14:26 Consult Rx Perform Med Rec MISCELLANE ONCE PRN Consult order Pravastatin Sodium 40 mg 07/10/20 09:00 07/18/20 08:23 Pravastatin Sodium 40 Mg Tablet PO 40 mg DAILY VIDAL Administration Sodium Chloride 3 ml 07/09/20 20:38 07/18/20 08:22 0.9 % Sodium Chloride Flush 3 Ml Syringe IVFLUSH 3 ml QSHIFT VIDAL Administration Sotalol HCl 120 mg 07/10/20 09:00 07/18/20 08:25 Sotalol Hcl 80 Mg Tablet PO 120 mg BID VIDAL Administration Sucralfate 1 gm 07/12/20 16:30 07/18/20 08:22 Sucralfate 1 Gm Tablet PO 1 gm BIDAC VIDAL Administration Tiotropium [place] 2 puff 07/12/20 09:47 07/18/20 08:11 Tiotropium [place] 18 Mcg Cap.W.Dev INHALE 2 puff RDAILY VIDAL Administration Labs CBC & Chem 7: 07/15/20 05:51 07/16/20 06:22 Assessment and Plan (1) GI bleed: Status: Acute Assessment and Plan: hospital d#9 74yo M with Parkinson's disease on therapeutic LMWH for atrial fibrillation + mechanical aortic valve + PE (dx 04/28/20) associated with adenoCA of unknown primary recent admissions for anemia due to GIB and pneumonia re-admitted for melena, likely UGIB from AVM, also found to have esophageal candidiasis and MICKIE # Upper GI Bleeding-with acute blood loss anemia in setting of history of gastric AVM (atrial venous malformation). Hematocrit was 24 on 07/09 and dropped to 22 on 07/11 to . He was transfused 2 units of RBC on 07/11/20. He then underwent EGD on 07/12/20 and foud to have Esophagus: GE junction at 38 cm, diaphragm hiatus at 38 cm, numeorus white plaque like lesion in esophagus consistent with candidiasis Stomach: AVM appearing lesion in mid body of stomach, circumferential APC applied with ablation. Grade 2 flap valve on retroflexed examination of the cardia by Dr. Farnsworth amd recommend PPI and Sucralfate and to follow up with GI on outaptient basis. Hematocrit as of 07/15/20 is 30.7 and no further bleeding episodes # MICKIE - SCr went from 0.8 and went up to 1.31 and is now 1.16 after IVF # esophageal candidiaisis--seen on EGD. ID recommend Caspofungin for 10 days and has a midline placed for this. Azole are to be avoided to due propensity to cause QT prolongation especially with Sotalol . Caspogungin Day 5 of 10 # Atrial fibrilation--rate is controlled on Sotalol and Diltiazem and to continue Lovenox which is also for PE and Mechacnial aortic valve. 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 # History of Pulmonary embolism--Lovenox as above # HTN - continue diltiazem + losartan # DM2--Sliding scale with Humalog # COPD - continue LAMA + prn IVA # chronic pain - continue MSSR # Parkinsons disease - continue levodopa/carbidopa # hypothyroidism - continue LT4 # sacral pressure ulcer, stage 3 present on admission - continue local wound care, frequent turning # adenoCA of unknown primary care - continue f/u with Dr Mast as outpt # dispo--frail and PT recommends STR which will likely happen tomorrow, discussed with over the phone
[2020-07-18 11:19] LABS: Glucose, Whole Blood 144 mg/dL (60-115)
[2020-07-18] MEDS: Caspofungin Acetate 50 MG in 0.9 % Sodium Chloride 250 ML 250 MG IV (12:09)
[2020-07-18 16:41] LABS: Glucose, Whole Blood 221 mg/dL (60-115)
[2020-07-18 18:02] LABS: Pt Ventilation O2% 3 L
[2020-07-18 18:09] LABS: Base Excess ABG 7.8; HCO3 ABG 36 mmol/L (22-26); PO2 ABG 53 mmHg (83-108); pH ABG 7.28 (7.35-7.45)
[2020-07-18 18:12] LABS: ABG PCO2 76 mmHg (32-45)
[2020-07-18] MEDS: Piperacillin Sodium/Tazobactam 3.375 GM in 0.9 % Sodium Chloride 50 ML IV (19:14)
[2020-07-18 19:34] LABS: Hematocrit 33.3 % (42-52); Hemoglobin 10.2 g/dl (14.0-18.0); Mean Corpuscular HGB Conc 30.6 g/dl (31.0-36.0); Mean Corpuscular Hemoglobin 30.1 pg (27.0-33.0); Mean Corpuscular Volume 98.2 fL (80-98); Mean Platelet Volume 9.5 fL (9.4-12.4); Platelet Count 410 X10*3/uL (160-400); Red Blood Count 3.39 X10*6/uL (4.60-5.80); Red Cell Distribution Width 16.6 % (11.0-16.0); White Blood Count 11.3 X10*3/uL (4.8-10.8)
--- NOTE | 2020-07-18 19:43 | PM.EVENT ---
Event Note Date of Service: 07/18/20 Event Note: Spoke to miss lincoln all staff of patient : As per the staff patient feel drowsy and more weak, also has gurgling noises. As per the staff patient patient was started to have gurgly sounds this afternoon. Upon examination patient seems alert oriented time 1, easily awake, as per the staff seems slightly better mental status ruiz than previous exam: Patient could able to answer some questions could say like have breathing difficulty and no pain-chest pain or abdominal pain Moving extremities slowly. But seems sleepy intermittently. Physical exam: Cvs: rrr, [id number] , no murmur res: Diminished breath sounds, has lot of gargly sounds, some wheezing abd: no rebound or guarding ,nt, bs present. ext pulses present , no cyanosis neuro: axo1 , moving extremities Assessment and plan: 1. Possibility of aspiration pneumonia/COPD exacerbation: ABG chest x-ray reviewed, CBC, BMP, BNP pending Patient was started on nebs, steroids, started on IV Zosyn also be due to low pH and a retaining CO2 ruiz: Patient probably has acute on chronic hypercarbic respiratory failure for which also addedCPAP. Will repeat ABG in few hours Night staff is aware to follow the labs and monitor patient clinically. Also patient transfer [place] [facility] [place].. Above management discussed with the patient family in detail patient family does not want intubation or resuscitation at currently, they understand the prognosis appear patient is poor-but want above conservative management. Night staff is aware to inform the family if patient condition worsen further.
[2020-07-18 19:58] LABS: Anion Gap 13 (12-20); Blood Urea Nitrogen 38 mg/dL (9-16); Calcium 7.7 mg/dL (8.4-10.2); Carbon Dioxide 30 mmol/L (22-29); Chloride 105 mmol/L (96-108); Estimated Glomerular Filt Rate 49; Glucose Random 170 mg/dL (60-115); Potassium 4.5 mmol/L (3.3-5.1); Sodium 143 mmol/L (135-145)
[2020-07-18 20:04] LABS: B Type Natriuretic Peptide 897 pg/mL (<100)
[2020-07-18] MEDS: Albuterol/Iprat 2.5/0.5MG 3 ML AMPUL.NEB INHALE (20:10)
--- NOTE | 2020-07-18 21:11 | PM.EVENT ---
Event Note Date of Service: 07/18/20 Event Note: Comfort measures only: For physician from prior patient has been having a acute shortness of breath/lethargy and noted to have respiratory acidosis on the blood gas. Patient is also confused. Patient not tolerating BiPAP. Family came to visit the patient. The patient's current health condition and treatment options have been discussed with the family by Dr. White as well as by me. Given poor prognosis family has decided to keep him comfort measures only. And also mentioned they understand that began withdrawal the treatment including labs, treatment of other conditions, vitals. Status has been changed to comfort measures only. All treatments have been discontinued. Started on morphine, Ativan for comfort. Scopolamine for secretions.
[2020-07-18 21:36] LABS: Glucose, Whole Blood 144 mg/dL (60-115)
[2020-07-18] MEDS: LORazepam 2 MG/ML VIAL 0.5 MG IVPUSH (21:47)
[2020-07-18] MEDS: Scopolamine 1.5 MG PATCH.TD.3 EAR-BEHIND (21:47)
[2020-07-18] MEDS: Morphine Sulfate 2 MG/ML CARTRIDGE 1 MG IVPUSH (22:36)
--- NOTE | 2020-07-18 23:38 | PC.NURSE ---
1730- Upon assessment noted that pt had coarse lung sounds throughout, with audible gurgling while sleeping. Sternal rub done to arouse pt. Pt open eyes and was able to give name but would fall back asleep. TEACHERS AIDE repositioned pt and attempted to fed, but pt breathed in food . Unable to swallow food. Dr. Bryant made aware. ABGs ordered and CXR. Dr. White at bedside. Critical pCO2 76. IV zosyn ordered and hung. Pt strict NPO. Pt family given okay to visit, at bedside. 2030- Respiratory attempted to set up BiPap for pt, but pt crying and not keeping mask on. Per family, they would not like to have pt on BiPap if he is going to continue to take it off. They would like him comfortable. Dr. Leal at bedside to discuss the options to the family. 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 Pt restless pulling off gown. Pt given ativan and morhpine at 2147 and 2236 respectively. Pt resting comfortable in bed. Telesitter in place, bed alarm on.
[2020-07-19] MEDS: LORazepam 2 MG/ML VIAL 0.5 MG IVPUSH ×2 (00:47→06:35)
[2020-07-19] MEDS: Morphine Sulfate 2 MG/ML CARTRIDGE 1 MG IVPUSH ×2 (00:47→06:36)
[2020-07-19 07:13] VITALS: BP 95/50; PULSE 63; RESP 19; TEMP 36.1; O2SAT 93
[2020-07-19 07:43] LABS: Glucose, Whole Blood 133 mg/dL (60-115)
--- NOTE | 2020-07-19 09:38 | MHC.CM.PN ---
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 [facility] NOTIFIED, [facility]. CASE MANAGEMENT FOLLOWING
--- NOTE | 2020-07-19 11:15 | MHC.CM.PN ---
PER CONVERSATION WITH PATIENT'S , JULIANNA ([phone]) SHE IS HESITANT TO TAKE PATIENT HOME. SHE STATES I DO NOT THINK HE HAS MUCH TIME LEFT . SHE IS AGREEABLE TO A HOSPICE CONSULT FOR INFORMATION GATHERING PURPOSES, SO THAT SHE CAN MAKE AN INFORMED DECISION. SHE IS AGREEABLE TO [facility]ERR[facility], NOW PLACED. CRIS IVERSON MADE AWARE VIA PHONE (DANNY @ [phone])
--- NOTE | 2020-07-19 11:55 | MHC.SLORD ---
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 Dysphagia therapy is no longer warranted. Name: Marciano Washington Date of : 1945 Age: 74 Date of Registration: 07/09/20 Speech Language Pathology Order Status:
--- NOTE | 2020-07-19 12:17 | P.PNIM_ITS ---
Subjective Subjective Date of Service: 07/19/20 Interval History: Seen in f/u for gib, and esophageal candidiasis. Patient decompensated overnight with respiratory failure believed to be aspiration with altered mental status and was made comfort measures following family visit. He is not responsive this morning and is not in distress. Review of Systems Review of Systems: Yes Unobtainable due to mental status Physical Exam Vital Signs: Vital Signs: Last Vital Signs Temp 97.0 F 07/19/20 07:13 Pulse 63 07/19/20 07:13 Resp 19 07/19/20 07:13 BP 95/50 L 07/19/20 07:13 Pulse Ox 93 07/19/20 07:13 Body Mass Index 22.4 Const: Other: Unresponsive Resp: Effort & Inspection: normal respiratory effort and no respiratory distr ess Cardio: Rate: regular rate Rhythm: regular rhythm GI: Palpation (GI): Soft to palpation and nontender Skin: General skin exam: no rashes or lesions noted Neuro: Other: Unresponsive Objective Data Current Medications Generic Name Dose Route Start Last Admin Trade Name Colinq PRN Reason Stop Dose Admin Acetaminophen 650 mg 07/09/20 20:38 07/16/20 04:40 Acetaminophen 325 Mg Tablet PO 650 mg Q6H PRN Administration Pain, Mild (Pain Scale 1-3) Lorazepam 0.5 mg 07/18/20 21:22 07/19/20 06:35 Lorazepam 2 Mg/Ml Vial IVPUSH 0.5 mg Q2H PRN Administration Anxiety Morphine Sulfate 2 mg 07/19/20 07:33 Morphine Sulfate 2 Mg/Ml Cartridge IVPUSH Q1H PRN Comfort measure Scopolamine 1.5 mg 07/18/20 21:30 07/18/20 21:47 Scopolamine 1.5 Mg Patch.Td.3 EAR-BEHIND 1.5 mg Q72H VIDAL Administration Labs CBC & Chem 7: 07/18/20 19:01 07/18/20 19:01 Assessment and Plan (1) GI bleed: Status: Acute Assessment and Plan: hospital d#10 74yo M with Parkinson's disease on therapeutic LMWH for atrial fibrillation + mechanical aortic valve + PE (dx 04/28/20) associated with adenoCA of unknown primary recent admissions for anemia due to GIB and pneumonia re-admitted for melena, likely UGIB from AVM, also found to have esophageal candidiasis and MICKIE--He declined overnight with acute respiratory failure with hypercarbia and encephalopathy, gail realted to aspiration and family after compassionate opted for comfort measures only and thus all other treated with jorgito and inessa jacob give morphine, and ativan PRN for comfort. I discussed the clinical course with the Trish overnight the phone on 07/18 and offer her compassionate visit. Plan: Comfort Care and will explore the posibility of discharge with hospice at home. Continue comfort measures, morphine, ativan for comfort
[2020-07-19] MEDS: Morphine Sulfate 2 MG/ML CARTRIDGE IVPUSH ×2 (14:05→17:49)
--- NOTE | 2020-07-19 15:20 | MHC.CLN ---
F/U 0-25% PO; PT IS NOW NPO PT IS TRAVEL INSURANCE AGENT WILL FOLLOW WITH CARE PLAN TEAM AND PROVIDE SUPPORT NEEDED
--- NOTE | 2020-07-19 15:38 | MHC.CM.PN ---
Addendum entered by Nakita Grewal 07/19/20 15:42: INFORMATION DESK MADE AWARE Original Note: PER CONVERSATION WITH HOSPITALIST AND PORTAL ARCHITECT, HAS PERMISSION TO VISIT PATIENT SUSAN. SHE IS AWARE THAT IT CAN ONLY BE ONE PERSON.
--- NOTE | 2020-07-19 15:52 | MHC.CM.PN ---
MOLST HAS BEEN COMPLETED OVER THE PHONE BETWEEN /HCP AND HOSPITALIST. MOLST LEFT WITH RN FOR TO SIGN. IS AWARE OF PLAN FOR SIGNATURE UPON ARRIVAL
[2020-07-19 17:49] VITALS: RESP 26
[2020-07-19 23:37] VITALS: BP 125/42; PULSE 68; RESP 19; TEMP 37; O2SAT 93
[2020-07-20 04:00] VITALS: BP 130/41; PULSE 75; RESP 20; TEMP 36.9; O2SAT 94
[2020-07-20] MEDS: LORazepam 2 MG/ML VIAL 0.5 MG IVPUSH ×2 (07:27→09:17)
[2020-07-20] MEDS: Morphine Sulfate 2 MG/ML CARTRIDGE IVPUSH ×2 (07:27→09:18)
--- NOTE | 2020-07-20 11:33 | P.PNIM_ITS ---
Subjective Subjective Date of Service: 07/20/20 Interval History: Seen in f/u for comort measure, has been hospitaliezed for GIB, esophageal candidiasis, hospital course complicated by aspiration pneumonia with respiratory and ultered mental status and decrease response. He remains unresp onsive and Physical Exam Vital Signs: Vital Signs: Last Vital Signs Temp 98.4 F 07/20/20 04:00 Pulse 75 07/20/20 04:00 Resp 20 07/20/20 04:00 BP 130/41 L 07/20/20 04:00 Pulse Ox 94 07/20/20 04:00 Body Mass Index 22.4 General: Unresponsive Resp: breathing is comfortable CVS:no tachy Skin: No rash Neuro: Unresponsive, other not tested Psych: unresponsive Objective Data Current Medications Generic Name Dose Route Start Last Admin Trade Name Freq PRN Reason Stop Dose Admin Acetaminophen 650 mg 07/09/20 20:38 07/16/20 04:40 Acetaminophen 325 Mg Tablet PO 650 mg Q6H PRN Administration Pain, Mild (Pain Scale 1-3) Lorazepam 0.5 mg 07/18/20 21:22 07/20/20 09:17 Lorazepam 2 Mg/Ml Vial IVPUSH 0.5 mg Q2H PRN Administration Anxiety Morphine Sulfate 2 mg 07/19/20 07:33 07/20/20 09:18 Morphine Sulfate 2 Mg/Ml Cartridge IVPUSH 2 mg Q1H PRN Administration Comfort measure Scopolamine 1.5 mg 07/18/20 21:30 07/18/20 21:47 Scopolamine 1.5 Mg Patch.Td.3 EAR-BEHIND 1.5 mg Q72H VIDAL Administration Labs CBC & Chem 7: 07/18/20 19:01 07/18/20 19:01 Assessment and Plan (1) GI bleed: Status: Acute Assessment and Plan: hospital d#11 74yo M with Parkinson's disease on therapeutic LMWH for atrial fibrillation + mechanical aortic valve + PE (dx 04/28/20) associated with adenoCA of unknown primary recent admissions for anemia due to GIB and pneumonia re-admitted for melena, likely UGIB from AVM, also found to have esophageal candidiasis and MICKIE--He declined overnight with acute respiratory failure with hypercarbia and encephalopathy, celyley realted to aspiration and family after compassionate opted for comfort measures only and thus all other treated with halted and patient give morphine, and ativan PRN for comfort. Plan: Comfort Care, not able handle him at home with hospcie. Continue comfort measures, morphine, ativan for comfort
--- NOTE | 2020-07-20 14:11 | MHC.CM.PN ---
met with pts daughter jacquie we discussed home with hospice vs rehab no hospice, family ,daughter requesting additional imfo from hvns/hopsice referrals made to area [facility] ..cm will continue to follow no dc orders at this time
--- NOTE | 2020-07-20 17:24 | P.DN_ITS ---
Discharge Sum: Prov Provider Primary care physician: Jorge Currie MD Consults: 07/09/20 15:40 Consult to Gastroenterology Routine Consulting Provider: Rob Farnsworth Reason for consultation: gib; on Lovenox 07/13/20 10:19 Consult to Infectious Diseases Routine Consulting Provider: Rommel Sanchez Reason for consultation: restricted med- caspofungin Has provider been notified: Yes Discharge Sum: Diag PCOD Cause of : Aspiration pneumonia Contributing Factors (1) GI bleed: (2) Metastatic bone tumor: (3) Elham esophagitis: (4) Pulmonary embolism: (5) Weakness: (6) Pneumonia: (7) Anemia: (8) Stage II pressure ulcer: (9) Adenocarcinoma of unknown primary: (10) Current use of anticoagulant therapy: Discharge Sum: Summary Date and Time Date of admission: 07/09/20 15:40 Date of : 07/20/20 Time of : 17:15 Summary Details: 74yo M with Parkinson's disease on therapeutic LMWH for atrial fibrillation + mechanical aortic valve + PE (dx 04/28/20) associated with adenoCA of unknown primary recent admissions for anemia due to GIB and pneumonia re-admitted for melena, likely UGIB from AVM, also found to have esophageal candidiasis and MICKIE. Over the course of hospitalization he prgoressively declined and developped acute respiratory failure with hypercarbia and encephalopathy, likley realted to aspiration pneumonia and and family after further consideration for further care given his overall decline over the last hospitalizations recently, they opted for comfort care measures and patient on 07/20/2020 at 5:15 pm. Family had been coming to bedside and are notified. 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
--- NOTE | 2020-07-20 17:33 | PM.EVENT ---
Event Note Date of Service: 07/20/20 Event Note: Pt at 5:15 pm--See summery for details.
--- NOTE | 2020-07-21 10:07 | MHC.CM.PN ---
NURSE SCHOLARSHIP COUNSELOR STEPHANIE ON ARRIVAL THIS MORNING I WAS INFORMED THAT PATIENT HAD LAST NIGHT
== END 2020-07-20 17:15 | disposition expired | DRG 377 ==
LOC: HO.ED 11:02 → HO.EDOVER 15:47 → HO.S3 20:15
PROVIDERS: Family Medicine; Internal Medicine Gastroenterology; Nurse Practitioner Primary Care; Physician Assistant Medical; Admitting Provider Internal Medicine; Emergency Provider Emergency Medicine; PCP Internal Medicine; Visit Provider Internal Medicine
PROC: 0DJ08ZZ Inspection of Upper Intestinal Tract, Via Natural or Artificial Opening Endoscopic (ICD-10-PCS; CPT 43235; principal; 2020-07-12 13:30)
DX: K55.21 Angiodysplasia of colon with hemorrhage (principal); L89.153 Pressure ulcer of sacral region, stage 3; J69.0 Pneumonitis due to inhalation of food and vomit; D62 Acute posthemorrhagic anemia; B37.81 Candidal esophagitis; N17.9 Acute kidney failure, unspecified; E87.2 Acidosis; J44.1 Chronic obstructive pulmonary disease with (acute) exacerbation; E03.9 Hypothyroidism, unspecified; I48.91 Unspecified atrial fibrillation; G89.29 Other chronic pain; G20 Parkinson's disease; Z86.711 Personal history of pulmonary embolism; Z20.822 Contact with and (suspected) exposure to COVID-19; Z95.2 Presence of prosthetic heart valve; Z95.0 Presence of cardiac pacemaker; Z79.4 Long term (current) use of insulin; Z79.890 Hormone replacement therapy; Z79.899 Other long term (current) drug therapy; Z66 Do not resuscitate; Z51.5 Encounter for palliative care
CPT/HCPCS: 36410; 36415; 70450; 71045; 71046; 80048; 80053; 81001; 82272; 82803; 82947; 83735; 83880; 84145; 84484; 85025; 85027; 85610; 85730; 86850; 86900; 86923; 87635; 92526; 92610; 93005; 94640; 94660; 96374; 97110; 97162; 99285; J0637; J1642; J1650; J1940; J2060; J2270; J2370; J2543; P9016